=== PATIENT | female | born 1940 | race Caucasian/White ===

== ENCOUNTER → 2017-09-13 10:09 | Outpatient (CLI) | payer MEDICARE, SELFPAY ==
[2017-09-13 12:51] LABS: Erythrocyte Sedimentation Rate 12 mm/hr (0-30)
== END ==
PROVIDERS: Family Provider Internal Medicine; PCP Internal Medicine
DX: M05.79 Rheumatoid arthritis with rheumatoid factor of multiple sites without organ or systems involvement (principal); M19.071 Primary osteoarthritis, right ankle and foot; M19.072 Primary osteoarthritis, left ankle and foot; M47.9 Spondylosis, unspecified; M19.011 Primary osteoarthritis, right shoulder; M19.012 Primary osteoarthritis, left shoulder; M19.041 Primary osteoarthritis, right hand; M19.042 Primary osteoarthritis, left hand; M50.30 Other cervical disc degeneration, unspecified cervical region; Z78.0 Asymptomatic menopausal state; Z79.01 Long term (current) use of anticoagulants; Z79.52 Long term (current) use of systemic steroids; Z79.899 Other long term (current) drug therapy; R76.9 Abnormal immunological finding in serum, unspecified
CPT/HCPCS: 36415; 85652

== ENCOUNTER 2017-10-23 13:46 | Outpatient (RCR) | payer MEDICARE, SELFPAY ==
[2017-10-23 15:54] LABS: Absolute Lymphocyte Count 1.64 X10^3/ul (0.83-4.51); Absolute Neutrophil Count 7.9 X10^3/uL (2.0-7.7); Basophil# 0.03 X10^3/uL; Basophil% 0.3 % (0-1); Eosinophil# 0.11 X10^3/uL; Eosinophils% 1.1 % (0-5); Hematocrit 42.5 % (37-47); Hemoglobin 13.8 g/dl (12.0-15.0); Lymphocyte # 1.64 X10^3/ul (4.0); Lymphocyte % 15.8 % (19-41); Mean Corp Hgb Conc 32.5 g/gl (32-36); Mean Corpuscular Hgb 31.9 pg (27.0-32.0); Mean Corpuscular Volume 98.2 fL (81-99); Mean Platelet Vol. 9.5 fl (6.2-12.0); Monocyte% 6.7 % (0-10); Neutrophil # 7.89 X10^3/uL (2.7-7.7); Neutrophil % 75.8 % (47-70); Platelet Count 263 K/mm3 (150-450); RBC Distribution Width CV 14.2 % (11.6-14.6); RBC Distribution Width SD 50.7 fl (35.1-43.9); Red Blood Count 4.33 M/mm3 (4.2-5.4); White Blood Count 10.4 K/mm3 (4.4-11.0)
[2017-10-23 15:55] LABS: POSITIVE COUNT NO; POSITIVE MORPHOLOGY NO
[2017-10-23 16:28] LABS: AST(SGOT) 20 U/L (15-37); Alanine Aminotransfer ALT/SGPT 34 U/L (12-78); CRP < 2.90 mg/L (0.0-3.0); Creatinine, Serum 0.77 mg/dL (0.55-1.02); EST Glomerular Filtration Rate 78 mL/min (>60); Est Glom Filt Rate - Afr Amer 94 mL/min (>60)
[2017-10-23 16:33] LABS: Erythrocyte Sedimentation Rate 16 mm/hr (0-30)
== END 2017-10-23 13:47 | disposition home or self-care (01) ==
LOC: MTLAB 13:46
PROVIDERS: Family Provider Internal Medicine; PCP Internal Medicine
DX: M05.79 Rheumatoid arthritis with rheumatoid factor of multiple sites without organ or systems involvement (principal); M19.071 Primary osteoarthritis, right ankle and foot; M19.072 Primary osteoarthritis, left ankle and foot; M47.9 Spondylosis, unspecified; M19.011 Primary osteoarthritis, right shoulder; M19.012 Primary osteoarthritis, left shoulder; M19.041 Primary osteoarthritis, right hand; M19.042 Primary osteoarthritis, left hand; M50.30 Other cervical disc degeneration, unspecified cervical region; R76.9 Abnormal immunological finding in serum, unspecified; Z78.0 Asymptomatic menopausal state; Z79.01 Long term (current) use of anticoagulants; Z79.52 Long term (current) use of systemic steroids; Z79.899 Other long term (current) drug therapy
CPT/HCPCS: 36415; 82565; 84450; 84460; 85025; 85652; 86140

== ENCOUNTER 2017-12-15 10:15 | Outpatient (RCR) | payer MEDICARE, SELFPAY ==
[2017-12-15 12:22] LABS: Absolute Lymphocyte Count 2.33 X10^3/ul (0.83-4.51); Absolute Neutrophil Count 4.3 X10^3/uL (2.0-7.7); Basophil# 0.05 X10^3/uL; Basophil% 0.7 % (0-1); Eosinophil# 0.26 X10^3/uL; Eosinophils% 3.5 % (0-5); Hematocrit 40.6 % (37-47); Hemoglobin 13.3 g/dl (12.0-15.0); Lymphocyte # 2.33 X10^3/ul (4.0); Lymphocyte % 31.2 % (19-41); Mean Corp Hgb Conc 32.8 g/gl (32-36); Mean Corpuscular Hgb 31.6 pg (27.0-32.0); Mean Corpuscular Volume 96.4 fL (81-99); Mean Platelet Vol. 9.4 fl (6.2-12.0); Monocyte# 0.55 X10^3/uL; Monocyte% 7.4 % (0-10); Neutrophil # 4.26 X10^3/uL (2.7-7.7); Neutrophil % 56.9 % (47-70); Platelet Count 261 K/mm3 (150-450); RBC Distribution Width CV 13.5 % (11.6-14.6); RBC Distribution Width SD 46.4 fl (35.1-43.9); Red Blood Count 4.21 M/mm3 (4.2-5.4); White Blood Count 7.5 K/mm3 (4.4-11.0)
[2017-12-15 12:25] LABS: ALB/GLOB Ratio 1.3 RATIO (0.9-2.4); AST(SGOT) 26 U/L (15-37); Alanine Aminotransfer ALT/SGPT 39 U/L (13-56); Albumin, Serum 3.6 g/dL (3.2-5.0); Alkaline Phosphatase 144 U/L (45-117); Anion Gap 9 (5-15); BUN 19 mg/dL (7-18); BUN/Creat Ratio 26.1 RATIO (10-20); Calcium,Total 9.3 mg/dL (8.5-10.1); Chloride 104 mmol/L (98-107); Creatinine, Serum 0.73 mg/dL (0.55-1.02); EST Glomerular Filtration Rate 83 mL/min (>60); Est Glom Filt Rate - Afr Amer 100 mL/min (>60); Globulin 2.8 g/dL (2.2-4.2); Glucose 95 mg/dL (74-106); Potassium 4.1 mmol/L (3.5-5.1); Protein, Total 6.4 g/dL (6.4-8.2); Sodium Level 141 mmol/L (136-145)
[2017-12-15 12:54] LABS: POSITIVE COUNT NO; POSITIVE DIFFERENTIAL NO; POSITIVE MORPHOLOGY NO
[2017-12-21 03:07] LABS: QNTFERON TB Ag Minus Nil Value 0.02 IU/mL (.); QNTFERON TB Ag Value 0.04 IU/mL (.); QNTFERON TB Mitogen Value > 10.00 IU/mL (.); QNTFERON TB Nil Value 0.02 IU/mL (.)
[2017-12-21 09:22] LABS: Hepatitis Be Ab Negative (Negative); QNTIFERON TB Gold Negative (Negative)
== END 2017-12-15 11:00 | disposition home or self-care (01) ==
LOC: MTLAB 10:15
PROVIDERS: Family Provider Internal Medicine; PCP Internal Medicine
DX: G35 Multiple sclerosis (principal)
CPT/HCPCS: 36415; 80053; 85025; 86480; 86707

== ENCOUNTER → 2017-12-22 11:45 | Outpatient (CLI) | payer MEDICARE, SELFPAY ==
[2017-12-23 11:25] LABS: Hep C Antibodies <0.1 s/co ratio (0.0-0.9)
== END ==
PROVIDERS: Family Provider Internal Medicine; PCP Internal Medicine; Visit Provider Psychiatry & Neurology Neurology
DX: G35 Multiple sclerosis (principal); K75.9 Inflammatory liver disease, unspecified
CPT/HCPCS: 36415; 86803

== ENCOUNTER 2018-01-05 10:00 | Outpatient (RCR) | payer MEDICARE, SELFPAY ==
--- NOTE | 2017-11-07 14:18 | HP.PTEVAL_ITS ---
Patient's Visit Information OSBALDO VILLAVICENCIO is a 77 year old F referred to Physical Therapy by JOSIE Cano NP.LACEY with a diagnosis of falls and weakness, unsteady gait.. Date of Evaluation: 11/07/17 Physical Therapist: Bob Hardin DPT, OC - Visit Plan Frequency: 2x /Week Duration: 4-6 Weeks Plan: 2x/week for 4-6 weeks ... Please focus on LE strength and postural strength that patient can do at home, also on ec and weight shifting balance progressing to home as safety allows. Please include functional strength balance ex including steps, transfer up off floor and gait in clinic without AD for distance as well as scooting when sitting. Please include UE strength also. - Subjective Subjective: Pt says she has fallen 9 times in last two weeks, dtr says two times. dtr says she has cognitive deficits from MS and dementia. Sleeps on edge of bed so she does not have to scoot. Has bedrail now. Fell one time without walker and one time with the walker. Has rollator now which is new to her. She says she loses her strength and goes down quickly. Last fall was in [facility]room [place] [employer]. Fell the week before at home. Had UTI when they took her in. Overall strength and balance is down. Months ago had cement procedure in LB. Getting back up off the floor is a goal. Scooting is goal as she tendes to sit where she lands.. Getting up off floor. No dizzyness regularly. Hs MS and numbnes intermittently. Lives with hubby and daughter. and granddaughter. is home most of time. No steps. Does not use basement. Uses rollator and has 9 signs on the wall. Furniture walks at home. Dresses self, cooks meals, and cleans house due to safely level. Not in a while. - Pain LBP Pain Intensity (Out of 10): 0 Pain Intensity Range: 0, 7 Comment: getting up and scooting in bed - Objective Walks with rolaltor walker into PT trailing it by 2 feet. Mod I with gait and transfers.. Balance is poor without AD. Steps are slow and step to with obvious functional weakness in LE. LE strength 3 in hips, 3+ in knees adn 4- in ankles, AROM WFLS but tightness apparent in gastroc and HS and quads. Appears to be sedentarism related. reflexes 3/3 in patella and achilles. Sensation inconsistent in LE to light otuch. UE AROM wFL slightly deficits limited in elevation adn 3+ strength, not enough to protect self with fall. Pt scoots independent when requested but lazy to do it on her own. Coordination: moderate slowness to reciprocal toe tapping and L LB hurts attempting heel to green on right. VOR walking is not possible safely. - Balance Scores Functional Gait Assessment Score: 13 % Disability: 56.6700 CATSIB Score (Max score 120 seconds): 61 - Goals Goal 1:: I approp HEP at home of LE strength and balance ex to minimize future problems. Goal Time Frame: 4-6 Weeks Goal 2:: Get up off the floor the Min A of 1 Goal Time Frame: 4-6 Weeks Goal 3:: Steps reciprocally without feelign warn out. Goal Time Frame: 4-6 Weeks Goal 4:: FGA 20/30 to minimize fall risk. Goal Time Frame: 4-6 Weeks - Rehabilitation Potential Physical Therapy Diagnosis: Unsteadiness from weakness and balance deficits exacerbated by her sedentary lifestyle. Rehabilitation Potential: Fair - Anticipated Interventions Patient/Client Instruction: Educate patient on: Condition, Plan of Care For the Purpose of:: To improve muscle performance and motor function, To improve ability to perform ADL's, To improve ability of physical actions for home/community/work/leisure, To improve gait and locomotor functions Therapeutic Exercise to Include: Strength training, Postural training, Gait and locomotor training, Active ROM, Scapular Strength/Stabilization For the Purpose of:: To increase oxygenation perfusion, To improve muscle performance and motor function, To improve ability to perform ADL's, To improve ability of physical actions for home/community/work/leisure, To improve gait and locomotor functions Thank you for the opportunity to evaluate your patient. For Medicare and Medicare HMO plans, please review the plan of care and approve it. It will need to be FAXED BACK to us at [phone] for Medicare purposes. Please let me know if there are questions or concerns regarding this plan of care. Physician Signature: Date:
--- NOTE | 2017-12-07 14:14 | HP.PTREVAL_ITS ---
Cuca Wadsworth, JOSIE, LENI It has been my pleasure to treat OSBALDO VILLAVICENCIO over the last 8 visits for falls and weakness, unsteady gait.. Please see the progress note below for an update on the physical therapy plan of care! Subjective: feel much better. Back does not hurt as much. Fallen last time a couple weeks ago. Dtr says not using wh walker all the time. Getting around better overall. Not falling as much. Doing some exercises at home on non therapy days. Dtr says gait is better and not as unsteady. Progress is up and down. Dtr thinks cognitive issues keep her from moving at home, sits at dining room table all day. Objective/Function: +4 on FGA. Dtr amazed at how patient ambulates in PT. Steps reciprocal up with one rail, two rails to descend step -to. No complaints of pain through time in here. OVERALL MUCH IMPROVEMENT. APPROPRIATE TO CONTINUE. Plan Plan: 2X/WEEK X 4 FOR... PT TO DO COUNTER EXERCISES AT HOME WITH FAMILYS ENCOURAGEMENT. PLEASE FOCUS IN PT ON GAIT WITH CHALLENGES(TURNS, BENDS, STEPS) AND TRANSFER ONTO AND OFF FLOOR. Goals Goal 1:: I approp HEP at home of LE strength and balance ex to minimize future problems. Goal Time Frame: 4-6 Weeks Goal Progress: cognitive. Goal 2:: Get up off the floor the Min A of 1 Goal Time Frame: 4-6 Weeks Goal Progress: Goal Met Goal 3:: Steps reciprocally without feelign warn out. Goal Time Frame: 4-6 Weeks Goal Progress: Goal Met Goal 4:: FGA 20/30 to minimize fall risk. Goal Time Frame: 4-6 Weeks Goal Progress: Progressing Anticipated Interventions Patient/Client Instruction: Educate patient on: Condition, Plan of Care For the Purpose of:: To improve muscle performance and motor function, To improve ability to perform ADL's, To improve ability of physical actions for home/community/work/leisure, To improve gait and locomotor functions Therapeutic Exercise to Include: Strength training, Postural training, Gait and locomotor training, Active ROM, Scapular Strength/Stabilization For the Purpose of:: To increase oxygenation perfusion, To improve muscle performance and motor function, To improve ability to perform ADL's, To improve ability of physical actions for home/community/work/leisure, To improve gait and locomotor functions Please do not hesitate to contact me at [phone] by phone or Fax: if you have questions or concerns regarding this new plan of care! Sincerely, Bob Hardin, DPT, OC
--- NOTE | 2018-01-05 11:59 | HP.PTREVAL_ITS ---
Cuca Wadsworth, JOSIE, LENI It has been my pleasure to treat OSBALDO VILLAVICENCIO over the last 16 visits for falls and weakness, unsteady gait.. Please see the progress note below for an update on the physical therapy plan of care! Subjective: Got up off floor today without help. Back still hurts with walking. 04/24. gone with sitting down. HEP a little bit at home. Getting more active lately according to . Legs haven't felt wobbly lately. Objective/Function: Transfer sit to stand I with UE. Steps reciprocal with rail. Needed cues today for step length during FGA but otherwise did well. Dragged feet at times without cues. Plan Plan: f/u three weeks to check FGA, pain with gait and ensure consistently meeting goals. Pt to contact doctor prior regarding back pain with walking. Goals Goal 1:: I approp HEP at home of LE strength and balance ex to minimize future problems. Goal Time Frame: 4-6 Weeks Goal Progress: Goal Met Goal 2:: Get up off the floor the Min A of 1 Goal Time Frame: 4-6 Weeks Goal Progress: Goal Met Goal 3:: Steps reciprocally without feelign warn out. Goal Time Frame: 4-6 Weeks Goal Progress: Goal Met Goal 4:: FGA 20/30 to minimize fall risk. Goal Time Frame: 4-6 Weeks Goal Progress: with VC Goal 5:: Pt able to continue improvement and maintain gait and balance with ehr MS over the next 3 weeks Goal Time Frame: 3 weeks Goal Progress: NEW GOAL Anticipated Interventions Patient/Client Instruction: Educate patient on: Condition, Plan of Care For the Purpose of:: To improve muscle performance and motor function, To improve ability to perform ADL's, To improve ability of physical actions for home/community/work/leisure, To improve gait and locomotor functions Therapeutic Exercise to Include: Strength training, Postural training, Gait and locomotor training, Active ROM, Scapular Strength/Stabilization For the Purpose of:: To increase oxygenation perfusion, To improve muscle performance and motor function, To improve ability to perform ADL's, To improve ability of physical actions for home/community/work/leisure, To improve gait and locomotor functions Please do not hesitate to contact me at [phone] by phone or Fax: if you have questions or concerns regarding this new plan of care! Sincerely, Bob Hardin, DPT, OC
--- NOTE | 2018-04-09 15:21 | HP.PT.NRP ---
HP - Discharge Summary (1) - Patient Information OSBALDO VILLAVICENCIO was seen in my office for initial evaluation on 11/07/17. The following Plan of Care was established for this patient: Initial Frequency: 2x /Week Initial Duration: 4-6 Weeks - Anticipated Interventions Patient/Client Instruction: Educate patient on: Condition, Plan of Care For the Purpose of:: To improve muscle performance and motor function, To improve ability to perform ADL's, To improve ability of physical actions for home/community/work/leisure, To improve gait and locomotor functions Therapeutic Exercise to Include: Strength training, Postural training, Gait and locomotor training, Active ROM, Scapular Strength/Stabilization For the Purpose of:: To increase oxygenation perfusion, To improve muscle performance and motor function, To improve ability to perform ADL's, To improve ability of physical actions for home/community/work/leisure, To improve gait and locomotor functions This patient was last seen in our office 01/05/18. Pertinent comments regarding their Physical therapy will appear below: Pt seen 16 visits. she was doing well and was to f/u three weeks after her last visit to ensure continued progression via HEP. She was to f/u with her doctor regarding her back pain. She did not schedule or attend her PT f/u. At this point, it has been over 3 months and I will disocontinue due to nonattendance. At this point I will be discontinuing this patient from physical therapy. I would be happy to see this patient again in the future if found appropriate by the physician. Thank you! Bob Hardin, DPT, OC
== END 2018-01-05 19:00 | disposition home or self-care (01) ==
LOC: PT 10:00
PROVIDERS: Family Provider Internal Medicine; PCP Internal Medicine; Visit Provider Nurse Practitioner Gerontology
DX: R53.1 Weakness (principal); R26.81 Unsteadiness on feet; W19.XXXD Unspecified fall, subsequent encounter; G35 Multiple sclerosis; K75.9 Inflammatory liver disease, unspecified
CPT/HCPCS: 36415; 86803; 97110; 97116; 97163; 97530

== ENCOUNTER → 2018-02-19 11:56 | Outpatient (CLI) | payer MEDICARE, SELFPAY ==
[2018-02-19 14:06] LABS: Erythrocyte Sedimentation Rate 18 mm/hr (0-30)
[2018-02-19 14:08] LABS: Absolute Lymphocyte Count 2.07 X10^3/ul (0.83-4.51); Absolute Neutrophil Count 5.3 X10^3/uL (2.0-7.7); Basophil# 0.04 X10^3/uL; Basophil% 0.5 % (0-1); Eosinophil# 0.19 X10^3/uL; Eosinophils% 2.3 % (0-5); Hematocrit 43.5 % (37-47); Hemoglobin 14.2 g/dl (12.0-15.0); Lymphocyte # 2.07 X10^3/ul (4.0); Lymphocyte % 24.7 % (19-41); Mean Corp Hgb Conc 32.6 g/gl (32-36); Mean Corpuscular Hgb 31.1 pg (27.0-32.0); Mean Corpuscular Volume 95.2 fL (81-99); Mean Platelet Vol. 9.3 fl (6.2-12.0); Monocyte# 0.74 X10^3/uL; Monocyte% 8.8 % (0-10); Neutrophil # 5.33 X10^3/uL (2.7-7.7); Neutrophil % 63.6 % (47-70); POSITIVE COUNT NO; POSITIVE DIFFERENTIAL NO; POSITIVE MORPHOLOGY NO; Platelet Count 244 K/mm3 (150-450); RBC Distribution Width CV 13.8 % (11.6-14.6); RBC Distribution Width SD 47.2 fl (35.1-43.9); Red Blood Count 4.57 M/mm3 (4.2-5.4); White Blood Count 8.4 K/mm3 (4.4-11.0)
[2018-02-19 14:36] LABS: AST(SGOT) 23 U/L (15-37); Alanine Aminotransfer ALT/SGPT 36 U/L (13-56); CRP < 2.90 mg/L (0.0-3.0); Creatinine, Serum 0.86 mg/dL (0.55-1.02); EST Glomerular Filtration Rate 68 mL/min (>60); Est Glom Filt Rate - Afr Amer 83 mL/min (>60)
== END ==
PROVIDERS: Family Provider Internal Medicine; PCP Internal Medicine
DX: M05.79 Rheumatoid arthritis with rheumatoid factor of multiple sites without organ or systems involvement (principal); M19.071 Primary osteoarthritis, right ankle and foot; M19.072 Primary osteoarthritis, left ankle and foot; M47.9 Spondylosis, unspecified; M19.011 Primary osteoarthritis, right shoulder; M19.012 Primary osteoarthritis, left shoulder; M19.041 Primary osteoarthritis, right hand; M19.042 Primary osteoarthritis, left hand; M50.30 Other cervical disc degeneration, unspecified cervical region; Z78.0 Asymptomatic menopausal state; Z79.01 Long term (current) use of anticoagulants; Z79.52 Long term (current) use of systemic steroids; Z79.899 Other long term (current) drug therapy; R76.9 Abnormal immunological finding in serum, unspecified
CPT/HCPCS: 36415; 82565; 84450; 84460; 85025; 85652; 86140

== ENCOUNTER → 2018-02-22 10:11 | Outpatient (CLI) | payer MEDICARE, SELFPAY ==
--- NOTE | 2018-02-22 10:14 | BI_ITS ---
MAMMOGRAPHY - BILATERAL SCREENING REASON FOR EXAM: Female, 78 years old. Routine annual screening examination. PERTINENT HISTORY: Non-contributory. TECHNIQUE: Digital bilateral breast elfego (3D mammographic acquisition) in the CC and MLO projections. 2-D mediolateral oblique (MLO) and craniocaudad (CC) views of both breasts were obtained. CAD: Full Field Digital Mammography with Computer Added Detection was performed. COMPARISON: Comparison is made with prior study dated February 16, 2017 and February 16, 2016. FINDINGS: Breast Composition: There are scattered areas of fibroglandular density. There are no dominant masses or suspicious calcifications. No other significant abnormalities are identified. There has been no significant change since the prior study. BI/SCREENING MAMM (CAD), BILAT IMPRESSION: Stable bilateral screening mammogram. Yearly follow-up mammogram recommended. (A) ASSESSMENT CATEGORY: BIRADS Category 1: Negative. A letter regarding these results will be sent to the patient by the facility within 30 days. Approximately 10% of breast cancers are not detected by mammography. A normal mammogram should not delay biopsy of a clinically suspicious abnormality. [id number] Electronically Signed: Abelardo Eduardo MD at 15:47 EDT Tel [phone], Service support ,
== END ==
PROVIDERS: Family Provider Internal Medicine; PCP Internal Medicine; Visit Provider Internal Medicine
DX: Z12.31 Encounter for screening mammogram for malignant neoplasm of breast (principal)
CPT/HCPCS: 77063; 77067

== ENCOUNTER → 2018-03-01 08:44 | Outpatient (CLI) | payer MEDICARE, SELFPAY ==
[2018-03-01 08:52] VITALS: BP 134/83; PULSE 66; RESP 18; TEMP 35.8; O2SAT 93; BMI 33.3
[2018-03-01] MEDS: MethylPREDNISolone 125 MG/2 ML Vial 100 MG IV (09:11)
[2018-03-01] MEDS: DiphenhydrAMINE 50 MG/ML Syringe 25 MG IV (09:11)
[2018-03-01 10:25] VITALS: BP 126/61; PULSE 60; RESP 18; TEMP 36.4; O2SAT 96
[2018-03-01 10:55] VITALS: BP 139/75; PULSE 62; RESP 16; TEMP 36.1
[2018-03-01 11:30] VITALS: BP 144/93; PULSE 68; RESP 18; TEMP 35.9; O2SAT 97
[2018-03-01 12:00] VITALS: BP 148/86; PULSE 69; RESP 18; TEMP 35.8; O2SAT 96
[2018-03-01 13:45] VITALS: BP 133/62; PULSE 79; RESP 18; TEMP 36.6; O2SAT 93
== END ==
PROVIDERS: Family Provider Internal Medicine; PCP Internal Medicine; Visit Provider Psychiatry & Neurology Neurology
DX: G35 Multiple sclerosis (principal)
CPT/HCPCS: 96365; 96366 ×2; 96374; 96375; J7040; J7050; A4216; J2350

== ENCOUNTER → 2018-03-15 09:11 | Outpatient (CLI) | payer MEDICARE, SELFPAY ==
[2018-03-15] VITALS (7 sets, daily range): BP systolic 133–149; BP diastolic 72–80; PULSE 57–75; RESP 16–18; TEMP 35.7–36.1; O2SAT 94–96; BMI 33.4
[2018-03-15] MEDS: DiphenhydrAMINE 50 MG/ML Syringe 25 MG IV (09:19)
[2018-03-15] MEDS: MethylPREDNISolone 125 MG/2 ML Vial 100 MG IV (09:24)
== END ==
PROVIDERS: Family Provider Internal Medicine; PCP Internal Medicine; Visit Provider Psychiatry & Neurology Neurology
DX: G35 Multiple sclerosis (principal)
CPT/HCPCS: 96365; 96366 ×2; 96374; 96375; J7050; J2350

== ENCOUNTER → 2018-04-23 11:28 | Outpatient (CLI) | payer MEDICARE, SELFPAY ==
[2018-04-23 14:04] LABS: Hematocrit 41.9 % (37-47); Mean Corp Hgb Conc 33.4 g/gl (32-36); Mean Corpuscular Hgb 32.4 pg (27.0-32.0); Mean Platelet Vol. 9.9 fl (6.2-12.0); Platelet Count 282 K/mm3 (150-450); RBC Distribution Width CV 15.2 % (11.6-14.6); RBC Distribution Width SD 51.4 fl (35.1-43.9); Red Blood Count 4.32 M/mm3 (4.2-5.4); White Blood Count 7.7 K/mm3 (4.4-11.0)
[2018-04-23 14:06] LABS: Erythrocyte Sedimentation Rate 10 mm/hr (0-30)
[2018-04-23 14:07] LABS: Scan Indicated on CBC? Y/N NO
[2018-04-23 14:12] LABS: AST(SGOT) 21 U/L (15-37); Alanine Aminotransfer ALT/SGPT 28 U/L (13-56); CRP < 2.90 mg/L (0.0-3.0); Creatinine, Serum 0.86 mg/dL (0.55-1.02); EST Glomerular Filtration Rate 68 mL/min (>60); Est Glom Filt Rate - Afr Amer 83 mL/min (>60)
== END ==
PROVIDERS: Family Provider Internal Medicine; PCP Internal Medicine; Visit Provider Internal Medicine Rheumatology
DX: M05.79 Rheumatoid arthritis with rheumatoid factor of multiple sites without organ or systems involvement (principal); M19.071 Primary osteoarthritis, right ankle and foot; M19.072 Primary osteoarthritis, left ankle and foot; M47.9 Spondylosis, unspecified; M19.011 Primary osteoarthritis, right shoulder; M19.012 Primary osteoarthritis, left shoulder; M19.041 Primary osteoarthritis, right hand; M19.042 Primary osteoarthritis, left hand; M50.30 Other cervical disc degeneration, unspecified cervical region; Z78.0 Asymptomatic menopausal state; Z79.01 Long term (current) use of anticoagulants; Z79.52 Long term (current) use of systemic steroids; Z79.899 Other long term (current) drug therapy; R76.9 Abnormal immunological finding in serum, unspecified
CPT/HCPCS: 36415; 82565; 84450; 84460; 85027; 85652; 86140

== ENCOUNTER → 2018-06-21 15:12 | Outpatient (CLI) | payer MEDICARE, SELFPAY ==
[2018-06-21 17:44] LABS: Hematocrit 40.8 % (37-47); Hemoglobin 13.6 g/dl (12.0-15.0); Mean Corp Hgb Conc 33.3 g/gl (32-36); Mean Corpuscular Hgb 32.5 pg (27.0-32.0); Mean Corpuscular Volume 97.4 fL (81-99); Mean Platelet Vol. 10.1 fl (6.2-12.0); Platelet Count 283 K/mm3 (150-450); RBC Distribution Width CV 13.9 % (11.6-14.6); RBC Distribution Width SD 48.1 fl (35.1-43.9); Red Blood Count 4.19 M/mm3 (4.2-5.4); White Blood Count 9.9 K/mm3 (4.4-11.0)
[2018-06-21 17:52] LABS: AST(SGOT) 20 U/L (15-37); Alanine Aminotransfer ALT/SGPT 28 U/L (13-56); CRP 2.98 mg/L (0.0-3.0); Creatinine, Serum 0.88 mg/dL (0.55-1.02); EST Glomerular Filtration Rate 66 mL/min (>60); Est Glom Filt Rate - Afr Amer 80 mL/min (>60)
[2018-06-21 18:04] LABS: Scan Indicated on CBC? Y/N NO
[2018-06-21 19:40] LABS: Erythrocyte Sedimentation Rate 3 mm/hr (0-30)
== END ==
PROVIDERS: Family Provider Internal Medicine; PCP Internal Medicine; Visit Provider Internal Medicine Rheumatology
DX: M05.79 Rheumatoid arthritis with rheumatoid factor of multiple sites without organ or systems involvement (principal); Z79.899 Other long term (current) drug therapy
CPT/HCPCS: 36415; 82565; 84450; 84460; 85027; 85652; 86140

== ENCOUNTER 2018-08-15 10:43 | Emergency (ER) | payer MEDICARE, SELFPAY ==
[2018-08-15] VITALS (8 sets, daily range): BP systolic 119–156; BP diastolic 63–100; PULSE 59–72; RESP 14–18; TEMP 36.6; O2SAT 95–98; BMI 34.3
--- NOTE | 2018-08-15 10:55 | ED.RN ---
FAMILY STATES PT ADMITTED THIS AM TO BE VERY VERY DEPRESSED.PT FATHER COMMITTED SUICIDE
--- NOTE | 2018-08-15 11:23 | CT_ITS ---
STUDY: CT BRAIN WITHOUT CONTRAST REASON FOR EXAM: Female, 78 years old. Dementia. Mental status changes. RADIATION DOSAGE (If Supplied By Facility): CTDIvol = ( 44.99 ) mGy, DLP = ( 762.36 ) mGycm TECHNIQUE: Transaxial CT imaging of the brain was performed without administration of intravenous contrast material. Individualized dose optimization techniques were used for this CT. COMPARISON: None. FINDINGS: Normal soft tissue structures. Normal calvarium. There is moderate cerebral atrophy with widening of the extra-axial spaces and ventricular dilatation. There are areas of decreased attenuation within the white matter tracts of the supratentorial brain, consistent with microvascular disease changes. Normal basal ganglia and thalami. Normal brainstem. There is mild cerebellar atrophy. There is no intracranial hemorrhage. There are no findings of an acute ischemic infarction. Atherosclerotic calcification of the vertebral arteries and cavernous portions of the internal carotid arteries bilaterally. Normal visualized paranasal sinuses. CT/Brain/Head without Contrast IMPRESSION: Chronic involutional changes of the brain. Electronically Signed: Abelardo Eduardo MD at 12:52 EDT Tel [phone], Service support ,
--- NOTE | 2018-08-15 11:27 | ED.VISSUMM ---
- ER Visit Summary Date of Service: 08/15/18 Chief Complaint: Depression History of Present Illness: The patient is a 78 F history of dementia, CAD, long-standing history of MS and on blood thinners for PEs. Patient's recently been depressed. She left a note for family last night that she denies being suicidal or good by no acute family is concerned. The patient's father did commit suicide many years ago. She is never been under psychiatric care. She is on an antidepressant. She is never needed to be hospitalized for depression or prior suicide attempt. She herself denies being suicidal. Physical Examination: Older female no acute distress. Vital signs are stable. She is afebrile. She does not look septic or toxic she is in no distress. Her and both daughters are at bedside. HEENT exam unremarkable. Neck nontender. No JVD. Lungs clear to auscultation bilaterally. Heart regular rhythm no murmur. Abdomen is soft and nontender. Normal bowel sounds no peritoneal signs. She is moving all 4 extremities. They are neurovascularly intact. She has 5 out of 5 loss prevention auditor strength. Dorsi plantar flexion intact. Neurologically she is awake and alert. She has normal speech. She is able to answering questions. She has no facial droop. No motor loss. No focal motor deficits. Test Results: I me. CBC unremarkable with a white count of 5 and a normal hemoglobin. Chemistries normal. With a normal creatinine and gap. UA negative. Tox screen and alcohol level negative. CT of the brain shows no acute abnormality. Chronic changes. Reviewed by me read by the radiologist. Emergency Department Course and Treatment: Older female with depression. Will undergo screening labs and a crisis evaluation. I have already discussed with the family at length in the hallway that most likely she will need follow-up and will not require admission. Treatment Plan: Belinda from crisis evaluate the patient and is going to try to get her admitted to a geriatric psychiatric facility. Disposition: Transfer Impression: Acute depression History of dementia and MS This note was generated with [employer] dictation software. It may contain incorrect words, spelling, and punctuation that were not noted in review of the chart prior to signing ED Disposition - Plan for ED Patient: Chief Complaint: Mental Health Referrals: Zofia Horton DO [Primary Care Provider] -
--- NOTE | 2018-08-15 11:30 | ED.DCSUM_ITS ---
- ER Visit Summary Date of Service: 08/15/18 Chief Complaint: Depression History of Present Illness: The patient is a 78 F history of dementia, CAD, long-standing history of MS and on blood thinners for PEs. Patient's recently been depressed. She left a note for family last night that she denies being balta cidal or good by no acute family is concerned. The patient's father did commit suicide many years ago. She is never been under psychiatric care. She is on an antidepressant. She is never needed to be hospitalized for depression or prior suicide attempt. She herself denies being suicidal. Physical Examination: Older female no acute distress. Vital signs are stable. She is afebrile. She does not look septic or toxic she is in no distress. Her and both daughters are at bedside. HEENT exam unremarkable. Neck nontender. No JVD. Lungs clear to auscultation bilaterally. Heart regular rhythm no murmur. Abdomen is soft and nontender. Normal bowel sounds no peritoneal signs. She is moving all 4 extremities. They are neurovascularly intact. She has 5 out of 5 marketing outreach coordinator strength. Dorsi plantar flexion intact. Neurologically she is awake and alert. She has normal speech. She is able to answering questions. She has no facial droop. No motor loss. No focal motor deficits. Test Results: I me. CBC unremarkable with a white count of 5 and a normal hemoglobin. Chemistries normal. With a normal creatinine and gap. UA negative . Tox screen and alcohol level negative. CT of the brain shows no acute abnormality. Chronic changes. Reviewed by me read by the radiologist. Emergency Department Course and Treatment: Older female with depression. Will undergo screening labs and a crisis evaluation. I have already discussed with the family at length in the hallway that most likely she will need follow-up and will not require admission. Treatment Plan: Belinda from crisis evaluate the patient and is going to try to get her admitted to a geriatric psychiatric facility. Disposition: Transfer Impression: Acute depression History of dementia and MS This note was generated with [employer] dictation software. It may contain incorrect words, spelling, and punctuation that were not noted in review of the chart prior to signing ED Disposition - Plan for ED Patient: Chief Complaint: Mental Health Referrals: Zofia Horton DO [Primary Care Provider] -
[2018-08-15 12:02] LABS: Absolute Lymphocyte Count 1.26 X10^3/ul (0.83-4.51); Absolute Neutrophil Count 3.9 X10^3/uL (2.0-7.7); Basophil# 0.06 X10^3/uL; Eosinophil# 0.18 X10^3/uL; Eosinophils% 3.1 % (0-5); Hematocrit 42.1 % (37-47); Lymphocyte # 1.26 X10^3/ul (4.0); Lymphocyte % 21.4 % (19-41); Mean Corp Hgb Conc 33.3 g/gl (32-36); Mean Corpuscular Hgb 32.3 pg (27.0-32.0); Mean Platelet Vol. 9.7 fl (6.2-12.0); Monocyte# 0.51 X10^3/uL; Monocyte% 8.6 % (0-10); Neutrophil # 3.87 X10^3/uL (2.7-7.7); Neutrophil % 65.6 % (47-70); POSITIVE DIFFERENTIAL NO; Platelet Count 256 K/mm3 (150-450); RBC Distribution Width CV 14.2 % (11.6-14.6); RBC Distribution Width SD 48.6 fl (35.1-43.9); Red Blood Count 4.34 M/mm3 (4.2-5.4); White Blood Count 5.9 K/mm3 (4.4-11.0)
[2018-08-15 12:03] LABS: POSITIVE COUNT NO; POSITIVE MORPHOLOGY NO
[2018-08-15 12:13] LABS: Anion Gap 8 (5-15); BUN 24 mg/dL (7-18); BUN/Creat Ratio 26.7 RATIO (10-20); Calcium,Total 9.7 mg/dL (8.5-10.1); Chloride 103 mmol/L (98-107); EST Glomerular Filtration Rate 65 mL/min (>60); Est Glom Filt Rate - Afr Amer 78 mL/min (>60); Estimated Creatinine Clearance 45.92 ml/min; Glucose 100 mg/dL (74-106); Potassium 4.1 mmol/L (3.5-5.1); Sodium Level 141 mmol/L (136-145)
[2018-08-15 12:22] LABS: Bacteria 0 SEEN /hpf (None Seen); Mucous, Urine 0 SEEN /hpf (<or=2+); Red Blood Cells-Urine 0 SEEN /hpf (0-5); Squamous Epithelial Cells - UA 0 SEEN /hpf (5-10); White Blood Cells 0 SEEN /hpf (0-5)
[2018-08-15 12:23] LABS: Color, Urine Yellow (Yellow); Glucose, Dipstick Normal (Normal); Ketone-Dipstick Negative (Negative); Leukocyte Esterase-Dipstick 100 /ul (Negative); Nitrite-Dipstick Positive (Negative); Occult Blood-Urine Negative /ul (Negative); Protein-Dipstick Negative (Negative); Urine Bilirubin Dipstick Negative (Negative); Urine Clarity Clear (Clear); Urine Urobilinogen Normal (Normal)
--- NOTE | 2018-08-15 12:47 | ED.RN ---
TANISHA WITH CRISIS I HAVE A FEW THINGS TO DO, THEN I WILL BE BACK TO SEE THE PATIENT
[2018-08-15 13:28] LABS: Amphetamine Urine VISTA NEGATIVE (<1000 ng/mL); Barbiturate Urine VISTA NEGATIVE (< 200 ng/mL); Benzodiazepine Urine VISTA NEGATIVE (< 200 ng/mL); Cocaine Urine VISTA NEGATIVE (< 300 ng/mL); Ecstacy Urine VISTA NEGATIVE (< 500 ng/mL); Methadone Urine VISTA NEGATIVE (< 300 ng/mL); PCP Urine VISTA NEGATIVE (< 25 ng/mL); THC Urine VISTA NEGATIVE (< 50 ng/mL); Vista UDS pH Range 7
--- NOTE | 2018-08-15 13:30 | NURSING ---
TANISHA, CRISIS, HERE
--- NOTE | 2018-08-15 16:44 | NURSING ---
DIEGO GUSTAFSON, CALLED. PATIENT'S INSURANCE IS OUT OF NETWORK. LETTING CRISIS KNOW
--- NOTE | 2018-08-15 19:39 | EKG12_ITS ---
[place] Reason : [facility] [place] : / mmHG Vent. Rate : 059 BPM Atrial Rate : 059 BPM P-R Int : 180 ms QRS Dur : 082 ms QT Int : 424 ms P-R-T Axes : 047 016 046 degrees QTc Int : 419 ms Sinus bradycardia Low voltage QRS Cannot rule out Inferior infarct , age undetermined Abnormal ECG Confirmed by JUAN LUIS SEWELL, BRAYAN ([id number]), online editor NURYS NICOLE ([id number]) on 08/22/2018 2:20:15 PM Referred By: DR ARAUJO Confirmed By:BRAYAN MCKNIGHT MD
--- NOTE | 2018-08-15 20:06 | NURSING ---
[facility] CALLED @1999
== END 2018-08-15 20:27 ==
LOC: ED 11:45
PROVIDERS: Emergency Provider Emergency Medicine; Family Provider Internal Medicine; PCP Internal Medicine
DX: F32.9 Major depressive disorder, single episode, unspecified (principal); F03.90 Unspecified dementia, unspecified severity, without behavioral disturbance, psychotic disturbance, mood disturbance, and anxiety; G35 Multiple sclerosis; I25.10 Atherosclerotic heart disease of native coronary artery without angina pectoris; E78.00 Pure hypercholesterolemia, unspecified; I10 Essential (primary) hypertension; Z86.711 Personal history of pulmonary embolism; Z79.01 Long term (current) use of anticoagulants; Z79.899 Other long term (current) drug therapy
CPT/HCPCS: 36415; 70450; 80048; 80307; 80320; 81001; 85025; 93005; 99284; G0480

== ENCOUNTER → 2018-08-20 10:32 | Outpatient (CLI) | payer MEDICARE, SELFPAY ==
[2018-08-20 12:44] LABS: Absolute Lymphocyte Count 1.49 X10^3/ul (0.83-4.51); Absolute Neutrophil Count 3.1 X10^3/uL (2.0-7.7); Basophil# 0.03 X10^3/uL; Basophil% 0.5 % (0-1); Eosinophil# 0.22 X10^3/uL; Hematocrit 40.9 % (37-47); Hemoglobin 13.5 g/dl (12.0-15.0); Lymphocyte # 1.49 X10^3/ul (4.0); Lymphocyte % 27.1 % (19-41); Mean Corpuscular Hgb 32.1 pg (27.0-32.0); Mean Corpuscular Volume 97.1 fL (81-99); Mean Platelet Vol. 10.1 fl (6.2-12.0); Monocyte# 0.65 X10^3/uL; Monocyte% 11.8 % (0-10); Neutrophil # 3.09 X10^3/uL (2.7-7.7); Neutrophil % 56.4 % (47-70); Platelet Count 249 K/mm3 (150-450); RBC Distribution Width CV 14.3 % (11.6-14.6); RBC Distribution Width SD 48.8 fl (35.1-43.9); Red Blood Count 4.21 M/mm3 (4.2-5.4); White Blood Count 5.5 K/mm3 (4.4-11.0)
[2018-08-20 12:48] LABS: POSITIVE COUNT NO; POSITIVE DIFFERENTIAL NO; POSITIVE MORPHOLOGY NO
[2018-08-20 13:07] LABS: Erythrocyte Sedimentation Rate 11 mm/hr (0-30)
[2018-08-20 13:11] LABS: Vitamin B12 764 pg/mL (211-911); Vitamin D,25 Hydroxy 31.5 ng/mL (29.95-100.01)
[2018-08-20 13:17] LABS: ALB/GLOB Ratio 1.2 RATIO (0.9-2.4); AST(SGOT) 16 U/L (15-37); Alanine Aminotransfer ALT/SGPT 25 U/L (13-56); Albumin, Serum 3.6 g/dL (3.2-5.0); Alkaline Phosphatase 95 U/L (45-117); Anion Gap 11 (5-15); BUN 23 mg/dL (7-18); BUN/Creat Ratio 29.5 RATIO (10-20); CRP < 2.90 mg/L (0.0-3.0); Chloride 105 mmol/L (98-107); Creatinine, Serum 0.78 mg/dL (0.55-1.02); EST Glomerular Filtration Rate 76 mL/min (>60); Est Glom Filt Rate - Afr Amer 92 mL/min (>60); Glucose 90 mg/dL (74-106); Potassium 4.1 mmol/L (3.5-5.1); Protein, Total 6.6 g/dL (6.4-8.2); Sodium Level 143 mmol/L (136-145); Thyroid Stim Hormone (TSH) 1.48 uIU/mL (0.358-3.74)
== END ==
PROVIDERS: Family Provider Internal Medicine; PCP Internal Medicine; Referring Provider Internal Medicine Rheumatology; Visit Provider Internal Medicine Rheumatology
DX: E55.9 Vitamin D deficiency, unspecified (principal); E53.8 Deficiency of other specified B group vitamins; R73.02 Impaired glucose tolerance (oral); M05.79 Rheumatoid arthritis with rheumatoid factor of multiple sites without organ or systems involvement; Z79.899 Other long term (current) drug therapy
CPT/HCPCS: 36415; 80053; 81001; 82043; 82306; 82570; 82607; 84443; 85025; 85652; 86140

== ENCOUNTER → 2018-09-03 08:29 | Outpatient (CLI) | payer MEDICARE, SELFPAY ==
[2018-08-15 10:46] VITALS: BMI 34.3
[2018-09-03] VITALS (8 sets, daily range): BP systolic 113–139; BP diastolic 52–76; PULSE 58–69; RESP 16–18; TEMP 36.2–37.1; O2SAT 94–98; BMI 34.1
[2018-09-03] MEDS: MethylPREDNISolone 125 MG/2 ML Vial 100 MG IV (08:59)
[2018-09-03] MEDS: DiphenhydrAMINE 50 MG/ML Syringe 25 MG IV (09:00)
[2018-09-03] MEDS: Ocrelizumab 600mg Infusion 40 MG IV (10:02)
== END ==
PROVIDERS: Family Provider Internal Medicine; PCP Internal Medicine; Visit Provider Psychiatry & Neurology Neurology
DX: G35 Multiple sclerosis (principal)
CPT/HCPCS: 96365; 96366 ×3; 96374; 96375; J7040; J7050; A4216; J2350

== ENCOUNTER → 2018-09-07 10:45 | Outpatient (CLI) | payer MEDICARE, SELFPAY ==
[2018-09-03 09:03] VITALS: BMI 34.1
--- NOTE | 2018-09-07 11:30 | MRI_ITS ---
STUDY: MRI BRAIN WITH AND WITHOUT CONTRAST REASON FOR EXAM: Female, 78 years old. Multiple sclerosis follow-up TECHNIQUE: Standardized multiplanar fat and water weighted pulse sequences were obtained. 10 ml of Gadavist contrast material was administered intravenously for the contrast portion of the examination. COMPARISON: February 15, 2017 FINDINGS: Moderate atrophy and advanced periventricular white matter disease with involvement of the corpus callosum and may be consistent with clinical history of multiple sclerosis. Cannot definitively exclude coexisting deep white matter ischemic changes. There is no evidence for acute infarct.. Normal bilateral basal ganglia. Normal thalami. There is no extra-axial fluid accumulation. Normal flow voids within the major intracranial circulation suggesting patency by spin echo criteria. Normal venous enhancement. There is a small dural based enhancing nodule in the left frontal lobe in the parasagittal region consistent with small meningioma. There are no enhancing plaques to suggest acute demyelination Normal sella turcica, pituitary gland, infundibular stalk, optic chiasm and hypothalamus. Normal tectal plate and pineal gland. Normal midbrain, ale and medulla. Normal cerebellum. Normal basal cisterns. Normal bilateral temporal bones. Normal bilateral internal auditory canals. Postsurgical changes of the orbits.. There is minor mucosal thickening of the ethmoid air cells. Normal calvarium and skull base. Normal visualized soft tissue structures. Normal visualized upper cervical spine. No significant change since prior study MRI/Brain W/WO Contrast IMPRESSION: Findings consistent with advanced white matter disease consistent with clinical history of multiple sclerosis stable since prior exam without evidence for demyelinating plaque.. Cannot definitively exclude coexisting periventricular white matter ischemic changes in patient of this age. There is however no evidence for acute infarct. 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
== END ==
PROVIDERS: Family Provider Internal Medicine; PCP Internal Medicine; Referring Provider Psychiatry & Neurology Neurology; Visit Provider Psychiatry & Neurology Neurology
DX: G35 Multiple sclerosis (principal)
CPT/HCPCS: 70553; A9585

== ENCOUNTER 2018-10-19 11:58 | Outpatient (RCR) | payer MEDICARE, SELFPAY ==
[2018-09-03 09:03] VITALS: BMI 34.1
[2018-10-19 14:25] LABS: AST(SGOT) 24 U/L (15-37); Alanine Aminotransfer ALT/SGPT 42 U/L (13-56); CRP < 2.90 mg/L (0.0-3.0); Creatinine, Serum 0.74 mg/dL (0.55-1.02); EST Glomerular Filtration Rate 81 mL/min (>60); Est Glom Filt Rate - Afr Amer 98 mL/min (>60)
[2018-10-19 14:34] LABS: Absolute Lymphocyte Count 1.72 X10^3/ul (0.83-4.51); Absolute Neutrophil Count 4.9 X10^3/uL (2.0-7.7); Basophil# 0.04 X10^3/uL; Basophil% 0.5 % (0-1); Eosinophil# 0.32 X10^3/uL; Eosinophils% 4.2 % (0-5); Hematocrit 41.1 % (37-47); Hemoglobin 13.5 g/dl (12.0-15.0); Lymphocyte # 1.72 X10^3/ul (4.0); Lymphocyte % 22.6 % (19-41); Mean Corp Hgb Conc 32.8 g/gl (32-36); Mean Corpuscular Hgb 31.7 pg (27.0-32.0); Mean Corpuscular Volume 96.5 fL (81-99); Mean Platelet Vol. 9.7 fl (6.2-12.0); Monocyte# 0.64 X10^3/uL; Monocyte% 8.4 % (0-10); Neutrophil # 4.87 X10^3/uL (2.7-7.7); Neutrophil % 64.2 % (47-70); Platelet Count 251 K/mm3 (150-450); RBC Distribution Width CV 14.4 % (11.6-14.6); RBC Distribution Width SD 50.3 fl (35.1-43.9); Red Blood Count 4.26 M/mm3 (4.2-5.4); White Blood Count 7.6 K/mm3 (4.4-11.0)
[2018-10-19 14:35] LABS: Erythrocyte Sedimentation Rate 7 mm/hr (0-30); POSITIVE COUNT NO; POSITIVE DIFFERENTIAL NO; POSITIVE MORPHOLOGY NO
== END 2018-10-19 13:00 | disposition home or self-care (01) ==
LOC: MTLAB 11:58
PROVIDERS: Family Provider Internal Medicine; PCP Internal Medicine; Referring Provider Internal Medicine Rheumatology; Visit Provider Internal Medicine Rheumatology
DX: M05.79 Rheumatoid arthritis with rheumatoid factor of multiple sites without organ or systems involvement (principal); Z79.899 Other long term (current) drug therapy
CPT/HCPCS: 36415; 82565; 84450; 84460; 85025; 85652; 86140

== ENCOUNTER → 2018-11-22 12:54 | Outpatient (CLI) | payer MEDICARE, SELFPAY ==
[2018-09-03 09:03] VITALS: BMI 34.1
--- NOTE | 2018-11-22 13:08 | BD_ITS ---
STUDY: DUAL ENERGY X-RAY ABSORPTIOMETRY / DXA REASON FOR EXAM: Female, 78 years old. The patient is postmenopausal. Loss of height. TECHNIQUE: Bone Mineral Density (BMD) measurements of lumbar spine and bilateral hips were obtained. COMPARISON: Comparison is made with prior study dated October 05, 2016. FINDINGS: Lumbar Spine (L1-L4): g/cm2 (1.496) / T-score (2.5) / Z-score (4.2) Findings are suggestive of normal bone density with a low fracture risk. Left Femur Total: g/cm2 (0.868) / T-score (-1.1) / Z-score (0.7) Left Femoral Neck: g/cm2 (0.791) / T-score (-1.8) / Z-score (0.2) Right Femur Total: g/cm2 (0.926) / T-score (-0.6) / Z-score (1.2) Right Femoral Neck: g/cm2 (0.813) / T-score (-1.6) / Z-score (0.4) The T-Scores on the most recent prior examination were: Lumbar Spine (L1-L4): There has been worsening of bone density since the previous examination. Left Femur Total: which represents a worsening of 4%. Right Femur Total: which represents a worsening of 1.1%. BD/Dexa Bone Density Study IMPRESSION: The patient is considered osteopenic as outlined below according to World Humberto Organization (WHO) criteria with a moderate fracture risk. There has been worsening of bone density since the previous examination. Reference Information: The T-score is the number of standard deviations above or below the standard which is normal for young adults at their peak bone mineral density. The World Health Organization (WHO) interprets the T-scores as follows: Above -1 Normal bone density Between -1 and -2.5 Osteopenia Equal to / or below -2.5 Osteoporosis As a practical clinical guideline, osteopenia may be graded as follows: Mild -1 through -1.5 Moderate -1.6 through -2.0 Severe -2.1 through -2.4 The Z-score is the number of standard deviations above or below age-matched controls. A Z-score of less than -1.5 would be considered abnormal. References: 1. NIH Osteoporosis and Related Bone Diseases http://www.osteo.org 2. International Society for Clinical Densitometry http://www.iscd.org 3. National Osteoporosis Foundation http://www.nof.org Electronically Signed: Abelardo Eduardo MD at 14:04 EST , Service support ,
== END ==
PROVIDERS: Family Provider Internal Medicine; PCP Internal Medicine; Referring Provider Internal Medicine Rheumatology
DX: Z78.0 Asymptomatic menopausal state (principal)
CPT/HCPCS: 77080

== ENCOUNTER → 2018-12-20 13:17 | Outpatient (CLI) | payer MEDICARE, SELFPAY ==
[2018-09-03 09:03] VITALS: BMI 34.1
[2018-12-20 14:32] LABS: Erythrocyte Sedimentation Rate 8 mm/hr (0-30)
[2018-12-20 14:34] LABS: Hematocrit 42.1 % (37-47); Hemoglobin 13.6 g/dl (12.0-15.0); Mean Corp Hgb Conc 32.3 g/gl (32-36); Mean Corpuscular Hgb 31.3 pg (27.0-32.0); Mean Platelet Vol. 10.2 fl (6.2-12.0); Platelet Count 258 K/mm3 (150-450); RBC Distribution Width CV 14.5 % (11.6-14.6); RBC Distribution Width SD 51.1 fl (35.1-43.9); Red Blood Count 4.34 M/mm3 (4.2-5.4); Scan Indicated on CBC? Y/N NO; White Blood Count 6.1 K/mm3 (4.4-11.0)
[2018-12-20 14:47] LABS: AST(SGOT) 20 U/L (15-37); Alanine Aminotransfer ALT/SGPT 27 U/L (13-56); CRP < 2.90 mg/L (0.0-3.0); Creatinine, Serum 0.84 mg/dL (0.55-1.02); EST Glomerular Filtration Rate 70 mL/min (>60); Est Glom Filt Rate - Afr Amer 85 mL/min (>60)
== END ==
PROVIDERS: Family Provider Internal Medicine; PCP Internal Medicine; Referring Provider Internal Medicine Rheumatology; Visit Provider Internal Medicine Rheumatology
DX: M05.79 Rheumatoid arthritis with rheumatoid factor of multiple sites without organ or systems involvement (principal)
CPT/HCPCS: 36415; 82565; 84450; 84460; 85027; 85652; 86140

== ENCOUNTER → 2019-02-13 | Outpatient (CLI) | payer MEDICARE, SELFPAY ==
[2018-09-03 09:03] VITALS: BMI 34.1
[2019-02-13 17:29] LABS: Absolute Neutrophil Count 4.3 X10^3/uL (2.0-7.7); Basophil# 0.03 X10^3/uL; Basophil% 0.4 % (0-1); Eosinophil# 0.18 X10^3/uL; Eosinophils% 2.5 % (0-5); Hematocrit 42.9 % (37-47); Hemoglobin 14.3 g/dl (12.0-15.0); Lymphocyte % 27.2 % (19-41); Mean Corp Hgb Conc 33.3 g/gl (32-36); Mean Corpuscular Hgb 31.8 pg (27.0-32.0); Mean Corpuscular Volume 95.5 fL (81-99); Mean Platelet Vol. 10.1 fl (6.2-12.0); Monocyte% 10.9 % (0-10); Neutrophil # 4.32 X10^3/uL (2.7-7.7); Neutrophil % 58.9 % (47-70); Platelet Count 266 K/mm3 (150-450); RBC Distribution Width CV 14.4 % (11.6-14.6); RBC Distribution Width SD 48.5 fl (35.1-43.9); Red Blood Count 4.49 M/mm3 (4.2-5.4); White Blood Count 7.3 K/mm3 (4.4-11.0)
[2019-02-13 17:41] LABS: POSITIVE COUNT NO; POSITIVE DIFFERENTIAL NO; POSITIVE MORPHOLOGY NO
[2019-02-13 17:54] LABS: Erythrocyte Sedimentation Rate 6 mm/hr (0-30)
[2019-02-13 18:04] LABS: ALB/GLOB Ratio 1.2 RATIO (0.9-2.4); AST(SGOT) 22 U/L (15-37); Alanine Aminotransfer ALT/SGPT 32 U/L (13-56); Albumin, Serum 3.9 g/dL (3.2-5.0); Alkaline Phosphatase 124 U/L (45-117); Anion Gap 8 (5-15); BUN 19 mg/dL (7-18); BUN/Creat Ratio 22.3 RATIO (10-20); CRP < 2.90 mg/L (0.0-3.0); Calcium,Total 9.3 mg/dL (8.5-10.1); Chloride 104 mmol/L (98-107); Creatinine, Serum 0.85 mg/dL (0.55-1.02); EST Glomerular Filtration Rate 69 mL/min (>60); Est Glom Filt Rate - Afr Amer 83 mL/min (>60); Globulin 3.3 g/dL (2.2-4.2); Glucose 98 mg/dL (74-106); Potassium 3.9 mmol/L (3.5-5.1); Protein, Total 7.2 g/dL (6.4-8.2); Sodium Level 142 mmol/L (136-145)
== END | disposition home or self-care (01) ==
PROVIDERS: Family Provider Internal Medicine; PCP Internal Medicine; Referring Provider Psychiatry & Neurology Neurology; Visit Provider Psychiatry & Neurology Neurology
DX: M05.79 Rheumatoid arthritis with rheumatoid factor of multiple sites without organ or systems involvement (principal); M19.071 Primary osteoarthritis, right ankle and foot; M19.072 Primary osteoarthritis, left ankle and foot; M47.818 Spondylosis without myelopathy or radiculopathy, sacral and sacrococcygeal region; M19.011 Primary osteoarthritis, right shoulder; M19.012 Primary osteoarthritis, left shoulder; M19.041 Primary osteoarthritis, right hand; M19.042 Primary osteoarthritis, left hand; M50.30 Other cervical disc degeneration, unspecified cervical region; M47.9 Spondylosis, unspecified; M51.36 Other intervertebral disc degeneration, lumbar region; Z78.0 Asymptomatic menopausal state; L40.50 Arthropathic psoriasis, unspecified; D68.9 Coagulation defect, unspecified; Z79.01 Long term (current) use of anticoagulants; Z79.52 Long term (current) use of systemic steroids; Z79.899 Other long term (current) drug therapy; Z15.89 Genetic susceptibility to other disease; R76.9 Abnormal immunological finding in serum, unspecified; Z86.711 Personal history of pulmonary embolism; Z82.61 Family history of arthritis; Z98.890 Other specified postprocedural states; E55.9 Vitamin D deficiency, unspecified; G35 Multiple sclerosis
CPT/HCPCS: 36415; 80053; 85025; 85652; 86140

== ENCOUNTER → 2019-02-25 | Outpatient (CLI) | payer MEDICARE, SELFPAY ==
[2018-09-03 09:03] VITALS: BMI 34.1
--- NOTE | 2019-02-25 12:14 | BI_ITS ---
MAMMOGRAPHY - BILATERAL SCREENING REASON FOR EXAM: Female, 79 years old. Routine annual screening examination. PERTINENT HISTORY: Non-contributory. TECHNIQUE: Digital bilateral breast elfego (3D mammographic acquisition) in the CC and MLO projections. 2-D mediolateral oblique (MLO) and craniocaudad (CC) views of both breasts were obtained. CAD: Full Field Digital Mammography with Computer Added Detection was performed. COMPARISON: Comparison is made with prior study dated February 22, 2018 and February 16, 2017. FINDINGS: Breast Composition: The breasts are almost entirely fatty. There are no dominant masses or suspicious calcifications. No other significant abnormalities are identified. There has been no significant change since the prior study. BI/SCREENING MAMM (CAD), BILAT IMPRESSION: Stable bilateral screening mammogram. Yearly follow-up mammogram recommended. (A) ASSESSMENT CATEGORY: BIRADS Category 1: Negative. A letter regarding these results will be sent to the patient by the facility within 30 days. Approximately 10% of breast cancers are not detected by mammography. A normal mammogram should not delay biopsy of a clinically suspicious abnormality. [id number] Electronically Signed: Abelardo Eduardo, at 14:19 EDT , Service support ,
== END | disposition home or self-care (01) ==
PROVIDERS: Family Provider Internal Medicine; PCP Internal Medicine; Referring Provider Internal Medicine; Visit Provider Internal Medicine
DX: Z12.31 Encounter for screening mammogram for malignant neoplasm of breast (principal)
CPT/HCPCS: 77063; 77067

== ENCOUNTER → 2019-02-26 | Outpatient (CLI) | payer MEDICARE, SELFPAY ==
[2018-09-03 09:03] VITALS: BMI 34.1
[2019-02-26 12:40] LABS: Alkaline Phosphatase 96 U/L (45-117)
== END | disposition home or self-care (01) ==
LOC: MTLAB 10:37
PROVIDERS: Family Provider Internal Medicine; PCP Internal Medicine; Referring Provider Internal Medicine Rheumatology; Visit Provider Internal Medicine Rheumatology
DX: R74.8 Abnormal levels of other serum enzymes (principal)
CPT/HCPCS: 36415; 84075

== ENCOUNTER → 2019-03-05 | Outpatient (CLI) | payer MEDICARE, SELFPAY ==
[2018-09-03 09:03] VITALS: BMI 34.1
[2019-03-05] VITALS (7 sets, daily range): BP systolic 124–140; BP diastolic 57–96; PULSE 62–88; RESP 16–18; TEMP 36–36.6; O2SAT 94–96; BMI 34.1
[2019-03-05] MEDS: Acetaminophen 500 MG Tablet 1000 MG PO (09:35)
[2019-03-05] MEDS: MethylPREDNISolone 125 MG/2 ML Vial 100 MG IV (09:37)
[2019-03-05] MEDS: DiphenhydrAMINE 50 MG/ML Syringe 25 MG IV (09:38)
[2019-03-05] MEDS: Ocrelizumab 600mg Infusion 40 MG IV (10:16)
== END | disposition home or self-care (01) ==
PROVIDERS: Family Provider Internal Medicine; PCP Internal Medicine; Referring Provider Psychiatry & Neurology Neurology; Visit Provider Psychiatry & Neurology Neurology
DX: G35 Multiple sclerosis (principal)
CPT/HCPCS: 96365; 96366 ×2; 96374; 96375; J7040; J7050; A4216; J2350

== ENCOUNTER 2019-03-15 12:00 | Outpatient (RCR) | payer MEDICARE, SELFPAY ==
[2018-09-03 09:03] VITALS: BMI 34.1
--- NOTE | 2019-02-19 14:33 | HP.OTEVAL ---
Patient's Visit Information HALIE VILLAVICENCIO is a 78 year old F, referred to Occupational Therapy by Steven English MD, with a diagnosis of Memory Loss and MS. Date of Evaluation: 02/13/19 Occupational Therapist: Gilda Mukherjee - Subjective Subjective: Arrived with , Eric, and daughter, Lizy. Halie was referred from Dr. English at the [facility]. Her family noted that Halie has been experiencing increased memory related cognitive deficits. She recently went through further cognitive testing at [facility] to determine if it was dementia- related cognitive impairment or MS related. Results indicated it was MS related. Halie was first diagnoses with MS at 20 y/o and remains functional physically but has been suffering from increased executive functioning cognitive deficits from the disease. Pain and fatigue are increased and differ daily but she regularly complete pool-based tasks 3x days a week at [facility]. Lizy noted that Halie has been experiencing increased cognitive deficits for ADL/IADls for executive function tasks of processing, attention, problem solving, sequencing, and memory recall to complete tasks. Safety is also concern of family as she often needs assistance with cooking tasks or is refusing to complete at all. She remains able to complete self-care tasks but often gets distracted and daughter noted ?she will be getting ready to go shower. Start walking to the shower but then get distracted and wind up at the kitchen table.? - ADLs Dressing: Bra, Earrings Fasteners: [place] Eating: Use silverware, Cut food Comments: walk-in shower with a/e. Kitchen: Open jars Miscellaneous: Write, Do crafts, Fer/knit/needlework Comments: corss stitch, sindhu painting, crocheting, sews Comments: She is not completing simple to more complex IADLs of cooking, cleaning, and general home care tasks. and second daughter live there and complete these tasks. She was previously completing simple meals and enjoys baking. She will often try to bake but is unable to follow a recipe without assistance. She worked as bakery and catering industry for years and also enjoys crafts. She would benefit from making daily routine consistent to help manage cognitive related deficits at this time. - Objective Objective/Observation: Easily distracted, perseverates on topics and needs redirections to tasks; impaired short- term memory and recall. Completed MoCA cognitive screena nd scored a 21/30 indicating cognitive impairment. Further testing to occur. Concerns: Would also recommend the involvement of services for additional memory and cognitive aides and training to promote age in place services and QOL. - ROM Shoulder: WFL Elbow: WFL Forearm: WFL Wrist: WFL MP: WFL PIP: WFL DIP: WFL - Strength Shoulder: WFL Elbow: WFL Forearm: WFL Wrist: WFL Debubblizer: R 44, L 46 Lateral Pinch: R 12, L 12 Tripod Pinch: R 10, L 10 Tip-to-Tip Pinch: R 8, L 11 - Cognitive Skills Follows Directions: Yes - Yes but need verbal and visual cues for carry through Short Term Memory Impaired: Yes Cognitive Comments: She is oriented to person, place, and date. She is unable to recall OT name after 10 minutes and saying name 2x. - Attention Attention: Poor - Quick DASH-Disab of Arm,Shoulder& Hand Quick DASH Score: 25.0000 - Goals Goal:: Halie to be mod I to complete formation and completion of daily self-care schedule with use of cognitive and memory aides to promote increased attention and completion of self-care routine 4/ 5trials 80% of the time to maintain (i) , QOL, and decrease caregiver burden by d/c. Goal:: Halie to be able to follow 4-5 step ADL/IADLs tasks with use of memory or cognitive aides and good safety awareness 4/5 trials 80% of the time to promote maintaining (I), QOL, and decreasing caregiver burden by d/c. Goal:: Halie to complete 1x leisure interest of her choice 1x daily for at least 5-15 minutes with use of extrinsic and intrinsic memory cues and aides to promote increased attention to task and promote increased QOL for increased participation around home 4/5 trials 80% of the time by d/c. Goal:: Family/caregiver to be (I) to complete home adaptation and compensations of set up of home and decreased clutter to promote increased ability of Halie to adhere to ADL/IADLS, maintain schedule, decrease safety concerns, and promote QOL 4/5 trials 80% of the time by d/c. - Rehabilitation General Assessment: Halie is 78 y/o female with significant past medical history of MS. Over the last few months she has been exhibiting increased memory related deficits and is not participating in ADL/IADls without cuing from family. She has had cognitive testing at [facility] completed which indicated MS related cognitive decline rather than dementia related. Due to increased memory and executive functioning deficits she needs OT to help restructure and promote increased participation with ADL/IADls to promote QOL, ADL/IADLS (I), and adapting to new cognitive level to promote aging in place with family. Skilled OT warranted for 2x weekly appointments for 4 weeks. Rehabilitation Potential: Good - Anticipated Interventions Anticipated Interventions: Dynamic Sitting Balance, Neuro Reeducation, Sensory Stimulation, Cognitive Skills, ADL Training, Education re assistive Equipment, Caregiver Training, Home Program - Visit Plan Frequency: 2x /Week Duration: 4 Weeks General Plan: Halie to complete OT to address cognitive related deficits to promote increased ability to complete self-care tasks with cognitive and memory aide, intrinsic and extrinsic factors, as well as home set up and modifications to promote increased ability to participate in self care tasks and IADLs as well as promote QOL. TEXT: Thank you for the opportunity to evaluate your patient. For Medicare and Medicare HMO plans, please review the plan of care and approve it. It will need to be FAXED BACK to us at [phone] for Medicare purposes. Please let me know if there are questions or concerns regarding this plan of care. Physician Signature: Date:
--- NOTE | 2019-02-28 10:30 | HP.OTCOM ---
OT Communication Note 02/28/[address] Steven English MD Further cognitive testing completed with use of Jeremy Cognitive Level Scales (ACLS) to promote more accurate depiction for activities of daily living (ADL) and compensations that can be made for Halie when at home or in the community. This assessment is typically used with individuals with cognitive impairment including but not limited to dementia, CVA, mental illness, and general cognitive decline. The Jeremy Cognitive Level assessment was used to promote determining problem solving skills, attention, sequencing, and general ability to complete new or unfamiliar tasks. Halie scored a 4.2 level based on her inability to complete the third task of the assessment after two demonstrations provided. She was unaware of her errors and consistently made the same mistakes after multiple cues and two demonstrations. She did not ask for help but was receptive when cues or directions were provided. She needed consistent cues for correct completion but was able to concentrate and attend to task for 30 minutes without distractions. OT has been working with family to adapt cooking and ADLS to promote increased completion and decrease distractibility. Additionally, a schedule has been set up to promote decreasing poor sleep patterns and promote sleep hygiene. OT has addressed with family the need to decrease clutter, and promote organization to promote attention while at home. The OT has educated and discussed with , Eric, and Halie the need to complete chunking techniques to break tasks in to first, middle, end to promote carry through for completion. She has been working on sequencing 4-5 step cooking directions with chucking methods as well as extrinsic and intrinsic memory factors. With further support from the ACLS also recommends memory prompts which will be added for Halie to continue to complete ADls and IADls over the course of therapy. Halie would likely benefit from the involvement of ST services but is concerned at this time of high copay and fixed income with adding in additional services. Please just keep this in mind for further reference. Sincerely, Gilda Mukherjee, OTR/L Contact Information
--- NOTE | 2019-02-28 15:50 | HP.OTCOM ---
OT Communication Note 02/28/[address] Steven English MD Error made in typing. Please disregard the 4.2 as score is 4.6. The previous report is otherwise correct and plan of care remains unchanged. Sincerely, Gilda Mukherjee, OTR/L Contact Information
--- NOTE | 2019-02-28 15:56 | HP.OTCOM_ITS ---
OT Communication Note 02/28/[address] Steven English MD Error made in typing. Please disregard the 4.2 as score is 4.6. The previous report is otherwise correct and plan of care remains unchanged. Sincerely, Gilda Mukherjee, OTR/L Contact Information
--- NOTE | 2019-03-15 14:00 | HP.OTDCSUM ---
HP - OT D/C Summary It has been my pleasure to treat HALIE VILLAVICENCIO under orders from Steven English MD, for the diagnosis of Memory Loss and MS for a total of 8 visit(s). Please see the following information for a summary of their discharge status. - Overall Improvement % Improvement: 80 - Objective Objective/Function: Completed reassessment on this date of 03/15/19. Halie was able to complete baking chocolate chip cookies mod I this past week. , Eric, noted that the schedule is working out well and she is doing well post- infusion. She is to continue using chucking, chaining, and intrinsic and extrinsic memory techniques and ideas to promote completion of ADL/IADLS. MoCA reassessment: MoCa completed 03/08/19 with basic version: . today 03/15/19 with 7.2 version: . Did better with MoCA from last week and first administration. She is unable to recall 5 words after 5 minutes for STM assessment. When cues are provided she is able to recall word after context or multiple cues. When asked to transition back to recalling 5 words she often perseverates on category of word , for explain: she is able to recall ?green? after cues, but then when asked to recall other words from list of Truck, Banana, violin, desk, and green she will continue to provided color related words like ?red, blue, etc.? She exhibits decreased fluidity. Strength: clinical laboratory manager R 45, L 43. lateral R 12, L 14. tripod R 10, L 10. Generally, Halie's cognitive abilities have seemed to improved status post infusion and therapy adaption and compensations techniques for ADL/IADls. Halie?s general attention to tasks with use of memory techniques has improved and family reports that she is able to start and complete tasks without getting distracted. Divided attention continues to be deficit as Halie often stops tasks and needs redirection to return to task at hand during divided attention times. She is to limit herself to completing one task at a time to limited need for divided attention and decreased confusion. With use of cognitive adaption and memory techniques of chucking as well as intrinsic and extrinsic techniques she is able to sequence 4-5 step tasks and has made no bake power balls with OT and cookies unsupervised at home. She does continue to exhibit memory related deficits, especially with STM. Family has been educated and Halie is implementing techniques to promote (I) and safety with memory deficits. - Goals Patient Goals: Be More Independent in ADLS, Resume Former Household Responsibilities (Cooking,Cleaning,Yard, etc.), Resume Hobbies Other: Sequencing ADL/IALDs, maintaining attention to ADL/IADLs presented, and short term memory compensations and adaptations to promote processing and completion of tasks. Goal:: Halie to be mod I to complete formation and completion of daily self-care schedule with use of cognitive and memory aides to promote increased attention and completion of self-care routine 4/ 5trials 80% of the time to maintain (i) , QOL, and decrease caregiver burden by d/c. Goal:: Halie to be able to follow 4-5 step ADL/IADLs tasks with use of memory or cognitive aides and good safety awareness 4/5 trials 80% of the time to promote maintaining (I), QOL, and decreasing caregiver burden by d/c. Goal:: Halie to complete 1x leisure interest of her choice 1x daily for at least 5-15 minutes with use of extrinsic and intrinsic memory cues and aides to promote increased attention to task and promote increased QOL for increased participation around home 4/5 trials 80% of the time by d/c. Goal:: Family/caregiver to be (I) to complete home adaptation and compensations of set up of home and decreased clutter to promote increased ability of Halie to adhere to ADL/IADLS, maintain schedule, decrease safety concerns, and promote QOL 4/5 trials 80% of the time by d/c. - Plan Plan: Halie will be d/c'd on this date as she has increased (i) and has returned to completed adapted ADL/IADls with use of memory techniques, aide, and methods educated on in OT. , Eric and Halie were educated on National MS Society as they do have scholarship programs for those with MS to cover some medical costs. They are to look into when they have time to see if they can benefit. Additionally, ST evaluation is recommended to help manage additional memory techniques in next 3 or so months when able to afford. In general, Halie has completed adjusting scheduled to promote energy conservation techniques, has started sleep hygiene to promote restful sleep, is using adaptions and compensations of memory aides and general techniques cognitive techniques to promote completion of tasks, and has returned to be more participative in ADL/IADLS. She will be d/c?d at this time and is to call with questions or concerns. - D/C Information If there are questions or concerns regarding this patient's occupational therapy, please fell free to call me at [phone]. Thank you for the referral of this patient. Sincerely, Gilda Mukherjee, OTR/L
== END 2019-03-15 19:00 | disposition home or self-care (01) ==
LOC: OT 12:00
PROVIDERS: Family Provider Internal Medicine; PCP Internal Medicine; Referring Provider Psychiatry & Neurology Neurology; Visit Provider Psychiatry & Neurology Neurology
DX: R41.3 Other amnesia (principal)
CPT/HCPCS: 97166; 97168; 97530

== ENCOUNTER 2019-04-15 11:29 | Outpatient (RCR) | payer MEDICARE, SELFPAY ==
[2018-09-03 09:03] VITALS: BMI 34.1
[2019-03-05 08:55] VITALS: BMI 34.1
[2019-04-15 14:23] LABS: Erythrocyte Sedimentation Rate 7 mm/hr (0-30)
[2019-04-15 14:26] LABS: Hematocrit 39.9 % (37-47); Hemoglobin 13.1 g/dl (12.0-15.0); Mean Corp Hgb Conc 32.8 g/gl (32-36); Mean Corpuscular Hgb 31.9 pg (27.0-32.0); Mean Corpuscular Volume 97.1 fL (81-99); Mean Platelet Vol. 9.9 fl (6.2-12.0); Platelet Count 227 K/mm3 (150-450); RBC Distribution Width CV 15.1 % (11.6-14.6); Red Blood Count 4.11 M/mm3 (4.2-5.4); White Blood Count 5.9 K/mm3 (4.4-11.0)
[2019-04-15 14:27] LABS: Scan Indicated on CBC? Y/N NO
[2019-04-15 14:30] LABS: AST(SGOT) 18 U/L (15-37); Alanine Aminotransfer ALT/SGPT 25 U/L (13-56); CRP < 2.90 mg/L (0.0-3.0); Creatinine, Serum 0.88 mg/dL (0.55-1.02); EST Glomerular Filtration Rate 66 mL/min (>60); Est Glom Filt Rate - Afr Amer 80 mL/min (>60)
== END 2019-04-15 12:00 | disposition home or self-care (01) ==
LOC: MTLAB 11:29
PROVIDERS: Family Provider Internal Medicine; PCP Internal Medicine; Referring Provider Internal Medicine Rheumatology; Visit Provider Internal Medicine Rheumatology
DX: M05.79 Rheumatoid arthritis with rheumatoid factor of multiple sites without organ or systems involvement (principal); M19.071 Primary osteoarthritis, right ankle and foot; M19.072 Primary osteoarthritis, left ankle and foot; M47.818 Spondylosis without myelopathy or radiculopathy, sacral and sacrococcygeal region; M19.011 Primary osteoarthritis, right shoulder; M19.012 Primary osteoarthritis, left shoulder; M19.041 Primary osteoarthritis, right hand; M19.042 Primary osteoarthritis, left hand; M50.30 Other cervical disc degeneration, unspecified cervical region; M51.36 Other intervertebral disc degeneration, lumbar region; Z78.0 Asymptomatic menopausal state; L40.50 Arthropathic psoriasis, unspecified; D68.9 Coagulation defect, unspecified; Z79.01 Long term (current) use of anticoagulants; Z79.52 Long term (current) use of systemic steroids; Z79.899 Other long term (current) drug therapy; R76.9 Abnormal immunological finding in serum, unspecified; R76.8 Other specified abnormal immunological findings in serum; Z15.89 Genetic susceptibility to other disease; Z86.711 Personal history of pulmonary embolism; Z82.61 Family history of arthritis; Z98.890 Other specified postprocedural states; E55.9 Vitamin D deficiency, unspecified; G35 Multiple sclerosis; H40.9 Unspecified glaucoma
CPT/HCPCS: 36415; 82565; 84450; 84460; 85027; 85652; 86140

== ENCOUNTER 2019-05-28 09:56 | Outpatient (RCR) | payer MEDICARE, SELFPAY ==
[2019-03-05 08:55] VITALS: BMI 34.1
[2019-05-28 12:27] LABS: Erythrocyte Sedimentation Rate 10 mm/hr (0-30)
[2019-05-28 12:29] LABS: Absolute Lymphocyte Count 1.34 X10^3/uL (0.83-4.51); Absolute Neutrophil Count 4.3 X10^3/uL (2.0-7.7); Basophil# 0.06 X10^3/uL; Basophil% 0.9 % (0-1); Eosinophil# 0.22 X10^3/uL; Eosinophils% 3.3 % (0-5); Hematocrit 41.7 % (37-47); Hemoglobin 14.1 g/dL (12.0-15.0); Lymphocyte # 1.34 X10^3/ul (4.0); Lymphocyte % 20.2 % (19-41); Mean Corp Hgb Conc 33.8 g/dL (32-36); Mean Corpuscular Hgb 32.5 pg (27.0-32.0); Mean Corpuscular Volume 96.1 fL (81-99); Mean Platelet Vol. 9.9 fl (6.2-12.0); Monocyte# 0.67 X10^3/uL; Monocyte% 10.1 % (0-10); NRBC Flagged by Analyzer 0 % (0-5); Neutrophil # 4.31 X10^3/uL (2.7-7.7); Neutrophil % 65.2 % (47-70); Platelet Count 239 K/mm3 (150-450); RBC Distribution Width CV 14.2 % (11.6-14.6); RBC Distribution Width SD 49.1 fl (35.1-43.9); Red Blood Count 4.34 M/mm3 (4.2-5.4); White Blood Count 6.6 K/mm3 (4.4-11.0)
[2019-05-28 12:47] LABS: AST(SGOT) 19 U/L (15-37); Alanine Aminotransfer ALT/SGPT 23 U/L (13-56); CRP < 2.90 mg/L (0.0-3.0); Creatinine, Serum 0.81 mg/dL (0.55-1.02); EST Glomerular Filtration Rate 73 mL/min (>60); Est Glom Filt Rate - Afr Amer 88 mL/min (>60)
[2019-05-30 20:07] LABS: HEPATITIS B SURFACE AG Negative (Negative); Hepatitis A AB, Total Negative (Negative); Hepatitis A IgM Antibody Negative (Negative); Hepatitis B Core AB IgM Negative (Negative); Hepatitis B Core Ab Total Negative (Negative); Hepatitis C Ab <0.1 s/co ratio (0.0-0.9); QNTFERON TB Mitogen Value > 10.00 IU/mL (.); QNTFERON TB Nil Value 0.02 IU/mL (.); QNTFERON TB1+ Ag Value 0.03 IU/mL (.); QNTFERON TB2+ Ag Value 0.03 IU/mL (.)
[2019-05-31 12:27] LABS: Hep B Surface Antibodies Non Reactive (.); QNTIFERON TB Positive Criteria Negative (Negative)
== END 2019-05-28 10:56 | disposition home or self-care (01) ==
LOC: MTLAB 09:56
PROVIDERS: Family Provider Internal Medicine; PCP Internal Medicine; Referring Provider Internal Medicine Rheumatology; Visit Provider Internal Medicine Rheumatology
DX: M05.79 Rheumatoid arthritis with rheumatoid factor of multiple sites without organ or systems involvement (principal); M19.071 Primary osteoarthritis, right ankle and foot; M19.072 Primary osteoarthritis, left ankle and foot; M47.818 Spondylosis without myelopathy or radiculopathy, sacral and sacrococcygeal region; M19.011 Primary osteoarthritis, right shoulder; M19.012 Primary osteoarthritis, left shoulder; M19.041 Primary osteoarthritis, right hand; M19.042 Primary osteoarthritis, left hand; M50.30 Other cervical disc degeneration, unspecified cervical region; M51.36 Other intervertebral disc degeneration, lumbar region; Z78.0 Asymptomatic menopausal state; L40.50 Arthropathic psoriasis, unspecified; D68.9 Coagulation defect, unspecified; Z79.01 Long term (current) use of anticoagulants; Z79.52 Long term (current) use of systemic steroids; Z79.899 Other long term (current) drug therapy; R76.9 Abnormal immunological finding in serum, unspecified; R76.8 Other specified abnormal immunological findings in serum; Z15.89 Genetic susceptibility to other disease; Z86.711 Personal history of pulmonary embolism; Z82.61 Family history of arthritis; Z98.890 Other specified postprocedural states; E55.9 Vitamin D deficiency, unspecified; G35 Multiple sclerosis; H40.9 Unspecified glaucoma
CPT/HCPCS: 36415; 82565; 84450; 84460; 85025; 85652; 86140; 86480; 86704; 86705; 86706; 86708; 86709; 86803; 87340

== ENCOUNTER 2019-07-30 10:38 | Outpatient (RCR) | payer MEDICARE, SELFPAY ==
[2019-03-05 08:55] VITALS: BMI 34.1
[2019-07-30 12:26] LABS: Erythrocyte Sedimentation Rate 10 mm/hr (0-30)
[2019-07-30 12:28] LABS: Hematocrit 40.8 % (37-47); Hemoglobin 13.5 g/dL (12.0-15.0); Mean Corp Hgb Conc 33.1 g/dL (32-36); Mean Corpuscular Hgb 31.7 pg (27.0-32.0); Mean Corpuscular Volume 95.8 fL (81-99); Mean Platelet Vol. 9.6 fl (6.2-12.0); Platelet Count 230 K/mm3 (150-450); RBC Distribution Width SD 48.4 fl (35.1-43.9); Red Blood Count 4.26 M/mm3 (4.2-5.4); White Blood Count 6.6 K/mm3 (4.4-11.0)
[2019-07-30 12:38] LABS: AST(SGOT) 17 U/L (15-37); Alanine Aminotransfer ALT/SGPT 23 U/L (13-56); CRP < 2.90 mg/L (0.0-3.0); Creatinine, Serum 0.85 mg/dL (0.55-1.02); EST Glomerular Filtration Rate 69 mL/min (>60); Est Glom Filt Rate - Afr Amer 84 mL/min (>60)
== END 2019-07-30 18:00 | disposition home or self-care (01) ==
LOC: MTLAB 10:38
PROVIDERS: Family Provider Internal Medicine; PCP Internal Medicine; Referring Provider Internal Medicine Rheumatology; Visit Provider Internal Medicine Rheumatology
DX: E55.9 Vitamin D deficiency, unspecified (principal); G35 Multiple sclerosis; H40.9 Unspecified glaucoma; M05.79 Rheumatoid arthritis with rheumatoid factor of multiple sites without organ or systems involvement; M19.071 Primary osteoarthritis, right ankle and foot; M19.072 Primary osteoarthritis, left ankle and foot; M47.818 Spondylosis without myelopathy or radiculopathy, sacral and sacrococcygeal region; M19.011 Primary osteoarthritis, right shoulder; M19.012 Primary osteoarthritis, left shoulder; M19.041 Primary osteoarthritis, right hand; M19.042 Primary osteoarthritis, left hand; M50.30 Other cervical disc degeneration, unspecified cervical region; M51.36 Other intervertebral disc degeneration, lumbar region; Z78.0 Asymptomatic menopausal state; L40.50 Arthropathic psoriasis, unspecified; D68.9 Coagulation defect, unspecified; Z79.01 Long term (current) use of anticoagulants; Z79.52 Long term (current) use of systemic steroids; Z79.899 Other long term (current) drug therapy; R76.9 Abnormal immunological finding in serum, unspecified; R76.8 Other specified abnormal immunological findings in serum; Z15.89 Genetic susceptibility to other disease; Z86.711 Personal history of pulmonary embolism; Z82.61 Family history of arthritis; Z98.890 Other specified postprocedural states
CPT/HCPCS: 36415; 82565; 84450; 84460; 85027; 85652; 86140

== ENCOUNTER 2019-09-23 11:43 | Outpatient (RCR) | payer MEDICARE, SELFPAY ==
[2019-03-05 08:55] VITALS: BMI 34.1
[2019-09-23 13:52] LABS: Absolute Lymphocyte Count 1.88 X10^3/uL (0.83-4.51); Absolute Neutrophil Count 4.3 X10^3/uL (2.0-7.7); Basophil# 0.05 X10^3/uL; Basophil% 0.7 % (0-1); Eosinophil# 0.21 X10^3/uL; Hematocrit 41.6 % (37-47); Hemoglobin 13.8 g/dL (12.0-15.0); Lymphocyte # 1.88 X10^3/ul (4.0); Lymphocyte % 26.5 % (19-41); Mean Corp Hgb Conc 33.2 g/dL (32-36); Mean Corpuscular Hgb 32.1 pg (27.0-32.0); Mean Corpuscular Volume 96.7 fL (81-99); Mean Platelet Vol. 10.2 fl (6.2-12.0); Monocyte# 0.64 X10^3/uL; NRBC Flagged by Analyzer 0 % (0-5); Neutrophil # 4.29 X10^3/uL (2.7-7.7); Neutrophil % 60.5 % (47-70); Platelet Count 262 K/mm3 (150-450); RBC Distribution Width SD 49.1 fl (35.1-43.9); White Blood Count 7.1 K/mm3 (4.4-11.0)
[2019-09-23 13:58] LABS: Erythrocyte Sedimentation Rate 5 mm/hr (0-30)
[2019-09-23 14:19] LABS: AST(SGOT) 19 U/L (15-37); Alanine Aminotransfer ALT/SGPT 22 U/L (13-56); CRP < 2.90 mg/L (0.0-3.0); Creatinine, Serum 0.88 mg/dL (0.55-1.02); EST Glomerular Filtration Rate 66 mL/min (>60); Est Glom Filt Rate - Afr Amer 80 mL/min (>60)
== END 2019-09-23 18:00 | disposition home or self-care (01) ==
LOC: MTLAB 11:43
PROVIDERS: Family Provider Internal Medicine; PCP Internal Medicine; Referring Provider Internal Medicine Rheumatology; Visit Provider Internal Medicine Rheumatology
DX: M05.79 Rheumatoid arthritis with rheumatoid factor of multiple sites without organ or systems involvement (principal); L40.50 Arthropathic psoriasis, unspecified; Z78.0 Asymptomatic menopausal state; Z79.01 Long term (current) use of anticoagulants; R76.8 Other specified abnormal immunological findings in serum; Z15.89 Genetic susceptibility to other disease; Z79.899 Other long term (current) drug therapy; Z86.711 Personal history of pulmonary embolism; Z82.61 Family history of arthritis; M19.071 Primary osteoarthritis, right ankle and foot; M19.072 Primary osteoarthritis, left ankle and foot; M47.818 Spondylosis without myelopathy or radiculopathy, sacral and sacrococcygeal region; M50.30 Other cervical disc degeneration, unspecified cervical region; M19.042 Primary osteoarthritis, left hand; M47.9 Spondylosis, unspecified; M19.011 Primary osteoarthritis, right shoulder; M51.36 Other intervertebral disc degeneration, lumbar region; M85.851 Other specified disorders of bone density and structure, right thigh; M85.852 Other specified disorders of bone density and structure, left thigh
CPT/HCPCS: 36415; 82565; 84450; 84460; 85025; 85652; 86140

== ENCOUNTER 2019-11-20 10:52 | Outpatient (RCR) | payer MEDICARE, SELFPAY ==
[2019-03-05 08:55] VITALS: BMI 34.1
[2019-11-20 12:33] LABS: Erythrocyte Sedimentation Rate 9 mm/hr (0-30)
[2019-11-20 12:36] LABS: Absolute Lymphocyte Count 1.35 X10^3/uL (0.83-4.51); Basophil# 0.04 X10^3/uL; Basophil% 0.7 % (0-1); Eosinophils% 3.3 % (0-5); Hematocrit 40.3 % (37-47); Hemoglobin 13.4 g/dL (12.0-15.0); Lymphocyte # 1.35 X10^3/ul (4.0); Lymphocyte % 22.2 % (19-41); Mean Corp Hgb Conc 33.3 g/dL (32-36); Mean Corpuscular Volume 96.2 fL (81-99); Monocyte# 0.44 X10^3/uL; Monocyte% 7.2 % (0-10); NRBC Flagged by Analyzer 0 % (0-5); Neutrophil # 4.03 X10^3/uL (2.7-7.7); Neutrophil % 66.4 % (47-70); Platelet Count 267 K/mm3 (150-450); RBC Distribution Width CV 13.2 % (11.6-14.6); Red Blood Count 4.19 M/mm3 (4.2-5.4); White Blood Count 6.1 K/mm3 (4.4-11.0)
[2019-11-20 12:56] LABS: AST(SGOT) 22 U/L (15-37); Alanine Aminotransfer ALT/SGPT 32 U/L (12-78); CRP < 2.90 mg/L (0.0-3.0); Creatinine, Serum 1.01 mg/dL (0.55-1.20); EST Glomerular Filtration Rate 56 mL/min (>60); Est Glom Filt Rate - Afr Amer 68 mL/min (>60)
== END 2019-11-20 18:00 | disposition home or self-care (01) ==
LOC: MTLAB 10:52
PROVIDERS: Family Provider Internal Medicine; PCP Internal Medicine; Referring Provider Internal Medicine Rheumatology; Visit Provider Internal Medicine Rheumatology
DX: M05.79 Rheumatoid arthritis with rheumatoid factor of multiple sites without organ or systems involvement (principal); L40.50 Arthropathic psoriasis, unspecified; Z78.0 Asymptomatic menopausal state; Z79.01 Long term (current) use of anticoagulants; R76.8 Other specified abnormal immunological findings in serum; Z15.89 Genetic susceptibility to other disease; Z79.899 Other long term (current) drug therapy; Z86.711 Personal history of pulmonary embolism; Z82.61 Family history of arthritis; M19.071 Primary osteoarthritis, right ankle and foot; M19.072 Primary osteoarthritis, left ankle and foot; M47.818 Spondylosis without myelopathy or radiculopathy, sacral and sacrococcygeal region; M50.30 Other cervical disc degeneration, unspecified cervical region; M19.042 Primary osteoarthritis, left hand; M47.9 Spondylosis, unspecified; M19.011 Primary osteoarthritis, right shoulder; M51.36 Other intervertebral disc degeneration, lumbar region; M85.851 Other specified disorders of bone density and structure, right thigh; M85.852 Other specified disorders of bone density and structure, left thigh
CPT/HCPCS: 36415; 82565; 84450; 84460; 85025; 85652; 86140

== ENCOUNTER 2020-03-25 13:35 | Outpatient (RCR) | payer MEDICARE, SELFPAY ==
[2019-03-05 08:55] VITALS: BMI 34.1
[2020-03-25 15:48] LABS: Absolute Lymphocyte Count 1.68 X10^3/uL (0.83-4.51); Absolute Neutrophil Count 3.5 X10^3/uL (2.0-7.7); Basophil# 0.06 X10^3/uL; Eosinophil# 0.19 X10^3/uL; Eosinophils% 3.2 % (0-5); Hemoglobin 14.2 g/dL (12.0-15.0); Lymphocyte # 1.68 X10^3/ul (4.0); Lymphocyte % 28.1 % (19-41); Mean Corpuscular Hgb 31.9 pg (27.0-32.0); Mean Corpuscular Volume 96.6 fL (81-99); Mean Platelet Vol. 9.9 fl (6.2-12.0); Monocyte# 0.55 X10^3/uL; Monocyte% 9.2 % (0-10); NRBC Flagged by Analyzer 0 % (0-5); Neutrophil # 3.48 X10^3/uL (2.7-7.7); Neutrophil % 58.3 % (47-70); Platelet Count 240 K/mm3 (150-450); RBC Distribution Width CV 13.9 % (11.6-14.6); RBC Distribution Width SD 48.9 fl (35.1-43.9); Red Blood Count 4.45 M/mm3 (4.2-5.4)
[2020-03-25 15:49] LABS: Erythrocyte Sedimentation Rate 9 mm/hr (0-30)
[2020-03-25 16:13] LABS: AST(SGOT) 19 U/L (15-37); Alanine Aminotransfer ALT/SGPT 29 U/L (13-56); CRP < 2.90 mg/L (0.0-3.0); Creatinine, Serum 0.87 mg/dL (0.55-1.02); EST Glomerular Filtration Rate 67 mL/min (>60); Est Glom Filt Rate - Afr Amer 81 mL/min (>60)
== END 2020-03-25 18:00 | disposition home or self-care (01) ==
LOC: MTLAB 13:35
PROVIDERS: Family Provider Internal Medicine; PCP Internal Medicine; Referring Provider Internal Medicine Rheumatology; Visit Provider Internal Medicine Rheumatology
DX: M05.79 Rheumatoid arthritis with rheumatoid factor of multiple sites without organ or systems involvement (principal); L40.50 Arthropathic psoriasis, unspecified; Z78.0 Asymptomatic menopausal state; Z79.01 Long term (current) use of anticoagulants; Z79.899 Other long term (current) drug therapy; R76.8 Other specified abnormal immunological findings in serum; Z15.89 Genetic susceptibility to other disease; Z86.711 Personal history of pulmonary embolism; Z82.61 Family history of arthritis; M19.071 Primary osteoarthritis, right ankle and foot; M19.072 Primary osteoarthritis, left ankle and foot; M47.818 Spondylosis without myelopathy or radiculopathy, sacral and sacrococcygeal region; M50.30 Other cervical disc degeneration, unspecified cervical region; M19.042 Primary osteoarthritis, left hand; M47.9 Spondylosis, unspecified; M19.011 Primary osteoarthritis, right shoulder; M51.36 Other intervertebral disc degeneration, lumbar region; M85.851 Other specified disorders of bone density and structure, right thigh; M85.852 Other specified disorders of bone density and structure, left thigh; M19.041 Primary osteoarthritis, right hand
CPT/HCPCS: 36415; 82565; 84450; 84460; 85025; 85652; 86140

== ENCOUNTER → 2020-04-02 14:34 | Outpatient (CLI) | payer MEDICARE, SELFPAY ==
[2019-03-05 08:55] VITALS: BMI 34.1
--- NOTE | 2020-04-02 14:50 | CT_ITS ---
STUDY: CT BRAIN WITHOUT CONTRAST REASON FOR EXAM: Female, 80 years old. ALTERED MENTAL STATUS, LONG STANDING HX OF MS, DEMENTIA, HTN, CAD RADIATION DOSAGE (If Supplied By Facility): CTDIvol = ( 44.99 ) mGy, DLP = ( 796.11 ) mGycm TECHNIQUE: Transaxial CT imaging of the brain was performed without administration of intravenous contrast material. Individualized dose optimization techniques were used for this CT. COMPARISON: August 15, 2018 FINDINGS: Normal soft tissue structures. Normal calvarium. There is mild cerebral atrophy with widening of the extra-axial spaces and ventricular dilatation. There are areas of decreased attenuation within the white matter tracts of the supratentorial brain, consistent with microvascular disease changes. Normal basal ganglia and thalami. Normal brainstem. Normal cerebellum. There is no intracranial hemorrhage. There are no findings of an acute ischemic infarction. Normal visualized paranasal sinuses. CT/Brain/Head without Contrast IMPRESSION: Chronic involutional changes of the brain. Electronically Signed: Cory Sullivan MD at 16:03 EDT , Service support ,
[2020-04-02 14:54] LABS: Absolute Lymphocyte Count 2.08 X10^3/uL (0.83-4.51); Absolute Neutrophil Count 4.4 X10^3/uL (2.0-7.7); Basophil# 0.05 X10^3/uL; Basophil% 0.7 % (0-1); Eosinophil# 0.25 X10^3/uL; Eosinophils% 3.4 % (0-5); Hematocrit 41.8 % (37-47); Hemoglobin 13.9 g/dL (12.0-15.0); Lymphocyte # 2.08 X10^3/ul (4.0); Lymphocyte % 28.2 % (19-41); Mean Corp Hgb Conc 33.3 g/dL (32-36); Mean Corpuscular Volume 96.1 fL (81-99); Mean Platelet Vol. 9.6 fl (6.2-12.0); Monocyte# 0.55 X10^3/uL; Monocyte% 7.5 % (0-10); NRBC Flagged by Analyzer 0 % (0-5); Neutrophil # 4.44 X10^3/uL (2.7-7.7); Neutrophil % 60.1 % (47-70); Platelet Count 245 K/mm3 (150-450); RBC Distribution Width CV 13.5 % (11.6-14.6); RBC Distribution Width SD 47.9 fl (35.1-43.9); Red Blood Count 4.35 M/mm3 (4.2-5.4); White Blood Count 7.4 K/mm3 (4.4-11.0)
[2020-04-02 15:34] LABS: ALB/GLOB Ratio 1.2 RATIO (0.9-2.4); AST(SGOT) 24 U/L (15-37); Alanine Aminotransfer ALT/SGPT 28 U/L (13-56); Albumin, Serum 3.7 g/dL (3.2-5.0); Alkaline Phosphatase 110 U/L (45-117); Anion Gap 5 (5-15); BUN 21 mg/dL (7-18); BUN/Creat Ratio 26.2 RATIO (10-20); Calcium,Total 9.5 mg/dL (8.5-10.1); Chloride 108 mmol/L (98-107); Cholesterol 166 mg/dL (200); EST Glomerular Filtration Rate 74 mL/min (>60); Est Glom Filt Rate - Afr Amer 89 mL/min (>60); Globulin 3.1 g/dL (2.2-4.2); Glucose 108 mg/dL (74-106); High Density Lipoprotein 58 mg/dL; Potassium 4.2 mmol/L (3.5-5.1); Protein, Total 6.8 g/dL (6.4-8.2); Sodium Level 141 mmol/L (136-145); Thyroid Stim Hormone (TSH) 1.35 uIU/mL (0.358-3.74); Triglycerides 141 mg/dL; Very Low Density Lipoprotein 28 mg/dL (5-40)
[2020-04-02 16:04] LABS: Vitamin B12 489 pg/mL (211-911); Vitamin D,25 Hydroxy 59.5 ng/mL
== END ==
PROVIDERS: PCP Internal Medicine; Referring Provider Internal Medicine; Visit Provider Internal Medicine
DX: R41.82 Altered mental status, unspecified (principal); I10 Essential (primary) hypertension; E55.9 Vitamin D deficiency, unspecified; E53.8 Deficiency of other specified B group vitamins; E78.2 Mixed hyperlipidemia
CPT/HCPCS: 36415; 70450; 80053; 80061; 82306; 82607; 84443; 85025

== ENCOUNTER → 2020-05-25 13:03 | Outpatient (CLI) | payer MEDICARE, SELFPAY ==
[2019-03-05 08:55] VITALS: BMI 34.1
--- NOTE | 2020-05-25 13:06 | VDLE_ITS ---
Reason For Study: Pain RIGHT LEFT CFV is compressible, spontaneous, phasic, GSV is normal. competent and demonstrates normal CFV is compressible, spontaneous, phasic, augmentation. competent, and demonstrates normal Procedure augmentation. Exam performed in department. FV is compressible, spontaneous, phasic, A preliminary report was called and/or faxed competent and demonstrates normal to Dr. Horton. augmentation. POP V is compressible, spontaneous, phasic, competent and demonstrates normal augmentation. T/P Trunk is compressible. PTV is compressible. LT PerV is compressible. Hypoechoic, non vascular structure noted Lt Pop Fossa measuring 1.18cm x 2.20cm. Interpretation Summary Deep veins of the left lower extremity are patent and compressible segmentally. There is no evidence of left lower extremity deep vein thrombosis. Valvular competence appears intact within the proximal deep venous system on the left . The left great saphenous vein appears patent and compressible segmentally. A non-vascular, hypoechoic structure is noted in the left popliteal space, measuring 1.18 cm x 2.20 cm. This may represent a popliteal cyst. Clinical correlation is advised. Ordering Physician: Zofia Horton Referring Physician: Zofia Horton Performed By: Sonia Verma, MARTIN, RVT
== END ==
PROVIDERS: PCP Internal Medicine; Referring Provider Internal Medicine; Visit Provider Internal Medicine
DX: M79.605 Pain in left leg (principal)
CPT/HCPCS: 93971

== ENCOUNTER → 2020-07-03 10:09 | Outpatient (CLI) | payer MEDICARE, SELFPAY ==
[2019-03-05 08:55] VITALS: BMI 34.1
--- NOTE | 2020-07-03 10:25 | BI_ITS ---
MAMMOGRAPHY - BILATERAL SCREENING REASON FOR EXAM: Female, 80 years old. Routine annual screening examination. PERTINENT HISTORY: Non-contributory. TECHNIQUE: Digital bilateral breast brooks (3D mammographic acquisition) in the CC and MLO projections. 2-D mediolateral oblique (MLO) and craniocaudad (CC) views of both breasts were obtained. CAD: Full Field Digital Mammography with Computer Added Detection was performed. COMPARISON: Comparison is made with prior examination dated 02/25/2019 and 02/22/2018. FINDINGS: Breast Composition: The breasts are almost entirely fatty. There are no dominant masses or suspicious calcifications. Stable small benign appearing bilateral axillary lymph nodes. No other significant abnormalities are identified. There has been no significant change since the prior study. BI/SCREEN MAMM (CAD) W/BROOKS BILAT IMPRESSION: Stable bilateral screening mammogram. Yearly follow-up mammogram recommended. (A) ASSESSMENT CATEGORY: BIRADS Category 2: Benign. A letter regarding these results will be sent to the patient by the facility within 30 days. Approximately 10% of breast cancers are not detected by mammography. A normal mammogram should not delay biopsy of a clinically suspicious abnormality. [id number] Electronically Signed: Abelardo Eduardo, at 11:20 EDT , Service support ,
== END ==
PROVIDERS: PCP Internal Medicine; Referring Provider Internal Medicine; Visit Provider Internal Medicine
DX: Z12.31 Encounter for screening mammogram for malignant neoplasm of breast (principal); Z78.0 Asymptomatic menopausal state
CPT/HCPCS: 77063; 77067

== ENCOUNTER 2020-09-28 09:40 | Outpatient (RCR) | payer MEDICARE, SELFPAY ==
[2019-03-05 08:55] VITALS: BMI 34.1
[2020-09-28 12:31] LABS: Erythrocyte Sedimentation Rate 7 mm/hr (0-30)
[2020-09-28 12:33] LABS: Absolute Lymphocyte Count 1.48 X10^3/uL (0.83-4.51); Basophil# 0.05 X10^3/uL; Basophil% 0.6 % (0-1); Eosinophil# 0.27 X10^3/uL; Eosinophils% 3.2 % (0-5); Hematocrit 41.2 % (37-47); Lymphocyte # 1.48 X10^3/ul (4.0); Lymphocyte % 17.6 % (19-41); Mean Corpuscular Hgb 31.8 pg (27.0-32.0); Mean Corpuscular Volume 93.6 fL (81-99); Monocyte# 0.58 X10^3/uL; Monocyte% 6.9 % (0-10); NRBC Flagged by Analyzer 0 % (0-5); Neutrophil # 6.03 X10^3/uL (2.7-7.7); Neutrophil % 71.5 % (47-70); Platelet Count 240 K/mm3 (150-450); RBC Distribution Width CV 13.4 % (11.6-14.6); RBC Distribution Width SD 45.6 fl (35.1-43.9); White Blood Count 8.4 K/mm3 (4.4-11.0)
[2020-09-28 12:47] LABS: AST(SGOT) 20 U/L (15-37); Alanine Aminotransfer ALT/SGPT 30 U/L (13-56); CRP < 2.90 mg/L (0.0-3.0); Creatinine, Serum 0.76 mg/dL (0.55-1.02); EST Glomerular Filtration Rate 78 mL/min (>60); Est Glom Filt Rate - Afr Amer 94 mL/min (>60)
== END 2020-09-28 18:00 | disposition home or self-care (01) ==
LOC: MTLAB 09:40
PROVIDERS: Family Provider Internal Medicine; PCP Internal Medicine; Referring Provider Internal Medicine Rheumatology; Visit Provider Internal Medicine Rheumatology
DX: M05.79 Rheumatoid arthritis with rheumatoid factor of multiple sites without organ or systems involvement (principal); L40.50 Arthropathic psoriasis, unspecified; R76.8 Other specified abnormal immunological findings in serum; M19.071 Primary osteoarthritis, right ankle and foot; M19.072 Primary osteoarthritis, left ankle and foot; M47.818 Spondylosis without myelopathy or radiculopathy, sacral and sacrococcygeal region; M50.30 Other cervical disc degeneration, unspecified cervical region; M19.042 Primary osteoarthritis, left hand; M47.9 Spondylosis, unspecified; M19.011 Primary osteoarthritis, right shoulder; M19.012 Primary osteoarthritis, left shoulder; M51.36 Other intervertebral disc degeneration, lumbar region; M85.851 Other specified disorders of bone density and structure, right thigh; M85.852 Other specified disorders of bone density and structure, left thigh; Z78.0 Asymptomatic menopausal state; Z86.711 Personal history of pulmonary embolism; Z15.89 Genetic susceptibility to other disease; Z79.01 Long term (current) use of anticoagulants; Z79.899 Other long term (current) drug therapy; Z82.61 Family history of arthritis
CPT/HCPCS: 36415; 82565; 84450; 84460; 85025; 85652; 86140

== ENCOUNTER 2020-12-08 12:50 | Outpatient (RCR) | payer MEDICARE, SELFPAY ==
[2019-03-05 08:55] VITALS: BMI 34.1
[2020-12-08 15:26] LABS: Absolute Lymphocyte Count 1.36 X10^3/uL (0.83-4.51); Absolute Neutrophil Count 5.3 X10^3/uL (2.0-7.7); Basophil# 0.06 X10^3/uL; Basophil% 0.8 % (0-1); Eosinophil# 0.23 X10^3/uL; Eosinophils% 3.1 % (0-5); Erythrocyte Sedimentation Rate 5 mm/hr (0-30); Hemoglobin 14.9 g/dL (12.0-15.0); Lymphocyte # 1.36 X10^3/ul (4.0); Lymphocyte % 18.1 % (19-41); Mean Corp Hgb Conc 33.1 g/dL (32-36); Mean Corpuscular Hgb 31.9 pg (27.0-32.0); Mean Corpuscular Volume 96.4 fL (81-99); Mean Platelet Vol. 9.8 fl (6.2-12.0); Monocyte# 0.56 X10^3/uL; Monocyte% 7.5 % (0-10); NRBC Flagged by Analyzer 0 % (0-5); Neutrophil # 5.29 X10^3/uL (2.7-7.7); Neutrophil % 70.4 % (47-70); Platelet Count 256 K/mm3 (150-450); RBC Distribution Width CV 13.7 % (11.6-14.6); RBC Distribution Width SD 48.1 fl (35.1-43.9); Red Blood Count 4.67 M/mm3 (4.2-5.4); White Blood Count 7.5 K/mm3 (4.4-11.0)
[2020-12-08 16:32] LABS: AST(SGOT) 18 U/L (15-37); Alanine Aminotransfer ALT/SGPT 27 U/L (13-56); CRP < 2.90 mg/L (0.0-3.0); Creatinine, Serum 0.95 mg/dL (0.55-1.02); EST Glomerular Filtration Rate 60 mL/min (>60); Est Glom Filt Rate - Afr Amer 73 mL/min (>60)
== END 2020-12-08 18:00 | disposition home or self-care (01) ==
LOC: MTLAB 12:50
PROVIDERS: Family Provider Internal Medicine; PCP Internal Medicine; Referring Provider Internal Medicine Rheumatology; Visit Provider Internal Medicine Rheumatology
DX: M05.79 Rheumatoid arthritis with rheumatoid factor of multiple sites without organ or systems involvement (principal); L40.50 Arthropathic psoriasis, unspecified; R76.8 Other specified abnormal immunological findings in serum; M19.071 Primary osteoarthritis, right ankle and foot; M19.072 Primary osteoarthritis, left ankle and foot; M47.818 Spondylosis without myelopathy or radiculopathy, sacral and sacrococcygeal region; M50.30 Other cervical disc degeneration, unspecified cervical region; M19.042 Primary osteoarthritis, left hand; M47.9 Spondylosis, unspecified; M19.011 Primary osteoarthritis, right shoulder; M19.012 Primary osteoarthritis, left shoulder; M51.36 Other intervertebral disc degeneration, lumbar region; M85.851 Other specified disorders of bone density and structure, right thigh; M85.852 Other specified disorders of bone density and structure, left thigh; Z78.0 Asymptomatic menopausal state; Z86.711 Personal history of pulmonary embolism; Z15.89 Genetic susceptibility to other disease; Z79.01 Long term (current) use of anticoagulants; Z79.899 Other long term (current) drug therapy; Z82.61 Family history of arthritis
CPT/HCPCS: 36415; 82565; 84450; 84460; 85025; 85652; 86140

== ENCOUNTER 2021-01-19 11:18 | Outpatient (RCR) | payer MEDICARE, SELFPAY ==
[2019-03-05 08:55] VITALS: BMI 34.1
[2021-01-19 15:24] LABS: Erythrocyte Sedimentation Rate 7 mm/hr (0-30)
[2021-01-19 15:26] LABS: Absolute Lymphocyte Count 1.15 X10^3/uL (0.83-4.51); Absolute Neutrophil Count 4.2 X10^3/uL (2.0-7.7); Basophil# 0.05 X10^3/uL; Basophil% 0.8 % (0-1); Eosinophil# 0.25 X10^3/uL; Hematocrit 44.7 % (37-47); Hemoglobin 14.7 g/dL (12.0-15.0); Lymphocyte # 1.15 X10^3/ul (4.0); Lymphocyte % 18.5 % (19-41); Mean Corp Hgb Conc 32.9 g/dL (32-36); Mean Corpuscular Hgb 32.2 pg (27.0-32.0); Mean Corpuscular Volume 97.8 fL (81-99); Mean Platelet Vol. 9.6 fl (6.2-12.0); Monocyte# 0.52 X10^3/uL; Monocyte% 8.4 % (0-10); NRBC Flagged by Analyzer 0 % (0-5); Neutrophil # 4.21 X10^3/uL (2.7-7.7); Platelet Count 214 K/mm3 (150-450); RBC Distribution Width CV 14.1 % (11.6-14.6); RBC Distribution Width SD 49.7 fl (35.1-43.9); Red Blood Count 4.57 M/mm3 (4.2-5.4); White Blood Count 6.2 K/mm3 (4.4-11.0)
[2021-01-19 15:42] LABS: AST(SGOT) 34 U/L (15-37); Alanine Aminotransfer ALT/SGPT 36 U/L (13-56); CRP < 2.90 mg/L (0.0-3.0); Creatinine, Serum 0.91 mg/dL (0.55-1.02); EST Glomerular Filtration Rate 63 mL/min (>60); Est Glom Filt Rate - Afr Amer 77 mL/min (>60)
== END 2021-01-19 18:00 | disposition home or self-care (01) ==
LOC: MTLAB 11:18
PROVIDERS: Family Provider Internal Medicine; PCP Internal Medicine; Referring Provider Internal Medicine Rheumatology; Visit Provider Internal Medicine Rheumatology
DX: M05.79 Rheumatoid arthritis with rheumatoid factor of multiple sites without organ or systems involvement (principal); L40.50 Arthropathic psoriasis, unspecified; R76.8 Other specified abnormal immunological findings in serum; M19.071 Primary osteoarthritis, right ankle and foot; M19.072 Primary osteoarthritis, left ankle and foot; M47.818 Spondylosis without myelopathy or radiculopathy, sacral and sacrococcygeal region; M50.30 Other cervical disc degeneration, unspecified cervical region; M19.042 Primary osteoarthritis, left hand; M47.9 Spondylosis, unspecified; M19.011 Primary osteoarthritis, right shoulder; M19.012 Primary osteoarthritis, left shoulder; M51.36 Other intervertebral disc degeneration, lumbar region; M85.851 Other specified disorders of bone density and structure, right thigh; M85.852 Other specified disorders of bone density and structure, left thigh; Z78.0 Asymptomatic menopausal state; Z15.89 Genetic susceptibility to other disease; Z79.01 Long term (current) use of anticoagulants; Z79.52 Long term (current) use of systemic steroids; Z79.899 Other long term (current) drug therapy; Z86.711 Personal history of pulmonary embolism; Z82.61 Family history of arthritis
CPT/HCPCS: 36415; 82565; 84450; 84460; 85025; 85652; 86140

== ENCOUNTER 2021-03-22 13:06 | Outpatient (RCR) | payer MEDICARE, SELFPAY ==
[2019-03-05 08:55] VITALS: BMI 34.1
[2021-03-22 15:44] LABS: Absolute Lymphocyte Count 1.84 X10^3/uL (0.83-4.51); Absolute Neutrophil Count 4.3 X10^3/uL (2.0-7.7); Basophil# 0.06 X10^3/uL; Basophil% 0.8 % (0-1); Eosinophil# 0.36 X10^3/uL; Hematocrit 43.2 % (37-47); Hemoglobin 13.9 g/dL (12.0-15.0); Lymphocyte # 1.84 X10^3/ul (0.83-4.51); Lymphocyte % 25.8 % (19-41); Mean Corp Hgb Conc 32.2 g/dL (32-36); Mean Corpuscular Hgb 31.8 pg (27.0-32.0); Mean Corpuscular Volume 98.9 fL (81-99); Mean Platelet Vol. 9.8 fl (6.2-12.0); Monocyte% 8.4 % (0-10); NRBC Flagged by Analyzer 0 % (0-5); Neutrophil # 4.25 X10^3/uL (2.7-7.7); Neutrophil % 59.7 % (47-70); Platelet Count 249 K/mm3 (150-450); RBC Distribution Width SD 50.1 fl (35.1-43.9); Red Blood Count 4.37 M/mm3 (4.2-5.4); White Blood Count 7.1 K/mm3 (4.4-11.0)
[2021-03-22 16:05] LABS: AST(SGOT) 18 U/L (15-37); Alanine Aminotransfer ALT/SGPT 24 U/L (13-56); CRP < 2.90 mg/L (0.0-3.0); Creatinine, Serum 0.88 mg/dL (0.55-1.02); EST Glomerular Filtration Rate 66 mL/min (>60); Est Glom Filt Rate - Afr Amer 80 mL/min (>60)
[2021-03-22 16:08] LABS: Erythrocyte Sedimentation Rate 4 mm/hr (0-30)
== END 2021-03-22 18:00 | disposition home or self-care (01) ==
LOC: MTLAB 13:06
PROVIDERS: Family Provider Internal Medicine; PCP Internal Medicine; Referring Provider Internal Medicine Rheumatology; Visit Provider Internal Medicine Rheumatology
DX: M05.79 Rheumatoid arthritis with rheumatoid factor of multiple sites without organ or systems involvement (principal); L40.50 Arthropathic psoriasis, unspecified; R76.8 Other specified abnormal immunological findings in serum; M19.071 Primary osteoarthritis, right ankle and foot; M19.072 Primary osteoarthritis, left ankle and foot; M47.818 Spondylosis without myelopathy or radiculopathy, sacral and sacrococcygeal region; M50.30 Other cervical disc degeneration, unspecified cervical region; M19.042 Primary osteoarthritis, left hand; M47.9 Spondylosis, unspecified; M19.011 Primary osteoarthritis, right shoulder; M19.012 Primary osteoarthritis, left shoulder; M51.36 Other intervertebral disc degeneration, lumbar region; M85.851 Other specified disorders of bone density and structure, right thigh; M85.852 Other specified disorders of bone density and structure, left thigh; Z78.0 Asymptomatic menopausal state; Z15.89 Genetic susceptibility to other disease; Z79.01 Long term (current) use of anticoagulants; Z79.52 Long term (current) use of systemic steroids; Z79.899 Other long term (current) drug therapy; Z86.711 Personal history of pulmonary embolism; Z82.61 Family history of arthritis
CPT/HCPCS: 36415; 82565; 84450; 84460; 85025; 85652; 86140

== ENCOUNTER 2021-05-14 08:54 | Outpatient (RCR) | payer MEDICARE, SELFPAY ==
[2019-03-05 08:55] VITALS: BMI 34.1
[2021-05-14 10:25] LABS: Erythrocyte Sedimentation Rate 8 mm/hr (0-30)
[2021-05-14 10:27] LABS: Absolute Neutrophil Count 7.5 X10^3/uL (2.0-7.7); Basophil# 0.04 X10^3/uL; Basophil% 0.4 % (0-1); Eosinophil# 0.26 X10^3/uL; Eosinophils% 2.6 % (0-5); Hemoglobin 13.7 g/dL (12.0-15.0); Lymphocyte % 16.3 % (19-41); Mean Corp Hgb Conc 32.6 g/dL (32-36); Mean Corpuscular Volume 98.1 fL (81-99); Mean Platelet Vol. 9.7 fl (6.2-12.0); Monocyte# 0.41 X10^3/uL; Monocyte% 4.2 % (0-10); NRBC Flagged by Analyzer 0 % (0-5); Neutrophil # 7.47 X10^3/uL (2.7-7.7); Neutrophil % 76.1 % (47-70); Platelet Count 231 K/mm3 (150-450); RBC Distribution Width CV 13.6 % (11.6-14.6); RBC Distribution Width SD 49.1 fl (35.1-43.9); Red Blood Count 4.28 M/mm3 (4.2-5.4); White Blood Count 9.8 K/mm3 (4.4-11.0)
[2021-05-14 11:04] LABS: AST(SGOT) 19 U/L (15-37); Alanine Aminotransfer ALT/SGPT 24 U/L (13-56); CRP < 2.90 mg/L (0.0-3.0); EST Glomerular Filtration Rate 74 mL/min (>60); Est Glom Filt Rate - Afr Amer 89 mL/min (>60)
== END 2021-05-14 18:00 | disposition home or self-care (01) ==
LOC: MTLAB 08:54
PROVIDERS: Family Provider Internal Medicine; PCP Internal Medicine; Referring Provider Internal Medicine Rheumatology; Visit Provider Internal Medicine Rheumatology
DX: M05.79 Rheumatoid arthritis with rheumatoid factor of multiple sites without organ or systems involvement (principal); L40.50 Arthropathic psoriasis, unspecified; M19.071 Primary osteoarthritis, right ankle and foot; M19.072 Primary osteoarthritis, left ankle and foot; M47.818 Spondylosis without myelopathy or radiculopathy, sacral and sacrococcygeal region; M50.30 Other cervical disc degeneration, unspecified cervical region; M19.042 Primary osteoarthritis, left hand; M47.9 Spondylosis, unspecified; M19.011 Primary osteoarthritis, right shoulder; M19.012 Primary osteoarthritis, left shoulder; M51.36 Other intervertebral disc degeneration, lumbar region; M85.851 Other specified disorders of bone density and structure, right thigh; M85.852 Other specified disorders of bone density and structure, left thigh; R76.8 Other specified abnormal immunological findings in serum; Z78.0 Asymptomatic menopausal state; Z15.89 Genetic susceptibility to other disease; Z79.01 Long term (current) use of anticoagulants; Z79.52 Long term (current) use of systemic steroids; Z79.899 Other long term (current) drug therapy; Z86.711 Personal history of pulmonary embolism; Z82.61 Family history of arthritis
CPT/HCPCS: 36415; 82565; 84450; 84460; 85025; 85652; 86140

== ENCOUNTER 2021-06-23 13:09 | Outpatient (RCR) | payer MEDICARE, SELFPAY ==
[2019-03-05 08:55] VITALS: BMI 34.1
[2021-06-23 15:23] LABS: Absolute Lymphocyte Count 1.71 X10^3/uL (0.83-4.51); Basophil# 0.05 X10^3/uL; Basophil% 0.8 % (0-1); Eosinophil# 0.25 X10^3/uL; Eosinophils% 3.9 % (0-5); Hematocrit 42.2 % (37-47); Hemoglobin 13.9 g/dL (12.0-15.0); Lymphocyte # 1.71 X10^3/ul (0.83-4.51); Lymphocyte % 26.4 % (19-41); Mean Corp Hgb Conc 32.9 g/dL (32-36); Mean Corpuscular Hgb 32.1 pg (27.0-32.0); Mean Corpuscular Volume 97.5 fL (81-99); Mean Platelet Vol. 9.6 fl (6.2-12.0); Monocyte% 7.7 % (0-10); NRBC Flagged by Analyzer 0 % (0-5); Neutrophil # 3.95 X10^3/uL (2.7-7.7); Neutrophil % 60.9 % (47-70); Platelet Count 255 K/mm3 (150-450); RBC Distribution Width CV 13.6 % (11.6-14.6); RBC Distribution Width SD 49.1 fl (35.1-43.9); Red Blood Count 4.33 M/mm3 (4.2-5.4); White Blood Count 6.5 K/mm3 (4.4-11.0)
[2021-06-23 15:40] LABS: Erythrocyte Sedimentation Rate 16 mm/hr (0-30)
[2021-06-23 15:48] LABS: AST(SGOT) 20 U/L (15-37); Alanine Aminotransfer ALT/SGPT 25 U/L (13-56); CRP < 2.90 mg/L (0.0-3.0); Creatinine, Serum 0.84 mg/dL (0.55-1.02); EST Glomerular Filtration Rate 70 mL/min (>60); Est Glom Filt Rate - Afr Amer 85 mL/min (>60)
== END 2021-06-23 18:00 | disposition home or self-care (01) ==
LOC: MTLAB 13:09
PROVIDERS: Family Provider Internal Medicine; PCP Internal Medicine; Referring Provider Internal Medicine Rheumatology; Visit Provider Internal Medicine Rheumatology
DX: M05.79 Rheumatoid arthritis with rheumatoid factor of multiple sites without organ or systems involvement (principal); L40.50 Arthropathic psoriasis, unspecified; M19.071 Primary osteoarthritis, right ankle and foot; M19.072 Primary osteoarthritis, left ankle and foot; M47.818 Spondylosis without myelopathy or radiculopathy, sacral and sacrococcygeal region; M50.30 Other cervical disc degeneration, unspecified cervical region; M19.042 Primary osteoarthritis, left hand; M47.9 Spondylosis, unspecified; M19.011 Primary osteoarthritis, right shoulder; M19.012 Primary osteoarthritis, left shoulder; M51.36 Other intervertebral disc degeneration, lumbar region; M85.851 Other specified disorders of bone density and structure, right thigh; M85.852 Other specified disorders of bone density and structure, left thigh; R76.8 Other specified abnormal immunological findings in serum; Z78.0 Asymptomatic menopausal state; Z15.89 Genetic susceptibility to other disease; Z79.01 Long term (current) use of anticoagulants; Z79.52 Long term (current) use of systemic steroids; Z79.899 Other long term (current) drug therapy; Z86.711 Personal history of pulmonary embolism; Z82.61 Family history of arthritis
CPT/HCPCS: 36415; 82565; 84450; 84460; 85025; 85652; 86140

== ENCOUNTER → 2021-07-08 12:09 | Outpatient (CLI) | payer MEDICARE, SELFPAY ==
--- NOTE | 2021-07-08 12:14 | BI_ITS ---
MAMMOGRAPHY - BILATERAL SCREENING REASON FOR EXAM: Female, 81 years old. Routine annual screening examination. PERTINENT HISTORY: Non-contributory. TECHNIQUE: Digital bilateral breast brooks (3D mammographic acquisition) in the CC and MLO projections. 2-D mediolateral oblique (MLO) and craniocaudad (CC) views of both breasts were obtained. CAD: Full Field Digital Mammography with Computer Added Detection was performed. COMPARISON: Comparison is made with prior study dated 07/03/2020 and 02/25/2019. FINDINGS: Breast Composition: The breasts are almost entirely fatty. There are no dominant masses or suspicious calcifications. Stable small benign-appearing bilateral axillary lymph nodes. No other significant abnormalities are identified. There has been no significant change since the prior study. BI/SCRN MAMM (CAD)W/BROOKS BILAT IMPRESSION: Stable bilateral screening mammogram. Yearly follow-up mammogram recommended. (A) ASSESSMENT CATEGORY: BIRADS Category 2: Benign. A letter regarding these results will be sent to the patient by the facility within 30 days. Approximately 10% of breast cancers are not detected by mammography. A normal mammogram should not delay biopsy of a clinically suspicious abnormality. [id number] Electronically Signed: Abelardo Eduardo MD at 13:45 EDT , Service support ,
== END ==
PROVIDERS: PCP Internal Medicine; Referring Provider Internal Medicine; Visit Provider Internal Medicine
DX: Z12.31 Encounter for screening mammogram for malignant neoplasm of breast (principal)
CPT/HCPCS: 77063; 77067

== ENCOUNTER 2021-08-18 10:40 | Outpatient (RCR) | payer MEDICARE, SELFPAY ==
[2021-07-16 02:17] VITALS: BMI 34.1
[2021-08-18 12:20] LABS: Erythrocyte Sedimentation Rate 6 mm/hr (0-30)
[2021-08-18 12:27] LABS: Absolute Neutrophil Count 4.1 X10^3/uL (2.0-7.7); Basophil# 0.05 X10^3/uL; Basophil% 0.8 % (0-1); Eosinophil# 0.22 X10^3/uL; Eosinophils% 3.4 % (0-5); Hematocrit 42.3 % (37-47); Hemoglobin 13.7 g/dL (12.0-15.0); Lymphocyte % 23.1 % (19-41); Mean Corp Hgb Conc 32.4 g/dL (32-36); Mean Corpuscular Hgb 31.6 pg (27.0-32.0); Mean Corpuscular Volume 97.7 fL (81-99); Mean Platelet Vol. 9.9 fl (6.2-12.0); Monocyte# 0.51 X10^3/uL; Monocyte% 7.9 % (0-10); NRBC Flagged by Analyzer 0 % (0-5); Neutrophil # 4.09 X10^3/uL (2.7-7.7); Platelet Count 244 K/mm3 (150-450); RBC Distribution Width CV 13.8 % (11.6-14.6); RBC Distribution Width SD 49.7 fl (35.1-43.9); Red Blood Count 4.33 M/mm3 (4.2-5.4); White Blood Count 6.5 K/mm3 (4.4-11.0)
[2021-08-18 12:47] LABS: AST(SGOT) 23 U/L (15-37); Alanine Aminotransfer ALT/SGPT 29 U/L (13-56); CRP < 2.90 mg/L (0.0-3.0); EST Glomerular Filtration Rate 64 mL/min (>60); Est Glom Filt Rate - Afr Amer 78 mL/min (>60)
== END 2021-09-14 18:00 | disposition home or self-care (01) ==
LOC: MTLAB 10:40
PROVIDERS: Family Provider Internal Medicine; PCP Internal Medicine; Referring Provider Internal Medicine Rheumatology; Visit Provider Internal Medicine Rheumatology
DX: M05.79 Rheumatoid arthritis with rheumatoid factor of multiple sites without organ or systems involvement (principal); L40.50 Arthropathic psoriasis, unspecified; M19.071 Primary osteoarthritis, right ankle and foot; M19.072 Primary osteoarthritis, left ankle and foot; M47.818 Spondylosis without myelopathy or radiculopathy, sacral and sacrococcygeal region; M50.30 Other cervical disc degeneration, unspecified cervical region; M19.042 Primary osteoarthritis, left hand; M47.9 Spondylosis, unspecified; M19.011 Primary osteoarthritis, right shoulder; M19.012 Primary osteoarthritis, left shoulder; M51.36 Other intervertebral disc degeneration, lumbar region; M85.851 Other specified disorders of bone density and structure, right thigh; M85.852 Other specified disorders of bone density and structure, left thigh; R76.8 Other specified abnormal immunological findings in serum; Z78.0 Asymptomatic menopausal state; Z15.89 Genetic susceptibility to other disease; Z79.01 Long term (current) use of anticoagulants; Z79.52 Long term (current) use of systemic steroids; Z79.899 Other long term (current) drug therapy; Z86.711 Personal history of pulmonary embolism; Z82.61 Family history of arthritis
CPT/HCPCS: 36415; 82565; 84450; 84460; 85025; 85652; 86140

== ENCOUNTER 2021-08-29 20:56 | Inpatient (IN) | payer MEDICARE, SELFPAY ==
[2021-08-29 20:58] VITALS: BP 123/65; PULSE 78; RESP 19; TEMP 36.6; O2SAT 97; BMI 36.3
--- NOTE | 2021-08-29 21:21 | EKG12_ITS ---
Test Reason : WEAKNESS Blood Pressure : / mmHG Vent. Rate : 077 BPM Atrial Rate : 077 BPM P-R Int : 182 ms QRS Dur : 080 ms QT Int : 392 ms P-R-T Axes : 026 017 050 degrees QTc Int : 443 ms Normal sinus rhythm Normal ECG Confirmed by JEFFERSON ROSADO ([id number]), features editor LOUIS MISHRA ([id number]) on 08/30/2021 11:09:22 AM Referred By: MICHELLE Confirmed By:JEFFERSON ROSADO
--- NOTE | 2021-08-29 21:25 | EX.ED.DYSGE1 ---
HPI History of Present Illness Chief Complaint: Confusion Narrative Narrative: 81-year-old female presenting with her family out of concern for generalized weakness. Apparently the patient usually uses a Rollator or walks or furniture but today she is unable to get up due to weakness. She did have a slight fall but this was witnessed and she did not hit her head. She is on Eliquis. Patient had a booster shot yesterday and her family speculates is that this is the cause. She does have a history of MS as well. Patient has vascular dementia and is not a good informant however family member who is with her states that she has been otherwise healthy. She is not had fever, chills, cough, chest pain. She has not complained of any pain. She is just unable to ambulate. Today she tried to get up prior to coming to the ER and vomited 1 time. Currently she states she is not nauseous. [facility] Medical History AMD (age related macular degeneration) Asthma Atherosclerotic heart disease of [place] coronary artery without angina pectoris Essential hypertension Mixed hyperlipidemia Multiple sclerosis Home Medications Therems-M 1 tab PO DAILY 07/14/17 [History Last Taken Unknown] Timolol Maleate [Timoptic-Xe 0.25%] 1 drp EACH EYE DAILY 07/14/17 [History Last Taken Unknown] acetaminophen [Tylenol Arthritis] 650 mg PO DAILY 07/14/17 [History Last Taken Unknown] apixaban [Eliquis] 5 mg PO BID 07/14/17 [History Last Taken Unknown] atenolol 25 mg PO BID 07/14/17 [History Last Taken Unknown] bimatoprost [Lumigan] 1 drp EACH EYE BID 07/14/17 [History Last Taken Unknown] cholecalciferol (vitamin D3) [Vitamin D3] 4,000 unit PO DAILY 07/14/17 [History Last Taken Unknown] coenzyme Q10 [Co Q-10] 200 mg PO DAILY 07/14/17 [History Last Taken Unknown] duloxetine 60 mg PO DAILY 07/14/17 [History Last Taken Unknown] folic acid 1 mg PO DAILY@0800 07/14/17 [History Last Taken Unknown] magnesium oxide 400 mg PO BID 07/14/17 [History Last Taken Unknown] methotrexate sodium 7 tab PO Q7D 07/14/17 [History Last Taken Unknown] potassium chloride [Klor-Con M20] 20 meq PO DAILY 07/14/17 [History Last Taken Unknown] furosemide 20 mg PO DAILY 03/01/18 [History Last Taken Unknown] polyethylene glycol 3350 17 g PO DAILY PRN 03/01/18 [History Last Taken Unknown] vitamins A,C,J-rmjy-bthzua [Preservision Areds Softgel] 1 ea PO BID 03/01/18 [History Last Taken Unknown] omega-3 fatty acids-fish oil 1 ea PO DAILY 08/15/18 [History Last Taken Unknown] rizatriptan 10 mg PO .X1 PRN 08/15/18 [History Last Taken Unknown] atorvastatin 10 mg PO DAILY 03/05/19 [History Last Taken Unknown] diphenhydramine-acetaminophen [Tylenol PM Extra Strength] 1 tab PO QHS PRN 08/29/21 [History Last Taken Unknown] Allergy/AdvReac Type Severity Reaction Status Date / Time baclofen Allergy Unknown Verified 09/03/18 09:08 donepezil [From Aricept] Allergy Other Verified 08/29/21 21:05 hydroxychloroquine Allergy Unknown Verified 09/03/18 09:08 [From Plaquenil] Iodinated Contrast Media Allergy Hives Verified 09/03/18 09:08 [Iodinated Contrast- Oral and IV Dye] pravastatin Allergy Unknown Verified 09/03/18 09:08 shellfish derived Allergy Hives Verified 09/03/18 09:08 spironolactone Allergy Rash Verified 09/03/18 09:08 Sulfa (Sulfonamide Allergy Unknown Verified 09/03/18 09:08 Antibiotics) Surgical History History of appendectomy History of hemorrhoidectomy History of kyphoplasty History of tonsillectomy and adenoidectomy History of vitrectomy S/P YAG capsulotomy, left Social History Smoking Status: Never smoker alcohol intake: never substance use type: does not use ROS ROS ED Constitutional Constitutional ED: Denies chills or fever(s) Eyes Eyes: Denies blurry vision or change in vision ENT ENT ED: Denies rhinorrhea or sore throat Cardiovascular Cardiovascular: Denies chest pain or palpitations Respiratory/Chest Respiratory/Chest: Denies cough, dyspnea or sputum Gastrointestinal Gastrointestinal: Reports nausea and vomiting; Denies abdominal pain or diarrhea Genitourinary Genitourinary ED: Denies dysuria or hematuria Musculoskeletal Musculoskeletal: Denies arthralgias, back pain, myalgias or neck pain Integumentary Denies abscess or rash Neurologic Neurologic: Denies headache(s) or paresthesias EXAM Physical Exam Const Vital Signs: 08/29/21 20:58 08/29/21 22:37 Temperature 97.8 F 99.5 F H Temperature Source Temporal Oral Pulse Rate 78 77 Respiratory Rate 19 H 16 Blood Pressure 123/65 H 148/106 H Blood Pressure Mean 84 120 Pulse Ox 97 95 Oxygen Delivery Method Room Air Room Air Positive well nourished General Appearance ED: NAD; Negative for pallor HEENT Reports moist mucous membranes Negative for trauma Eyes PERRL and EOMs intact bilaterally Resp normal respiratory effort and clear to auscultation bilaterally Cardio regular rate and regular rhythm GI normal to inspection, nondistended, normoactive bowel sounds Extremity normal to inspection General Extremety ED: Negative for tenderness Neuro CN's II-XII intact bilaterally Neuro Narrative: Patient unable to lift her legs off of the bed. Her weakness is worse on the left. Sensorium / Orientation: alert Skin General Skin Exam: Negative for jaundice or pallor MDM MDM MDM Narrative Medical decision making narrative: Patient typically has leg weakness worse on the left. Today it is so bad that she cannot get up and ambulate. She did fall but denies any injury. There is no outward signs of injury. Patient had one episode of nausea and vomiting before coming to the ER. Family speculates this is where she might have a urinary tract infection. They do not feel she can come home because she is too weak to get up and he cannot care for. Given her nausea and her inability to give an accurate history I did check an EKG which is a sinus rhythm with a ventricular rate of 77 bpm without sign of ischemic change. Chest x-ray on my interpretation shows no acute cardiopulmonary process and radiologist does agree. CBC shows no leukocytosis. Hemoglobin and hematocrit are stable. Renal function electrolytes are normal. LFTs are normal with exception of an AST of 47. Urinalysis does show 500 leukocyte esterase as well as 10-25 white blood cells and 3+ bacteria. Urine was sent for culture and 1 dose of Rocephin was given to the patient. I discussed with the patient's family who felt that she was not able to care for self and they are currently not able to care for her given her inability to ambulate. Will discuss with the hospitalist for admission. Impression: 1. Generalized weakness 2. UTI Lab Data Labs: Laboratory Results - last 24 hr 08/29/21 08/29/21 08/29/21 21:05 21:05 21:40 WBC 7.4 RBC 4.24 Hgb 13.8 Hct 41.5 MCV 97.9 MCH 32.5 H MCHC 33.3 RDW Std Deviation 50.2 H RDW Coeff of Jameel 14.1 Plt Count 157 MPV 9.1 Immature Gran % (Auto) 0.300 Neut % (Auto) 82.3 H Lymph % (Auto) 7.7 L [place] % (Auto) 8.9 Eos % (Auto) 0.1 Baso % (Auto) 0.7 Absolute Neuts (auto) 6.1 Absolute Lymphs (auto) 0.57 L Nucleated RBC % 0 Differential Comment SCANNED Sodium 135 L Potassium 4.5 Chloride 105 Carbon Dioxide 22.0 Anion Gap 8 BUN 17 Creatinine 0.90 Estim Creat Clear Calc 45.61 Est GFR (MDRD) Af Amer 78 Est GFR (MDRD) Non-Af 65 BUN/Creatinine Ratio 19.0 Glucose 119 H Calcium 8.8 Total Bilirubin 0.60 AST 47 H ALT 43 Alkaline Phosphatase 97 Troponin I High Sens 6 Total Protein 6.8 Albumin 2.9 L Globulin 3.9 Albumin/Globulin Ratio 0.7 L Urine Color Yellow Urine Clarity Cloudy Urine pH 6.0 Ur Specific [place] 1.015 Urine Protein 30 H Urine Glucose (UA) Normal Urine Ketones 5 H Urine Occult Blood 10 H Urine Nitrite Negative Urine Bilirubin Negative Urine Urobilinogen Normal Ur Leukocyte Esterase 500 H Urine RBC 0-5 SEEN Urine WBC 10-25 SEEN Ur Squamous Epith Cells 0-5 SEEN Urine Bacteria 3+ Urine Mucus 1+ Radiography Diagnostic Testing: Clinical Impression(s) from Imaging Studies Chest X-Ray 08/29/21 21:50 IMPRESSION: Normal x-ray examination of the chest. Electronically Signed: Jose Siegel DO at 22:03 EST Tel [phone], Service support , Discharge Plan Triage Chief Complaint: Confusion ED Provider: Dixon Padgett Dx/Rx/DC Orders Prescriptions: No Action atenolol 25 MG tablet 25 mg PO BID RF: 0 folic acid 1 MG tablet 1 mg PO DAILY@0800 RF: 0 coenzyme Q10 [Co Q-10] 100 MG capsule 200 mg PO DAILY RF: 0 duloxetine 60 MG capsule,delayed release(DR/EC) 60 mg PO DAILY RF: 0 Lumigan 1 DROP drops 1 drp Each Eye BID RF: 0 Eliquis 5 MG tablet 5 mg PO BID RF: 0 acetaminophen [Tylenol Arthritis Pain] 650 MG tablet extended release 650 mg PO DAILY RF: 0 potassium chloride [Klor-Con M20] 20 MEQ tablet,ER particles/crystals 20 meq PO DAILY RF: 0 magnesium oxide 400 MG tablet 400 mg PO BID RF: 0 methotrexate sodium 2.5 MG tablet 7 tab PO Q7D RF: 0 cholecalciferol (vitamin D3) [Vitamin D3] 1,000 UNIT capsule 4,000 unit PO DAILY RF: 0 Therems-M 1 TABLET tablet 1 tab PO DAILY RF: 0 Timolol Maleate [Timoptic-Xe 0.25%] 1 DROP Arlyn.Gel 1 drp Each Eye DAILY RF: 0 polyethylene glycol 3350 17 GM powder in packet 17 g PO DAILY PRN (Reason: Constipation) RF: 0 furosemide 20 MG tablet 20 mg PO DAILY RF: 0 PreserVision AREDS 1 EACH capsule 1 ea PO BID RF: 0 rizatriptan 10 MG tablet 10 mg PO .X1 PRN RF: 0 omega-3 fatty acids-fish oil 1 EACH capsule 1 ea PO DAILY RF: 0 atorvastatin 10 MG tablet 10 mg PO DAILY RF: 0 diphenhydramine-acetaminophen [Tylenol PM Extra Strength] 25-500 mg Tablet 1 tab PO QHS PRN (Reason: Pain) RF: 0 Primary Care Provider: Zofia Horton
[2021-08-29 21:45] LABS: ALB/GLOB Ratio 0.7 RATIO (0.9-2.4); AST(SGOT) 47 U/L (15-37); Alanine Aminotransfer ALT/SGPT 43 U/L (13-56); Albumin, Serum 2.9 g/dL (3.2-5.0); Alkaline Phosphatase 97 U/L (45-117); Anion Gap 8 (5-15); BUN 17 mg/dL (7-18); Calcium,Total 8.8 mg/dL (8.5-10.1); Chloride 105 mmol/L (98-107); EST Glomerular Filtration Rate 65 mL/min (>60); Est Glom Filt Rate - Afr Amer 78 mL/min (>60); Estimated Creatinine Clearance 45.61 ml/min; Globulin 3.9 g/dL (2.2-4.2); Glucose 119 mg/dL (74-106); Potassium 4.5 mmol/L (3.5-5.1); Protein, Total 6.8 g/dL (6.4-8.2); Sodium Level 135 mmol/L (136-145); Troponin-I HS 6 pg/mL (3.0-54.0)
[2021-08-29 21:48] LABS: Color, Urine Yellow (Yellow); Glucose, Dipstick Normal (Normal); Ketone-Dipstick 5 mg/dl (Negative); Leukocyte Esterase-Dipstick 500 /ul (Negative); Nitrite-Dipstick Negative (Negative); Occult Blood-Urine 10 /ul (Negative); Protein-Dipstick 30 mg/dl (Negative); Specific Gravity, Urine 1.015 (1.002-1.030); Urine Bilirubin Dipstick Negative (Negative); Urine Clarity Cloudy (Clear); Urine Urobilinogen Normal (Normal)
--- NOTE | 2021-08-29 21:50 | RAD_ITS ---
STUDY: X-RAY CHEST REASON FOR EXAM: Female, 81 years old. Weakness TECHNIQUE: Frontal view COMPARISON: 11/02/2017 FINDINGS: The lungs are clear and expanded. There is no demonstrated pleural abnormality. Normal size heart. Normal mediastinum and ofelia. Normal visualized pulmonary arteries. Normal visualized aortic arch and descending thoracic aorta. Degenerative changes of the visualized thoracic spine. Old compression of a midthoracic segment with vertebroplasty. Normal visualized ribs, clavicles, and shoulders. There is no demonstrated abnormality of the visualized soft tissue structures of the upper abdomen. RAD/Chest 1 View (Portable) IMPRESSION: Normal x-ray examination of the chest. Electronically Signed: Jose Siegel DO at 22:03 EST Tel [phone], Service support ,
[2021-08-29 22:03] LABS: Bacteria 3+ /hpf (None Seen); Mucous, Urine 1+ /hpf (<or=2+); Red Blood Cells-Urine 0-5 SEEN /hpf (0-5); Squamous Epithelial Cells - UA 0-5 SEEN /hpf (5-10); White Blood Cells 10-25 SEEN /hpf (0-5)
[2021-08-29 22:24] LABS: Absolute Lymphocyte Count 0.57 X10^3/uL (0.83-4.51); Absolute Neutrophil Count 6.1 X10^3/uL (2.0-7.7); Basophil# 0.05 X10^3/uL; Basophil% 0.7 % (0-1); Eosinophil# 0.01 X10^3/uL; Eosinophils% 0.1 % (0-5); Hematocrit 41.5 % (37-47); Hemoglobin 13.8 g/dL (12.0-15.0); Lymphocyte # 0.57 X10^3/ul (0.83-4.51); Lymphocyte % 7.7 % (19-41); Mean Corp Hgb Conc 33.3 g/dL (32-36); Mean Corpuscular Hgb 32.5 pg (27.0-32.0); Mean Corpuscular Volume 97.9 fL (81-99); Mean Platelet Vol. 9.1 fl (6.2-12.0); Monocyte# 0.66 X10^3/uL; Monocyte% 8.9 % (0-10); NRBC Flagged by Analyzer 0 % (0-5); Neutrophil # 6.07 X10^3/uL (2.7-7.7); Neutrophil % 82.3 % (47-70); POSITIVE DIFFERENTIAL YES; Platelet Count 157 K/mm3 (150-450); RBC Distribution Width CV 14.1 % (11.6-14.6); RBC Distribution Width SD 50.2 fl (35.1-43.9); Red Blood Count 4.24 M/mm3 (4.2-5.4); White Blood Count 7.4 K/mm3 (4.4-11.0)
[2021-08-29 22:28] LABS: Differential Indicated SCAN CRITERIA MET
[2021-08-29 22:29] LABS: Differential Comment SCANNED
[2021-08-29] MEDS: Ceftriaxone 1 GM/50 ML BAG IV (22:29)
[2021-08-29 22:37] VITALS: BP 148/106; PULSE 77; RESP 16; TEMP 37.5; O2SAT 95
--- NOTE | 2021-08-29 23:36 | PCM.HP.STD ---
[facility] - General General Date of Admission: 08/29/21 Date of Service: 08/29/21 Chief Complaint: Weakness. HPI Narrative OSBALDO VILLAVICENCIO, is a 81 F with a significant history of multiple sclerosis and rheumatoid arthritis who presents to the emergency department with weakness. Patient lives with her daughter. Patient typically walks holding onto furniture. She has rollator that she hardly uses. She fell one time but she was caught by her daughter. Also she had another episode of near fall. At baseline patient is confused but on the other day of presentation her confusion worsened. Patient had a one-time episode of nausea and vomiting after she eats. The nausea and vomiting occurred on the same day of presentation. Patient had had a booster shot of Moderna vaccination a day before presentation and family is wondering whether the booster vaccination caused her symptoms. Of note although patient has multiple sclerosis, her daughter who is a nurse and was at bedside stated that patient current symptoms does not look like her previous episodes of multiple sclerosis. Of note it is a long time since she had multiple sclerosis exacerbation. [facility] Medical History AMD (age related macular degeneration) Asthma Atherosclerotic heart disease of [place] coronary artery without angina pectoris Essential hypertension Mixed hyperlipidemia Multiple sclerosis Vascular dementia Home Medications Timolol Maleate [Timoptic-Xe 0.25%] 1 drp EACH EYE DAILY 07/14/17 [History Last Taken 08/29/21] acetaminophen [Tylenol Arthritis] 650 mg PO DAILY 07/14/17 [History Last Taken 08/29/21] apixaban [Eliquis] 5 mg PO BID 07/14/17 [History Last Taken 08/29/21] atenolol 25 mg PO BID 07/14/17 [History Last Taken 08/29/21] bimatoprost [Lumigan] 1 drp EACH EYE BID 07/14/17 [History Last Taken 08/29/21] cholecalciferol (vitamin D3) [Vitamin D3] 4,000 unit PO DAILY 07/14/17 [History Last Taken 08/29/21] coenzyme Q10 [Co Q-10] 200 mg PO DAILY 07/14/17 [History Last Taken 08/29/21] duloxetine 60 mg PO DAILY 07/14/17 [History Last Taken 08/29/21] folic acid 1 mg PO DAILY@0800 07/14/17 [History Last Taken 08/29/21] magnesium oxide 400 mg PO BID 07/14/17 [History Last Taken 08/29/21] methotrexate sodium 17.5 mg PO MO 07/14/17 [History Last Taken 08/23/21] potassium chloride [Klor-Con M20] 20 meq PO DAILY 07/14/17 [History Last Taken 08/28/21] furosemide 20 mg PO DAILY 03/01/18 [History Last Taken 08/29/21] vitamins A,C,Q-brga-zhpjfz [Preservision Areds Softgel] 1 ea PO BID 03/01/18 [History Last Taken 08/29/21] omega-3 fatty acids-fish oil 1 ea PO DAILY 08/15/18 [History Last Taken 08/29/21] atorvastatin 20 mg PO QHS 03/05/19 [History Last Taken 08/28/21] diphenhydramine-acetaminophen [Tylenol PM Extra Strength] 1 tab PO QHS PRN 08/29/21 [History Last Taken 08/28/21] memantine 21 mg PO QHS 08/30/21 [History Last Taken 08/28/21] Allergy/AdvReac Type Severity Reaction Status Date / Time baclofen Allergy Unknown Verified 09/03/18 09:08 donepezil [From Aricept] Allergy Other Verified 08/29/21 21:05 hydroxychloroquine Allergy Unknown Verified 09/03/18 09:08 [From Plaquenil] Iodinated Contrast Media Allergy Hives Verified 09/03/18 09:08 [Iodinated Contrast- Oral and IV Dye] pravastatin Allergy Unknown Verified 09/03/18 09:08 shellfish derived Allergy Hives Verified 09/03/18 09:08 spironolactone Allergy Rash Verified 09/03/18 09:08 Sulfa (Sulfonamide Allergy Unknown Verified 09/03/18 09:08 Antibiotics) Family History Other Diabetes MTHFR gene mutation Surgical History History of appendectomy History of hemorrhoidectomy History of kyphoplasty History of tonsillectomy and adenoidectomy History of vitrectomy S/P YAG capsulotomy, left Social History Smoking Status: Never smoker alcohol intake: never substance use type: does not use ROS ROS Narrative Constitutional: Denies fever, chills, anorexia and change in weight Eyes: Denies blurry vision, change in eye color, change in vision, discharge from eye(s), double vision, erythema, eye pain, loss of vision or other HEENT: Denies abnormal hearing, dysphagia, ear pain, epistaxis, headache(s), hearing loss, nasal congestion, nasal discharge, post nasal drip, sinus pressure, sore throat or other Cardiovascular: Denies chest pain or palpitations. Denies dyspnea on exertion, orthopnea and paroxysmal nocturnal dyspnea Respiratory/Chest: Denies cough, excessive phlegm production, shortness of breath with exertion and wheezing Gastrointestinal: Reports nausea and vomiting. Denies abdominal pain, coffee ground emesis, constipation, diarrhea, dyspepsia, hematemesis, hematochezia, loose stools, melena, or other Genitourinary: Denies burning urination, difficulty urinating, dysuria, hematuria, nocturia, urinary frequency, urinary hesitancy, urinary incontinence, urinary urgency or other Musculoskeletal: Denies arthralgias, back pain, joint pain, joint stiffness, joint swelling, myalgias, neck pain or other Neurologic: With increased confusion. Denies abnormal speech, dizziness, headache(s), numbness, paresthesias, seizure-like activity, seizures, syncope, tingling, tremor(s) or other Psychiatric: Denies anxiety, depression, homicidal ideation, suicidal ideation or other Endocrinology: Denies change in body appearance, cold intolerance, excessive sweating, heat intolerance, polydipsia, polyuria or other Hematologic/Lymphatic: Denies anemia, easy bleeding, easy bruising, lymphadenopathy or other Integumentary: Denies rashes Allergic/Immunologic: Denies rhinitis, hives, eczema, asthma or other Vital Signs Vital Signs Vital Signs: 08/29/21 20:58 08/29/21 22:37 Temperature 97.8 F 99.5 F H Temperature Source Temporal Oral Pulse Rate 78 77 Respiratory Rate 19 H 16 Blood Pressure 123/65 H 148/106 H Blood Pressure Mean 84 120 Pulse Ox 97 95 Oxygen Delivery Method Room Air Room Air Weight Weight: 98.9 kg Body Mass Index (BMI) 36.3 Physical Exam Narrative Physical exam: General: Well-nourished, well-developed. 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 Left pupil react to light. EOMI ENT, no trauma, moist mucous membranes, no rhinorrhea Neck: Nontender, full range of motion, no spinal tenderness, deformities, step-off CVS: Regular rate and rhythm. S1-S2 present. No murmur, gallop or rub. Respiratory: clear to auscultation bilaterally, chest wall nontender, no wheezing Abdomen: Soft, nontender, nondistended, normal bowel sounds, no masses : Deferred Back: Nontender, no CVA tenderness, no midline spinal tenderness, deformities, step-offs Extremities: Nontender full range of motion, no trauma Skin: Normal color, no trauma, abrasions Neuro: Alert, oriented, cranial nerves II through XII grossly intact. Psychiatry: Normal mood. Normal affect. Not depressed. Not anxious. Results Lab / Micro Data Result Diagrams: 08/29/21 21:05 08/29/21 21:05 Labs: Laboratory Results - last 24 hr 08/29/21 21:05: WBC 7.4, RBC 4.24, Hgb 13.8, Hct 41.5, MCV 97.9, MCH 32.5 H, MCHC 33.3, RDW Std Deviation 50.2 H, RDW Coeff of Jameel 14.1, Plt Count 157, MPV 9.1, Immature Gran % (Auto) 0.300, Neut % (Auto) 82.3 H, Lymph % (Auto) 7.7 L, [place] % (Auto) 8.9, Eos % (Auto) 0.1, Baso % (Auto) 0.7, Absolute Neuts (auto) 6.1, Absolute Lymphs (auto) 0.57 L, Nucleated RBC % 0, Differential Comment SCANNED 08/29/21 21:05: Sodium 135 L, Potassium 4.5, Chloride 105, Carbon Dioxide 22.0, Anion Gap 8, BUN 17, Creatinine 0.90, Estim Creat Clear Calc 45.61, Est GFR (MDRD) Af Amer 78, Est GFR (MDRD) Non-Af 65, BUN/Creatinine Ratio 19.0, Glucose 119 H, Calcium 8.8, Total Bilirubin 0.60, AST 47 H, ALT 43, Alkaline Phosphatase 97, Troponin I High Sens 6, Total Protein 6.8, Albumin 2.9 L, Globulin 3.9, Albumin/Globulin Ratio 0.7 L 08/29/21 21:40: Urine Color Yellow, Urine Clarity Cloudy, Urine pH 6.0, Ur Specific [place] 1.015, Urine Protein 30 H, Urine Glucose (UA) Normal, Urine Ketones 5 H, Urine Occult Blood 10 H, Urine Nitrite Negative, Urine Bilirubin Negative, Urine Urobilinogen Normal, Ur Leukocyte Esterase 500 H, Urine RBC 0-5 SEEN, Urine WBC 10-25 SEEN, Ur Squamous Epith Cells 0-5 SEEN, Urine Bacteria 3+, Urine Mucus 1+ Radiology Impression Chest X-Ray 08/29/21 21:50 IMPRESSION: Normal x-ray examination of the chest. Electronically Signed: Jose Siegel, DO at 22:03 EST Tel [phone], Service support , Assessment & Plan Assessment/Plan (1) Cystitis: PLAN: Acute cystitis Review of urinalysis showed leukocyte Esterase of 500; urine WBC of 10-25. Urine protein was positive. Urine bacteria was 3+. Squamous cell was 0 to 5. Given ceftriaxone at the emergency department and continued. qSOFA is 1. There is no SIRS criteria. CBC showed normal white count. Chest x-ray did not show any acute cardiopulmonary process and I agree with radiologist interpretation Follow urine culture ordered emergency department History of VTE and MTHFR mutation Eliquis continued Debility PT and OT to work with patient. Hypertension Blood pressure is not within goal Home blood pressure medication continued. Trend blood pressure and adjust blood pressure medications. Rheumatoid arthritis Methotrexate every 7 days continued DVT prophylaxis: Not indicated since patient is on Eliquis. [place] continued Charges/Coding Visit Charges Inpatient E&M: 08961 Init Hosp L2
[2021-08-29 23:48] VITALS: BP 133/70; PULSE 64; RESP 16; TEMP 37.2; O2SAT 98
--- NOTE | 2021-08-30 00:18 | PCS.PANDOC ---
PANDEMIC DOCUMENTATION INITIATED: Date: 05/31/2021 Time: 190
[2021-08-30 01:20] VITALS: BMI 35.4
[2021-08-30 01:22] VITALS: BP 131/91; PULSE 73; RESP 18; TEMP 36.8; O2SAT 98
[2021-08-30 06:01] VITALS: BP 131/75; PULSE 72; RESP 18; TEMP 36.9; O2SAT 96
[2021-08-30 06:05] LABS: Absolute Lymphocyte Count 0.86 X10^3/uL (0.83-4.51); Absolute Neutrophil Count 5.2 X10^3/uL (2.0-7.7); Basophil# 0.03 X10^3/uL; Basophil% 0.5 % (0-1); Eosinophil# 0.02 X10^3/uL; Eosinophils% 0.3 % (0-5); Hematocrit 37.9 % (37-47); Hemoglobin 14.1 g/dL (12.0-15.0); Lymphocyte # 0.86 X10^3/ul (0.83-4.51); Mean Corp Hgb Conc 37.2 g/dL (32-36); Mean Corpuscular Hgb 36.2 pg (27.0-32.0); Mean Corpuscular Volume 97.2 fL (81-99); Mean Platelet Vol. 10.8 fl (6.2-12.0); Monocyte# 0.51 X10^3/uL; Monocyte% 7.7 % (0-10); NRBC Flagged by Analyzer 0 % (0-5); Neutrophil # 5.15 X10^3/uL (2.7-7.7); Platelet Count 143 K/mm3 (150-450); RBC Distribution Width CV 14.3 % (11.6-14.6); RBC Distribution Width SD 49.1 fl (35.1-43.9); White Blood Count 6.6 K/mm3 (4.4-11.0)
[2021-08-30 06:49] LABS: Anion Gap 7 (5-15); BUN 17 mg/dL (7-18); BUN/Creat Ratio 20.8 RATIO (10-20); Calcium,Total 8.9 mg/dL (8.5-10.1); Chloride 105 mmol/L (98-107); Creatinine, Serum 0.82 mg/dL (0.55-1.02); EST Glomerular Filtration Rate 72 mL/min (>60); Est Glom Filt Rate - Afr Amer 87 mL/min (>60); Estimated Creatinine Clearance 50.06 ml/min; Glucose 90 mg/dL (74-106); Potassium 4.5 mmol/L (3.5-5.1); Sodium Level 132 mmol/L (136-145)
[2021-08-30] MEDS: Multivitamins,Ther W-Minerals Tablet 1 TABLET PO (08:02)
[2021-08-30] MEDS: Multivitamin (Healthy Eyes) Capsule 1 CAP PO ×2 (08:02→22:36)
[2021-08-30] MEDS: Potassium Chloride Oral Tablet 20 MEQ PO (08:02)
[2021-08-30] MEDS: Folic Acid 1 MG Tablet PO (08:02)
[2021-08-30] MEDS: Cholecalciferol (VIT D3) 25 MCG TABLET (1,000 UNITS) 100 MCG PO (08:02)
[2021-08-30] MEDS: Menthol/Lanolin/Calamine/Znox 113 GM Tube 1 APPLIC TOPICAL ×2 (08:03→22:40)
[2021-08-30] MEDS: Magnesium Chloride 64 MG Delay Rel.Tablet 128 MG PO ×2 (08:03→22:36)
[2021-08-30] MEDS: DULoxetine Hcl 60 MG Capsule PO (08:03)
[2021-08-30] MEDS: Atenolol 25 MG Tablet PO ×2 (08:05→22:39)
[2021-08-30] MEDS: Timolol 0.25% 5ML OPTH.BTL 1 DRP OPHTHALMIC (08:05)
[2021-08-30] MEDS: Furosemide 20 MG Tablet PO (08:05)
[2021-08-30] MEDS: APIXABAN 5 MG TABLET PO ×2 (08:07→22:35)
[2021-08-30] MEDS: Memantine Hydrochloride 10 MG Tablet PO ×2 (08:07→22:39)
[2021-08-30] MEDS: Methotrexate 2.5 MG Tablet 17.5 MG PO (08:07)
[2021-08-30 08:25] VITALS: O2SAT 95
[2021-08-30] MEDS: Ceftriaxone 1 GM/50 ML BAG IV (11:08)
--- NOTE | 2021-08-30 11:10 | PN.HOSP_ITS ---
Documented by User: Nael ARGUELLES 08/30/21 11:25 Subjective Subjective Patient is a 81-year-old female resting in a chair, alert and oriented to self. Patient cannot provide much insight into current condition as she is still acutely confused, although patient does suffer from chronic confusion. Patient does not appear to be in acute distress and has no complaints at this time. Objective Data Objective Data Vital Signs: Vital Signs Temp Pulse Resp BP Pulse Ox 98.5 F 72 18 131/75 H 95 08/30/21 06:01 08/30/21 06:01 08/30/21 06:01 08/30/21 06:01 08/30/21 08:25 Oxygen Delivery Method Room Air Weight: 212 lb 15.465 oz Body Mass Index (BMI) 35.4 Intake & Output: Intake and Output for Last 24 Hours 08/28/21 08/29/21 08/30/21 23:59 23:59 23:59 Intake Total 290 / 290 Output Total 0 / 0 Balance 290 / 290 Lab / Micro Data Result Diagrams: 08/30/21 05:10 08/30/21 05:10 Labs: Laboratory Results - last 24 hr 08/29/21 21:05: WBC 7.4, RBC 4.24, Hgb 13.8, Hct 41.5, MCV 97.9, MCH 32.5 H, MCHC 33.3, RDW Std Deviation 50.2 H, RDW Coeff of Jameel 14.1, Plt Count 157, MPV 9.1, Immature Gran % (Auto) 0.300, Neut % (Auto) 82.3 H, Lymph % (Auto) 7.7 L, [place] % (Auto) 8.9, Eos % (Auto) 0.1, Baso % (Auto) 0.7, Absolute Neuts (auto) 6.1, Absolute Lymphs (auto) 0.57 L, Nucleated RBC % 0, Differential Comment SCANNED 08/29/21 21:05: Sodium 135 L, Potassium 4.5, Chloride 105, Carbon Dioxide 22.0, Anion Gap 8, BUN 17, Creatinine 0.90, Estim Creat Clear Calc 45.61, Est GFR (MDRD) Af Amer 78, Est GFR (MDRD) Non-Af 65, BUN/Creatinine Ratio 19.0, Glucose 119 H, Calcium 8.8, Total Bilirubin 0.60, AST 47 H, ALT 43, Alkaline Phosphatase 97, Troponin I High Sens 6, Total Protein 6.8, Albumin 2.9 L, Globulin 3.9, Albumin/Globulin Ratio 0.7 L 08/29/21 21:40: Urine Color Yellow, Urine Clarity Cloudy, Urine pH 6.0, Ur Specific Walton 1.015, Urine Protein 30 H, Urine Glucose (UA) Normal, Urine Ketones 5 H, Urine Occult Blood 10 H, Urine Nitrite Negative, Urine Bilirubin Negative, Urine Urobilinogen Normal, Ur Leukocyte Esterase 500 H, Urine RBC 0-5 SEEN, Urine WBC 10-25 SEEN, Ur Squamous Epith Cells 0-5 SEEN, Urine Bacteria 3+, Urine Mucus 1+ 08/30/21 05:10: WBC 6.6, RBC 3.90 L, Hgb 14.1, Hct 37.9, MCV 97.2, MCH 36.2 H, MCHC 37.2 H D, RDW Std Deviation 49.1 H, RDW Coeff of Jameel 14.3, Plt Count 143 L, MPV 10.8, Immature Gran % (Auto) 0.500, Neut % (Auto) 78.0 H, Lymph % (Auto) 13.0 L, [place] % (Auto) 7.7, Eos % (Auto) 0.3, Baso % (Auto) 0.5, Absolute Neuts (auto) 5.2, Absolute Lymphs (auto) 0.86, Nucleated RBC % 0 08/30/21 05:10: Sodium 132 L, Potassium 4.5, Chloride 105, Carbon Dioxide 20.0 L , Anion Gap 7, BUN 17, Creatinine 0.82, Estim Creat Clear Calc 50.06, Est GFR (MDRD) Af Amer 87, Est GFR (MDRD) Non-Af 72, BUN/Creatinine Ratio 20.8 H, Glucose 90, Calcium 8.9 Radiography Diagnostic Testing: Radiology Impression Chest X-Ray 08/29/21 21:50 IMPRESSION: Normal x-ray examination of the chest. Electronically Signed: Jose Siegel DO at 22:03 EST Tel [phone], Service support , Physical Exam Const alert and no apparent distress Orientation / Consciousness: confused and disoriented Exam Limitations: altered mental status HEENT head/scalp atraumatic, moist oral mucous membranes and oropharynx normal Head and Scalp: normocephalic Eyes PERRL, EOMs intact bilaterally and conjunctivae normal Neck no lymphadenopathy, supple and no JVD Resp normal respiratory effort, no retractions, no use of accessory muscles and clear to auscultation bilaterally Cardio regular rate, regular rhythm, no murmurs and no JVD GI normal to inspection, nondistended, normoactive bowel sounds, soft to palpation and non-tender Extremity normal to inspection, full ROM and no clubbing, cyanosis or edema Peripheral Pulses: Yes pulses 2+ throughout Skin no rashes or lesions noted, no wounds, skin turgor normal and no jaundice Neuro CN's II-XII intact bilaterally Psych affect normal Assessment & Plan Assessment/Plan (1) Cystitis: PLAN: Day 1 Discharge planning: To be determined, PT/OT recommending skilled therapy at d ischarge. Case management consult ordered. 1) acute on chronic encephalopathy secondary to acute cystitis Patient is only alert and oriented to self, on my evaluation patient was displaying tangential speech and seemed disoriented. On admission, it was noted that patient does suffer from chronic confusion although she is she was not at baseline on admission. Patient does not complain of, nor does she display, any focal neurological deficits. Vital signs stable, patient is afebrile and curr ently satting 96% on room air. CBC does not demonstrate a leukocytosis. Admission UA demonstrated yellow cloudy urine with negative nitrites, 500 leukocyte esterase and 3+ bacteria. Urine culture pending. Chest x-ray on admission did not demonstrate any acute cardiopulmonary process. Plan; remain admitted on MedSurg 3, continue Rocephin, await speciation. 2) vascular dementia Complicates #1, although patient's family admitted that patient is far from baseline level of confusion. Continue Namenda. 3) history of VTE Hemoglobin is stable. Continue Eliquis 4) debility PT/OT ofeliaal recommended skilled therapy at discharge, case management consult ordered. 5) HTN Stable, continue home BP meds. 6) Rheumatoid arthritis Continue MTX. DVT prophylaxis - [facility] Patient seen by Nael Vargas PA-C, under the supervision of Dr. Clancy. Documented by User: Dr. Bello Clancy MD 08/30/21 13:02 Objective Data Lab / Micro Data Result Diagrams: 08/30/21 05:10 08/30/21 05:10 Charges/Coding Addendum Addendum: Dr. Clancy: I personally reviewed the chart and examined the patient, and agree with the above findings. 81-year-old female with a history of MS and rheumatoid arthritis presented to the emergency department with weakness and acute confusion. According to the family at the time of admission, she does have some baseline confusion but got acutely worse. There were some concern secondary to the fact that she had perceive the Materna vaccine the day prior to presentation however in the ER she was found to have a UTI. She started on IV antibiotics. She is still acutely confused and she did have an episode of emesis this morning however hopefully with the resolution of her UTI and mild side effect resolution from the Materna vaccine booster, she should return to baseline the next 24 to 48 hours. Visit Charges Inpatient E&M: 47904 Subs Hosp L2
[2021-08-30 12:00] VITALS: BP 151/86; PULSE 74; RESP 16; TEMP 37.2; O2SAT 98
--- NOTE | 2021-08-30 13:58 | CASEMGMT ---
QUINTON ALBERT Assessment: Face to Face with pt for initial transition planning/care coordination assessment. RN BETY introduced self and role at [facility], pt voices understanding and consents to assessment. Pt is A/O x2 and answers all questions appropriately at this time. Pt sitting up in chair with dtr Mary at bedside. Care providers, pharmacy, and demographics verified/updated. Admitting Dx: UTI PCP:Sol Specialists:rodriguez Bailey; dale Jarquin Preferred Pharmacy: [facility] Insurance: [facility] Prescription Benefit: yes LW/HPOA: Pt dtr states she just gave the nurse a copy of pt LW/ DPOA and DPOA is pt , Eric Stallworth. LNOK: Eric Stallworth, ; Mary Jordan, dtr Living Arrangements: Pt lives with and dtr. Dtr is living there short term. Pt lives in a single story house with 2 steps to enter. Pt needs assistance with laying out clothes for appropriateness to weather and assistance with bathing. Currently, pt dtr helps her. Transportation: Pt dtr or transports pt to medical appts. DME/HHC/SNF: Pt has a shower chair, bed rail, rollator, w/c and grab bars in the shower. Pt has no hx of HHC. Dtr states she was looking into HHC prior to hospitalization but she needs more than HHC could provide. Pt has no hx of SNF stays. Pt dtr states she cannot take care of her mother as she is. She states it took two therapists with a gait belt today and pt could not walk. Patient and dtr were provided a list of SNF providers including quality and resource use data and consistent with the patient?s preferred geographic region, medical needs, and insurance network. Pt dtr questioned if [facility] was in network. Notified Bobbi ALEJANDRA for follow up. Pt/dtr states no further concerns/needs. CM to follow. Advised pt to ask CM if any further question/concerns/needs arise, voices understanding. Pt Goal: SNF Plan: SNF
--- NOTE | 2021-08-30 14:20 | CASEMGMT ---
Addendum entered by Chastity Duran 08/30/21 16:02: Sonia also confirms that their unit is the intense 3 hour of therapy a day. Addendum entered by Chastity Duran 08/30/21 15:59: JUSTYN received call from Sonia at [facility] stating to fax referral to [phone]. Sonia states she is not sure with pt's confusion if they can accept pt as they have no CAMERA PROTOTYPING ENGINEER's at night but is willing to review referral and let this worker know tomorrow. JUSTYN faxed referral to Sonia at [facility]. JUSTYN placed a call to [facility] with TCU and put pt on TCU list. Original Note: Social Work Note SW received referral for RU/SNF placement. Pt's daughter Mary present at [facility] and requests [facility]. JUSTYN placed a call to [facility] and left message for inpatient rehab. Mary requesting to speak to this worker. SW in to speak with pt and Mary. Pt presently confused. JUSTYN spoke with Mary about RU/SNF. JUSTYN informed Mary that this worker has a call out to [facility] to inquire about their availability and if pt would qualify. JUSTYN informed Mary that for [facility], pt would need a new diagnosis of MS to qualify but will check with [facility]. Mary states that if [facility] is not able to accept pt then next preference would be [facility] TCU. JUSTYN informed Mary that at this time, there are no beds on TCU but can put pt on TCU list. Mary agreeable. Mary states she is not sure what her next choice would be, states that her sister wants her to take pt home but at this time, she is not able to take pt home. JUSTYN informed Mary that this worker will wait to hear from [facility] and will also put pt on TCU list and encouraged Mary to speak with her additional family members for other options. Mary states understanding. Plan: [facility] vs SNF Chastity Duran SLURRY PLANT OPERATOR, AMBULATORY SERVICE REPRESENTATIVE
[2021-08-30 16:10] VITALS: BP 143/83; PULSE 80; RESP 16; TEMP 37.1; O2SAT 100
[2021-08-30 22:18] VITALS: BP 130/66; PULSE 82; RESP 18; TEMP 37.1; O2SAT 95
[2021-08-30] MEDS: Atorvastatin Calcium 10 MG Tablet PO (22:36)
[2021-08-30] MEDS: Latanoprost 0.005% 1 Bottle 1 DRP EACH EYE (22:39)
[2021-08-31 04:22] VITALS: BP 143/78; PULSE 80; RESP 18; TEMP 36.9; O2SAT 93
[2021-08-31 07:07] LABS: Basophil# 0.06 X10^3/uL; Basophil% 0.7 % (0-1); Eosinophil# 0.32 X10^3/uL; Eosinophils% 3.7 % (0-5); Hematocrit 38.5 % (37-47); Hemoglobin 12.7 g/dL (12.0-15.0); Lymphocyte % 15.2 % (19-41); Mean Corpuscular Hgb 31.4 pg (27.0-32.0); Mean Corpuscular Volume 95.1 fL (81-99); Mean Platelet Vol. 9.8 fl (6.2-12.0); Monocyte% 9.4 % (0-10); NRBC Flagged by Analyzer 0 % (0-5); Neutrophil # 6.04 X10^3/uL (2.7-7.7); Neutrophil % 70.6 % (47-70); Platelet Count 154 K/mm3 (150-450); RBC Distribution Width CV 13.7 % (11.6-14.6); RBC Distribution Width SD 48.1 fl (35.1-43.9); Red Blood Count 4.05 M/mm3 (4.2-5.4); White Blood Count 8.6 K/mm3 (4.4-11.0)
[2021-08-31 07:34] LABS: Anion Gap 5 (5-15); BUN 14 mg/dL (7-18); BUN/Creat Ratio 20.7 RATIO (10-20); Calcium,Total 9.1 mg/dL (8.5-10.1); Chloride 105 mmol/L (98-107); Creatinine, Serum 0.68 mg/dL (0.55-1.02); EST Glomerular Filtration Rate 89 mL/min (>60); Est Glom Filt Rate - Afr Amer 108 mL/min (>60); Estimated Creatinine Clearance 41.05 ml/min; Glucose 119 mg/dL (74-106); Potassium 3.7 mmol/L (3.5-5.1); Sodium Level 135 mmol/L (136-145)
[2021-08-31 08:41] VITALS: O2SAT 93
[2021-08-31 09:10] VITALS: BP 113/62; PULSE 81; RESP 16; TEMP 36.4; O2SAT 93
[2021-08-31] MEDS: Folic Acid 1 MG Tablet PO (09:19)
[2021-08-31] MEDS: Potassium Chloride Oral Tablet 20 MEQ PO (09:19)
[2021-08-31] MEDS: Multivitamins,Ther W-Minerals Tablet 1 TABLET PO (09:19)
[2021-08-31] MEDS: DULoxetine Hcl 60 MG Capsule PO (09:20)
[2021-08-31] MEDS: Multivitamin (Healthy Eyes) Capsule 1 CAP PO ×2 (09:21→21:57)
[2021-08-31] MEDS: Furosemide 20 MG Tablet PO (09:21)
[2021-08-31] MEDS: Magnesium Chloride 64 MG Delay Rel.Tablet 128 MG PO ×2 (09:21→21:57)
[2021-08-31] MEDS: Memantine Hydrochloride 10 MG Tablet PO ×2 (09:21→21:58)
[2021-08-31] MEDS: APIXABAN 5 MG TABLET PO ×2 (09:21→21:57)
[2021-08-31] MEDS: Atenolol 25 MG Tablet PO ×2 (09:22→21:58)
[2021-08-31] MEDS: Cholecalciferol (VIT D3) 25 MCG TABLET (1,000 UNITS) 100 MCG PO (09:22)
[2021-08-31] MEDS: Timolol 0.25% 5ML OPTH.BTL 1 DRP OPHTHALMIC (09:22)
[2021-08-31] MEDS: Menthol/Lanolin/Calamine/Znox 113 GM Tube 1 APPLIC TOPICAL ×2 (09:23→22:04)
[2021-08-31] MEDS: Ceftriaxone 1 GM/50 ML BAG IV (09:25)
[2021-08-31] MEDS: 0.9% Saline Lock 10 ML Syringe IV (09:26)
--- NOTE | 2021-08-31 11:25 | PN.HOSP_ITS ---
Documented by User: Nael ARGUELLES 08/31/21 11:32 Subjective Subjective Patient is a 81-year-old female comfortably resting in bed, alert and oriented x3. Patient's mentation has greatly improved from yesterday and seems closer to her baseline level of confusion. Patient was appropriately alert and oriented however was a little hesitant on responding to place and time. Does not appear in acute distress. Objective Data Objective Data Vital Signs: Vital Signs Temp Pulse Resp BP Pulse Ox 97.5 F L 81 16 113/62 93 08/31/21 09:10 08/31/21 09:10 08/31/21 09:10 08/31/21 09:10 08/31/21 09:10 Oxygen Delivery Method Room Air Weight: 212 lb 15.465 oz Body Mass Index (BMI) 35.4 Intake & Output: Intake and Output for Last 24 Hours 08/29/21 08/30/21 08/31/21 23:59 23:59 23:59 Intake Total 1340 / 1340 Output Total 0 / 0 Balance 1340 / 1340 Lab / Micro Data Result Diagrams: 08/31/21 06:10 08/31/21 06:10 Labs: Laboratory Results - last 24 hr 08/31/21 06:10: WBC 8.6, RBC 4.05 L, Hgb 12.7, Hct 38.5, MCV 95.1, MCH 31.4, MCHC 33.0 D, RDW Std Deviation 48.1 H, RDW Coeff of Jameel 13.7, Plt Count 154, MPV 9.8, Immature Gran % (Auto) 0.400, Neut % (Auto) 70.6 H, Lymph % (Auto) 15.2 L, [place] % (Auto) 9.4, Eos % (Auto) 3.7, Baso % (Auto) 0.7, Absolute Neuts (auto) 6.0, Absolute Lymphs (auto) 1.30, Nucleated RBC % 0 08/31/21 06:10: Sodium 135 L, Potassium 3.7, Chloride 105, Carbon Dioxide 25.0, Anion Gap 5, BUN 14, Creatinine 0.68, Estim Creat Clear Calc 41.05, Est GFR (MDRD) Af Amer 108, Est GFR (MDRD) Non-Af 89, BUN/Creatinine Ratio 20.7 H, Glucose 119 H, Calcium 9.1 Physical Exam Const alert, oriented x3 and no apparent distress HEENT head/scalp atraumatic and moist oral mucous membranes Head and Scalp: normocephalic Eyes PERRL, EOMs intact bilaterally and conjunctivae normal Neck no lymphadenopathy, supple and no JVD Resp normal respiratory effort, no retractions, no use of accessory muscles and clear to auscultation bilaterally Cardio regular rate, regular rhythm, no murmurs and no JVD GI normal to inspection, nondistended, normoactive bowel sounds, soft to palpation and non-tender Extremity normal to inspection, full ROM and no clubbing, cyanosis or edema Skin no rashes or lesions noted, no wounds, skin turgor normal and no jaundice Neuro CN's II-XII intact bilaterally Psych affect normal Assessment & Plan Assessment/Plan (1) Cystitis: PLAN: Day 2 Discharge planning: Discharge to SNF pending accepatance and PRE-CERT. 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 Patient denies any ongoing urinary symptoms and does not complain of any suprapubic pain on palpation. Vital signs stable and patient is afebrile. CBC does not demonstrate a leukocytosis. Urine culture pending. Plan; remain admitted overnight, continue Rocephin, discharge to SNF pending acceptance and pre-CERT. 2) vascular dementia Confusion has improved from yesterday and patient seems closer to baseline level of confusion. Continue Namenda. 3) history of VTE Hemoglobin is stable. Continue Eliquis 4) debility PT/OT eval recommended skilled therapy at discharge, case management consult ordered. 5) HTN Stable, continue home BP meds. 6) Rheumatoid arthritis [facility]TX. [facility] by Nael Vargas PA-C, under the supervision of Dr. Clancy. Documented by User: Dr. Bello Clancy MD 08/31/21 14:36 Objective Data Lab / Micro Data Result Diagrams: 08/31/21 06:10 08/31/21 06:10 Charges/Coding Addendum Addendum: Dr. Clancy: I personally reviewed the chart and examined the patient, and agree with the above findings. 81-year-old female with a history of MS and rheumatoid a rthritis presented to the emergency department with weakness and acute confusion. According to the family at the time of admission, she does have some baseline confusion but got acutely worse. There were some concern secondary to the fact that she had perceive the Materna vaccine the day prior to presentation however in the ER she was found to have a UTI. She started on IV antibiotics. She is still acutely confused and she did have an episode of emesis this morning however hopefully with the resolution of her UTI and mild side effect resolution from the Materna vaccine booster, she should return to baseline the next 24 to 48 hours. 08/31/2021: Doing much better today, more alert and knows where she is at. She still does have a baseline confusion but I do believe that her acute metabolic encephalopathy is resolving. This is likely secondary to treatment for her UTI. Culture still pending but preliminary data shows 25,000-50,000 CFU's of gram variable rods. We will continue to treat pending finalization of the culture. In the meantime we will evaluate with PT/OT for possible placement to the senior living. Visit Charges Inpatient E&M: 67856 Subs Hosp L2
--- NOTE | 2021-08-31 12:18 | CASEMGMT ---
Addendum entered by Chastity Duran 08/31/21 12:57: SW received message from RN at [facility] stating they are not able to accept pt. SW placed a call to [facility] with TCU and left message inquiring about bed availability. SW waiting for call back from TCU. Original Note: Social Work Note SW placed a call to [facility] and left message requesting call back regarding referral. SW waiting for call back. Chastity Duran WOOD CLUB NECK WHIPPER, SWIMMING POOL ATTENDANT
[2021-08-31 13:49] VITALS: BP 115/69; PULSE 79; RESP 16; TEMP 37.2; O2SAT 95
--- NOTE | 2021-08-31 15:47 | CASEMGMT ---
Social Work Note JUSTYN received message from Tessa with TCU stating TCU has a bed available . JUSTYN spoke with physician, pt to be at [facility]. SW in to speak with pt and pt's daughter Mary. JUSTYN updated pt and Mary that [facility] is not able to accept pt. JUSTYN updated pt and Mary that [facility] TCU is able to accept pt pending pre-cert on . Mary agreeable to [facility] TCU. Mary then put on phone her sister Gregory and pt's Eric. JUSTYN updated Gregory and Eric on discharge plan. SW answered all questions. JUSTYN faxed referral to [facility]. JUSTYN placed a call to [facility] and left message regarding referral. Plan: TCU pending pre-cert Chastity Duran UTILITY PERSON, SPRINKLING TRUCK DRIVER
--- NOTE | 2021-08-31 17:30 | CASEMGMT ---
Social Work Note Per software development project manager questions, pt has completed HCPOA and LW, hasn't provided copy to [facility] and pt is able to bring in copy. Chastity Duran MEDICATION AID, FLUE DUST LABORER
[2021-08-31 20:02] VITALS: BP 145/88; PULSE 91; RESP 18; TEMP 36.7; O2SAT 97
[2021-08-31 20:03] VITALS: O2SAT 97
[2021-08-31] MEDS: Atorvastatin Calcium 10 MG Tablet PO (21:58)
[2021-08-31] MEDS: Latanoprost 0.005% 1 Bottle 1 DRP EACH EYE (21:58)
[2021-09-01 03:00] VITALS: BP 131/65; PULSE 72; RESP 18; TEMP 36.7; O2SAT 97
[2021-09-01 08:02] VITALS: O2SAT 94
--- NOTE | 2021-09-01 08:25 | CASEMGMT ---
Addendum entered by Mariangel Zurita 09/01/21 09:13: SW let pt know that she will be able to go to TCU tomorrow. Pt states understanding. Pt was trying to call her but was having a difficult time, SW assisted pt to call her . She spoke w/ and let him know she will go to TCU tomorrow. SW also called daughter Mary and let her know pt can go to TCU tomorrow, let her know the precert is waived with insurance. Daughter states understanding. SUGEY Beck Addendum entered by Mariangel Zurita 09/01/21 09:07: SW spoke w/Magda at [employer], she states precerts are still waived until the end of August. Since TCU is in network pt can go when medically ready and TCU just needs to submit clinical information within 24 hours of admission. JUSTYN called TCU and left a message letting Tessa know the above information. SW will let pt and family know as well. SUGEY Beck Original Note: Clinical information refaxed to [facility] this morning for precert as it did not go through yesterday evening. SUGEY Beck
[2021-09-01 08:36] VITALS: BP 146/81; PULSE 75; RESP 18; TEMP 36.6; O2SAT 95
[2021-09-01] MEDS: Folic Acid 1 MG Tablet PO (08:49)
[2021-09-01] MEDS: Potassium Chloride Oral Tablet 20 MEQ PO (08:49)
[2021-09-01] MEDS: Multivitamins,Ther W-Minerals Tablet 1 TABLET PO (08:49)
[2021-09-01] MEDS: APIXABAN 5 MG TABLET PO ×2 (10:22→21:09)
[2021-09-01] MEDS: Multivitamin (Healthy Eyes) Capsule 1 CAP PO ×2 (10:22→21:09)
[2021-09-01] MEDS: DULoxetine Hcl 60 MG Capsule PO (10:22)
[2021-09-01] MEDS: Timolol 0.25% 5ML OPTH.BTL 1 DRP OPHTHALMIC (10:23)
[2021-09-01] MEDS: Furosemide 20 MG Tablet PO (10:23)
[2021-09-01] MEDS: Memantine Hydrochloride 10 MG Tablet PO ×2 (10:23→21:09)
[2021-09-01] MEDS: Atenolol 25 MG Tablet PO ×2 (10:23→21:09)
[2021-09-01] MEDS: Magnesium Chloride 64 MG Delay Rel.Tablet 128 MG PO ×2 (10:23→21:09)
[2021-09-01] MEDS: Cholecalciferol (VIT D3) 25 MCG TABLET (1,000 UNITS) 100 MCG PO (10:24)
[2021-09-01] MEDS: Ceftriaxone 1 GM/50 ML BAG IV (10:25)
--- NOTE | 2021-09-01 10:41 | PN.HOSP_ITS ---
Documented by User: Nael ARGUELLES 09/01/21 10:45 Subjective Subjective Patient is a 81-year-old female comfortably resting in a chair, alert and orient x3. Patient mentation has greatly improved from admission as she is able to understand her condition and interact with provider. Patient seems to have r eturned to her baseline level of confusion. Does not appear in acute distress. Objective Data Objective Data Vital Signs: Vital Signs Temp Pulse Resp BP Pulse Ox 97.9 F 75 18 146/81 H 95 09/01/21 08:36 09/01/21 08:36 09/01/21 08:36 09/01/21 08:36 09/01/21 08:36 Oxygen Delivery Method Room Air Weight: 212 lb 15.465 oz Body Mass Index (BMI) 35.4 Intake & Output: Intake and Output for Last 24 Hours 08/30/21 08/31/21 09/01/21 23:59 23:59 23:59 Intake Total 1340 / 1340 50 / 50 Output Total 0 / 0 Balance 1340 / 1340 50 / 50 Lab / Micro Data Result Diagrams: 08/31/21 06:10 08/31/21 06:10 Micro: Microbiology 08/29/21 21:40 Urine Catheter - Catheter Urine Culture - Final Actinotignum schaalii Physical Exam Const alert, oriented x3 and no apparent distress HEENT head/scalp atraumatic and moist oral mucous membranes Head and Scalp: normocephalic Eyes PERRL, EOMs intact bilaterally and conjunctivae normal Neck no lymphadenopathy, supple and no JVD Resp normal respiratory effort, no retractions, no use of accessory muscles and clear to auscultation bilaterally Cardio regular rate, no murmurs and no JVD GI normal to inspection, nondistended, normoactive bowel sounds, soft to palpation and non-tender Extremity normal to inspection, full ROM and no clubbing, cyanosis or edema Skin no rashes or lesions noted, no wounds, skin turgor normal and no jaundice Neuro CN's II-XII intact bilaterally Psych affect normal Assessment & Plan Assessment/Plan (1) Cystitis: PLAN: Day 3 Discharge planning: Discharge to TCU pending PRECERT. 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 Patient denies any ongoing urinary symptoms and does not complain of any suprapubic pain on palpation. Vital signs stable and patient is afebrile. CBC does not demonstrate a leukocytosis. Urine culture has a colony count of actinotignum schalii. Plan; remain admitted overnight, continue Rocephin, discharge to SNF pending acceptance and pre-CERT. 2) vascular dementia Confusion has improved from yesterday and patient seems at her baseline level of confusion. Continue Namenda. 3) history of VTE Hemoglobin is stable. Continue Eliquis 4) debility PT/OT eval recommended skilled therapy at discharge, case management consult ordered. 5) HTN Stable, continue home BP meds. 6) Rheumatoid arthritis Continue MTX. DVT prophylaxis - [facility] Patient seen by Nael Vagras PA-C, under the supervision of Dr. Clancy. Documented by User: Dr. Bello Clancy MD 09/01/21 11:07 Objective Data Lab / Micro Data Result Diagrams: 08/31/21 06:10 08/31/21 06:10 Charges/Coding Addendum Addendum: Dr. Clancy: I personally reviewed the chart and examined the patient, and agree with the above findings. 81-year-old female with a history of MS and rheumatoid arthritis presented to the emergency department with weakness and acute confusion. According to the family at the time of admission, she does have some baseline confusion but got acutely worse. There were some concern secondary to the fact that she had perceive the Materna vaccine the day prior to presentation however in the ER she was found to have a UTI. She started on IV antibiotics. She is still acutely confused and she did have an episode of emesis this morning however hopefully with the resolution of her UTI and mild side effect resolution from the Moderna vaccine booster, she should return to baseline the next 24 to 48 hours. 08/31/2021: Doing much better today, more alert and knows where she is at. She still does have a baseline confusion but I do believe that her acute metabolic encephalopathy is resolving. This is likely secondary to treatment for her UTI. Culture still pending but preliminary data shows 25,000-50,000 CFU's of gram variable rods. We will continue to treat pending finalization of the culture. In the meantime we will evaluate with PT/OT for possible placement to the custodial. 09/01/2021: Confusion is much improved today. Continue to treat her UTI however she has still fairly weak and require significant cues for safety therefore we will continue to plan for discharge to SNF for strengthening. Plan will be to go to TCU when able. Visit Charges Inpatient E&M: 17267 Subs Hosp L2
[2021-09-01 14:51] VITALS: BP 137/68; PULSE 70; RESP 16; TEMP 36.6; O2SAT 96
[2021-09-01] MEDS: Menthol/Lanolin/Calamine/Znox 113 GM Tube 1 APPLIC TOPICAL ×2 (15:01→21:11)
[2021-09-01 20:12] VITALS: BP 156/77; PULSE 71; RESP 16; TEMP 36.6; O2SAT 95
[2021-09-01] MEDS: Atorvastatin Calcium 10 MG Tablet PO (21:09)
[2021-09-01] MEDS: Latanoprost 0.005% 1 Bottle 1 DRP EACH EYE (21:10)
[2021-09-01] MEDS: 0.9% Saline Lock 10 ML Syringe IV (21:11)
[2021-09-02 02:20] VITALS: BP 157/68; PULSE 68; RESP 16; TEMP 36.4; O2SAT 94
[2021-09-02 07:53] VITALS: O2SAT 94
[2021-09-02 08:20] VITALS: BP 148/83; PULSE 64; RESP 16; TEMP 36.5; O2SAT 96
[2021-09-02] MEDS: Potassium Chloride Oral Tablet 20 MEQ PO (08:29)
[2021-09-02] MEDS: Folic Acid 1 MG Tablet PO (08:29)
[2021-09-02] MEDS: Menthol/Lanolin/Calamine/Znox 113 GM Tube 1 APPLIC TOPICAL (08:30)
[2021-09-02] MEDS: Multivitamins,Ther W-Minerals Tablet 1 TABLET PO (08:30)
[2021-09-02] MEDS: Timolol 0.25% 5ML OPTH.BTL 1 DRP OPHTHALMIC (08:35)
[2021-09-02] MEDS: 0.9% Saline Lock 10 ML Syringe IV (08:48)
[2021-09-02] MEDS: Ceftriaxone 1 GM/50 ML BAG IV (08:48)
[2021-09-02] MEDS: DULoxetine Hcl 60 MG Capsule PO (08:49)
[2021-09-02] MEDS: Multivitamin (Healthy Eyes) Capsule 1 CAP PO (08:49)
[2021-09-02] MEDS: Furosemide 20 MG Tablet PO (08:49)
[2021-09-02] MEDS: Cholecalciferol (VIT D3) 25 MCG TABLET (1,000 UNITS) 100 MCG PO (08:49)
[2021-09-02] MEDS: Atenolol 25 MG Tablet PO (08:49)
[2021-09-02] MEDS: Magnesium Chloride 64 MG Delay Rel.Tablet 128 MG PO (08:50)
[2021-09-02] MEDS: APIXABAN 5 MG TABLET PO (08:50)
[2021-09-02] MEDS: Memantine Hydrochloride 10 MG Tablet PO (08:51)
[2021-09-02 08:59] VITALS: O2SAT 94
--- NOTE | 2021-09-02 09:57 | CASEMGMT ---
Social Work Note Pt to discharge to TCU today. SW placed a call to Tessa with TCU and updated her that pt is to discharge to TCU today. Plan: TCU today Chastity Duran SALES AND SERVICE TECHNICIAN, CORRESPONDENCE RENEW CLERK
--- NOTE | 2021-09-02 10:31 | PCM.TXEXTCAR ---
Diet 08/30/21 00:29 Diet: Regular - General Food consistency:: Regular Liquid Consistency:: Regular/Thin Routine Orders/Code Status Code Status: DNRCC-A (no intubation) Therapies Weight Bearing: Full weight bearing Physical Therapy: Eval and Treat Occupational Therapy: Eval and Treat Problem/Diagnosis (1) Cystitis: Status: Acute (2) Multiple sclerosis: Status: Chronic (3) Atherosclerotic heart disease of [place] coronary artery without angina pectoris: Status: Chronic Comment: Mild per cath 07/20/04 (4) Mixed hyperlipidemia: Status: Chronic (5) Essential hypertension: Status: Chronic (6) Vascular dementia: Status: Chronic Allergies/Procedures Done in Hospital Allergies baclofen Allergy (Verified 09/03/18 09:08) Unknown donepezil [From Aricept] Allergy (Verified 08/29/21 21:05) Other hydroxychloroquine [From Plaquenil] Allergy (Verified 09/03/18 09:08) Unknown Iodinated Contrast Media [Iodinated Contrast- Oral and IV Dye] Allergy (Verified 09/03/18 09:08) Hives pravastatin Allergy (Verified 09/03/18 09:08) Unknown shellfish derived Allergy (Verified 09/03/18 09:08) Hives spironolactone Allergy (Verified 09/03/18 09:08) Rash Sulfa (Sulfonamide Antibiotics) Allergy (Verified 09/03/18 09:08) Unknown Type of Care/Length of Stay Estimated LOS: Convalescent Care Less Than 30 days Type of Care Needed: Skilled Rehab Potential: Good Prognosis: Good Additional Orders/Day of Discharge Day of Discharge: 09/02/21 Discharge Plan Admission Admit Date/Time: 08/29/21 23:18 Primary Reason for Your Visit: UTI Attending Provider: Sukhwinder Cruz Primary Care Provider: Zofia Horton Discharge Orders/Prescriptions Prescriptions: New polyethylene glycol 3350 17 gram Powder In Packet 17 g PO DAILY PRN (Reason: Constipation) Qty: 0 RF: 0 memantine 10 mg Tablet 10 mg PO BID Qty: 0 RF: 0 Healthy Eyes 1,000 unit-200 mg-60 unit-2 mg Tablet 1 cap PO BID Qty: 0 RF: 0 cephalexin 500 mg capsule 500 mg PO BID Qty: 1 RF: 0 Continued atenolol 25 MG tablet 25 mg PO BID RF: 0 folic acid 1 MG tablet 1 mg PO DAILY@0800 RF: 0 duloxetine 60 MG capsule,delayed release(DR/EC) 60 mg PO DAILY RF: 0 Lumigan 1 DROP drops 1 drp Each Eye BID RF: 0 Eliquis 5 MG tablet 5 mg PO BID RF: 0 acetaminophen [Tylenol Arthritis Pain] 650 MG tablet extended release 650 mg PO DAILY RF: 0 potassium chloride [Klor-Con M20] 20 MEQ tablet,ER particles/crystals 20 meq PO DAILY RF: 0 magnesium oxide 400 MG tablet 400 mg PO BID RF: 0 cholecalciferol (vitamin D3) [Vitamin D3] 1,000 UNIT capsule 4,000 unit PO DAILY RF: 0 Timolol Maleate [Timoptic-Xe 0.25%] 1 DROP Arlyn.Gel 1 drp Each Eye BID RF: 0 furosemide 20 MG tablet 20 mg PO DAILY RF: 0 atorvastatin 10 MG tablet 20 mg PO QHS RF: 0 Discontinued coenzyme Q10 [Co Q-10] 100 MG capsule 200 mg PO DAILY RF: 0 methotrexate sodium 2.5 MG tablet 17.5 mg PO MO RF: 0 PreserVision AREDS 1 EACH capsule 1 ea PO BID RF: 0 omega-3 fatty acids-fish oil 1 EACH capsule 1 ea PO DAILY RF: 0 diphenhydramine-acetaminophen [Tylenol PM Extra Strength] 25-500 mg Tablet 1 tab PO QHS PRN (Reason: Pain) RF: 0 memantine 21 mg capsule,sprinkle,ER 24hr 21 mg PO QHS RF: 0 Referrals / Follow Up: Zofia Horton DO [Primary Care Provider] - Disposition Disposition (needs filled in before D/C Order can be placed): [facility]
--- NOTE | 2021-09-02 11:54 | DS.PCM_ITS ---
Providers Date of Admission: 08/29/21 Date of Discharge: 09/02/21 Primary Care Physician: Dr. Zofia Horton DO Reason For Visit: UTI Diagnosis Discharge Diagnosis (1) Cystitis: Status: Acute Code(s): N30.90 - Cystitis, unspecified without hematuria (2) Multiple sclerosis: Status: Chronic Code(s): G35 - Multiple sclerosis (3) Atherosclerotic heart disease of [place] coronary artery without angina pectoris: Status: Chronic Code(s): I25.10 - Atherosclerotic heart disease of [place] coronary artery without angina pectoris (4) Mixed hyperlipidemia: Status: Chronic Code(s): E78.2 - Mixed hyperlipidemia (5) Essential hypertension: Status: Chronic Code(s): I10 - Essential (primary) hypertension (6) Vascular dementia: Status: Chronic Code(s): F01.50 - Vascular dementia without behavioral disturbance Plan: 1. Metabolic encephalopathy on a backdrop of vascular dementia #2 acute cystitis with Actinotignum #3 vascular dementia #4 generalized debility #5 essential hypertension #6 rheumatoid arthritis Medications at Discharge Home Medications Eliquis 5 mg PO BID 07/14/17 Lumigan 1 drp EACH EYE BID 07/14/17 Timolol Maleate [Timoptic-Xe 0.25%] 1 drp EACH EYE BID 07/14/17 acetaminophen [Tylenol Arthritis Pain] 650 mg PO DAILY 07/14/17 atenolol 25 mg PO BID 07/14/17 cholecalciferol (vitamin D3) [Vitamin D3] 4,000 unit PO DAILY 07/14/17 duloxetine 60 mg PO DAILY 07/14/17 folic acid 1 mg PO DAILY@0800 07/14/17 magnesium oxide 400 mg PO BID 07/14/17 potassium chloride [Klor-Con M20] 20 meq PO DAILY 07/14/17 furosemide 20 mg PO DAILY 03/01/18 atorvastatin 20 mg PO QHS 03/05/19 cephalexin 500 mg PO BID 09/02/21 memantine 10 mg PO BID 09/02/21 polyethylene glycol 3350 17 g PO DAILY PRN #0 ea 09/02/21 vit A,C and N-[id number] [Healthy Eyes] 1 cap PO BID 09/02/21 Hospital Course Operations None Procedures None Summary of Care Provided Minutes Spent on Discharge: 32 Hospital Course: This 81-year-old white female was seen in the emergency room at [facility] with complaints of generalized weakness after being brought in by her family. Patient was unable to ambulate and do her ADLs due to weakness. Patient does have a history of vascular dementia. Work-up in the ER included a CBC which showed a normal white blood cell count, chest x-ray showed no acute cardiopulmonary process, urinalysis showed 500 leukocyte esterase as well as 10-25 white cells and +3 bacteria. Patient was given a dose of IV Rocephin, she was admitted to [place] [address], IV antibiotics were continued, she was seen by PT and OT. It was felt that she would need to go to a custodial facility for short-term rehab services and this was arranged. On 09/02/2021, patient was seen and examined: On examination she appeared older than her stated age, she does not appear to be in any distress. Vital signs as d ocumented. Skin warm and dry and without overt rashes. Neck without JVD, thyroid appears normal, trachea is midline, neck is supple. Lungs clear, normal air movement was noted. Heart exam notable for regular rhythm, normal sounds and absence of murmurs, rubs or gallops. Abdomen unremarkable and without evidence of organomegaly, masses, or abdominal aortic enlargement, bowel sounds are present in all 4 quadrants, no abdominal tenderness was noted. Extremities nonedematous, no cyanosis was noted, no clubbing was noted. Neuro: Cranial nerves II through XII are grossly intact, no focal motor deficits were noted, sensation to light touch and pinprick is intact, motor exam 5/5 throughout. Psych: Patient is alert, she exhibited confusion On 09/02/2021, patient was discharged to a local extended care facility in stable condition for inpatient rehab services. Weight / BMI Weight Weight: 96.6 kg Body Mass Index (BMI) 35.4 ABG / Lab / Microbiology Data Result Diagrams: 08/31/21 06:10 08/31/21 06:10 Microbiology: Microbiology 08/29/21 21:40 Urine Catheter - Catheter Urine Culture - Final Actinotignum schaalii Meaningful Use Info Meaningful Use Diagnoses (Choose all that apply): None applicable Discharge Plan Admission Admit Date/Time: 08/29/21 23:18 Primary Reason for Your Visit: UTI Attending Provider: Sukhwinder Cruz Primary Care Provider: Zofia Hroton Discharge Orders/Prescriptions Prescriptions: New polyethylene glycol 3350 17 gram Powder In Packet 17 g PO DAILY PRN (Reason: Constipation) Qty: 0 RF: 0 Continued atenolol 25 MG tablet 25 mg PO BID RF: 0 folic acid 1 MG tablet 1 mg PO DAILY@0800 RF: 0 duloxetine 60 MG capsule,delayed release(DR/EC) 60 mg PO DAILY RF: 0 Lumigan 1 DROP drops 1 drp Each Eye BID RF: 0 Eliquis 5 MG tablet 5 mg PO BID RF: 0 acetaminophen [Tylenol Arthritis Pain] 650 MG tablet extended release 650 mg PO DAILY RF: 0 potassium chloride [Klor-Con M20] 20 MEQ tablet,ER particles/crystals 20 meq PO DAILY RF: 0 magnesium oxide 400 MG tablet 400 mg PO BID RF: 0 cholecalciferol (vitamin D3) [Vitamin D3] 1,000 UNIT capsule 4,000 unit PO DAILY RF: 0 Timolol Maleate [Timoptic-Xe 0.25%] 1 DROP Arlyn.Gel 1 drp Each Eye BID RF: 0 furosemide 20 MG tablet 20 mg PO DAILY RF: 0 atorvastatin 10 MG tablet 20 mg PO QHS RF: 0 Discontinued coenzyme Q10 [Co Q-10] 100 MG capsule 200 mg PO DAILY RF: 0 methotrexate sodium 2.5 MG tablet 17.5 mg PO MO RF: 0 PreserVision AREDS 1 EACH capsule 1 ea PO BID RF: 0 omega-3 fatty acids-fish oil 1 EACH capsule 1 ea PO DAILY RF: 0 diphenhydramine-acetaminophen [Tylenol PM Extra Strength] 25-500 mg Tablet 1 tab PO QHS PRN (Reason: Pain) RF: 0 memantine 21 mg capsule,sprinkle,ER 24hr 21 mg PO QHS RF: 0 No Action cephalexin 500 mg capsule 500 mg PO BID RF: 0 memantine 10 mg tablet 10 mg PO BID RF: 0 Healthy Eyes 1,000 unit-200 mg-60 unit-2 mg tablet 1 cap PO BID RF: 0 Referrals / Follow Up: Zofia Horton DO [Primary Care Provider] - Disposition Disposition (needs filled in before D/C Order can be placed): Shelter Facility Charges/Coding Visit Charges Inpatient E&M: 64735 Disch Hosp
[2021-09-02 12:02] VITALS: O2SAT 94
--- NOTE | 2021-09-02 12:10 | CASEMGMT ---
Social Work Per physician, pt is ready for discharge today. Phone call to [facility] in TCU and they are able to accept pt today. SW spoke with pt and dgt and updated that pt is ready for discharge and TCU can accept. Orders faxed to TCU and nursing notified that pt will need Covid test prior to discharge. Plan: TCU, skilled level of care. CAROLYNN Crooks
[2021-09-02 14:30] VITALS: BP 138/80; PULSE 66; RESP 16; TEMP 36.6; O2SAT 96
== END 2021-09-02 18:00 | DRG 689 ==
LOC: ED 22:32 → MS3 08-30 00:01
PROVIDERS: Physician Assistant; Admitting Provider Hospitalist; Emergency Provider Student in an Organized Health Care Education/Training Program; PCP Internal Medicine; Visit Provider Internal Medicine
DX: N30.00 Acute cystitis without hematuria (principal); G93.41 Metabolic encephalopathy; B96.89 Other specified bacterial agents as the cause of diseases classified elsewhere; G35 Multiple sclerosis; R53.81 Other malaise; I10 Essential (primary) hypertension; F01.50 Vascular dementia, unspecified severity, without behavioral disturbance, psychotic disturbance, mood disturbance, and anxiety; E78.2 Mixed hyperlipidemia; H35.30 Unspecified macular degeneration; I25.10 Atherosclerotic heart disease of native coronary artery without angina pectoris; J45.909 Unspecified asthma, uncomplicated; M06.9 Rheumatoid arthritis, unspecified; Z86.718 Personal history of other venous thrombosis and embolism; Z79.01 Long term (current) use of anticoagulants; Z79.899 Other long term (current) drug therapy
CPT/HCPCS: 36415; 71045; 80048; 80053; 81001; 84484; 85025; 87077; 87086; 87088; 87426; 93005; 97162; 97166; 97530; 97535; 99285; J7050; A4216; J8610

== ENCOUNTER 2021-09-02 18:00 | Inpatient (IN) | payer MEDICARE, SELFPAY ==
[2021-09-02 18:25] VITALS: BP 136/88; PULSE 76; RESP 18; TEMP 36.2; O2SAT 95; BMI 36.3
[2021-09-02 19:15] VITALS: PULSE 74; RESP 16; O2SAT 95
--- NOTE | 2021-09-02 19:24 | HP.PCM_ITS ---
HPI - General General Date of Admission: 09/02/21 HPI Narrative 08/29/2021 OSBALDO VILLAVICENCIO, is a 81 Female who presents to [facility] Emergency Department with confusion. 08/29/2021 EKG normal sinus rhythm, normal EKG. Generalized weakness, unable to get up due to weakness. Usually walks with rollator, slight fall, no head injury. covid19 booster 1 day prior, vomiting x 1 episode. Chest X-ray negative. UA consistent with urinary tract infection, urine culture sent, Ceftriaxone given. 08/29/2021 Admit to Hospital. Ceftriaxone IV for urinary tract infection. 08/30/2021 Confused, but patient chronically confused. Confusion worse than baseline. Ceftriaxone IV for urinary tract infection. PT/OT for [facility]. 08/31/2021 Confusion resolved. Urine culture growing gram negative rods, continue Ceftriaxone IV. 09/01/2021 Mentation baseline. PT/OT recommends [facility]. 09/02/2021 Urine culture growing Actinotignum schaalii. Ceftriaxone deescalated to Keflex po. 09/02/2021 Admit to TCU with debility, here for rehabilitation, strengthening, prior to discharge home with . [facility] Medical History AMD (age related macular degeneration) Asthma Atherosclerotic heart disease of [place] coronary artery without angina pectoris Essential hypertension Mixed hyperlipidemia Multiple sclerosis Vascular dementia Home Medications Eliquis 5 mg PO BID 07/14/17 [History Last Taken 09/02/21 08:50] Lumigan 1 drp EACH EYE BID 07/14/17 [History Last Taken 09/01/21 21:10] Timolol Maleate [Timoptic-Xe 0.25%] 1 drp EACH EYE BID 07/14/17 [History Last Taken 09/02/21 08:35] acetaminophen [Tylenol Arthritis Pain] 650 mg PO DAILY 07/14/17 [History Last Taken 08/29/21] atenolol 25 mg PO BID 07/14/17 [History Last Taken 09/02/21 08:49] cholecalciferol (vitamin D3) [Vitamin D3] 4,000 unit PO DAILY 07/14/17 [History Last Taken 09/02/21 08:49] duloxetine 60 mg PO DAILY 09/29/17 [History Last Taken 09/02/21 08:49] folic acid 1 mg PO DAILY@0800 07/14/17 [History Last Taken 09/02/21 08:29] magnesium oxide 400 mg PO BID 07/14/17 [History Last Taken 09/02/21 08:50] potassium chloride [Klor-Con M20] 20 meq PO DAILY 07/14/17 [History Last Taken 09/02/21 08:29] furosemide 20 mg PO DAILY 03/01/18 [History Last Taken 09/02/21 08:49] atorvastatin 20 mg PO QHS 03/05/19 [History Last Taken 09/01/21 21:09] cephalexin 500 mg PO BID 09/02/21 [History Last Taken Unknown] memantine 10 mg PO BID 09/02/21 [History Last Taken 09/02/21 08:51] polyethylene glycol 3350 17 g PO DAILY PRN #0 ea 09/02/21 [Rx Last Taken Unknown] vit A,C and [id number] [Healthy Eyes] 1 cap PO BID 09/02/21 [History Last Taken 09/02/21 08:49] Allergy/AdvReac Type Severity Reaction Status Date / Time baclofen Allergy Unknown Verified 09/03/18 09:08 donepezil [From Aricept] Allergy Other Verified 08/29/21 21:05 hydroxychloroquine Allergy Unknown Verified 09/03/18 09:08 [From Plaquenil] Iodinated Contrast Media Allergy Hives Verified 09/03/18 09:08 [Iodinated Contrast- Oral and IV Dye] pravastatin Allergy Unknown Verified 09/03/18 09:08 shellfish derived Allergy Hives Verified 09/03/18 09:08 spironolactone Allergy Rash Verified 09/03/18 09:08 Sulfa (Sulfonamide Allergy Unknown Verified 09/03/18 09:08 Antibiotics) Family History Other Diabetes MTHFR gene mutation Surgical History History of appendectomy History of hemorrhoidectomy History of kyphoplasty History of tonsillectomy and adenoidectomy History of vitrectomy S/P YAG capsulotomy, left Social History (Updated 09/02/21 @ 19:[address] Gaurav Delcid MD) household members: spouse Smoking Status: Never smoker alcohol intake: never substance use type: does not use ROS Constitutional Constitutional: Denies chills, fever(s) or weight gain ENT HEENT: Denies headache(s), nasal congestion or nasal discharge Cardiovascular Cardiovascular: Denies chest pain or palpitations Respiratory/Chest Respiratory/Chest: Denies cough, excessive phlegm production or shortness of breath with exertion Gastrointestinal Gastrointestinal: Denies abdominal pain, nausea or vomiting Genitourinary Genitourinary: Denies dysuria Musculoskeletal Musculoskeletal: Denies joint pain or joint swelling Integumentary Integumentary: Denies rash or wounds Neurologic Neurologic: Denies focal weakness, numbness or tingling Psychiatric Psychiatric: Denies anxiety, depression, homicidal ideation or suicidal ideation Vital Signs Vital Signs Vital Signs: 09/02/21 18:25 Temperature 97.1 F L Temperature Source Temporal Pulse Rate 76 Respiratory Rate 18 Blood Pressure 136/88 H Blood Pressure Mean 104 Blood Pressure Source Monitor Blood Pressure Position Semi-Fowlers Blood Pressure Location Right Arm Pulse Ox 95 Oxygen Delivery Method Room Air Weight Weight: 96.162 kg Body Mass Index (BMI) 36.3 Physical Exam Const alert and oriented x3 General Appearance: cooperative HEENT normocephalic Eyes PERRL and EOMs intact bilaterally Neck supple, no JVD and no carotid bruits Resp normal respiratory effort, normal air movement and clear to auscultation bilaterally Cardio regular rate and regular rhythm GI normal to inspection, nondistended, normoactive bowel sounds, non-tender and non-distended Extremity normal capillary refill General Extremity: Negative for edema Skin no rashes or lesions noted General Skin Exam: no breakdown Psych affect normal Appearance: appropriate Assessment & Plan Assessment/Plan (1) Debility: (2) Encephalopathy: (3) Urinary tract infection: (4) Multiple sclerosis: (5) Vascular dementia: (6) Glaucoma: (7) Depression: (8) Hypomagnesemia: (9) Edema: (10) Hyperlipidemia: (11) Migraine: (12) MTHFR mutation: (13) Rheumatoid arthritis: PLAN: 81 year old female with below past medical history hospitalized for encephalopathy secondary to urinary tract infection, complicated by vascular d ementia, admitted to TCU with debility, here for rehabilitation, strengthening, prior to discharge home with . * Debility - PT/OT. * Pain - Tylenol 1000mg q6h prn pain (1-10). * Bowel - Miralax 17gm daily, Senna/colace 1 tablet twice daily, Dulcolax 10mg daily prn. * Adult immunization - Administer prevnar 13, pneumovax 23, fluzone, covid19 vaccine as appropriate. * DVT prophylaxis - Not necessary, already on Eliquis. * MTHFR mutation - Eliquis 5mg twice daily. * Hypertension - Atenolol 25mg bid. * Hyperlipidemia - Lipitor 20mg qhs. * Urinary tract infection - Keflex 500mg bid thru 09/06/2021. * Vitamin d deficiency - D3 100mcg daily. * Folate deficiency - Folic acid 1mg daily. * Depression - Duloxetine 60mg daily, stable chronic senior care use, GDR not recommended. * Edema - Furosemide 20mg daily. * Glaucoma - Latanoprost 1gtt ou qhs, Timolol 1gtt ou bid. * Hypomagnesemia - Magnesium chloride 128mg bid. * Vascular dementia - Memantine 10mg bid. * Macular degeneration - Healthy Eyes 1 capsule bid. * Hypokalemia - KCL 20meq daily.
[2021-09-02] MEDS: APIXABAN 5 MG TABLET PO (20:37)
[2021-09-02] MEDS: Senna/Docusate Sodium 1 Tablet PO (20:37)
[2021-09-02] MEDS: Multivitamin (Healthy Eyes) Capsule 1 CAP PO (20:38)
[2021-09-02] MEDS: Magnesium Chloride 64 MG Delay Rel.Tablet 128 MG PO (20:39)
[2021-09-02] MEDS: Memantine Hydrochloride 10 MG Tablet PO (20:39)
[2021-09-02] MEDS: Atorvastatin Calcium 20 MG Tablet PO (20:39)
[2021-09-02] MEDS: Latanoprost 0.005% 1 Bottle 1 DRP EACH EYE (20:41)
[2021-09-02] MEDS: Atenolol 25 MG Tablet PO (20:44)
[2021-09-02] MEDS: Timolol 0.25% 5ML OPTH.BTL 1 DRP EACH EYE (20:50)
[2021-09-03] MEDS: Magnesium Chloride 64 MG Delay Rel.Tablet 128 MG PO ×2 (06:17→17:12)
[2021-09-03] MEDS: Multivitamin (Healthy Eyes) Capsule 1 CAP PO ×2 (06:17→17:11)
[2021-09-03] MEDS: Polyethylene Glycol 3350 17 GM PACKET PO (06:17)
[2021-09-03] MEDS: DULoxetine Hcl 60 MG Capsule PO (06:17)
[2021-09-03] MEDS: Cholecalciferol (VIT D3) 25 MCG TABLET (1,000 UNITS) 100 MCG PO (06:18)
[2021-09-03] MEDS: Cephalexin 500 MG Capsule PO ×2 (06:18→17:50)
[2021-09-03] MEDS: Senna/Docusate Sodium 1 Tablet PO ×2 (06:18→17:12)
[2021-09-03] MEDS: Furosemide 20 MG Tablet PO (06:18)
[2021-09-03] MEDS: APIXABAN 5 MG TABLET PO ×2 (06:18→17:12)
[2021-09-03] MEDS: Memantine Hydrochloride 10 MG Tablet PO ×2 (06:18→17:12)
[2021-09-03] MEDS: Timolol 0.25% 5ML OPTH.BTL 1 DRP EACH EYE ×2 (06:19→17:12)
[2021-09-03] MEDS: Atenolol 25 MG Tablet PO ×2 (06:19→17:12)
[2021-09-03] MEDS: Potassium Chloride Oral Tablet 20 MEQ PO (07:51)
[2021-09-03] MEDS: Folic Acid 1 MG Tablet PO (07:51)
--- NOTE | 2021-09-03 10:20 | NURSING ---
dropped off covid vaccine care, copied and placed in chart.
[2021-09-03] MEDS: Tuberculin,Purif.prot.deriv. 50 TU/ML Vial 0.1 ML ID (10:59)
--- NOTE | 2021-09-03 11:57 | PHA.CONS_ITS ---
Progress Note - Pharmacy Subjective: TCU Admission Objective: Allergies baclofen Allergy (Verified 09/03/18 09:08) Unknown donepezil [From Aricept] Allergy (Verified 08/29/21 21:05) Other hydroxychloroquine [From Plaquenil] Allergy (Verified 09/03/18 09:08) Unknown Iodinated Contrast Media [Iodinated Contrast- Oral and IV Dye] Allergy (Verified 09/03/18 09:08) Hives pravastatin Allergy (Verified 09/03/18 09:08) Unknown shellfish derived Allergy (Verified 09/03/18 09:08) Hives spironolactone Allergy (Verified 09/03/18 09:08) Rash Sulfa (Sulfonamide Antibiotics) Allergy (Verified 09/03/18 09:08) Unknown Current Medications Generic Name Dose Route Start Last Admin Trade Name Freq PRN Reason Stop Dose Admin Acetaminophen 1,000 mg 09/02/21 19:41 Acetaminophen 500 Mg Tablet PO Q6H PRN PRN Pain Score 1-10 Apixaban 5 mg 09/02/21 22:00 09/03/21 06:18 Apixaban 5 Mg Tablet PO 5 mg BID ABBIE Administration Atenolol 25 mg 09/02/21 22:00 09/03/21 06:19 Atenolol 25 Mg Tablet PO 25 mg BID ABBIE Administration Atorvastatin Calcium 20 mg 09/02/21 22:00 09/02/21 20:39 Atorvastatin Calcium 20 Mg Tablet PO 20 mg QHS ABBIE Administration Bisacodyl 10 mg 09/02/21 19:42 Bisacodyl 5 Mg Tablet PO DAILY PRN Constipation Cephalexin 500 mg 09/03/21 06:00 09/03/21 06:18 Cephalexin 500 Mg Capsule PO 09/06/21 06:01 500 mg BID ABBIE Administration Cholecalciferol 100 mcg 09/03/21 06:00 09/03/21 06:18 Cholecalciferol (Vit D3) 25 Mcg Tablet (1,000 Units) PO 100 mcg DAILY ABBIE Administration Duloxetine HCl 60 mg 09/03/21 06:00 09/03/21 06:17 Duloxetine Hcl 60 Mg Capsule PO 60 mg DAILY ABBIE Administration Folic Acid 1 mg 09/03/21 08:00 09/03/21 07:51 Folic Acid 1 Mg Tablet PO 1 mg DAILY@0800 ABBIE Administration Furosemide 20 mg 09/03/21 06:00 09/03/21 06:18 Furosemide 20 Mg Tablet PO 20 mg DAILY ABBIE Administration Latanoprost 1 drp 09/02/21 22:00 09/02/21 20:41 Latanoprost 0.005% 1 Bottle EACH EYE 1 drp QHS ABBIE Administration Magnesium Chloride 128 mg 09/02/21 22:00 09/03/21 06:17 Magnesium Chloride 64 Mg Delay Rel.Tablet PO 128 mg BID ABBIE Administration Memantine 10 mg 09/02/21 22:00 09/03/21 06:18 Memantine Hydrochloride 10 Mg Tablet PO 10 mg BID ABBIE Administration Multivitamins/Minerals 1 capsule 09/02/21 22:00 09/03/21 06:17 Multivitamin (Healthy Eyes) Capsule PO 1 capsule BID ABBIE Administration Polyethylene Glycol 17 gm 09/03/21 06:00 09/03/21 06:17 Polyethylene Glycol 3350 17 Gm Packet PO 17 gm DAILY ABBIE Administration Potassium Chloride 20 meq 09/03/21 08:00 09/03/21 07:51 Potassium Chloride Oral Tablet 20 Meq PO 20 meq DAILY@0800 ABBIE Administration Senna/Docusate Sodium 1 tablet 09/02/21 19:45 09/03/21 06:18 Senna/Docusate Sodium 1 Tablet PO 1 tablet BID ABBIE Administration Timolol Maleate 1 drp 09/02/21 22:00 09/03/21 06:19 Timolol 0.25% 5ml Opth.Btl EACH EYE 1 drp BID ABBIE Administration Tuberculin PPD 0.1 ml 09/10/21 10:00 Tuberculin,Purif.Prot.Deriv. 50 Tu/Ml Vial ID 09/10/21 10:01 X1 ONE Problem List (Last Reviewed 09/02/21 @ 19:[address] Gaurav Delcid MD) Rheumatoid arthritis (Acute) MTHFR mutation (Acute) Migraine (Acute) Hyperlipidemia (Acute) Edema (Acute) Hypomagnesemia (Acute) Depression (Acute) Glaucoma (Acute) Vascular dementia (Acute) Multiple sclerosis (Acute) Urinary tract infection (Acute) Encephalopathy (Acute) Debility (Acute) Vital Signs Temp Pulse Resp BP Pulse Ox 97.1 F L 74 16 136/88 H 95 09/02/21 18:25 09/02/21 19:15 09/02/21 19:15 09/02/21 18:25 09/02/21 19:15 Oxygen Delivery Method Room Air Weight: 96.162 kg Body Mass Index (BMI) 36.3 Assessment/Plan: 1. Pain: acetaminophen 1000mg PO Q6H PRN pain -07/25. Please continue to mon itor for increased pain and PRN usage. 2. UTI: cephalexin 500mg PO BID thru 09/06/21. Please continue to monitor for S/S of infection, diarrhea and renal function. 3. MTHFR mutation: apixaban 5mg PO BID. Please continue to monitor for S/S of bleeding/VTE and hemoglobin (last 12.7g/dL). 4. Hypertension: atenolol 25mg PO BID. Please continue to monitor BP (last 136/88) and HR (last 74). *5. Hyperlipidemia: atorvastatin 20mg PO QHS. Please consider ordering a lipid panel (last 03/2020) if clinically appropriate. Thanks. Please continue to monitor for muscle pain. 6. Edema: furosemide 20mg PO daily. Please continue to monitor potassium (last 3.7mmol/L), sodium (last 135mmol/L), renal function and edema. 7. Glaucoma/macular degeneration: latanoprost 0.005% 1gtt OU QHS, timolol 0.25% 1gtt OU BID and healthy eyes 1C PO BID. Please continue to monitor for S/S of glaucoma. 8. Vascular dementia: memantine 10mg PO BID. Please continue to monitor for dementia and GI side effects. 9. Hypokalemia/hypomagnesemia: potassium chloride 20mEq PO DAILYCM and magnesium chloride 128mg PO BID. Please continue to monitor potassium and magnesium levels (1.8mg/dL). *10. Vitamin D deficiency/folate deficiency: cholecalciferol 100mcg PO daily and folic acid 1mg PO DAILYCM. Please consider ordering a vitamin D level (last from 03/2020) if clinically appropriate. Psychotropic Medications: 1. Depression: duloxetine 60mg PO daily. Please see physician note regarding GDR. Unnecessary Medications: None Bowel Regimen: Miralax 17gm PO daily, senna/docusate 1T PO BID and bisacodyl 10mg PO daily PRN constipation. Please continue to monitor for constipation and PRN usage. Date of Note:: 09/03/21
[2021-09-03 13:50] VITALS: PULSE 71; RESP 18; O2SAT 96
[2021-09-03 13:56] VITALS: BP 167/110; PULSE 72; RESP 16; TEMP 36.3; O2SAT 94
--- NOTE | 2021-09-03 15:00 | CASEMGMT ---
Social Work Met with pt and for initial assessment. assisted in answering assessment questions. Pt has dx of Dementia. Discussed code status. Confirmed DNR-CC. D/t cognition, MOLST was not completed. Explained MMO insurance with NRD 09/08 and continued stay is not guaranteed. The goal is for pt to return home with and dtr support. Dtr does work. SW to continue to follow. Britt Bridges, DRILL PRESS OPERATOR LUMBER STICKER
[2021-09-03 17:14] VITALS: BP 165/85
[2021-09-03] MEDS: Latanoprost 0.005% 1 Bottle 1 DRP EACH EYE (21:57)
[2021-09-03] MEDS: Atorvastatin Calcium 20 MG Tablet PO (21:57)
[2021-09-04] MEDS: Polyethylene Glycol 3350 17 GM PACKET PO (06:34)
[2021-09-04] MEDS: Magnesium Chloride 64 MG Delay Rel.Tablet 128 MG PO ×2 (06:35→17:17)
[2021-09-04] MEDS: Timolol 0.25% 5ML OPTH.BTL 1 DRP EACH EYE ×2 (06:35→17:22)
[2021-09-04] MEDS: Multivitamin (Healthy Eyes) Capsule 1 CAP PO ×2 (06:35→17:17)
[2021-09-04] MEDS: Cephalexin 500 MG Capsule PO ×2 (06:35→17:17)
[2021-09-04] MEDS: Furosemide 20 MG Tablet PO (06:35)
[2021-09-04] MEDS: Senna/Docusate Sodium 1 Tablet PO ×2 (06:36→17:19)
[2021-09-04] MEDS: DULoxetine Hcl 60 MG Capsule PO (06:36)
[2021-09-04] MEDS: Cholecalciferol (VIT D3) 25 MCG TABLET (1,000 UNITS) 100 MCG PO (06:36)
[2021-09-04] MEDS: Memantine Hydrochloride 10 MG Tablet PO ×2 (06:36→17:19)
[2021-09-04] MEDS: Atenolol 25 MG Tablet PO ×2 (06:37→17:19)
[2021-09-04] MEDS: APIXABAN 5 MG TABLET PO ×2 (06:38→17:17)
[2021-09-04] MEDS: Potassium Chloride Oral Tablet 20 MEQ PO (08:28)
[2021-09-04] MEDS: Folic Acid 1 MG Tablet PO (08:28)
[2021-09-04 09:20] LABS: Absolute Lymphocyte Count 2.55 X10^3/uL (0.83-4.51); Absolute Neutrophil Count 6.6 X10^3/uL (2.0-7.7); Eosinophil# 0.49 X10^3/uL; Eosinophils% 4.7 % (0-5); Hematocrit 44.4 % (37-47); Lymphocyte # 2.55 X10^3/ul (0.83-4.51); Lymphocyte % 24.6 % (19-41); Mean Corp Hgb Conc 33.8 g/dL (32-36); Mean Corpuscular Hgb 32.1 pg (27.0-32.0); Mean Corpuscular Volume 95.1 fL (81-99); Mean Platelet Vol. 9.7 fl (6.2-12.0); Monocyte# 0.57 X10^3/uL; Monocyte% 5.5 % (0-10); NRBC Flagged by Analyzer 0 % (0-5); Neutrophil # 6.61 X10^3/uL (2.7-7.7); Neutrophil % 63.7 % (47-70); Platelet Count 269 K/mm3 (150-450); RBC Distribution Width CV 14.1 % (11.6-14.6); RBC Distribution Width SD 48.7 fl (35.1-43.9); Red Blood Count 4.67 M/mm3 (4.2-5.4); White Blood Count 10.4 K/mm3 (4.4-11.0)
[2021-09-04 09:46] LABS: Anion Gap 6 (5-15); BUN 23 mg/dL (7-18); BUN/Creat Ratio 23.5 RATIO (10-20); Calcium,Total 9.7 mg/dL (8.5-10.1); Chloride 105 mmol/L (98-107); Creatinine, Serum 0.98 mg/dL (0.55-1.02); EST Glomerular Filtration Rate 58 mL/min (>60); Est Glom Filt Rate - Afr Amer 71 mL/min (>60); Glucose 183 mg/dL (74-106); Potassium 4.1 mmol/L (3.5-5.1); Sodium Level 137 mmol/L (136-145)
[2021-09-04 13:51] VITALS: BP 156/84; PULSE 77; RESP 16; TEMP 35.8; O2SAT 94
[2021-09-04] MEDS: Losartan Potassium 100 MG Tablet PO (14:13)
[2021-09-04 17:29] VITALS: BP 139/76; PULSE 89
[2021-09-04] MEDS: Latanoprost 0.005% 1 Bottle 1 DRP EACH EYE (20:37)
[2021-09-04] MEDS: Atorvastatin Calcium 20 MG Tablet PO (20:38)
[2021-09-04 23:33] VITALS: PULSE 70; O2SAT 92
[2021-09-05] MEDS: Polyethylene Glycol 3350 17 GM PACKET PO (05:33)
[2021-09-05] MEDS: DULoxetine Hcl 60 MG Capsule PO (05:34)
[2021-09-05] MEDS: Cholecalciferol (VIT D3) 25 MCG TABLET (1,000 UNITS) 100 MCG PO (05:34)
[2021-09-05] MEDS: APIXABAN 5 MG TABLET PO ×2 (05:34→17:11)
[2021-09-05] MEDS: Losartan Potassium 100 MG Tablet PO (05:34)
[2021-09-05] MEDS: Atenolol 25 MG Tablet PO ×2 (05:37→17:12)
[2021-09-05] MEDS: Magnesium Chloride 64 MG Delay Rel.Tablet 128 MG PO ×2 (05:38→17:11)
[2021-09-05] MEDS: Memantine Hydrochloride 10 MG Tablet PO ×2 (05:38→17:11)
[2021-09-05] MEDS: Senna/Docusate Sodium 1 Tablet PO ×2 (05:38→17:12)
[2021-09-05] MEDS: Timolol 0.25% 5ML OPTH.BTL 1 DRP EACH EYE ×2 (05:38→17:11)
[2021-09-05] MEDS: Cephalexin 500 MG Capsule PO ×2 (05:38→17:11)
[2021-09-05] MEDS: Furosemide 20 MG Tablet PO (05:39)
[2021-09-05] MEDS: Multivitamin (Healthy Eyes) Capsule 1 CAP PO ×2 (05:39→17:11)
[2021-09-05] MEDS: Potassium Chloride Oral Tablet 20 MEQ PO (07:59)
[2021-09-05] MEDS: Folic Acid 1 MG Tablet PO (07:59)
[2021-09-05 15:45] VITALS: BP 126/69; PULSE 88; RESP 18; TEMP 36.6; O2SAT 93
[2021-09-05] MEDS: Latanoprost 0.005% 1 Bottle 1 DRP EACH EYE (20:50)
[2021-09-05] MEDS: Atorvastatin Calcium 20 MG Tablet PO (20:51)
--- NOTE | 2021-09-05 20:58 | NURSING ---
Patient requested medication early due to wanting to go to bed.
[2021-09-06] MEDS: Senna/Docusate Sodium 1 Tablet PO ×2 (05:40→17:18)
[2021-09-06] MEDS: Polyethylene Glycol 3350 17 GM PACKET PO (05:40)
[2021-09-06] MEDS: Memantine Hydrochloride 10 MG Tablet PO ×2 (05:40→17:18)
[2021-09-06] MEDS: Cephalexin 500 MG Capsule PO (05:40)
[2021-09-06] MEDS: Atenolol 25 MG Tablet PO ×2 (05:40→17:18)
[2021-09-06] MEDS: Multivitamin (Healthy Eyes) Capsule 1 CAP PO ×2 (05:40→17:18)
[2021-09-06] MEDS: Furosemide 20 MG Tablet PO (05:40)
[2021-09-06] MEDS: Losartan Potassium 100 MG Tablet PO (05:40)
[2021-09-06] MEDS: DULoxetine Hcl 60 MG Capsule PO (05:40)
[2021-09-06] MEDS: Magnesium Chloride 64 MG Delay Rel.Tablet 128 MG PO ×2 (05:40→17:18)
[2021-09-06] MEDS: APIXABAN 5 MG TABLET PO ×2 (05:41→17:18)
[2021-09-06] MEDS: Timolol 0.25% 5ML OPTH.BTL 1 DRP EACH EYE ×2 (05:44→17:19)
[2021-09-06] MEDS: Cholecalciferol (VIT D3) 25 MCG TABLET (1,000 UNITS) 100 MCG PO (05:45)
[2021-09-06 06:06] VITALS: BP 114/54; PULSE 73; RESP 18; TEMP 36.6; O2SAT 97
[2021-09-06] MEDS: Folic Acid 1 MG Tablet PO (07:35)
[2021-09-06] MEDS: Potassium Chloride Oral Tablet 20 MEQ PO (07:35)
[2021-09-06 10:00] VITALS: PULSE 72; RESP 16; O2SAT 93
--- NOTE | 2021-09-06 12:23 | NURSING ---
pt daughter assisting pt with shower and noted areas of redness to neck/chin/chest. feels it is from cozaar medication, dr nica south, new order to DC.
[2021-09-06 16:00] VITALS: BP 156/81; PULSE 87; RESP 17; TEMP 37.1; O2SAT 94
[2021-09-06] MEDS: Atorvastatin Calcium 20 MG Tablet PO (22:06)
[2021-09-06] MEDS: Latanoprost 0.005% 1 Bottle 1 DRP EACH EYE (22:06)
[2021-09-07] MEDS: Timolol 0.25% 5ML OPTH.BTL 1 DRP EACH EYE ×2 (05:33→17:37)
[2021-09-07] MEDS: Polyethylene Glycol 3350 17 GM PACKET PO (05:39)
[2021-09-07] MEDS: Magnesium Chloride 64 MG Delay Rel.Tablet 128 MG PO ×2 (05:40→17:35)
[2021-09-07] MEDS: Furosemide 20 MG Tablet PO (05:41)
[2021-09-07] MEDS: Multivitamin (Healthy Eyes) Capsule 1 CAP PO ×2 (05:41→17:37)
[2021-09-07] MEDS: Senna/Docusate Sodium 1 Tablet PO ×2 (05:41→17:35)
[2021-09-07] MEDS: Atenolol 25 MG Tablet PO ×2 (05:41→17:35)
[2021-09-07] MEDS: Cholecalciferol (VIT D3) 25 MCG TABLET (1,000 UNITS) 100 MCG PO (05:41)
[2021-09-07] MEDS: Memantine Hydrochloride 10 MG Tablet PO ×2 (05:42→17:35)
[2021-09-07] MEDS: DULoxetine Hcl 60 MG Capsule PO (05:42)
[2021-09-07] MEDS: APIXABAN 5 MG TABLET PO ×2 (05:42→17:36)
[2021-09-07 05:49] VITALS: BP 138/98; PULSE 73
[2021-09-07 06:21] LABS: Bedside Glucose 109 mg/dL (70-110)
[2021-09-07] MEDS: Folic Acid 1 MG Tablet PO (07:32)
[2021-09-07] MEDS: Potassium Chloride Oral Tablet 20 MEQ PO (07:33)
[2021-09-07 10:00] VITALS: PULSE 86; RESP 16; O2SAT 93
[2021-09-07 12:44] VITALS: BP 138/78; PULSE 77; RESP 17; TEMP 35.9; O2SAT 96
--- NOTE | 2021-09-07 15:59 | CHAPLAIN ---
Type of Pastoral Visit _x__ Initial Visit ___ Follow-up Visit ___ On-call Visit ___ General Patient Visit ___ Spiritual Assessment ___ Family Conference ___ Bereavement ___ Rapid Response ___ Code Blue ___ Other (describe below) Pastoral Care Referral From ___ Patient _x__ Family ___ Nurse ___ Physician ___ Clerical Secretary ___ Mold Engraver ___ Other (describe below) Sacrament/Intervention _x__ Active listening ___ Anointing ___ Pentecostal ___ Bereavement ___ Communion ___ Mala exploration ___ _x__ Life review _x__ Prayer ___ Reconciliation ___ Sacrament of Sick _x__ Supportive presence ___ Wedding ___ Other (describe below) Pastoral Comments spouse is about to leave the hospital but had opportunity for a few minutes of introduction; spouse states that pt has dementia; patient is very talkative and carries the conversation without pause; however pt has some difficulty in recalling places and details as she talks; pt open to prayer and future visits per her request
[2021-09-07 17:46] VITALS: BP 165/72; PULSE 75
[2021-09-07] MEDS: Atorvastatin Calcium 20 MG Tablet PO (22:06)
[2021-09-07] MEDS: Latanoprost 0.005% 1 Bottle 1 DRP EACH EYE (22:07)
[2021-09-08 06:32] VITALS: BP 127/74; PULSE 74
[2021-09-08] MEDS: Cholecalciferol (VIT D3) 25 MCG TABLET (1,000 UNITS) 100 MCG PO (06:33)
[2021-09-08] MEDS: Magnesium Chloride 64 MG Delay Rel.Tablet 128 MG PO ×2 (06:33→17:29)
[2021-09-08] MEDS: APIXABAN 5 MG TABLET PO ×2 (06:33→17:29)
[2021-09-08] MEDS: Atenolol 25 MG Tablet PO ×2 (06:33→17:29)
[2021-09-08] MEDS: Multivitamin (Healthy Eyes) Capsule 1 CAP PO ×2 (06:34→17:30)
[2021-09-08] MEDS: Furosemide 20 MG Tablet PO (06:34)
[2021-09-08] MEDS: Senna/Docusate Sodium 1 Tablet PO ×2 (06:34→17:29)
[2021-09-08] MEDS: DULoxetine Hcl 60 MG Capsule PO (06:34)
[2021-09-08] MEDS: Memantine Hydrochloride 10 MG Tablet PO ×2 (06:34→17:29)
[2021-09-08] MEDS: Timolol 0.25% 5ML OPTH.BTL 1 DRP EACH EYE ×2 (06:35→17:29)
[2021-09-08] MEDS: Polyethylene Glycol 3350 17 GM PACKET PO (06:35)
[2021-09-08] MEDS: Folic Acid 1 MG Tablet PO (07:25)
[2021-09-08] MEDS: Potassium Chloride Oral Tablet 20 MEQ PO (07:25)
--- NOTE | 2021-09-08 09:11 | CASEMGMT ---
Social Work IDT met with patient, and dtr for care plan meeting. Discussed patient's progress in therapy and nursing. ST is following pt for cognition and safety. Explained [facility] insurance with [employer]D 09/08 and continued stay is not guaranteed. Pt lives at home with . is petite and elderly, and SW inquired about caring for pt at home. agrees he can care for her, but dtr concerned about wants help. Provided resources for skilled HHC list with quality and resource data and nonskilled HHC list to hire. Encouraged to call CHILD CUSTODY EVALUATOR to begin securing staff. Suggested [facility] - dtr agrees - provided resources. Dtr has bought all needed DME. SW to order skilled HHC at DC. IDT recommending continued stay for pt to progress further to ensure successful DC at home. SW to continue to follow. Britt Bridges, BANKER MASON MANAGER ZONE
--- NOTE | 2021-09-08 11:11 | MDS.RN ---
Pain interview for DESHAUN 09/09/21 completed.
--- NOTE | 2021-09-08 13:48 | CASEMGMT ---
Social Work BIMS and PHQ-9 completed for MDS assessment. Britt Bridges, TYPESETTING MACHINE OPERATOR/TENDER MACHINE STEMMER
[2021-09-08 15:21] VITALS: BP 145/77; PULSE 83; RESP 18; TEMP 36; O2SAT 94
[2021-09-08] MEDS: Atorvastatin Calcium 20 MG Tablet PO (20:14)
[2021-09-08] MEDS: Latanoprost 0.005% 1 Bottle 1 DRP EACH EYE (20:14)
[2021-09-08 20:17] VITALS: PULSE 73; O2SAT 93
[2021-09-09] MEDS: Timolol 0.25% 5ML OPTH.BTL 1 DRP EACH EYE ×2 (05:22→17:18)
[2021-09-09] MEDS: Polyethylene Glycol 3350 17 GM PACKET PO (05:22)
[2021-09-09] MEDS: Memantine Hydrochloride 10 MG Tablet PO ×2 (05:23→17:18)
[2021-09-09] MEDS: Cholecalciferol (VIT D3) 25 MCG TABLET (1,000 UNITS) 100 MCG PO (05:23)
[2021-09-09] MEDS: DULoxetine Hcl 60 MG Capsule PO (05:24)
[2021-09-09] MEDS: Magnesium Chloride 64 MG Delay Rel.Tablet 128 MG PO ×2 (05:24→17:18)
[2021-09-09] MEDS: Furosemide 20 MG Tablet PO (05:24)
[2021-09-09] MEDS: Senna/Docusate Sodium 1 Tablet PO ×2 (05:24→17:18)
[2021-09-09] MEDS: Atenolol 25 MG Tablet PO ×2 (05:24→17:18)
[2021-09-09] MEDS: Multivitamin (Healthy Eyes) Capsule 1 CAP PO ×2 (05:24→17:18)
[2021-09-09] MEDS: APIXABAN 5 MG TABLET PO ×2 (05:24→17:18)
[2021-09-09] MEDS: Potassium Chloride Oral Tablet 20 MEQ PO (07:56)
[2021-09-09] MEDS: Folic Acid 1 MG Tablet PO (07:56)
[2021-09-09 07:58] VITALS: PULSE 69; RESP 18; O2SAT 94
[2021-09-09 13:02] VITALS: BP 128/62; PULSE 75; RESP 18; TEMP 36.6; O2SAT 93
[2021-09-09] MEDS: Latanoprost 0.005% 1 Bottle 1 DRP EACH EYE (20:59)
[2021-09-09] MEDS: Atorvastatin Calcium 20 MG Tablet PO (20:59)
[2021-09-10] MEDS: Timolol 0.25% 5ML OPTH.BTL 1 DRP EACH EYE ×2 (05:36→17:31)
[2021-09-10] MEDS: Memantine Hydrochloride 10 MG Tablet PO ×2 (05:37→17:31)
[2021-09-10] MEDS: Senna/Docusate Sodium 1 Tablet PO ×2 (05:37→17:31)
[2021-09-10] MEDS: Magnesium Chloride 64 MG Delay Rel.Tablet 128 MG PO ×2 (05:37→17:31)
[2021-09-10] MEDS: Multivitamin (Healthy Eyes) Capsule 1 CAP PO ×2 (05:37→17:31)
[2021-09-10] MEDS: Polyethylene Glycol 3350 17 GM PACKET PO (05:37)
[2021-09-10] MEDS: Furosemide 20 MG Tablet PO (05:37)
[2021-09-10] MEDS: Atenolol 25 MG Tablet PO ×2 (05:37→17:31)
[2021-09-10] MEDS: DULoxetine Hcl 60 MG Capsule PO (05:37)
[2021-09-10] MEDS: APIXABAN 5 MG TABLET PO ×2 (05:37→17:31)
[2021-09-10 05:53] VITALS: BP 154/67; PULSE 74
[2021-09-10] MEDS: Cholecalciferol (VIT D3) 25 MCG TABLET (1,000 UNITS) 100 MCG PO (06:31)
[2021-09-10] MEDS: Potassium Chloride Oral Tablet 20 MEQ PO (08:16)
[2021-09-10] MEDS: Folic Acid 1 MG Tablet PO (08:16)
[2021-09-10] MEDS: Tuberculin,Purif.prot.deriv. 50 TU/ML Vial 0.1 ML ID (10:47)
[2021-09-10 15:48] VITALS: BP 139/66; PULSE 75; RESP 17; TEMP 36.3; O2SAT 94
[2021-09-10] MEDS: Atorvastatin Calcium 20 MG Tablet PO (20:14)
[2021-09-10] MEDS: Latanoprost 0.005% 1 Bottle 1 DRP EACH EYE (20:15)
[2021-09-10 21:00] VITALS: PULSE 73; RESP 18; O2SAT 97
[2021-09-11] MEDS: Polyethylene Glycol 3350 17 GM PACKET PO (05:42)
[2021-09-11] MEDS: Cholecalciferol (VIT D3) 25 MCG TABLET (1,000 UNITS) 100 MCG PO (05:42)
[2021-09-11] MEDS: Timolol 0.25% 5ML OPTH.BTL 1 DRP EACH EYE ×2 (05:42→17:32)
[2021-09-11] MEDS: Memantine Hydrochloride 10 MG Tablet PO ×2 (05:42→17:31)
[2021-09-11] MEDS: APIXABAN 5 MG TABLET PO ×2 (05:42→17:32)
[2021-09-11] MEDS: Senna/Docusate Sodium 1 Tablet PO ×2 (05:43→17:31)
[2021-09-11] MEDS: Atenolol 25 MG Tablet PO ×2 (05:43→17:31)
[2021-09-11] MEDS: Magnesium Chloride 64 MG Delay Rel.Tablet 128 MG PO ×2 (05:43→17:31)
[2021-09-11] MEDS: Multivitamin (Healthy Eyes) Capsule 1 CAP PO ×2 (05:43→17:31)
[2021-09-11] MEDS: Furosemide 20 MG Tablet PO (05:44)
[2021-09-11] MEDS: DULoxetine Hcl 60 MG Capsule PO (05:44)
[2021-09-11 06:00] VITALS: BP 133/77; PULSE 73
[2021-09-11 07:17] LABS: Absolute Lymphocyte Count 2.41 X10^3/uL (0.83-4.51); Absolute Neutrophil Count 5.1 X10^3/uL (2.0-7.7); Basophil# 0.08 X10^3/uL; Basophil% 0.9 % (0-1); Eosinophil# 0.46 X10^3/uL; Hematocrit 39.7 % (37-47); Hemoglobin 13.2 g/dL (12.0-15.0); Lymphocyte # 2.41 X10^3/ul (0.83-4.51); Lymphocyte % 26.4 % (19-41); Mean Corp Hgb Conc 33.2 g/dL (32-36); Mean Corpuscular Hgb 31.9 pg (27.0-32.0); Mean Corpuscular Volume 95.9 fL (81-99); Mean Platelet Vol. 9.3 fl (6.2-12.0); Monocyte# 1.06 X10^3/uL; Monocyte% 11.6 % (0-10); NRBC Flagged by Analyzer 0 % (0-5); Neutrophil # 5.09 X10^3/uL (2.7-7.7); Neutrophil % 55.8 % (47-70); Platelet Count 238 K/mm3 (150-450); RBC Distribution Width CV 13.6 % (11.6-14.6); RBC Distribution Width SD 48.7 fl (35.1-43.9); Red Blood Count 4.14 M/mm3 (4.2-5.4); White Blood Count 9.1 K/mm3 (4.4-11.0)
[2021-09-11 07:42] LABS: Anion Gap 6 (5-15); BUN 22 mg/dL (7-18); BUN/Creat Ratio 26.9 RATIO (10-20); Calcium,Total 9.1 mg/dL (8.5-10.1); Chloride 107 mmol/L (98-107); Creatinine, Serum 0.82 mg/dL (0.55-1.02); EST Glomerular Filtration Rate 72 mL/min (>60); Est Glom Filt Rate - Afr Amer 87 mL/min (>60); Estimated Creatinine Clearance 48.04 ml/min; Glucose 96 mg/dL (74-106); Potassium 4.1 mmol/L (3.5-5.1); Sodium Level 140 mmol/L (136-145)
[2021-09-11] MEDS: Potassium Chloride Oral Tablet 20 MEQ PO (08:39)
[2021-09-11] MEDS: Folic Acid 1 MG Tablet PO (08:39)
[2021-09-11 14:31] VITALS: BP 135/64; PULSE 74; RESP 16; TEMP 36.3; O2SAT 95
[2021-09-11] MEDS: Acetaminophen 500 MG Tablet 1000 MG PO (22:43)
[2021-09-11] MEDS: Atorvastatin Calcium 20 MG Tablet PO (22:45)
[2021-09-11] MEDS: Latanoprost 0.005% 1 Bottle 1 DRP EACH EYE (22:46)
[2021-09-12] MEDS: DULoxetine Hcl 60 MG Capsule PO (06:33)
[2021-09-12] MEDS: Furosemide 20 MG Tablet PO (06:33)
[2021-09-12] MEDS: Polyethylene Glycol 3350 17 GM PACKET PO (06:33)
[2021-09-12] MEDS: Multivitamin (Healthy Eyes) Capsule 1 CAP PO ×2 (06:34→16:46)
[2021-09-12] MEDS: Magnesium Chloride 64 MG Delay Rel.Tablet 128 MG PO ×2 (06:34→16:46)
[2021-09-12] MEDS: Senna/Docusate Sodium 1 Tablet PO ×2 (06:34→16:49)
[2021-09-12] MEDS: APIXABAN 5 MG TABLET PO ×2 (06:34→16:46)
[2021-09-12] MEDS: Atenolol 25 MG Tablet PO ×2 (06:34→16:47)
[2021-09-12] MEDS: Memantine Hydrochloride 10 MG Tablet PO ×2 (06:34→16:46)
[2021-09-12] MEDS: Cholecalciferol (VIT D3) 25 MCG TABLET (1,000 UNITS) 100 MCG PO (06:35)
[2021-09-12] MEDS: Timolol 0.25% 5ML OPTH.BTL 1 DRP EACH EYE ×2 (06:38→16:47)
[2021-09-12] MEDS: Folic Acid 1 MG Tablet PO (10:26)
[2021-09-12] MEDS: Potassium Chloride Oral Tablet 20 MEQ PO (10:26)
[2021-09-12 15:27] VITALS: BP 143/89; PULSE 76; RESP 14; TEMP 36.8; O2SAT 95
[2021-09-12] MEDS: Atorvastatin Calcium 20 MG Tablet PO (22:36)
[2021-09-12] MEDS: Latanoprost 0.005% 1 Bottle 1 DRP EACH EYE (22:36)
[2021-09-12] MEDS: Acetaminophen 500 MG Tablet 1000 MG PO (22:37)
[2021-09-13] MEDS: Furosemide 20 MG Tablet PO (06:25)
[2021-09-13] MEDS: Polyethylene Glycol 3350 17 GM PACKET PO (06:25)
[2021-09-13] MEDS: DULoxetine Hcl 60 MG Capsule PO (06:25)
[2021-09-13] MEDS: APIXABAN 5 MG TABLET PO ×2 (06:25→17:07)
[2021-09-13] MEDS: Magnesium Chloride 64 MG Delay Rel.Tablet 128 MG PO ×2 (06:25→17:07)
[2021-09-13] MEDS: Senna/Docusate Sodium 1 Tablet PO ×2 (06:26→17:07)
[2021-09-13] MEDS: Cholecalciferol (VIT D3) 25 MCG TABLET (1,000 UNITS) 100 MCG PO (06:26)
[2021-09-13] MEDS: Atenolol 25 MG Tablet PO ×2 (06:27→17:07)
[2021-09-13] MEDS: Multivitamin (Healthy Eyes) Capsule 1 CAP PO ×2 (06:27→17:07)
[2021-09-13] MEDS: Timolol 0.25% 5ML OPTH.BTL 1 DRP EACH EYE ×2 (06:28→17:06)
[2021-09-13] MEDS: Memantine Hydrochloride 10 MG Tablet PO ×2 (06:28→17:07)
[2021-09-13 07:03] VITALS: BP 149/73; PULSE 78; RESP 16; TEMP 36.1; O2SAT 97
[2021-09-13] MEDS: Folic Acid 1 MG Tablet PO (07:40)
[2021-09-13] MEDS: Potassium Chloride Oral Tablet 20 MEQ PO (07:41)
[2021-09-13 07:44] VITALS: PULSE 80; RESP 16; O2SAT 93
[2021-09-13 13:33] VITALS: BP 112/60; PULSE 80; RESP 16; TEMP 36.3; O2SAT 96
--- NOTE | 2021-09-13 15:26 | CASEMGMT ---
Social Work Family therapy training scheduled with to ensure safe DC at home for 09/15. Provided resources for [facility] and nonskilled C, but dtr skeptical will hire anyone. Will continue to follow. Britt Bridges MSW MAINTENANCE COORDINATOR
[2021-09-13] MEDS: Latanoprost 0.005% 1 Bottle 1 DRP EACH EYE (23:02)
[2021-09-13] MEDS: Atorvastatin Calcium 20 MG Tablet PO (23:06)
[2021-09-14] MEDS: Magnesium Chloride 64 MG Delay Rel.Tablet 128 MG PO ×2 (05:31→18:06)
[2021-09-14] MEDS: Polyethylene Glycol 3350 17 GM PACKET PO (05:31)
[2021-09-14] MEDS: Senna/Docusate Sodium 1 Tablet PO ×2 (05:31→18:06)
[2021-09-14] MEDS: Memantine Hydrochloride 10 MG Tablet PO ×2 (05:31→18:06)
[2021-09-14] MEDS: Atenolol 25 MG Tablet PO ×2 (05:31→18:10)
[2021-09-14] MEDS: Timolol 0.25% 5ML OPTH.BTL 1 DRP EACH EYE ×2 (05:32→18:10)
[2021-09-14] MEDS: Furosemide 20 MG Tablet PO (05:32)
[2021-09-14] MEDS: Cholecalciferol (VIT D3) 25 MCG TABLET (1,000 UNITS) 100 MCG PO (05:32)
[2021-09-14] MEDS: Multivitamin (Healthy Eyes) Capsule 1 CAP PO ×2 (05:32→18:06)
[2021-09-14] MEDS: APIXABAN 5 MG TABLET PO ×2 (05:32→18:06)
[2021-09-14] MEDS: DULoxetine Hcl 60 MG Capsule PO (05:32)
[2021-09-14] MEDS: Folic Acid 1 MG Tablet PO (08:10)
[2021-09-14] MEDS: Potassium Chloride Oral Tablet 20 MEQ PO (08:10)
--- NOTE | 2021-09-14 08:10 | PCM.DC.SUM ---
Providers Date of Admission: 09/02/21 Primary Care Physician: Dr. Zofia Horton DO Reason For Visit: CYSTITIS Diagnosis Discharge Diagnosis (1) Debility: Status: Acute Code(s): R53.81 - Other malaise (2) Encephalopathy: Status: Acute Code(s): G93.40 - Encephalopathy, unspecified (3) Urinary tract infection: Status: Acute Code(s): N39.0 - Urinary tract infection, site not specified (4) Multiple sclerosis: Status: Acute Code(s): G35 - Multiple sclerosis (5) Vascular dementia: Status: Acute Code(s): F01.50 - Vascular dementia without behavioral disturbance (6) Glaucoma: Status: Acute Code(s): H40.9 - Unspecified glaucoma (7) Depression: Status: Acute Code(s): F32.A - Depression, unspecified (8) Hypomagnesemia: Status: Acute Code(s): E83.42 - Hypomagnesemia (9) Edema: Status: Acute Code(s): R60.9 - Edema, unspecified (10) Hyperlipidemia: Status: Acute Code(s): E78.5 - Hyperlipidemia, unspecified (11) Migraine: Status: Acute Code(s): G43.909 - Migraine, unspecified, not intractable, without status migrainosus (12) MTHFR mutation: Status: Acute Code(s): Z15.89 - Genetic susceptibility to other disease (13) Rheumatoid arthritis: Status: Acute Code(s): M06.9 - Rheumatoid arthritis, unspecified Medications at Discharge Home Medications Eliquis 5 mg PO BID 07/14/17 Lumigan 1 drp EACH EYE BID 07/14/17 Timolol Maleate [Timoptic-Xe 0.25%] 1 drp EACH EYE BID 07/14/17 acetaminophen [Tylenol Arthritis Pain] 650 mg PO DAILY 07/14/17 atenolol 25 mg PO BID 07/14/17 cholecalciferol (vitamin D3) [Vitamin D3] 4,000 unit PO DAILY 07/14/17 duloxetine 60 mg PO DAILY 07/14/17 folic acid 1 mg PO DAILY@0800 07/14/17 magnesium oxide 400 mg PO BID 07/14/17 potassium chloride [Klor-Con M20] 20 meq PO DAILY 09/29/17 furosemide 20 mg PO DAILY 03/01/18 atorvastatin 20 mg PO QHS 03/05/19 Healthy Eyes 1 cap PO BID 09/02/21 memantine 10 mg PO BID 09/02/21 polyethylene glycol 3350 17 g PO DAILY PRN #0 ea 09/02/21 Hospital Course Operations None Procedures None Summary of Care Provided Minutes Spent on Discharge: 35 Hospital Course: 81 year old female with below past medical history hospitalized for encephalopathy secondary to urinary tract infection, complicated by vascular dementia, admitted to TCU with debility, here for rehabilitation, strengthening, prior to discharge home with . Discharge home with 09/15/2021. Physical Exam Const alert and oriented x3 General Appearance: cooperative HEENT normocephalic Eyes PERRL and EOMs intact bilaterally Neck supple, no JVD and no carotid bruits Resp normal respiratory effort, normal air movement and clear to auscultation bilaterally Cardio regular rate and regular rhythm GI normal to inspection, nondistended, normoactive bowel sounds, non-tender and non-distended Extremity normal capillary refill General Extremity: Negative for edema Skin no rashes or lesions noted General Skin Exam: no breakdown Psych affect normal Appearance: appropriate Weight / BMI Weight Weight: 96.672 kg Body Mass Index (BMI) 36.3 ABG / Lab / Microbiology Data Result Diagrams: 09/11/21 06:28 09/11/21 06:28 D/C Instructions Discharge Diet: No restrictions Discharge Activity: Return to Normal Activity, May Shower and Use Walker Weight Bearing Status: Weight bearing as tolerated Call your doctor if you observe: Fever of 101 or Higher, Inability to urinate, Inability to have a bowel movement, Shortness of breath, Dizziness, Fainting spells, Swelling in the ankles, Chest pain and Uncontrolled pain Additional Instructions: Discharge home with 09/15/2021. Please Follow Up With: Zofia Horton DO When: 1 week. Meaningful Use Info Meaningful Use Diagnoses (Choose all that apply): None applicable Discharge Plan Admission Admit Date/Time: 09/02/21 18:00 Primary Reason for Your Visit: Debility. Attending Provider: Gaurav Delcid Chi Primary Care Provider: Zofia Horton Instructions Additional Instructions / Restrictions: Discharge home with 09/15/2021. Discharge Orders/Prescriptions Prescriptions: Continued atenolol 25 MG tablet 25 mg PO BID RF: 0 folic acid 1 MG tablet 1 mg PO DAILY@0800 RF: 0 duloxetine 60 MG capsule,delayed release(DR/EC) 60 mg PO DAILY RF: 0 Lumigan 1 DROP drops 1 drp Each Eye BID RF: 0 Eliquis 5 MG tablet 5 mg PO BID RF: 0 acetaminophen [Tylenol Arthritis Pain] 650 MG tablet extended release 650 mg PO DAILY RF: 0 potassium chloride [Klor-Con M20] 20 MEQ tablet,ER particles/crystals 20 meq PO DAILY RF: 0 magnesium oxide 400 MG tablet 400 mg PO BID RF: 0 cholecalciferol (vitamin D3) [Vitamin D3] 1,000 UNIT capsule 4,000 unit PO DAILY RF: 0 Timolol Maleate [Timoptic-Xe 0.25%] 1 DROP Arlyn.Gel 1 drp Each Eye BID RF: 0 furosemide 20 MG tablet 20 mg PO DAILY RF: 0 atorvastatin 10 MG tablet 20 mg PO QHS RF: 0 polyethylene glycol 3350 17 gram Powder In Packet 17 g PO DAILY PRN (Reason: Constipation) Qty: 0 RF: 0 memantine 10 mg tablet 10 mg PO BID RF: 0 Healthy Eyes 1,000 unit-200 mg-60 unit-2 mg tablet 1 cap PO BID RF: 0 Discontinued cephalexin 500 mg capsule 500 mg PO BID RF: 0 Referrals / Follow Up: Zofia Horton DO [Primary Care Provider] - Disposition Disposition (needs filled in before D/C Order can be placed): Home, Self Care
[2021-09-14 11:40] LABS: Bedside Glucose 119 mg/dL (70-110)
--- NOTE | 2021-09-14 14:46 | MDS.RN ---
Information for the mds was obtained from review of the clinical record, interview of resident, staff, and direct observation of resident's care.
[2021-09-14 15:24] VITALS: BP 134/64; PULSE 74; RESP 14; TEMP 36.6; O2SAT 93
[2021-09-14] MEDS: Latanoprost 0.005% 1 Bottle 1 DRP EACH EYE (20:57)
[2021-09-14] MEDS: Atorvastatin Calcium 20 MG Tablet PO (20:57)
[2021-09-14 21:00] VITALS: PULSE 74; RESP 14; O2SAT 96
[2021-09-15] MEDS: Timolol 0.25% 5ML OPTH.BTL 1 DRP EACH EYE ×2 (04:42→18:20)
[2021-09-15] MEDS: Polyethylene Glycol 3350 17 GM PACKET PO (04:42)
[2021-09-15] MEDS: Cholecalciferol (VIT D3) 25 MCG TABLET (1,000 UNITS) 100 MCG PO (04:43)
[2021-09-15] MEDS: APIXABAN 5 MG TABLET PO ×2 (04:43→18:20)
[2021-09-15] MEDS: Memantine Hydrochloride 10 MG Tablet PO ×2 (04:43→18:20)
[2021-09-15] MEDS: Furosemide 20 MG Tablet PO (04:43)
[2021-09-15] MEDS: Senna/Docusate Sodium 1 Tablet PO ×2 (04:43→18:20)
[2021-09-15] MEDS: Atenolol 25 MG Tablet PO ×2 (04:43→18:20)
[2021-09-15] MEDS: Magnesium Chloride 64 MG Delay Rel.Tablet 128 MG PO ×2 (04:43→18:20)
[2021-09-15] MEDS: DULoxetine Hcl 60 MG Capsule PO (04:43)
[2021-09-15] MEDS: Multivitamin (Healthy Eyes) Capsule 1 CAP PO ×2 (04:44→18:20)
[2021-09-15 04:45] VITALS: BP 164/72; PULSE 73
[2021-09-15] MEDS: Potassium Chloride Oral Tablet 20 MEQ PO (08:04)
[2021-09-15] MEDS: Folic Acid 1 MG Tablet PO (08:04)
[2021-09-15 13:26] VITALS: BP 150/89; PULSE 80; RESP 18; TEMP 36.1; O2SAT 95
[2021-09-15 16:10] VITALS: PULSE 88; O2SAT 95
[2021-09-15 18:29] VITALS: BP 162/88; PULSE 84
[2021-09-15] MEDS: Atorvastatin Calcium 20 MG Tablet PO (20:13)
[2021-09-15] MEDS: Acetaminophen 500 MG Tablet 1000 MG PO (20:13)
[2021-09-15] MEDS: Latanoprost 0.005% 1 Bottle 1 DRP EACH EYE (20:14)
[2021-09-16 04:45] VITALS: BP 127/74; PULSE 71
[2021-09-16] MEDS: Polyethylene Glycol 3350 17 GM PACKET PO (05:09)
[2021-09-16] MEDS: Cholecalciferol (VIT D3) 25 MCG TABLET (1,000 UNITS) 100 MCG PO (05:09)
[2021-09-16] MEDS: Timolol 0.25% 5ML OPTH.BTL 1 DRP EACH EYE ×2 (05:09→18:21)
[2021-09-16] MEDS: Senna/Docusate Sodium 1 Tablet PO ×2 (05:09→18:21)
[2021-09-16] MEDS: Multivitamin (Healthy Eyes) Capsule 1 CAP PO ×2 (05:09→18:21)
[2021-09-16] MEDS: Magnesium Chloride 64 MG Delay Rel.Tablet 128 MG PO ×2 (05:09→18:21)
[2021-09-16] MEDS: APIXABAN 5 MG TABLET PO ×2 (05:10→18:21)
[2021-09-16] MEDS: Furosemide 20 MG Tablet PO (05:10)
[2021-09-16] MEDS: DULoxetine Hcl 60 MG Capsule PO (05:10)
[2021-09-16] MEDS: Atenolol 25 MG Tablet PO ×2 (05:10→18:21)
[2021-09-16] MEDS: Memantine Hydrochloride 10 MG Tablet PO ×2 (05:10→18:21)
[2021-09-16] MEDS: Folic Acid 1 MG Tablet PO (08:33)
[2021-09-16] MEDS: Potassium Chloride Oral Tablet 20 MEQ PO (08:33)
[2021-09-16 14:19] VITALS: BP 151/85; PULSE 90; RESP 17; TEMP 36; O2SAT 95
[2021-09-16] MEDS: Atorvastatin Calcium 20 MG Tablet PO (20:20)
[2021-09-16] MEDS: Latanoprost 0.005% 1 Bottle 1 DRP EACH EYE (20:21)
[2021-09-16 22:24] VITALS: PULSE 93; RESP 14; O2SAT 93
[2021-09-17] MEDS: APIXABAN 5 MG TABLET PO ×2 (05:47→18:12)
[2021-09-17] MEDS: Cholecalciferol (VIT D3) 25 MCG TABLET (1,000 UNITS) 100 MCG PO (05:47)
[2021-09-17] MEDS: Atenolol 25 MG Tablet PO ×2 (05:48→18:16)
[2021-09-17] MEDS: Polyethylene Glycol 3350 17 GM PACKET PO (05:48)
[2021-09-17] MEDS: Senna/Docusate Sodium 1 Tablet PO ×2 (05:48→18:12)
[2021-09-17] MEDS: Furosemide 20 MG Tablet PO (05:48)
[2021-09-17] MEDS: Magnesium Chloride 64 MG Delay Rel.Tablet 128 MG PO ×2 (05:48→18:13)
[2021-09-17] MEDS: Memantine Hydrochloride 10 MG Tablet PO ×2 (05:48→18:13)
[2021-09-17] MEDS: Multivitamin (Healthy Eyes) Capsule 1 CAP PO ×2 (05:48→18:17)
[2021-09-17] MEDS: DULoxetine Hcl 60 MG Capsule PO (05:48)
[2021-09-17] MEDS: Timolol 0.25% 5ML OPTH.BTL 1 DRP EACH EYE ×2 (05:49→18:15)
[2021-09-17] MEDS: Folic Acid 1 MG Tablet PO (09:34)
[2021-09-17] MEDS: Potassium Chloride Oral Tablet 20 MEQ PO (09:34)
--- NOTE | 2021-09-17 11:55 | CASEMGMT ---
Social Work Updated pt and that insurance approved with [employer]D 09/20 and continued stay is not guaranteed. Inquired about DC plans. stated between him and his dtr's they will assist pt at home. SW to order skilled HHC and any DME needs. SW to continue to follow. Britt Bridges, ADMINISTRATIVE SERVICES ASSISTANT SHOESHINER
[2021-09-17 14:44] VITALS: BP 146/80; PULSE 77; RESP 16; TEMP 35.9; O2SAT 93
[2021-09-17] MEDS: Latanoprost 0.005% 1 Bottle 1 DRP EACH EYE (20:00)
[2021-09-17] MEDS: Atorvastatin Calcium 20 MG Tablet PO (20:05)
[2021-09-18] MEDS: Cholecalciferol (VIT D3) 25 MCG TABLET (1,000 UNITS) 100 MCG PO (06:40)
[2021-09-18] MEDS: Memantine Hydrochloride 10 MG Tablet PO ×2 (06:47→16:26)
[2021-09-18] MEDS: Polyethylene Glycol 3350 17 GM PACKET PO (06:47)
[2021-09-18] MEDS: DULoxetine Hcl 60 MG Capsule PO (06:48)
[2021-09-18] MEDS: Magnesium Chloride 64 MG Delay Rel.Tablet 128 MG PO ×2 (06:48→16:26)
[2021-09-18] MEDS: APIXABAN 5 MG TABLET PO ×2 (06:48→16:27)
[2021-09-18] MEDS: Multivitamin (Healthy Eyes) Capsule 1 CAP PO ×2 (06:48→16:26)
[2021-09-18] MEDS: Senna/Docusate Sodium 1 Tablet PO ×2 (06:48→16:26)
[2021-09-18] MEDS: Atenolol 25 MG Tablet PO ×2 (06:48→16:26)
[2021-09-18] MEDS: Timolol 0.25% 5ML OPTH.BTL 1 DRP EACH EYE ×2 (07:39→16:25)
[2021-09-18] MEDS: Furosemide 20 MG Tablet PO (07:39)
[2021-09-18] MEDS: Folic Acid 1 MG Tablet PO (08:08)
[2021-09-18] MEDS: Potassium Chloride Oral Tablet 20 MEQ PO (08:08)
[2021-09-18 08:19] LABS: Absolute Lymphocyte Count 2.45 X10^3/uL (0.83-4.51); Absolute Neutrophil Count 4.9 X10^3/uL (2.0-7.7); Basophil# 0.08 X10^3/uL; Basophil% 0.9 % (0-1); Eosinophil# 0.54 X10^3/uL; Eosinophils% 6.2 % (0-5); Hematocrit 42.6 % (37-47); Hemoglobin 14.2 g/dL (12.0-15.0); Lymphocyte # 2.45 X10^3/ul (0.83-4.51); Lymphocyte % 28.2 % (19-41); Mean Corp Hgb Conc 33.3 g/dL (32-36); Mean Corpuscular Hgb 31.7 pg (27.0-32.0); Mean Corpuscular Volume 95.1 fL (81-99); Mean Platelet Vol. 9.9 fl (6.2-12.0); Monocyte# 0.68 X10^3/uL; Monocyte% 7.8 % (0-10); NRBC Flagged by Analyzer 0 % (0-5); Neutrophil # 4.91 X10^3/uL (2.7-7.7); Neutrophil % 56.7 % (47-70); Platelet Count 246 K/mm3 (150-450); RBC Distribution Width CV 13.7 % (11.6-14.6); RBC Distribution Width SD 48.2 fl (35.1-43.9); Red Blood Count 4.48 M/mm3 (4.2-5.4); White Blood Count 8.7 K/mm3 (4.4-11.0)
[2021-09-18 08:46] LABS: Anion Gap 6 (5-15); BUN 21 mg/dL (7-18); BUN/Creat Ratio 24.4 RATIO (10-20); Calcium,Total 9.7 mg/dL (8.5-10.1); Chloride 108 mmol/L (98-107); Creatinine, Serum 0.86 mg/dL (0.55-1.02); EST Glomerular Filtration Rate 67 mL/min (>60); Est Glom Filt Rate - Afr Amer 82 mL/min (>60); Glucose 112 mg/dL (74-106); Potassium 4.3 mmol/L (3.5-5.1); Sodium Level 140 mmol/L (136-145)
[2021-09-18 15:29] VITALS: BP 147/75; PULSE 86; RESP 17; TEMP 36.5; O2SAT 91
[2021-09-18] MEDS: Latanoprost 0.005% 1 Bottle 1 DRP EACH EYE (21:40)
[2021-09-18] MEDS: Atorvastatin Calcium 20 MG Tablet PO (21:42)
[2021-09-18 22:00] VITALS: PULSE 75; RESP 16; O2SAT 96
[2021-09-19] MEDS: Cholecalciferol (VIT D3) 25 MCG TABLET (1,000 UNITS) 100 MCG PO (06:48)
[2021-09-19] MEDS: Polyethylene Glycol 3350 17 GM PACKET PO (06:48)
[2021-09-19] MEDS: Senna/Docusate Sodium 1 Tablet PO ×2 (06:48→16:45)
[2021-09-19] MEDS: Atenolol 25 MG Tablet PO ×2 (06:48→16:45)
[2021-09-19] MEDS: Furosemide 20 MG Tablet PO (06:48)
[2021-09-19] MEDS: Magnesium Chloride 64 MG Delay Rel.Tablet 128 MG PO ×2 (06:48→16:45)
[2021-09-19] MEDS: APIXABAN 5 MG TABLET PO ×2 (06:48→16:45)
[2021-09-19] MEDS: Multivitamin (Healthy Eyes) Capsule 1 CAP PO ×2 (06:48→16:45)
[2021-09-19] MEDS: Timolol 0.25% 5ML OPTH.BTL 1 DRP EACH EYE ×2 (06:48→16:45)
[2021-09-19] MEDS: Memantine Hydrochloride 10 MG Tablet PO ×2 (06:48→16:45)
[2021-09-19] MEDS: DULoxetine Hcl 60 MG Capsule PO (06:49)
[2021-09-19] MEDS: Folic Acid 1 MG Tablet PO (07:55)
[2021-09-19] MEDS: Potassium Chloride Oral Tablet 20 MEQ PO (07:55)
[2021-09-19 16:00] VITALS: BP 138/74; PULSE 80; RESP 18; TEMP 36.3; O2SAT 91
[2021-09-19 16:51] VITALS: PULSE 83; RESP 16; O2SAT 94
[2021-09-19] MEDS: Latanoprost 0.005% 1 Bottle 1 DRP EACH EYE (22:05)
[2021-09-19] MEDS: Atorvastatin Calcium 20 MG Tablet PO (22:05)
[2021-09-20] MEDS: Timolol 0.25% 5ML OPTH.BTL 1 DRP EACH EYE ×2 (06:42→18:05)
[2021-09-20] MEDS: Polyethylene Glycol 3350 17 GM PACKET PO (06:42)
[2021-09-20] MEDS: Furosemide 20 MG Tablet PO (06:43)
[2021-09-20] MEDS: Multivitamin (Healthy Eyes) Capsule 1 CAP PO ×2 (06:43→18:04)
[2021-09-20] MEDS: Senna/Docusate Sodium 1 Tablet PO ×2 (06:43→18:03)
[2021-09-20] MEDS: Atenolol 25 MG Tablet PO ×2 (06:43→18:05)
[2021-09-20] MEDS: DULoxetine Hcl 60 MG Capsule PO (06:43)
[2021-09-20] MEDS: Magnesium Chloride 64 MG Delay Rel.Tablet 128 MG PO ×2 (06:43→18:03)
[2021-09-20] MEDS: APIXABAN 5 MG TABLET PO ×2 (06:43→18:17)
[2021-09-20] MEDS: Cholecalciferol (VIT D3) 25 MCG TABLET (1,000 UNITS) 100 MCG PO (06:43)
[2021-09-20] MEDS: Memantine Hydrochloride 10 MG Tablet PO ×2 (06:49→18:04)
[2021-09-20] MEDS: Potassium Chloride Oral Tablet 20 MEQ PO (09:38)
[2021-09-20] MEDS: Folic Acid 1 MG Tablet PO (09:38)
--- NOTE | 2021-09-20 15:37 | NURSING ---
Resident and daughter, Mary, notified of staff member testing positive for COVID.
[2021-09-20 15:40] VITALS: BP 144/85; PULSE 81; RESP 18; TEMP 36.6; O2SAT 96
[2021-09-20 22:10] VITALS: PULSE 74; RESP 16; O2SAT 94
[2021-09-20] MEDS: Atorvastatin Calcium 20 MG Tablet PO (22:10)
[2021-09-20] MEDS: Latanoprost 0.005% 1 Bottle 1 DRP EACH EYE (22:11)
[2021-09-21 06:43] VITALS: BP 136/72; PULSE 70
[2021-09-21] MEDS: Polyethylene Glycol 3350 17 GM PACKET PO (06:44)
[2021-09-21] MEDS: Timolol 0.25% 5ML OPTH.BTL 1 DRP EACH EYE ×2 (06:44→17:15)
[2021-09-21] MEDS: Multivitamin (Healthy Eyes) Capsule 1 CAP PO ×2 (06:46→17:14)
[2021-09-21] MEDS: Atenolol 25 MG Tablet PO ×2 (06:46→17:14)
[2021-09-21] MEDS: Furosemide 20 MG Tablet PO (06:46)
[2021-09-21] MEDS: Memantine Hydrochloride 10 MG Tablet PO ×2 (06:46→17:14)
[2021-09-21] MEDS: Cholecalciferol (VIT D3) 25 MCG TABLET (1,000 UNITS) 100 MCG PO (06:46)
[2021-09-21] MEDS: DULoxetine Hcl 60 MG Capsule PO (06:46)
[2021-09-21] MEDS: Senna/Docusate Sodium 1 Tablet PO ×2 (06:46→17:14)
[2021-09-21] MEDS: Magnesium Chloride 64 MG Delay Rel.Tablet 128 MG PO ×2 (06:47→17:14)
[2021-09-21] MEDS: APIXABAN 5 MG TABLET PO ×2 (10:40→17:14)
[2021-09-21] MEDS: Acetaminophen 500 MG Tablet 1000 MG PO (10:41)
[2021-09-21] MEDS: Potassium Chloride Oral Tablet 20 MEQ PO (10:41)
[2021-09-21] MEDS: Folic Acid 1 MG Tablet PO (10:41)
--- NOTE | 2021-09-21 13:23 | CASEMGMT ---
Social Work Insurance issued LCD 09/23, DC 09/24. present in room. Spoke with and pt. Both agreeable to DC. requesting HHC PT/OT/SN. IDT agreeable. Provided HHC list with quality and resource data. prefers [facility]. Referral made. to transport. No DME needs. Plan: DC home with PT/OT/SN ELDA PalominoW
[2021-09-21 14:21] VITALS: BP 150/73; PULSE 85; RESP 18; TEMP 36.4; O2SAT 96
[2021-09-21 16:08] VITALS: PULSE 73; RESP 12; O2SAT 97
[2021-09-21] MEDS: Atorvastatin Calcium 20 MG Tablet PO (20:49)
[2021-09-21] MEDS: Latanoprost 0.005% 1 Bottle 1 DRP EACH EYE (20:50)
[2021-09-22] MEDS: DULoxetine Hcl 60 MG Capsule PO (04:57)
[2021-09-22] MEDS: Magnesium Chloride 64 MG Delay Rel.Tablet 128 MG PO ×2 (04:57→17:28)
[2021-09-22] MEDS: Multivitamin (Healthy Eyes) Capsule 1 CAP PO ×2 (04:57→17:28)
[2021-09-22] MEDS: Furosemide 20 MG Tablet PO (04:57)
[2021-09-22] MEDS: Senna/Docusate Sodium 1 Tablet PO ×2 (04:58→17:28)
[2021-09-22] MEDS: Cholecalciferol (VIT D3) 25 MCG TABLET (1,000 UNITS) 100 MCG PO (04:58)
[2021-09-22] MEDS: Memantine Hydrochloride 10 MG Tablet PO ×2 (04:58→17:28)
[2021-09-22] MEDS: Polyethylene Glycol 3350 17 GM PACKET PO (04:58)
[2021-09-22] MEDS: Atenolol 25 MG Tablet PO ×2 (04:58→17:28)
[2021-09-22] MEDS: Timolol 0.25% 5ML OPTH.BTL 1 DRP EACH EYE ×2 (04:59→17:29)
[2021-09-22 05:07] VITALS: BP 140/74; PULSE 76
[2021-09-22] MEDS: APIXABAN 5 MG TABLET PO ×2 (06:52→17:28)
[2021-09-22] MEDS: Folic Acid 1 MG Tablet PO (08:27)
[2021-09-22] MEDS: Potassium Chloride Oral Tablet 20 MEQ PO (08:27)
--- NOTE | 2021-09-22 12:21 | CASEMGMT ---
Social Work BIMS(14) and PHQ-9(2) completed this date. SUGEY Beck
[2021-09-22 16:00] VITALS: BP 134/70; PULSE 70
--- NOTE | 2021-09-22 20:50 | NURSING ---
Patient found by this nurse wondering in hallway. Approached patient and assisted her back to room. No alarm was sounding, call light was not used. Patient assisted to restroom. While patient was in restroom, checked patient's chair alarm and it was not turned on. Once patient was done in restroom assisted patient into bed. Educated patient on use of call light and asking for assistance. Also explained to patient the risk of falling and injuries. Patient rolled her eyes and stated, I've probably fallen 20 times, who cares?
[2021-09-22] MEDS: Atorvastatin Calcium 20 MG Tablet PO (21:14)
[2021-09-22] MEDS: Latanoprost 0.005% 1 Bottle 1 DRP EACH EYE (21:15)
[2021-09-22 22:04] VITALS: PULSE 79; RESP 14; O2SAT 94
[2021-09-23] MEDS: APIXABAN 5 MG TABLET PO ×2 (05:57→17:04)
[2021-09-23] MEDS: Multivitamin (Healthy Eyes) Capsule 1 CAP PO ×2 (05:58→17:04)
[2021-09-23] MEDS: Senna/Docusate Sodium 1 Tablet PO ×2 (05:58→17:03)
[2021-09-23] MEDS: Cholecalciferol (VIT D3) 25 MCG TABLET (1,000 UNITS) 100 MCG PO (05:58)
[2021-09-23] MEDS: Furosemide 20 MG Tablet PO (05:58)
[2021-09-23] MEDS: Atenolol 25 MG Tablet PO ×2 (05:58→17:05)
[2021-09-23] MEDS: Memantine Hydrochloride 10 MG Tablet PO ×2 (05:58→17:03)
[2021-09-23] MEDS: Magnesium Chloride 64 MG Delay Rel.Tablet 128 MG PO ×2 (05:58→17:05)
[2021-09-23] MEDS: Timolol 0.25% 5ML OPTH.BTL 1 DRP EACH EYE ×2 (05:58→17:05)
[2021-09-23] MEDS: DULoxetine Hcl 60 MG Capsule PO (05:58)
[2021-09-23] MEDS: Polyethylene Glycol 3350 17 GM PACKET PO (05:59)
[2021-09-23] MEDS: Potassium Chloride Oral Tablet 20 MEQ PO (09:19)
[2021-09-23] MEDS: Folic Acid 1 MG Tablet PO (09:19)
[2021-09-23 13:54] VITALS: BP 133/79; PULSE 80; RESP 16; TEMP 35.8; O2SAT 93
--- NOTE | 2021-09-23 15:30 | MDS.RN ---
Pain interview for yakov 09/24/21
[2021-09-23] MEDS: Atorvastatin Calcium 20 MG Tablet PO (21:50)
[2021-09-23] MEDS: Latanoprost 0.005% 1 Bottle 1 DRP EACH EYE (21:51)
[2021-09-24] MEDS: Polyethylene Glycol 3350 17 GM PACKET PO (05:45)
[2021-09-24] MEDS: DULoxetine Hcl 60 MG Capsule PO (05:45)
[2021-09-24] MEDS: Atenolol 25 MG Tablet PO (05:46)
[2021-09-24] MEDS: Timolol 0.25% 5ML OPTH.BTL 1 DRP EACH EYE (05:46)
[2021-09-24] MEDS: Memantine Hydrochloride 10 MG Tablet PO (05:46)
[2021-09-24] MEDS: Furosemide 20 MG Tablet PO (05:46)
[2021-09-24] MEDS: Cholecalciferol (VIT D3) 25 MCG TABLET (1,000 UNITS) 100 MCG PO (05:46)
[2021-09-24] MEDS: Senna/Docusate Sodium 1 Tablet PO (05:46)
[2021-09-24] MEDS: Magnesium Chloride 64 MG Delay Rel.Tablet 128 MG PO (05:46)
[2021-09-24] MEDS: APIXABAN 5 MG TABLET PO (05:46)
[2021-09-24] MEDS: Multivitamin (Healthy Eyes) Capsule 1 CAP PO (05:46)
[2021-09-24] MEDS: Folic Acid 1 MG Tablet PO (07:49)
[2021-09-24] MEDS: Potassium Chloride Oral Tablet 20 MEQ PO (07:49)
[2021-09-24 09:25] VITALS: BP 144/74; PULSE 81; RESP 18; TEMP 35.9; O2SAT 91
[2021-09-24 09:26] VITALS: PULSE 81; RESP 18; O2SAT 91
--- NOTE | 2021-09-24 09:48 | NURSING ---
reviewed DC instructions with pt. vitals stable. here to transport pt home. verbalized understanding of instructions.
== END 2021-09-24 09:56 | disposition home health service (06) | DRG 690 ==
PROVIDERS: Admitting Provider Family Medicine Geriatric Medicine; PCP Internal Medicine; Visit Provider Family Medicine Geriatric Medicine
DX: N39.0 Urinary tract infection, site not specified (principal); E72.12 Methylenetetrahydrofolate reductase deficiency; G35 Multiple sclerosis; F01.50 Vascular dementia, unspecified severity, without behavioral disturbance, psychotic disturbance, mood disturbance, and anxiety; F32.A Depression, unspecified; M06.9 Rheumatoid arthritis, unspecified; E87.6 Hypokalemia; H35.30 Unspecified macular degeneration; H40.9 Unspecified glaucoma; E55.9 Vitamin D deficiency, unspecified; I10 Essential (primary) hypertension; I25.10 Atherosclerotic heart disease of native coronary artery without angina pectoris; E78.2 Mixed hyperlipidemia; J45.909 Unspecified asthma, uncomplicated; Z79.899 Other long term (current) drug therapy; Z79.01 Long term (current) use of anticoagulants
CPT/HCPCS: 36415; 80048; 82962; 85025; 87635; 92507; 92523; 92610; 97110; 97116; 97162; 97166; 97530; 97535; 97802; U0005; U0003

== ENCOUNTER 2022-02-08 19:14 | Emergency (ER) | payer MEDICARE, SELFPAY ==
[2022-02-08 19:16] VITALS: BP 140/81; PULSE 91; RESP 15; TEMP 35.7; O2SAT 95; BMI 34.9
--- NOTE | 2022-02-08 19:41 | CT_ITS ---
EXAM: CT Head Without Intravenous Contrast CLINICAL INDICATION: 81 years old, Female; fall TECHNIQUE: Multiple axial images were obtained of the head without intravenous contrast. This CT exam was performed using one or more of the following dose reduction techniques: automated exposure control, adjustment of the mA and/or kV according to patient size, and/or use of iterative reconstruction technique. This report was created using [employer] report generation technology. RADIATION DOSE: CTDIvol = 44.99 mGy, DLP = 829.85 mGy-cm COMPARISON: None. FINDINGS: Brain and extra-axial spaces: Areas of decreased attenuation in the deep cerebral white matter are consistent with small vessel ischemic/degenerative changes. The cerebral and cerebellar sulci are prominent consistent with brain atrophy. No intra- or extra-axial hemorrhage. No intracranial mass or mass effect. Basal cisterns are patent. Bones/joints: Unremarkable. No discrete lytic or blastic abnormalities. Vasculature: Atherosclerotic disease. Sinuses: Unremarkable as visualized. Clear. Mastoid air cells: Unremarkable. Clear. Orbits: Visualized globes, extraocular muscles, optic nerves and retrobulbar fat appear unremarkable. CT/Brain/Head without Contrast IMPRESSION: 1. Small vessel ischemic/degenerative changes. 2. Cerebral and cerebellar atrophy. Electronically Signed: Nael Stallworth MD at 20:51 EDT ,
--- NOTE | 2022-02-08 19:41 | CT_ITS ---
EXAM: CT Abdomen and Pelvis Without Intravenous Contrast CLINICAL INDICATION: 81 years old, Female; fall, back and abdomen pain TECHNIQUE: Helically acquired images were obtained of the abdomen and pelvis without intravenous contrast. This CT exam was performed using one or more of the following dose reduction techniques: automated exposure control, adjustment of the mA and/or kV according to patient size, and/or use of iterative reconstruction technique. This report was created using [employer] report generation technology. RADIATION DOSE: CTDIvol = 23.60 mGy, DLP = 1202.85 mGy-cm COMPARISON: None. FINDINGS: Lower thorax: Mild bibasilar infiltrates or atelectasis. Small hiatal hernia. No cardiomegaly. No significant pericardial effusion. ABDOMEN: Liver: Calcified granulomata in the liver. Gallbladder and bile ducts: Unremarkable. No calcified gallstones. No gallbladder distention or wall edema. No intra- or extrahepatic biliary ductal dilation. Pancreas: Unremarkable. No focal cystic mass. Spleen: Calcified granulomata in the spleen. Adrenals: Unremarkable. No nodules. Kidneys and ureters: Unremarkable. Normal renal size and position. No hydronephrosis. Stomach and bowel: There is fluid in the colon suggesting diarrhea. No stomach or bowel distention. No focal inflammatory change. PELVIS: Appendix: No evidence of acute appendicitis. Bladder: Unremarkable. Reproductive: Unremarkable as visualized. No mass. ABDOMEN and PELVIS: Intraperitoneal space: Unremarkable. No ascites or other fluid collection. No free air. Bones/joints: Degenerative changes lumbar spine. Degenerative changes and scoliosis lumbar spine. No suspicious lytic or blastic abnormality. Soft tissues: Unremarkable. No discrete abdominal or pelvic wall hernia. Vasculature: Unremarkable. Abdominal aorta is non-dilated. Lymph nodes: Calcified right hilar lymph nodes consistent with old granulomatous disease. CT/Abdomen/Pelvis without Cont IMPRESSION: 1. Mild bibasilar infiltrates or atelectasis. 2. There is fluid in the colon suggesting diarrhea. 3. Degenerative changes lumbar spine. Left L3 transverse process fracture which may be acute or chronic. Electronically Signed: Nael Stallworth MD at 20:56 EDT ,
--- NOTE | 2022-02-08 19:43 | EX.ED.DYSGE1 ---
HPI History of Present Illness Chief Complaint: Fall Detail of Chief Complaint: Fall with injury to back Informant: patient and family Narrative Narrative: Patient presents the emergency department after sustaining a fall. The daughter states that she was told that there was a fall 1 week ago but suspect there may have been another fall. Daughter states that oftentimes she presents with falls when she has a urinary tract infection. Patient denies any dysuria urgency or frequency. She denies any head or neck pain. She denies chest pain. Patient is on Eliquis for history of pulmonary emboli. Prior similar symptoms: Yes PFSH PFSH Medical History AMD (age related macular degeneration) Asthma Atherosclerotic heart disease of [place] coronary artery without angina pectoris Essential hypertension Mixed hyperlipidemia Multiple sclerosis Vascular dementia Home Medications Eliquis 5 mg PO BID 07/14/17 [History Last Taken 09/02/21 08:50] Lumigan 1 drp EACH EYE BID 07/14/17 [History Last Taken 09/01/21 21:10] Timolol Maleate [Timoptic-Xe 0.25%] 1 drp EACH EYE BID 07/14/17 [History Last Taken 09/02/21 08:35] acetaminophen [Tylenol Arthritis Pain] 650 mg PO DAILY 07/14/17 [History Last Taken 08/29/21] atenolol 25 mg PO BID 07/14/17 [History Last Taken 09/02/21 08:49] cholecalciferol (vitamin D3) [Vitamin D3] 4,000 unit PO DAILY 07/14/17 [History Last Taken 09/02/21 08:49] duloxetine 60 mg PO DAILY 07/14/17 [History Last Taken 09/02/21 08:49] folic acid 1 mg PO DAILY@0800 07/14/17 [History Last Taken 09/02/21 08:29] magnesium oxide 400 mg PO BID 07/14/17 [History Last Taken 09/02/21 08:50] potassium chloride [Klor-Con M20] 20 meq PO DAILY 07/14/17 [History Last Taken 09/02/21 08:29] furosemide 20 mg PO DAILY 03/01/18 [History Last Taken 09/02/21 08:49] atorvastatin 20 mg PO QHS 03/05/19 [History Last Taken 09/01/21 21:09] Healthy Eyes 1 cap PO BID 09/02/21 [History Last Taken 09/02/21 08:49] memantine 10 mg PO BID 09/02/21 [History Last Taken 09/02/21 08:51] polyethylene glycol 3350 17 g PO DAILY PRN #0 ea 09/02/21 [Rx Last Taken Unknown] Allergy/AdvReac Type Severity Reaction Status Date / Time baclofen Allergy Unknown Verified 02/08/22 19:21 donepezil [From Aricept] Allergy Other Verified 02/08/22 19:21 hydroxychloroquine Allergy Unknown Verified 02/08/22 19:21 [From Plaquenil] Iodinated Contrast Media Allergy Hives Verified 02/08/22 19:21 [Iodinated Contrast- Oral and IV Dye] pravastatin Allergy Unknown Verified 02/08/22 19:21 shellfish derived Allergy Hives Verified 02/08/22 19:21 spironolactone Allergy Rash Verified 02/08/22 19:21 Sulfa (Sulfonamide Allergy Unknown Verified 02/08/22 19:21 Antibiotics) Family History Other Diabetes MTHFR gene mutation Surgical History History of appendectomy History of hemorrhoidectomy History of kyphoplasty History of tonsillectomy and adenoidectomy History of vitrectomy S/P YAG capsulotomy, left Social History (Updated 09/02/21 @ 19:[address] Gaurav Delcid MD) household members: spouse Smoking Status: Never smoker alcohol intake: never substance use type: does not use ROS ROS ED Constitutional Constitutional ED: Reports systems reviewed and no addt'l complaints, except as documented; Denies body ache(s), change in weight or chills Eyes Eyes: Denies acute decrease in peripheral vision, change in vision, double vision or loss of vision ENT ENT ED: Reports none; Denies ear pain, lip swelling, loss taste/smell, neck pain, otalgia or sore throat Cardiovascular Cardiovascular: Reports none; Denies abdominal pain, chest pain with activity, leg edema, lightheadedness, palpitations, rapid heart rate or syncope Respiratory/Chest Respiratory/Chest: Reports none; Denies change in mental status, dry cough, dyspnea, hemoptysis, shortness of breath at rest or shortness of breath with exertion Gastrointestinal Gastrointestinal: Reports none; Denies abdominal pain, change in stool character, diarrhea, hematemesis, hematochezia, melena, rectal bleeding or vomiting Genitourinary Genitourinary ED: Reports none; Denies abdominal discomfort, anuria, dysuria, genital pain or polyuria Musculoskeletal Musculoskeletal: Reports none, back pain and other Details: Ecchymosis and bruising to lower back ; Denies arthralgias, difficulty walking, extremity pain, muscle weakness or myalgias Integumentary Reports none; Denies abscess or rash Neurologic Neurologic: Reports none; Denies abnormal gait, confusion, focal weakness, frequent falls, headache(s), loss of vision, numbness, paresthesias, radicular pain, vertigo or weakness Psychiatric Psychiatric: Reports systems reviewed and no addt'l complaints, except as documented and none; Denies behavioral changes, confusion, difficulty concentrating, hallucinations, suicidal ideation, tactile hallucinations or visual hallucinations Endocrine Endocrinology: Denies none, cold intolerance, excessive sweating, fatigue or heat intolerance Hematologic/Lymphatic Hematologic/Lymphatic: Reports none; Denies anemia, easy bleeding or easy bruising Allergic/Immunologic Allergic/Immunologic ED: Denies as per HPI, none, lip swelling, mouth swelling, throat swelling, tongue swelling or hives EXAM Physical Exam Const Vital Signs: 02/08/22 19:16 02/08/22 19:41 Temperature 96.3 F L Temperature Source Temporal Pulse Rate 91 Respiratory Rate 15 Respiratory Effort Normal Non-Labored Respiratory Depth Normal Respiratory Pattern Normal Blood Pressure 140/81 H Blood Pressure Mean 100 Pulse Ox 95 Oxygen Delivery Method Room Air Positive well nourished and well developed General Appearance ED: well developed and NAD HEENT Reports TM's clear and moist mucous membranes HEENT Narrative: Patient with some faint ecchymosis and bruising to the right side of the chin. She has no tenderness on palpation over the mandible. There is no malocclusion. normocephalic and atraumatic; Negative for trauma or tenderness Tympanic Membrane ED: Yes TM's clear Eyes PERRL and EOMs intact bilaterally General Eye ED: Negative for pale conjunctiva or scleral icterus Neck no lymphadenopathy, supple and no JVD Neck Narrative: No C-spine tenderness on palpation. General: Negative for tenderness Chest Wall inspection of chest normal and palpation of chest normal Chest: Negative for tenderness Resp normal respiratory effort and clear to auscultation bilaterally Effort and Inspection: Negative for respiratory distress or pain with movement Auscultation: Negative for rhonchi, wheezes or diminished lung sounds Cardio regular rate, regular rhythm, S1 normal heart sound, S2 normal heart sound and no murmurs Peripheral Pulses: pulses 2+ throughout GI normal to inspection, nondistended, normoactive bowel sounds, soft to palpation, non-tender, non-distended and no masses Back/Spine no thoracic nor lumbar tenderness Back/Spine Narrative: Patient has ecchymosis and bruising noted to the lumbar region with some tenderness over lumbar spine and sacrum. Negative straight leg raises. Deep tendon reflexes are plus 2 out of 4 bilaterally at the patella and Achilles. Patient has normal L5 extension. Patient has normal sensation to light touch. Extremity normal to inspection General Extremety ED: Negative for edema General Extremity: Negative for edema Neuro oriented x3, CN's II-XII intact bilaterally, no sensory deficits noted and gait normal Sensorium / Orientation: awake, alert, oriented to person, oriented to place and oriented to time Motor Exam: strength 5/5 throughout and strength abnormal Psych mental status grossly normal Skin no rashes or lesions noted and no wounds MDM MDM MDM Narrative Medical decision making narrative: IV line established on arrival. Patient was given normal saline. Lab work-up was unremarkable. CT scan of the brain without contrast showed chronic age-related changes. CT scan of the abdomen pelvis showed a fracture of the transverse process on the left of L3 age-indeterminate. This point etiology of fall unclear. I did send off a urine culture as she did have +2 bacteria but no other signs of infection. Lab Data Attestation: I reviewed the patient's lab results. Labs: Laboratory Results - last 24 hr 02/08/22 02/08/22 02/08/22 19:54 19:54 20:26 WBC 9.8 RBC 4.66 Hgb 14.1 Hct 42.4 MCV 91.0 MCH 30.3 MCHC 33.3 RDW Std Deviation 45.9 H RDW Coeff of Jameel 13.7 Plt Count 218 MPV 9.4 Immature Gran % (Auto) 0.200 Neut % (Auto) 60.2 Lymph % (Auto) 27.1 [place] % (Auto) 8.0 Eos % (Auto) 4.2 Baso % (Auto) 0.3 Absolute Neuts (auto) 5.9 Absolute Lymphs (auto) 2.66 Nucleated RBC % 0 Sodium 142 Potassium 3.9 Chloride 110 H Carbon Dioxide 28.0 Anion Gap 4 L BUN 22 H Creatinine 0.91 Estim Creat Clear Calc 45.11 Est GFR (MDRD) Af Amer 77 Est GFR (MDRD) Non-Af 64 BUN/Creatinine Ratio 24.3 H Glucose 101 Calcium 9.5 Urine Color Yellow Urine Clarity Clear Urine pH 5.0 Ur Specific [place] 1.020 Urine Protein Negative Urine Glucose (UA) Normal Urine Ketones Negative Urine Occult Blood Negative Urine Nitrite Negative Urine Bilirubin Negative Urine Urobilinogen Normal Ur Leukocyte Esterase Negative Urine RBC 0 SEEN Urine WBC 0 SEEN Ur Squamous Epith Cells 0 SEEN Urine Bacteria 2+ Urine Mucus 0 SEEN Radiography Diagnostic Testing: Clinical Impression(s) from Imaging Studies Abdomen/Pelvis CT 02/08/22 19:41 IMPRESSION: 1. Mild bibasilar infiltrates or atelectasis. 2. There is fluid in the colon suggesting diarrhea. 3. Degenerative changes lumbar spine. Left L3 transverse process fracture which may be acute or chronic. Electronically Signed: Nael Stallworth MD at 20:56 EDT , Brain CT 02/08/22 19:41 IMPRESSION: 1. Small vessel ischemic/degenerative changes. 2. Cerebral and cerebellar atrophy. Electronically Signed: Nael Stallworth MD at 20:51 EDT , EKG Initial EKG: Attestation: I personally reviewed and interpreted this EKG as follows: Comments: Sinus rhythm with a rate of 79 bpm with no acute ST segment changes Discharge Plan Triage Chief Complaint: Fall ED Provider: Marilyn Winn Dx/Rx/DC Orders Clinical Impression: Fall, Contusion of back, Contusion of face Instructions: ED Back Contusion, ED Facial Contusion, ED Fall with Uncertain Cause Prescriptions: No Action atenolol 25 MG tablet 25 mg PO BID RF: 0 folic acid 1 MG tablet 1 mg PO DAILY@0800 RF: 0 duloxetine 60 MG capsule,delayed release(DR/EC) 60 mg PO DAILY RF: 0 Lumigan 1 DROP drops 1 drp Each Eye BID RF: 0 Eliquis 5 MG tablet 5 mg PO BID RF: 0 acetaminophen [Tylenol Arthritis Pain] 650 MG tablet extended release 650 mg PO DAILY RF: 0 potassium chloride [Klor-Con M20] 20 MEQ tablet,ER particles/crystals 20 meq PO DAILY RF: 0 magnesium oxide 400 MG tablet 400 mg PO BID RF: 0 cholecalciferol (vitamin D3) [Vitamin D3] 1,000 UNIT capsule 4,000 unit PO DAILY RF: 0 Timolol Maleate [Timoptic-Xe 0.25%] 1 DROP Arlyn.Gel 1 drp Each Eye BID RF: 0 furosemide 20 MG tablet 20 mg PO DAILY RF: 0 atorvastatin 10 MG tablet 20 mg PO QHS RF: 0 polyethylene glycol 3350 17 gram Powder In Packet 17 g PO DAILY PRN (Reason: Constipation) Qty: 0 RF: 0 memantine 10 mg tablet 10 mg PO BID RF: 0 Healthy Eyes 1,000 unit-200 mg-60 unit-2 mg tablet 1 cap PO BID RF: 0 Primary Care Provider: Zofia Horton Referrals: Zofia Horton DO [Primary Care Provider] - 3-5 Days Disposition Disposition: Home, Self Care
[2022-02-08] MEDS: 0.9% Normal Saline 1,000 ML 150 ML IV (19:58)
[2022-02-08 19:59] LABS: Absolute Lymphocyte Count 2.66 X10^3/uL (0.83-4.51); Absolute Neutrophil Count 5.9 X10^3/uL (2.0-7.7); Basophil# 0.03 X10^3/uL; Basophil% 0.3 % (0-1); Eosinophil# 0.41 X10^3/uL; Eosinophils% 4.2 % (0-5); Hematocrit 42.4 % (37-47); Hemoglobin 14.1 g/dL (12.0-15.0); Lymphocyte # 2.66 X10^3/ul (0.83-4.51); Lymphocyte % 27.1 % (19-41); Mean Corp Hgb Conc 33.3 g/dL (32-36); Mean Corpuscular Hgb 30.3 pg (27.0-32.0); Mean Platelet Vol. 9.4 fl (6.2-12.0); Monocyte# 0.78 X10^3/uL; NRBC Flagged by Analyzer 0 % (0-5); Neutrophil # 5.91 X10^3/uL (2.7-7.7); Neutrophil % 60.2 % (47-70); Platelet Count 218 K/mm3 (150-450); RBC Distribution Width CV 13.7 % (11.6-14.6); RBC Distribution Width SD 45.9 fl (35.1-43.9); Red Blood Count 4.66 M/mm3 (4.2-5.4); White Blood Count 9.8 K/mm3 (4.4-11.0)
[2022-02-08 20:15] LABS: Anion Gap 4 (5-15); BUN 22 mg/dL (7-18); BUN/Creat Ratio 24.3 RATIO (10-20); Calcium,Total 9.5 mg/dL (8.5-10.1); Chloride 110 mmol/L (98-107); Creatinine, Serum 0.91 mg/dL (0.55-1.02); EST Glomerular Filtration Rate 64 mL/min (>60); Est Glom Filt Rate - Afr Amer 77 mL/min (>60); Estimated Creatinine Clearance 45.11 ml/min; Glucose 101 mg/dL (74-106); Potassium 3.9 mmol/L (3.5-5.1); Sodium Level 142 mmol/L (136-145)
[2022-02-08 20:30] LABS: Mucous, Urine 0 SEEN /hpf (<or=2+); Red Blood Cells-Urine 0 SEEN /hpf (0-5); Squamous Epithelial Cells - UA 0 SEEN /hpf (5-10); White Blood Cells 0 SEEN /hpf (0-5)
[2022-02-08 20:39] LABS: Color, Urine Yellow (Yellow); Glucose, Dipstick Normal (Normal); Ketone-Dipstick Negative (Negative); Leukocyte Esterase-Dipstick Negative /ul (Negative); Nitrite-Dipstick Negative (Negative); Occult Blood-Urine Negative /ul (Negative); Protein-Dipstick Negative (Negative); Urine Bilirubin Dipstick Negative (Negative); Urine Clarity Clear (Clear); Urine Urobilinogen Normal (Normal)
[2022-02-08 20:48] LABS: Bacteria 2+ /hpf (None Seen)
[2022-02-08 21:16] VITALS: BP 146/70; PULSE 78; O2SAT 98
--- NOTE | 2022-02-11 15:29 | CASEMGMT ---
[facility] ED Visit f/u call: ED visit: 02/08/22 Complaint: Fall Call to pt's #. No answer. Non-descript VM left for return call for any concerns or needs. Phone number provided. Isabel DUFFY RN CM
== END 2022-02-08 21:27 | disposition home or self-care (01) ==
PROVIDERS: Emergency Provider Emergency Medicine; PCP Internal Medicine; Visit Provider Emergency Medicine
DX: S00.83XA Contusion of other part of head, initial encounter (principal); G35 Multiple sclerosis; F01.50 Vascular dementia, unspecified severity, without behavioral disturbance, psychotic disturbance, mood disturbance, and anxiety; I25.10 Atherosclerotic heart disease of native coronary artery without angina pectoris; I10 Essential (primary) hypertension; S20.229A Contusion of unspecified back wall of thorax, initial encounter; W19.XXXA Unspecified fall, initial encounter; E78.2 Mixed hyperlipidemia; H35.30 Unspecified macular degeneration; J45.909 Unspecified asthma, uncomplicated; Z79.899 Other long term (current) drug therapy; Z87.440 Personal history of urinary (tract) infections; Z86.711 Personal history of pulmonary embolism; Z79.01 Long term (current) use of anticoagulants
CPT/HCPCS: 70450; 74176; 80048; 81001; 85025; 87086; 96360; 99283; J7030; A4216

== ENCOUNTER 2022-02-17 21:41 | Emergency (ER) | payer MEDICARE, SELFPAY ==
[2022-02-17 21:42] VITALS: BP 144/75; PULSE 83; RESP 15; TEMP 36.1; O2SAT 97; BMI 35.9
--- NOTE | 2022-02-17 21:58 | CT_ITS ---
STUDY: CT BRAIN WITHOUT CONTRAST REASON FOR EXAM: Female, 81 years old. injury RADIATION DOSAGE (If Supplied By Facility): CTDIvol = ( 44.99 ) mGy, DLP = ( 815.79 ) mGycm TECHNIQUE: Transaxial CT imaging of the brain was performed without administration of intravenous contrast material. Individualized dose optimization techniques were used for this CT. COMPARISON: 02/07/2022 FINDINGS: Normal soft tissue structures. Normal calvarium. Mild calcific plaquing of cavernous carotids. Moderate atrophy and periventricular white matter ischemic changes.. Old lacunar infarct in the anterior limb of left internal capsule.. Normal brainstem. Normal cerebellum. There is no intracranial hemorrhage. There are no findings of an acute ischemic infarction. Postsurgical changes of the orbits. Normal visualized paranasal sinuses. No significant change since prior exam CT/Brain/Head without Contrast IMPRESSION: Moderate atrophy and periventricular white matter ischemic change with old left lacunar infarct. No evidence for acute intracranial bleed Electronically Signed: Mio Rosenberg MD at 22:40 EDT ,
--- NOTE | 2022-02-17 21:59 | EX.ED.GENINJ ---
HPI History of Present Illness Chief Complaint: Fall Informant: patient and family Narrative Narrative: 81-year-old female presenting to the emergency room following a head injury. Patient is on Eliquis for prior PE. The patient was in the bathroom decided to get up and go to her bedroom on her own. She did not use the walker and her pants were off. She fell. She does not believe she struck her head. Family notes a bruise on her chin from a previous fall. Patient denies any current pain. [facility] Medical History AMD (age related macular degeneration) Asthma Atherosclerotic heart disease of [place] coronary artery without angina pectoris Cystitis Essential hypertension Mixed hyperlipidemia Multiple sclerosis Vascular dementia Home Medications Eliquis 5 mg PO BID 07/14/17 [History Last Taken 09/02/21 08:50] Lumigan 1 drp EACH EYE BID 07/14/17 [History Last Taken 09/01/21 21:10] Timolol Maleate [Timoptic-Xe 0.25%] 1 drp EACH EYE BID 07/14/17 [History Last Taken 09/02/21 08:35] acetaminophen [Tylenol Arthritis Pain] 650 mg PO DAILY 07/14/17 [History Last Taken 08/29/21] atenolol 25 mg PO BID 07/14/17 [History Last Taken 09/02/21 08:49] cholecalciferol (vitamin D3) [Vitamin D3] 4,000 unit PO DAILY 07/14/17 [History Last Taken 09/02/21 08:49] duloxetine 60 mg PO DAILY 07/14/17 [History Last Taken 09/02/21 08:49] folic acid 1 mg PO DAILY@0800 07/14/17 [History Last Taken 09/02/21 08:29] magnesium oxide 400 mg PO BID 07/14/17 [History Last Taken 09/02/21 08:50] potassium chloride [Klor-Con M20] 20 meq PO DAILY 07/14/17 [History Last Taken 09/02/21 08:29] furosemide 20 mg PO DAILY 03/01/18 [History Last Taken 09/02/21 08:49] atorvastatin 20 mg PO QHS 03/05/19 [History Last Taken 09/01/21 21:09] Healthy Eyes 1 cap PO BID 09/02/21 [History Last Taken 09/02/21 08:49] memantine 10 mg PO BID 09/02/21 [History Last Taken 09/02/21 08:51] polyethylene glycol 3350 17 g PO DAILY PRN #0 ea 09/02/21 [Rx Last Taken Unknown] Allergy/AdvReac Type Severity Reaction Status Date / Time baclofen Allergy Unknown Verified 02/17/22 21:44 donepezil [From Aricept] Allergy Other Verified 02/17/22 21:44 hydroxychloroquine Allergy Unknown Verified 02/17/22 21:44 [From Plaquenil] Iodinated Contrast Media Allergy Hives Verified 02/17/22 21:44 [Iodinated Contrast- Oral and IV Dye] pravastatin Allergy Unknown Verified 02/17/22 21:44 shellfish derived Allergy Hives Verified 02/17/22 21:44 spironolactone Allergy Rash Verified 02/17/22 21:44 Sulfa (Sulfonamide Allergy Unknown Verified 02/17/22 21:44 Antibiotics) Family History Other Diabetes MTHFR gene mutation Surgical History History of appendectomy History of hemorrhoidectomy History of kyphoplasty History of tonsillectomy and adenoidectomy History of vitrectomy S/P YAG capsulotomy, left Social History household members: spouse Smoking Status: Never smoker alcohol intake: never substance use type: does not use ROS ROS ED Constitutional Constitutional ED: Denies chills, fever(s) or weight loss Eyes Eyes: Denies change in vision or diplopia ENT ENT ED: Denies ear pain, rhinorrhea or sore throat Cardiovascular Cardiovascular: Denies chest pain, orthopnea, palpitations or racing heartbeat Respiratory/Chest Respiratory/Chest: Denies cough, dyspnea or orthopnea Gastrointestinal Gastrointestinal: Denies abdominal pain, diarrhea, nausea or vomiting Genitourinary Genitourinary ED: Denies dysuria, hematuria or urinary frequency Musculoskeletal Musculoskeletal: Denies arthralgias or myalgias Integumentary Denies abscess or rash Neurologic Neurologic: Denies headache(s) or weakness Psychiatric Psychiatric: Denies anxiety, depression, suicidal ideation or suicidal thoughts Endocrine Endocrinology: Denies polydipsia, polyphagia or polyuria Allergic/Immunologic Allergic/Immunologic ED: Denies mouth swelling, tongue swelling or urticaria EXAM Physical Exam Const Vital Signs: 02/17/22 21:42 02/17/22 22:26 Temperature 96.9 F L Temperature Source Temporal Pulse Rate 83 Respiratory Rate 15 Respiratory Effort Normal Non-Labored Respiratory Depth Normal Respiratory Pattern Normal Blood Pressure 144/75 H Blood Pressure Mean 98 Pulse Ox 97 Oxygen Delivery Method Room Air Room Air Positive well nourished and well developed General Appearance ED: well developed HEENT Reports normocephalic, head/scalp atraumatic, TM's clear and moist mucous membranes HEENT Narrative: Purple ecchymosis on the chin trauma Tympanic Membrane ED: Yes TM's clear Eyes PERRL and EOMs intact bilaterally Neck full ROM, no lymphadenopathy, supple and no JVD General: Negative for tenderness Resp normal respiratory effort and clear to auscultation bilaterally Cardio regular rate, regular rhythm and no murmurs Rate: regular rate GI normal to inspection, nondistended, normoactive bowel sounds and non-tender Palpation: soft Back/Spine no CVA tenderness and normal ROM Extremity normal to inspection General Extremety ED: Negative for edema General Extremity: Negative for edema Neuro oriented x3 and CN's II-XII intact bilaterally Sensorium / Orientation: alert Motor Exam: strength 5/5 throughout Psych mental status grossly normal Mood & Affect: Negative for depressed or tearful Skin no rashes or lesions noted and no wounds MDM MDM MDM Narrative Medical decision making narrative: CT of the brain was obtained. This is negative for hemorrhage. Patient discharged home. Return if worsening or concerns Radiography Diagnostic Testing: Clinical Impression(s) from Imaging Studies Brain CT 02/17/22 21:58 IMPRESSION: Moderate atrophy and periventricular white matter ischemic change with old left lacunar infarct. No evidence for acute intracranial bleed Electronically Signed: Mio Rosenberg MD at 22:40 EDT , Discharge Plan Triage Chief Complaint: Fall ED Provider: Phil Brennan Dx/Rx/DC Orders Clinical Impression: Fall, Anticoagulated Instructions: ED Fall Prevention Prescriptions: No Action atenolol 25 MG tablet 25 mg PO BID RF: 0 folic acid 1 MG tablet 1 mg PO DAILY@0800 RF: 0 duloxetine 60 MG capsule,delayed release(DR/EC) 60 mg PO DAILY RF: 0 Lumigan 1 DROP drops 1 drp Each Eye BID RF: 0 Eliquis 5 MG tablet 5 mg PO BID RF: 0 acetaminophen [Tylenol Arthritis Pain] 650 MG tablet extended release 650 mg PO DAILY RF: 0 potassium chloride [Klor-Con M20] 20 MEQ tablet,ER particles/crystals 20 meq PO DAILY RF: 0 magnesium oxide 400 MG tablet 400 mg PO BID RF: 0 cholecalciferol (vitamin D3) [Vitamin D3] 1,000 UNIT capsule 4,000 unit PO DAILY RF: 0 Timolol Maleate [Timoptic-Xe 0.25%] 1 DROP Arlyn.Gel 1 drp Each Eye BID RF: 0 furosemide 20 MG tablet 20 mg PO DAILY RF: 0 atorvastatin 10 MG tablet 20 mg PO QHS RF: 0 polyethylene glycol 3350 17 gram Powder In Packet 17 g PO DAILY PRN (Reason: Constipation) Qty: 0 RF: 0 memantine 10 mg tablet 10 mg PO BID RF: 0 Healthy Eyes 1,000 unit-200 mg-60 unit-2 mg tablet 1 cap PO BID RF: 0 Primary Care Provider: Zofia Horton Referrals: Zofia Horton DO [Primary Care Provider] - [facility] appointment Disposition Disposition: Home, Self Care
--- NOTE | 2022-02-22 14:33 | CM.ED ---
ER RNCM DC F/u Call: ED Visit 02/17/22 for fall Called patient listed cell phone number-directly to VM. VM did not identify correct patient identity and therefore no VM left at this time. Arsenio Bales RNCM
== END 2022-02-17 22:52 | disposition home or self-care (01) ==
PROVIDERS: Emergency Provider Emergency Medicine; PCP Internal Medicine; Visit Provider Emergency Medicine
DX: S00.83XA Contusion of other part of head, initial encounter (principal); G35 Multiple sclerosis; F01.50 Vascular dementia, unspecified severity, without behavioral disturbance, psychotic disturbance, mood disturbance, and anxiety; I10 Essential (primary) hypertension; E78.2 Mixed hyperlipidemia; I25.10 Atherosclerotic heart disease of native coronary artery without angina pectoris; J45.909 Unspecified asthma, uncomplicated; Z87.440 Personal history of urinary (tract) infections; Z79.01 Long term (current) use of anticoagulants; Z79.899 Other long term (current) drug therapy; Z86.711 Personal history of pulmonary embolism; W19.XXXA Unspecified fall, initial encounter
CPT/HCPCS: 70450; 99282

== ENCOUNTER 2022-03-17 13:00 | Outpatient (RCR) | payer MEDICARE, SELFPAY ==
--- NOTE | 2022-02-21 18:13 | HP.PTEVAL_ITS ---
Patient's Visit Information OSBALDO VILLAVICENCIO is a 81 year old F referred to Physical Therapy by Dr. Zofia Horton DO with a diagnosis of LE WEAKNESS/MS, FALLS, AND L4 TRANSVERSE PROCESS FX. Date of Evaluation: 02/21/22 Physical Therapist: Petra Lopez, PT, Cert MDT - Visit Plan Frequency: 2-3x /Week Duration: 4-6 Weeks Plan: CHECK AND DOCUMENT AUTH. FALL RISK. USE GAIT BELT AND CONSTANT SUPERVISION. FOCUS ON GAIT AND BALANCE SAFETY WORKING TOWARD SET PT GOALS. HEP INSTRUCTION AND CAREGIVER TRAINING. CORE STABILITY EX. - Subjective THIS PATIENT PRESENTS TO PT WITH HER AND HER DAUGHTER ZO. PATIENTS DAUGHTER IS A NURSE AND ANSWERED MOST OF THE SUBJECTIVE QUESTIONS FOR HER MOM TODAY. SHE REPORTS HER MOM HAS WAS DX'D WITH MS AT ABOUT 18 YEARS OLD. SHE REPORTS THEY ARE HERE TODAY BECAUSE SHE HAS FALLEN 2-3 TIMES IN THE LAST 2-3 WEEKS. AFTER ONE FALL SHE THEY FOUND L4 TRANSFERS PROCESS FX - ON CT OF UNKNOW AGE. COMPLAINS OF LOW BACK (CHRONIC) - NO OTHER INJURIES FROM FALLS THAT THEY ARE AWARE OF. FELL IN AUG 2021 AND DX'D WITH UTI. PHYSICAL THERAPY AT HOSPITAL AND AT HOME UNTIL APPROX NOV 2021. FAMILY REPORTS IT IS A STRUGGLE TO GET PATIENT TO FOLLOW THROUGH WITH EX. SITS AT DINING ROOM TABLE ABOUT 10 HOURS A DAY PER DAUGHTER. LIVES IN ONE STORY HOME WITH AND DAUGHTER. 2 STEPS WITH LANDING IN BETWEEN WITH HANDRAIL INTO HOME. DOING STEPS INDEP'LY WITH SUPERVISION INTO HOME CURRENTLY. Present since: IN THE LAST 3 WEEKS STARTED FALLING AGAIN FOR NO APPARENT REASON. HAS BEEN ON A DECLINE FOR MONTHS. Pain Scale: PATIENT UNABLE TO RATE PAIN. Worse: STANDING AND WALKING. Better: SITTING. Previous history/Previous treatment: KYPHOPLASTY 3-4 YEARS AGO. Gait: FWW IN HOME AND ROLLATOR OUTSIDE OF HOME. Accidents: FALLS. LAST FALL WAS MONDAY AT HOME - WALKING WITHOUT WALKER WHEN DAUGHTER STEPPED AWAY - DAUGHTER TOOK HER TO ED AND TESTING WAS NEGATIVE. 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 OTHER: PATIENT REPORTS SHE WANTS TO GET STRONGER. - Objective THIS PATIENT AMBULATES INDEP'LY INTO PT WITH ROLLATOR AND THERAPIST SUPERVISION X APPROX 300 FEET. CUEING TO SLOW DOWN FOR SAFETY AND TO KEEP WALKER WITH HER ALL THE WAY TO THE CHAIR FOR SAFETY. PATIENT FOLLOWS SIMPLE COMMANDS WELL BUT IS UNABLE TO ANSWER SUBJECTIVE QUESTIONS ACCURATELY. SHE IS PLEASANT AND COOPERATIVE TO WORK WITH. SHE IS ABLE TO TRANSFER SIT TO STAND INDEP'LY BUT IS UE DEPENDENT TO DO SO. PATIENT IS UNSAFE WITH GAIT WITHOUT WALKER AND WITHOUT SUPERVISION. SHE STARTED TO WALK WAY TOO FAST TO BE SAFE UNTIL CUED VERBALLY TO SLOW DOWN. RESPONDED TO CUES IMMEDIATELY. PATIENT STARTED TO DRAG HER RIGHT LEG LAST 5 FEET UNTIL GETTING TO CHAIR. SEE TUG TEST RESULT AND 30 SEC STAND TEST RESULTS BELOW. PATIENT ALSO WALKS WITH INCREASED TRUNK FLEXION AND TENDS TO LET THE WALKER GET TOO FAR OUT IN FRONT OF HER. STRENGTH: BRYN LE'S GROSSLY 5/5 WITH MMT'ING EXCEPT R HIP 4/5, R KNEE EXT 4/5 AND LEFT HIP 4-/5 KNEE EXT 4-/5. CORE STRENGTH - POOR. PATIENTS WAS PRETTY QUIT DURING EVAL, DENIED HAVING ANY QUESTIONS OR CONCERNS TO ADD AT END OF SESSION AND AGREEABLE TO POC. PATIENTS DAUGHTER WAS EXPRESSING A GREAT DEAL OF FRUSTRATION DUE TO HER MOTHER NOT BEING SAFE AT HOME WITHOUT SUPERVISION. - Balance/Special Test Scores Lower Extremity Functional Score: 31 TUG Test Time Seconds: 39.57 30 Second Chair Rise Test Seconds: 6 - Goals Goal 1:: PATIENT WILL COMPLETE TUG IN < 20 SECS TO DEMONSTRATE IMPROVED GAIT STABILITY Goal Time Frame: 4-6 Weeks Goal 2:: PATIENT WILL COMPLETE 9 STANDS IN 30 SECS TO DEMONSTRATE IMPROVED FUNCTIONAL STRENGTH Goal Time Frame: 4-6 Weeks Goal 3:: PATIENT WILL AMBULATE 500 FEET WITH WW WITH SUPERVISION X 1 TO IMPROVE ACTIVITY TOLERANCE Goal Time Frame: 4-6 Weeks Goal 4:: PT WILL COMPLETE DAILY THER EX HEP WITH HELP OF CARE-CORPORATE TRAVEL MANAGER TO INCREASE SAFETY W/TRANSFERS AND GAIT. Goal Time Frame: 4-6 Weeks - Anticipated Interventions Patient/Client Instruction: Educate patient on: Condition, Plan of Care, Risk Factors For the Purpose of:: To facilitate caregiver knowledge Therapeutic Exercise to Include: Strength training, Balance training, Postural training, Gait and locomotor training, Neuromotor development, Dynamic Lumbar Stabilization For the Purpose of:: To decrease pain, To improve muscle performance and motor function, To increase tolerance to activity/condition/position, To improve ability of physical actions for home/community/work/leisure, To improve gait and locomotor functions, To improve safety with gait, To facilitate caregiver knowledge Thank you for the opportunity to evaluate your patient. For Medicare and Medicare HMO plans, please review the plan of care and approve it. It will need to be FAXED BACK to us at [phone] for Medicare purposes. For Medicare only, by signing this I certify the plan of care. Please let me know if there are questions or concerns regarding this plan of care. Physician Signature: Date:
--- NOTE | 2022-03-17 14:22 | HP.PTDCSUM_ITS ---
It has been my pleasure to treat OSBALDO VILLAVICENCIO referred by Dr. Zofia Mead DO, with the diagnosis of LE WEAKNESS/MS, FALLS, AND L4 TRANSVERSE PROCESS FX for a total of 10 visit(s). Discharge Date: 03/17/22 Please see the following information for a summary of their discharge status. Subjective: PATIENT REPORTS HIS SEEMS TO BE DOING BETTER AT HOME. TRYING TO GET HER TO USE HER WALKER MORE AT HOME BUT SHE TENDS TO FURNITURE WALK. PATIENT FELL MONDAY TRYING TO GET IN CAR AT [employer]. THINKS SHE LET LOOSE OF THE WALKER AND DIDN'T USE IT ALL THE WAY TO THE SEAT. 3 PEOPLE HELPED GET HER UP AND NO APPARENT INJURIES. LB Pain Intensity (Out of 10): 0 R hand Pain Intensity (Out of 10): 0 % Improvement: 50 Objective/Function: PATIENT WAS SEEN TODAY FOR RE-ASSESSMENT OF PROGRESS TOWARD THE SET PT GOALS AND THE NEED FOR FURTHER PHYSICAL THERAPY VS READINESS FOR DISCHARGE. UPON EXAM TODAY PATIENT DEMO'S IMPROVED GAIT AND LE STRENGTH BUT SHE HAD ANOTHER FALL 2 DAYS AGO. SHE CONTINUES TO NEED CUEING FOR GAIT SAFETY IN TERMS OF KEEPING THE WALKER WITH HER AND PICKING UP HER FEET TO AVOID SHUFFLING AND THIS IS NOT IMPROVING. EDUCATED ON PATIENTS NEED FOR CONSTANT SUPERVISION FOR SAFETY. PATIENTS REPORTS PATIENT IS COMPLIANT WITH HEP NOW AND THEY WOULD LIKE TO TRY TO STOP FORMAL PT AT THIS TIME AND NOT REQUEST MORE VISITS FROM INSURANCE. PATIENTS INQUIRED ABOUT RESUMING INDEP WATER EX ONCE A WEEK (PATIENT AND TOGETHER IN THE PAST) BUT THIS PT NOT AGREEABLE DUE TO PATIENT BEING UNSAFE ALONE IN THE LOCKER ROOM. 30 SEC SIT TO STAND TEST, TUG TIME AND LEFS SCORE HAVE ALL IMPROVED SINCE STARTING THERAPY BUT COGNITIVELY PATIENT CONTINUES TO NEED CUEING FOR SAFETY. Goal 1:: PATIENT WILL COMPLETE TUG IN < 20 SECS TO DEMONSTRATE IMPROVED GAIT STABILITY Goal Progress: Progressing Goal 2:: PATIENT WILL COMPLETE 9 STANDS IN 30 SECS TO DEMONSTRATE IMPROVED FUNCTIONAL STRENGTH Goal Progress: Goal Met Goal 3:: PATIENT WILL AMBULATE 500 FEET WITH WW WITH SUPERVISION X 1 TO IMPROVE ACTIVITY TOLERANCE Goal Progress: Goal Met Goal 4:: PT WILL COMPLETE DAILY THER EX HEP WITH HELP OF CARE-CRM MARKETING EXECUTIVE TO INCREASE SAFETY W/TRANSFERS AND GAIT. Goal Progress: Goal Met Plan: RECOMMENDED FOLLOW UP WITH DR. MEAD SOON POSSIBLE DUE TO ONGOING FALLS DESPITE THERAPY. AGREEABLE. D/C TO INDEP USE OF NUSTEP WITH CONSTANT SUPERVISION OF AND HEP WITH ASSIST FROM AT HUSBANDS REQUEST. PATIENT SEEMED AGREEABLE. If there are questions or concerns regarding this patient's physical therapy, please feel free to call me at [phone]. Thank you for the referral of this patient. Sincerely, Petra Lopez, PT, Cert MDT Balance/Gait/Functional tests - Balance/Special Test Scores Lower Extremity Functional Score: 41 TUG Test Time Seconds: 27.05 Tug Test: 20-30sec.=variable mobility 30 Second Chair Rise Test Seconds: 10
== END 2022-03-17 19:00 | disposition home or self-care (01) ==
LOC: PT 13:00
PROVIDERS: PCP Internal Medicine; Referring Provider Internal Medicine; Visit Provider Internal Medicine
DX: G35 Multiple sclerosis (principal); R29.6 Repeated falls; R29.898 Other symptoms and signs involving the musculoskeletal system
CPT/HCPCS: 97110; 97162; 97164

== ENCOUNTER 2022-07-02 10:58 | Emergency (ER) | payer MEDICARE, SELFPAY ==
[2022-07-02 11:00] VITALS: BP 128/85; PULSE 69; RESP 18; TEMP 36.6; O2SAT 97; BMI 35.2
--- NOTE | 2022-07-02 11:14 | CT_ITS ---
STUDY: CT BRAIN WITHOUT CONTRAST REASON FOR EXAM: Female, 82 years old. FALL X1 DAY AGO NO HEAD INJURY RADIATION DOSAGE (If Supplied By Facility): CTDIvol = ( 44.99 ) mGy, DLP = ( 796.11 ) mGycm TECHNIQUE: Transaxial CT imaging of the brain was performed without administration of intravenous contrast material. Individualized dose optimization techniques were used for this CT. COMPARISON: Head CT dated FEBRUARY 17, 2022 FINDINGS: Normal soft tissue structures. Normal calvarium. No visualized skull fracture or hemorrhagic brain parenchymal contusions or subdural hematomas. There is moderate cerebral atrophy with widening of the extra-axial spaces and ventricular dilatation. There are areas of decreased attenuation within the white matter tracts of the supratentorial brain, consistent with microvascular disease changes. There are small punctate calcifications of the basal ganglia which are seen in the aging brain as a normal variant. Normal brainstem. Normal cerebellum. There is no intracranial hemorrhage. There are no findings of an acute ischemic infarction. Normal visualized paranasal sinuses. CT/Brain/Head without Contrast IMPRESSION: 1. Chronic ischemic and involutional changes of the brain. Electronically Signed: Cory Sullivan MD at 12:17 EDT ,
--- NOTE | 2022-07-02 11:15 | EDS_ITS ---
HPI HPI - Fall History of Present Illness Chief Complaint: Fall Informant: patient and family Occured/Mechanism Occurred: Yesterday Narrative Narrative: Patient presents with daughter for evaluation after a fall. Patient reportedly fell yesterday. Daughter states she was not using her walker and had a ground- level fall. This was not witnessed. Patient states that she felt that she was going to go down and lifted her head. She is not sure if she end of hitting her head. She is on Eliquis. She complains of pain all over. Daughter states the primary concern was pain in her right foot. [facility] Medical History AMD (age related macular degeneration) Asthma Atherosclerotic heart disease of [place] coronary artery without angina pectoris Cystitis Essential hypertension Mixed hyperlipidemia MTHFR mutation Multiple sclerosis Rheumatoid arthritis Vascular dementia Home Medications Timolol Maleate [Timoptic-Xe 0.25%] 1 drp DAILY glaucoma 07/14/17 [History Last Taken 09/02/21 08:35] acetaminophen 650 mg tablet,extended release (Tylenol Arthritis Pain) 650 mg PO DAILY pain 07/14/17 [History Last Taken 08/29/21] apixaban 5 mg tablet (Eliquis) 5 mg PO BID blood thinner 07/14/17 [History Last Taken 09/02/21 08:50] atenolol 25 mg tablet 25 mg PO BID HTN 07/14/17 [History Last Taken 09/02/21 08:49] cholecalciferol (vitamin D3) 25 mcg (1,000 unit) capsule (Vitamin D3) 2,000 unit PO DAILY supplement 07/14/17 [History Last Taken 09/02/21 08:49] duloxetine 60 mg capsule,delayed release 60 mg PO DAILY depression 07/14/17 [History Last Taken 09/02/21 08:49] folic acid 1 mg tablet 1 mg PO DAILY@0800 supplement 07/14/17 [History Last Taken 09/02/21 08:29] magnesium oxide 400 mg (241.3 mg magnesium) tablet 400 mg PO BID supplement 07/14/17 [History Last Taken 09/02/21 08:50] potassium chloride 20 mEq tablet,extended release(part/cryst) (Klor-Con M) 20 meq PO DAILY supplement 07/14/17 [History Last Taken 09/02/21 08:29] furosemide 20 mg tablet 20 mg PO DAILY diuretic 03/01/18 [History Last Taken 09/02/21 08:49] atorvastatin 10 mg tablet 20 mg PO QHS cholesterol 03/05/19 [History Last Taken 09/01/21 21:09] memantine 10 mg tablet 10 mg PO BID Check with primary doctor 09/02/21 [History Last Taken 09/02/21 08:51] vit A 300 mcg-C 200 mg-E 27 mg-lutein 2 mg and minerals tablet (Healthy Eyes) 1 cap PO BID Supplement 09/02/21 [History Last Taken 09/02/21 08:49] Allergy/AdvReac Type Severity Reaction Status Date / Time baclofen Allergy Unknown Verified 07/02/22 11:00 donepezil [From Aricept] Allergy Other Verified 07/02/22 11:00 hydroxychloroquine Allergy Unknown Verified 07/02/22 11:00 [From Plaquenil] Iodinated Contrast Media Allergy Hives Verified 07/02/22 11:00 [Iodinated Contrast- Oral and IV Dye] pravastatin Allergy Unknown Verified 07/02/22 11:00 shellfish derived Allergy Hives Verified 07/02/22 11:00 spironolactone Allergy Rash Verified 07/02/22 11:00 Sulfa (Sulfonamide Allergy Unknown Verified 07/02/22 11:00 Antibiotics) Family History Other Diabetes MTHFR gene mutation Surgical History History of appendectomy History of hemorrhoidectomy History of kyphoplasty History of tonsillectomy and adenoidectomy History of vitrectomy S/P YAG capsulotomy, left Social History household members: spouse Smoking Status: Never smoker alcohol intake: never substance use type: does not use ROS ROS ED Constitutional Constitutional ED: Denies chills or fever(s) Eyes Eyes: Denies change in vision or discharge from eye(s) ENT ENT ED: Denies discharge from eye(s), rhinorrhea or sore throat Cardiovascular Cardiovascular: Denies chest pain or palpitations Respiratory/Chest Respiratory/Chest: Denies cough or dyspnea Gastrointestinal Gastrointestinal: Denies abdominal pain, nausea or vomiting Genitourinary Genitourinary ED: Denies dysuria Musculoskeletal Musculoskeletal: Reports extremity pain; Denies back pain Integumentary Denies Abrasions or rash Neurologic Neurologic: Reports weakness Psychiatric Psychiatric: Denies anxiety or depression Allergic/Immunologic Allergic/Immunologic ED: Denies lip swelling or urticaria EXAM Physical Exam Const Vital Signs: 07/02/22 11:00 Temperature 97.9 F Temperature Source Temporal Pulse Rate 69 Respiratory Rate 18 Blood Pressure 128/85 H Blood Pressure Mean 99 Pulse Ox 97 Oxygen Delivery Method Room Air Positive well nourished and well developed General Appearance ED: well developed HEENT Reports normocephalic and head/scalp atraumatic Eyes PERRL and EOMs intact bilaterally Neck supple Chest Wall inspection of chest normal and palpation of chest normal Resp normal respiratory effort and clear to auscultation bilaterally Cardio regular rate and regular rhythm GI normal to inspection, nondistended, normoactive bowel sounds Palpation: soft Extremity Extremity Narrative: Tenderness palpation of the right midfoot with mild erythema. No reproducible tenderness with palpation over the upper extremities or lower extremities other than the right foot as previously mentioned. Neuro moves all extremities and no sensory deficits noted Sensorium / Orientation: alert Motor Exam: strength 5/5 throughout Psych mental status grossly normal Skin Skin Narrative: Mild erythema to right foot is noted. MDM MDM MDM Narrative Medical decision making narrative: Due to fall and being on Eliquis patient is sent for head CT. X-rays of the right tib-fib as well as right foot are obtained. Patient did take Tylenol prior to arrival. Radiography Diagnostic Testing: Clinical Impression(s) from Imaging Studies Brain CT 07/02/22 11:14 IMPRESSION: 1. Chronic ischemic and involutional changes of the brain. Electronically Signed: Cory Sullivan MD at 12:17 EDT , Foot X-Ray 07/02/22 11:30 IMPRESSION: 1. Acute mildly displaced fracture at the base of the fourth proximal phalanx Electronically Signed: Cory Sullivan MD at 12:23 EDT , Tibia/Fibula X-Ray 07/02/22 11:30 IMPRESSION: Normal x-ray examination of the tibia and fibula. Electronically Signed: Cory Sullivan MD at 12:21 EDT Reading Location ID and State: [address] [place] [address] , Service support , Treatment and Re-Evaluation Narrative: CT scan of the head reveals chronic changes only. X-ray of the right tib-fib and right foot per my interpretation reveal questionable fracture in the foot. No acute findings visualized in the tib-fib. Radiology interpretation is reviewed. They do believe there is a mildly displaced fracture at the base of the fourth proximal phalanx. Patient was placed in a postop shoe. She can follow-up with podiatry. Daughter is requesting that patient be taken off her Eliquis since she has had increased falls recently. I will speak with Dr. Haji, her PCP who is on-call today. Discharge Plan Triage Chief Complaint: Fall ED Provider: Yoselyn Mai Dx/Rx/DC Orders Clinical Impression: Closed fracture of fourth toe of right foot, Fall Instructions: ED Mechanical Fall, ED Fracture, Foot Prescriptions: No Action atenolol 25 MG tablet 25 mg PO BID Label Comments: folic acid 1 MG tablet 1 mg PO DAILY@0800 duloxetine 60 MG capsule,delayed release(DR/EC) 60 mg PO DAILY Eliquis 5 MG tablet 5 mg PO BID acetaminophen [Tylenol Arthritis Pain] 650 MG tablet extended release 650 mg PO DAILY potassium chloride [Klor-Con M20] 20 MEQ tablet,ER particles/crystals 20 meq PO DAILY magnesium oxide 400 MG tablet 400 mg PO BID cholecalciferol (vitamin D3) [Vitamin D3] 1,000 UNIT capsule 2,000 unit PO DAILY Timolol Maleate [Timoptic-Xe 0.25%] 1 DROP Arlyn.Gel 1 drp Each Eye DAILY furosemide 20 MG tablet 20 mg PO DAILY atorvastatin 10 MG tablet 20 mg PO QHS memantine 10 mg tablet 10 mg PO BID Healthy Eyes 1,000 unit-200 mg-60 unit-2 mg tablet 1 cap PO BID Primary Care Provider: Zofia Horton Referrals: Zofia Horton DO [Primary Care Provider] - 5-7 Days Mika Black DPM [Med Staff - Active Staff] - 1-2 Weeks Disposition Disposition: Home, Self Care
--- NOTE | 2022-07-02 11:30 | RAD_ITS ---
STUDY: X-RAY - RIGHT TIBIA AND FIBULA REASON FOR EXAM: Female, 82 years old. fall TECHNIQUE: 2 view(s) of the tibia and fibula were obtained. COMPARISON: None. FINDINGS: Normal visualized tibia. Normal visualized fibula. There is no demonstrated acute fracture. The soft tissue structures are unremarkable. RAD/Tibia & Fibula 2 Views IMPRESSION: Normal x-ray examination of the tibia and fibula. Electronically Signed: Cory Sullivan MD at 12:21 EDT ,
--- NOTE | 2022-07-02 11:30 | RAD_ITS ---
STUDY: X-RAY - RIGHT FOOT CLINICAL: Female, 82 years old. fall TECHNIQUE: 3 view(s) of the foot. COMPARISON: None. FINDINGS: An acute transverse fracture is present at the base of the fourth proximal phalanx with mild displacement. Diffuse demineralization of the osseous structures. Mild to moderate soft tissue swelling is present. Mild narrowing of the first MTP noted. Normal talus, calcaneus, and tarsal bones. Normal visualized subtalar, talonavicular, calcaneocuboid, tarsal and tarsometatarsal articulations. Normal metatarsi. Normal tibial and fibular sesamoid bones. Normal interphalangeal joint of the great toe. Normal phalanges of the great toe. Normal second through fifth metatarsophalangeal joints. Normal remaining interphalangeal joints and phalanges of the lesser toes. RAD/Foot min 3 Views IMPRESSION: 1. Acute mildly displaced fracture at the base of the fourth proximal phalanx Electronically Signed: Cory Sullivan MD at 12:23 EDT ,
[2022-07-02 13:48] VITALS: BP 170/74; PULSE 58; RESP 16; O2SAT 96
== END 2022-07-02 14:10 | disposition home or self-care (01) ==
PROVIDERS: Emergency Provider Emergency Medicine; PCP Internal Medicine; Visit Provider Emergency Medicine
DX: S92.511A Displaced fracture of proximal phalanx of right lesser toe(s), initial encounter for closed fracture (principal); G35 Multiple sclerosis; M06.9 Rheumatoid arthritis, unspecified; F01.50 Vascular dementia, unspecified severity, without behavioral disturbance, psychotic disturbance, mood disturbance, and anxiety; E72.12 Methylenetetrahydrofolate reductase deficiency; W19.XXXA Unspecified fall, initial encounter; J45.909 Unspecified asthma, uncomplicated; I25.10 Atherosclerotic heart disease of native coronary artery without angina pectoris; Z87.440 Personal history of urinary (tract) infections; I10 Essential (primary) hypertension; E78.2 Mixed hyperlipidemia; H35.30 Unspecified macular degeneration; Z79.899 Other long term (current) drug therapy; Z79.01 Long term (current) use of anticoagulants
CPT/HCPCS: 70450; 73590; 73630; 99283

== ENCOUNTER → 2022-08-18 | Outpatient (CLI) | payer MEDICARE, SELFPAY ==
--- NOTE | 2022-08-18 13:37 | CDU_ITS ---
Reason For Study: BIlateral carotid artery stenosis Rt. Velocities/BP Lt. Velocities/BP Prox CCA 56/9.7 cm/sec. Prox CCA 80.5/14.2 cm/sec. Mid CCA 51.3/8.8 cm/sec. Mid CCA 64.8/10.7 cm/sec. Dist CCA 46.6/8.8 cm/sec. Dist CCA 54.3/9 cm/sec. Prox ICA 27.3/6.6 cm/sec. Prox ICA 33.4/6.4 cm/sec. Mid ICA 60.7/15.9 cm/sec. Mid ICA 36.9/9.9 cm/sec. Dist ICA 49.6/12.7 cm/sec. Dist ICA 38.6/9.9 cm/sec. Rt. ICA/CCA = 1.18. Lt. ICA/CCA = 0.60. Prox ECA 56/7.8 cm/sec. Prox ECA 57/7.2 cm/sec. Rt. Vert. 29.9/5.5 cm/sec. Lt. Vert. 28.2/9 cm/sec. Right Extracranial There is homogeneous, smooth atherosclerotic plaque noted in the right common carotid artery. There is homogeneous, smooth atherosclerotic plaque noted in the right internal carotid artery. There is intimal thickening but no significant atherosclerotic plaque noted in the right external carotid artery. Antegrade flow is noted in the right vertebral artery. Left Extracranial There is homogeneous, smooth atherosclerotic plaque noted in the left common carotid artery. There is intimal thickening but no significant atherosclerotic plaque noted in the left internal carotid artery. There is intimal thickening but no significant atherosclerotic plaque noted in the left external carotid artery. Antegrade flow is noted in the left vertebral artery. Procedure Carotid Duplex [id number]. This is a Carotid Duplex examination using B-mode, color flow and specral Doppler. Exam performed in department. VL/Carotid Duplex Ultrasound Interpretation Summary Smooth plaque with slight calcific component of the proximal right internal car otid artery with less than 50% stenosis. Less than 50% stenosis right external carotid artery Intimal thickening at the proximal left internal carotid artery with less than 50% stenosis Less than 50% stenosis left external carotid artery Patent and antegrade vertebral arteries bilaterally No change from the previous examination of May 11, 2016 Ordering Physician: Zofia Horton Referring Physician: Zofia Horton M.D. Performed By: Chastity Soni RVT
== END | disposition home or self-care (01) ==
LOC: CVS 13:32
PROVIDERS: PCP Internal Medicine; Visit Provider Internal Medicine
DX: I65.23 Occlusion and stenosis of bilateral carotid arteries (principal)
CPT/HCPCS: 93880

== ENCOUNTER → 2022-08-25 | Outpatient (CLI) | payer MEDICARE, SELFPAY ==
--- NOTE | 2022-08-25 13:39 | BI_ITS ---
MAMMOGRAPHY - BILATERAL SCREENING REASON FOR EXAM: Female, 82 years old. Routine annual screening examination. PERTINENT HISTORY: Non-contributory. TECHNIQUE: Digital bilateral breast brooks (3D mammographic acquisition) in the CC and MLO projections. 2-D mediolateral oblique (MLO) and craniocaudad (CC) views of both breasts were obtained. CAD: Full Field Digital Mammography with Computer Added Detection was performed. COMPARISON: Comparison is made with prior study dated 07/08/2021 and 07/03/2020. FINDINGS: Breast Composition: The breasts are almost entirely fatty. There are no dominant masses or suspicious calcifications. Stable small benign appearing bilateral axillary lymph nodes. No other significant abnormalities are identified. There has been no significant change since the prior study. BI/SCRN MAMM (CAD)W/BROOKS BILAT IMPRESSION: Stable bilateral screening mammogram. Yearly follow-up mammogram recommended. (A) ASSESSMENT CATEGORY: BIRADS Category 2: Benign. A letter regarding these results will be sent to the patient by the facility within 30 days. Approximately 10% of breast cancers are not detected by mammography. A normal mammogram should not delay biopsy of a clinically suspicious abnormality. [id number] Electronically Signed: Abelardo Eduardo MD at 15:48 EST ,
--- NOTE | 2022-08-25 13:45 | BD_ITS ---
STUDY: DUAL ENERGY X-RAY ABSORPTIOMETRY / DXA REASON FOR EXAM: Female, 82 years old. [id number] TECHNIQUE: Bone Mineral Density (BMD) measurements of lumbar spine and bilateral hips were obtained. COMPARISON: Comparison is made with prior study dated 11/22/2018. FINDINGS: Lumbar Spine (L1-L4): g/cm2 (0.997) / T-score (0.2) / Z-score (2.7) Findings are suggestive of normal bone density with a low fracture risk. Left Femur Total: g/cm2 (0.8 x 6) / T-score (-0.7) / Z-score (1.4) Left Femoral Neck: g/cm2 (0.658) / T-score (-1.7) / Z-score (0.6) Right Femur Total: g/cm2 (0.867) / T-score (-0.6) / Z-score (1.5) Right Femoral Neck: g/cm2 (0.700) / T-score (-1.3) / Z-score (1.0) The T-Scores on the most recent prior examination were: Lumbar Spine (L1-L4): There has been worsening of bone density since the previous examination. Left Femur Total: which represents an improvement of 6.2%. Right Femur Total: which represents an improvement of 0.5%. BD/Dexa Bone Density Study IMPRESSION: The patient is considered osteopenic as outlined below according to World Humberto Organization (WHO) criteria with a moderate fracture risk. There has been improvement of bone density since the previous examination. Reference Information: The T-score is the number of standard deviations above or below the standard which is normal for young adults at their peak bone mineral density. The World Health Organization (WHO) interprets the T-scores as follows: Above -1 Normal bone density Between -1 and -2.5 Osteopenia Equal to / or below -2.5 Osteoporosis As a practical clinical guideline, osteopenia may be graded as follows: Mild -1 through -1.5 Moderate -1.6 through -2.0 Severe -2.1 through -2.4 The Z-score is the number of standard deviations above or below age-matched controls. A Z-score of less than -1.5 would be considered abnormal. References: 1. NIH Osteoporosis and Related Bone Diseases www osteo.org 2. International Society for Clinical Densitometry www iscd.org 3. National Osteoporosis Foundation www nof.org Electronically Signed: Abelardo Eduardo MD at 13:51 EST ,
== END | disposition home or self-care (01) ==
LOC: OPBD 13:36
PROVIDERS: PCP Internal Medicine; Visit Provider Internal Medicine
DX: Z78.0 Asymptomatic menopausal state (principal); Z12.31 Encounter for screening mammogram for malignant neoplasm of breast
CPT/HCPCS: 77063; 77067; 77080

== ENCOUNTER 2023-03-11 20:10 | Observation (INO) | payer MEDICARE, SELFPAY ==
[2023-03-11 20:10] VITALS: BP 186/86; PULSE 72; RESP 16; TEMP 36.6; O2SAT 99
[2023-03-11 20:23] VITALS: BMI 38.7
--- NOTE | 2023-03-11 20:37 | EDS_ITS ---
HPI History of Present Illness Chief Complaint: Weakness Informant: patient and family (Daughter) Onset/Context/Timing Onset: Today Context: Gradual Onset Timing: Continuous Location: Right foot, right knee, left ring finger Worsened by: Ambulation, movement Relieved by: Nothing Narrative Narrative: Patient presents with falls over the past couple days. Patient states she has fallen because she feels weak. Patient states it is gradually getting worse. Patient complains of pain in her right foot, right knee, and left ring finger. Patient states her pain is worse with ambulation. Patient denies any head injury or loss of consciousness. Patient does have a history of dementia and multiple sclerosis. Patient does not take any blood thinners. Patient only takes baby aspirin. Prior similar symptoms: Yes PFSH [facility] Medical History AMD (age related macular degeneration) Asthma Atherosclerotic heart disease of [place] coronary artery without angina pectoris Cystitis Essential hypertension Mixed hyperlipidemia MTHFR mutation Multiple sclerosis Rheumatoid arthritis Vascular dementia Home Medications Timolol Maleate [Timoptic-Xe 0.25%] 1 drp DAILY glaucoma 07/14/17 [History Last Taken 09/02/21 08:35] acetaminophen 650 mg tablet,extended release (Tylenol Arthritis Pain) 650 mg PO DAILY pain 07/14/17 [History Last Taken 08/29/21] atenolol 25 mg tablet 25 mg PO BID HTN 07/14/17 [History Last Taken 09/02/21 08:49] cholecalciferol (vitamin D3) 25 mcg (1,000 unit) capsule (Vitamin D3) 2,000 unit PO DAILY supplement 07/14/17 [History Last Taken 09/02/21 08:49] duloxetine 60 mg capsule,delayed release 60 mg PO DAILY depression 07/14/17 [History Last Taken 09/02/21 08:49] folic acid 1 mg tablet 1 mg PO DAILY@0800 supplement 07/14/17 [History Last Taken 09/02/21 08:29] magnesium oxide 400 mg (241.3 mg magnesium) tablet 400 mg PO BID supplement 07/14/17 [History Last Taken 09/02/21 08:50] potassium chloride 20 mEq tablet,extended release(part/cryst) (Klor-Con M) 20 meq PO DAILY supplement 07/14/17 [History Last Taken 09/02/21 08:29] furosemide 20 mg tablet 20 mg PO DAILY diuretic 03/01/18 [History Last Taken 09/02/21 08:49] atorvastatin 10 mg tablet 20 mg PO QHS cholesterol 03/05/19 [History Last Taken 09/01/21 21:09] memantine 10 mg tablet 10 mg PO BID Check with primary doctor 09/02/21 [History Last Taken 09/02/21 08:51] vit A 300 mcg-C 200 mg-E 27 mg-lutein 2 mg and minerals tablet (Healthy Eyes) 1 cap PO BID Supplement 09/02/21 [History Last Taken 09/02/21 08:49] aspirin 81 mg chewable tablet 81 mg PO DAILY 03/11/23 [History Last Taken Unknown] Allergy/AdvReac Type Severity Reaction Status Date / Time baclofen Allergy Unknown Verified 03/11/23 20:14 donepezil [From Aricept] Allergy Other Verified 03/11/23 20:14 hydroxychloroquine Allergy Unknown Verified 03/11/23 20:14 [From Plaquenil] Iodinated Contrast Media Allergy Hives Verified 03/11/23 20:14 [Iodinated Contrast- Oral and IV Dye] pravastatin Allergy Unknown Verified 03/11/23 20:14 shellfish derived Allergy Hives Verified 03/11/23 20:14 spironolactone Allergy Rash Verified 03/11/23 20:14 Sulfa (Sulfonamide Allergy Unknown Verified 03/11/23 20:14 Antibiotics) Family History Other Diabetes MTHFR gene mutation Surgical History History of appendectomy History of hemorrhoidectomy History of kyphoplasty History of tonsillectomy and adenoidectomy History of vitrectomy S/P YAG capsulotomy, left Social History household members: spouse Smoking Status: Never smoker alcohol intake: never substance use type: does not use ROS ROS ED Constitutional Constitutional ED: Denies chills or fever(s) Eyes Eyes: Denies blurry vision or change in vision ENT ENT ED: Reports rhinorrhea; Denies sore throat Cardiovascular Cardiovascular: Denies chest pain or palpitations Respiratory/Chest Respiratory/Chest: Denies cough or dyspnea Gastrointestinal Gastrointestinal: Denies nausea or vomiting Genitourinary Genitourinary ED: Denies dysuria or hematuria Musculoskeletal Musculoskeletal: Denies back pain or neck pain Integumentary Denies abscess or rash Neurologic Neurologic: Reports weakness; Denies headache(s) Allergic/Immunologic Allergic/Immunologic ED: Denies mouth swelling or urticaria EXAM Physical Exam Const Vital Signs: 03/11/23 20:10 Temperature 97.9 F Temperature Source Temporal Pulse Rate 72 Respiratory Rate 16 Blood Pressure 186/86 H Blood Pressure Mean 119 Pulse Ox 99 Oxygen Delivery Method Room Air Positive well nourished, well developed and obese General Appearance ED: well developed and NAD Nutritional Appearance: obese HEENT Reports moist mucous membranes Neck supple and no JVD Resp normal respiratory effort and clear to auscultation bilaterally Cardio regular rate, regular rhythm and no murmurs GI normal to inspection, nondistended, normoactive bowel sounds and non-tender Palpation: soft Extremity normal to inspection Extremity Narrative: There is tenderness over the distal and middle phalanges of the left ring finger. There is some edema and ecchymosis noted. Range of motion was slightly limited in all motions of the left ring finger secondary to pain. There is tenderness over the distal metatarsals of the right foot. There is no ecchymosis. There is mild edema. There is also mild tenderness over the medial aspect of the right knee and proximal tibia. There is no ecchymosis. There is no bony crepitance or step-off. Extensor mechanism is intact. Pedal pulses are equal bilaterally. Sensation was intact to light touch bilaterally in the upper and lower extremities. Strength is 5/5 bilaterally in the upper and lower extremities. General Extremety ED: Yes tenderness Neuro oriented x3, CN's II-XII intact bilaterally and no sensory deficits noted Sensorium / Orientation: alert Motor Exam: strength 5/5 throughout Psych mental status grossly normal Skin no rashes or lesions noted MDM MDM MDM Narrative Medical decision making narrative: Differential diagnosis includes infection, right foot fracture, right tibial plateau fracture, internal derangement of the right knee, left ring finger fracture, urinary tract infection, closed head injury, intracranial bleeding, and left hip contusion. X-rays of the right foot will be obtained to assess for fracture. X-rays of the right knee will be obtained to assess for fracture. X- rays of the left ring finger will be obtained to assess for fracture. CT scan of the brain will be obtained to assess for intracranial bleeding. CBC will be obtained to assess for leukocytosis and anemia. Basic metabolic profile will be obtained to assess for electrolyte abnormality and renal function. Urinalysis will be obtained to assess for urinary tract infection. Lab Data Attestation: I reviewed the patient's lab results. Lab results narrative: CBC was reviewed. There is a mild leukocytosis of 12.4. Basic metabolic profile was reviewed and was essentially within normal limits. Urinalysis was reviewed and does not show any evidence of urinary tract infection or hematuria. Labs: Laboratory Results - last 24 hr 03/11/23 03/11/23 03/11/23 20:55 20:55 22:20 WBC 12.4 H RBC 4.51 Hgb 13.5 Hct 41.4 MCV 91.8 MCH 29.9 MCHC 32.6 RDW Std Deviation 43.5 RDW Coeff of Jameel 13.0 Plt Count 211 MPV 9.6 Immature Gran % (Auto) 0.300 Neut % (Auto) 68.0 Lymph % (Auto) 18.9 L Taylor % (Auto) 8.2 Eos % (Auto) 4.1 Baso % (Auto) 0.5 Absolute Neuts (auto) 8.4 H Absolute Lymphs (auto) 2.34 Nucleated RBC % 0 Sodium 142 Potassium 4.1 Chloride 108 H Carbon Dioxide 27.0 Anion Gap 7 BUN 18 Creatinine 0.83 Estim Creat Clear Calc 43.97 Est GFR (MDRD) Af Amer 85 Est GFR (MDRD) Non-Af 70 BUN/Creatinine Ratio 21.7 H Glucose 117 H Calcium 9.2 Urine Color Straw Urine Clarity Clear Urine pH 7.0 Ur Specific [place] 1.005 Urine Protein Negative Urine Glucose (UA) Normal Urine Ketones Negative Urine Occult Blood Negative Urine Nitrite Negative Urine Bilirubin Negative Urine Urobilinogen Normal Ur Leukocyte Esterase Negative Urine RBC 0 SEEN Urine WBC 0 SEEN Ur Squamous Epith Cells 0 SEEN Urine Bacteria 0 SEEN Urine Mucus 0 SEEN Radiography Diagnostic Testing: Clinical Impression(s) from Imaging Studies Foot X-Ray 03/11/23 20:43 IMPRESSION: 1. Subacute or healing fracture involving the proximal aspect of the second metatarsal. 2. Fracture of the medial corner of the fourth proximal phalanx, which is also suspected to be subacute or incompletely healed. Electronically Signed: Connor Figueroa MD at 22:13 EDT , Knee X-Ray 03/11/23 20:43 IMPRESSION: Small suprapatellar joint effusion without acute or healing fracture or malalignment. Mild degenerative changes of the medial femorotibial compartment. Electronically Signed: Connor Figueroa MD at 22:14 EDT , Brain CT 03/11/23 20:44 IMPRESSION: No acute intracranial hemorrhage or mass effect. Electronically Signed: Dimitri Dickens (Brooks), at 21:37 EDT , Finger X-Ray 03/11/23 21:30 IMPRESSION: Soft tissues are without acute or healing fracture or malalignment. Electronically Signed: Connor Figueroa MD at 22:09 EDT , X-rays of the right foot were obtained. There are 3 views. On my independent interpretation, there is a subacute or healing fracture of the base of the second metatarsal. There is also a fracture of the medial corner of the fourth proximal phalanx. Radiologist also interpreted the x-rays and agrees. X-rays of the right knee were obtained. There are 4 views. On my independent interpretation, there is a small joint effusion. There is no acute fracture or dislocation. Radiologist also interpreted the x-rays and agrees. X-rays of the left fourth finger were obtained. There are 3 views. On my independent interpretation, there is no acute fracture or dislocation. There is some soft tissue swelling noted. Radiologist also interpreted the x-rays and agrees. CT scan of the brain was obtained. There is no acute intracranial abnormality noted. This was interpreted by the radiologist and was also independently reviewed by myself. Management Discussion w/another healthcare provider: Hospitalist Treatment and Re-Evaluation :: Patient and family were advised of the findings. Patient was unable to bear weight and nearly fell while attempting to transfer to the bedside commode. Because of this, I feel the patient would benefit from admission to the hospital for therapy and possibly discharged to an extended care facility for further therapy. Case was discussed with the hospitalist. He will admit the patient for observation. Patient and family understand and are agreeable with the plan. All questions were answered. Discharge Plan Triage Chief Complaint: Weakness ED Provider: Bob Leblanc Dx/Rx/DC Orders Clinical Impression: Frequent falls, Multiple sclerosis, General weakness, Fracture of right foot Prescriptions: No Action atenolol 25 MG tablet 25 mg PO BID Label Comments: folic acid 1 MG tablet 1 mg PO DAILY@0800 duloxetine 60 MG capsule,delayed release(DR/EC) 60 mg PO DAILY acetaminophen [Tylenol Arthritis Pain] 650 MG tablet extended release 650 mg PO DAILY potassium chloride [Klor-Con M20] 20 MEQ tablet,ER particles/crystals 20 meq PO DAILY magnesium oxide 400 MG tablet 400 mg PO BID cholecalciferol (vitamin D3) [Vitamin D3] 1,000 UNIT capsule 2,000 unit PO DAILY Timolol Maleate [Timoptic-Xe 0.25%] 1 DROP Arlyn.Gel 1 drp Each Eye DAILY furosemide 20 MG tablet 20 mg PO DAILY atorvastatin 10 MG tablet 20 mg PO QHS memantine 10 mg tablet 10 mg PO BID Healthy Eyes 1,000 unit-200 mg-60 unit-2 mg tablet 1 cap PO BID aspirin [Baby Aspirin] 81 mg Tablet,Chewable 81 mg PO DAILY Primary Care Provider: Zofia Horton Referrals: Zofia Horton DO [Primary Care Provider] - Disposition Disposition: Acute Care Hospital [facility]
--- NOTE | 2023-03-11 20:43 | RAD_ITS ---
EXAM: XR RIGHT FOOT COMPLETE, 3 OR MORE VIEWS CLINICAL INDICATION: Injury/Pain TECHNIQUE: Frontal, lateral and oblique views of the right foot. COMPARISON: No relevant prior studies available. FINDINGS: BONES/JOINTS: Subacute or healing fracture involving the proximal aspect of the second metatarsal. Diffuse osteopenia. Fracture of the medial corner of the fourth proximal phalanx, which is also suspected to be subacute or incompletely healed. No acute fracture or malalignment. No significant tibiotalar joint effusion. No other unusual lytic or sclerotic lesions of bone. SOFT TISSUES: Diffuse soft tissue swelling. No soft tissue swelling or gas. No radiopaque foreign body. VASCULATURE: Peripheral vascular calcifications are identified projecting between the first and second digit. RAD/Foot min 3 Views IMPRESSION: 1. Subacute or healing fracture involving the proximal aspect of the second metatarsal. 2. Fracture of the medial corner of the fourth proximal phalanx, which is also suspected to be subacute or incompletely healed. Electronically Signed: Connor Figueroa MD at 22:13 EDT ,
--- NOTE | 2023-03-11 20:43 | RAD_ITS ---
EXAM: XR RIGHT KNEE, 3 VIEWS CLINICAL INDICATION: Injury/Pain TECHNIQUE: Three views of the right knee. COMPARISON: No relevant prior studies available. FINDINGS: BONES/JOINTS: Small amount of suprapatellar joint fluid. Medial meniscal chondrocalcinosis suspected. Mild joint space loss at the medial femorotibial compartment. No acute or healing fracture or malalignment. No unusual lytic or sclerotic lesions of bone. SOFT TISSUES: Unremarkable. No soft tissue swelling or gas. No radiopaque foreign body. No other focal soft tissue abnormalities. RAD/Knee 4 or More Views IMPRESSION: Small suprapatellar joint effusion without acute or healing fracture or malalignment. Mild degenerative changes of the medial femorotibial compartment. Electronically Signed: Connor Figueroa MD at 22:14 EDT ,
--- NOTE | 2023-03-11 20:44 | CT_ITS ---
STUDY: CT BRAIN WITHOUT CONTRAST REASON FOR EXAM: Female, 83 years old. Multiple falls this week, weakness RADIATION DOSAGE (If Supplied By Facility): CTDIvol = ( 44.99 ) mGy, DLP = ( 846.73 ) mGycm TECHNIQUE: Transaxial CT imaging of the brain was performed without administration of intravenous contrast material. Individualized dose optimization techniques were used for this CT. COMPARISON: No relevant priors. FINDINGS: Normal soft tissue structures. Normal calvarium. There is mild cerebral atrophy with widening of the extra-axial spaces and ventricular dilatation. There are areas of decreased attenuation within the white matter tracts of the supratentorial brain, consistent with microvascular disease changes. Normal basal ganglia and thalami. Normal brainstem. Normal cerebellum. There is no intracranial hemorrhage. There are no findings of an acute ischemic infarction. Normal visualized paranasal sinuses.
[2023-03-11 21:18] LABS: Absolute Lymphocyte Count 2.34 X10^3/uL (0.83-4.51); Absolute Neutrophil Count 8.4 X10^3/uL (2.0-7.7); Basophil# 0.06 X10^3/uL; Basophil% 0.5 % (0-1); Eosinophil# 0.51 X10^3/uL; Eosinophils% 4.1 % (0-5); Hematocrit 41.4 % (37-47); Hemoglobin 13.5 g/dL (12.0-15.0); Lymphocyte # 2.34 X10^3/ul (0.83-4.51); Lymphocyte % 18.9 % (19-41); Mean Corp Hgb Conc 32.6 g/dL (32-36); Mean Corpuscular Hgb 29.9 pg (27.0-32.0); Mean Corpuscular Volume 91.8 fL (81-99); Mean Platelet Vol. 9.6 fl (6.2-12.0); Monocyte# 1.01 X10^3/uL; Monocyte% 8.2 % (0-10); NRBC Flagged by Analyzer 0 % (0-5); Neutrophil # 8.42 X10^3/uL (2.7-7.7); Platelet Count 211 K/mm3 (150-450); RBC Distribution Width SD 43.5 fl (35.1-43.9); Red Blood Count 4.51 M/mm3 (4.2-5.4); White Blood Count 12.4 K/mm3 (4.4-11.0)
--- NOTE | 2023-03-11 21:30 | RAD_ITS ---
EXAM: XR LEFT FINGERS, 2 OR MORE VIEWS CLINICAL INDICATION: Injury/Pain TECHNIQUE: Frontal, lateral and oblique views of the fingers of the left hand. COMPARISON: No relevant prior studies available. FINDINGS: BONES/JOINTS: Joint spaces are maintained. No sclerotic or destructive changes observed. No acute or healing fracture or malalignment. SOFT TISSUES: Diffuse soft tissue swelling about the fourth digit. No radiopaque foreign body. No soft tissue gas. RAD/Finger(s) Min 2 Views IMPRESSION: Soft tissues are without acute or healing fracture or malalignment. Electronically Signed: Connor Figueroa MD at 22:09 EDT ,
[2023-03-11 21:33] LABS: Anion Gap 7 (5-15); BUN 18 mg/dL (7-18); BUN/Creat Ratio 21.7 RATIO (10-20); Calcium,Total 9.2 mg/dL (8.5-10.1); Chloride 108 mmol/L (98-107); Creatinine, Serum 0.83 mg/dL (0.55-1.02); EST Glomerular Filtration Rate 70 mL/min (>60); Est Glom Filt Rate - Afr Amer 85 mL/min (>60); Estimated Creatinine Clearance 43.97 ml/min; Glucose 117 mg/dL (74-106); Potassium 4.1 mmol/L (3.5-5.1); Sodium Level 142 mmol/L (136-145)
[2023-03-11 22:26] LABS: Bacteria 0 SEEN /hpf (None Seen); Mucous, Urine 0 SEEN /hpf (<or=2+); Red Blood Cells-Urine 0 SEEN /hpf (0-5); Squamous Epithelial Cells - UA 0 SEEN /hpf (5-10); White Blood Cells 0 SEEN /hpf (0-5)
[2023-03-11 22:27] LABS: Color, Urine Straw (Yellow); Glucose, Dipstick Normal (Normal); Ketone-Dipstick Negative (Negative); Leukocyte Esterase-Dipstick Negative /ul (Negative); Nitrite-Dipstick Negative (Negative); Occult Blood-Urine Negative /ul (Negative); Protein-Dipstick Negative (Negative); Specific Gravity, Urine 1.005 (1.002-1.030); Urine Bilirubin Dipstick Negative (Negative); Urine Clarity Clear (Clear); Urine Urobilinogen Normal (Normal)
[2023-03-12] VITALS (7 sets, daily range): BP systolic 143–169; BP diastolic 72–87; PULSE 67–80; RESP 16–18; TEMP 36.6–36.7; O2SAT 93–100; BMI 37.8
--- NOTE | 2023-03-12 | PCM.HP.STD ---
HPI - General General Date of Admission: 03/12/23 Date of Service: 03/12/23 Chief Complaint: Weakness and falls HPI Narrative OSBALDO VILLAVICENCIO, is a 83 F with a significant history of MTHFR gene with pulmonary embolism; vascular dementia; hypertension and mixed hyperlipidemia who presents to the emergency department with multiple falls and weakness. Three days before presentation patient fell. Then on the day of presentation patient fell around breakfast time. Later, on the day of presentation patient and her went to [facility] to eat and over there patient fell in the bathroom. Thereafter they went home and patient's fell again while getting up from her bed. At the emergency department patient almost fell with use of commode and required assistance for multiple people. History was taken predominantly from patient's daughter who is a nurse as patient's has dementia and was unable to provide adequate history. Of note patient reports pain in her left ring finger. Her daughter reported that patient's left leg is weak secondary to multiple sclerosis and is unable to bear weight on her left leg. Imaging showed fracture in her left lower extremity. Patient's daughter reports that Eliquis for PE was stopped because of patient's multiple falls. Patient was then put on aspirin for her PE. Patient daughter was questioning whether there is a DVT in patient's right leg. [facility] Medical History AMD (age related macular degeneration) Asthma Atherosclerotic heart disease of [place] coronary artery without angina pectoris Cystitis Essential hypertension Meningioma Mixed hyperlipidemia MTHFR mutation Multiple sclerosis Rheumatoid arthritis Vascular dementia Home Medications Timolol Maleate [Timoptic-Xe 0.25%] 1 drp DAILY glaucoma 07/14/17 [History Last Taken 09/02/21 08:35] acetaminophen 650 mg tablet,extended release (Tylenol Arthritis Pain) 650 mg PO DAILY pain 07/14/17 [History Last Taken 08/29/21] atenolol 25 mg tablet 25 mg PO BID HTN 07/14/17 [History Last Taken 09/02/21 08:49] cholecalciferol (vitamin D3) 25 mcg (1,000 unit) capsule (Vitamin D3) 2,000 unit PO DAILY supplement 07/14/17 [History Last Taken 09/02/21 08:49] duloxetine 60 mg capsule,delayed release 60 mg PO DAILY depression 07/14/17 [History Last Taken 09/02/21 08:49] folic acid 1 mg tablet 1 mg PO DAILY@0800 supplement 07/14/17 [History Last Taken 09/02/21 08:29] magnesium oxide 400 mg (241.3 mg magnesium) tablet 400 mg PO BID supplement 07/14/17 [History Last Taken 09/02/21 08:50] potassium chloride 20 mEq tablet,extended release(part/cryst) (Klor-Con M) 20 meq PO DAILY supplement 07/14/17 [History Last Taken 09/02/21 08:29] furosemide 20 mg tablet 20 mg PO DAILY diuretic 03/01/18 [History Last Taken 09/02/21 08:49] atorvastatin 10 mg tablet 20 mg PO QHS cholesterol 03/05/19 [History Last Taken 09/01/21 21:09] memantine 10 mg tablet 10 mg PO BID Check with primary doctor 09/02/21 [History Last Taken 09/02/21 08:51] vit A 300 mcg-C 200 mg-E 27 mg-lutein 2 mg and minerals tablet (Healthy Eyes) 1 cap PO BID Supplement 09/02/21 [History Last Taken 09/02/21 08:49] aspirin 81 mg chewable tablet 81 mg PO DAILY 03/11/23 [History Last Taken Unknown] Allergy/AdvReac Type Severity Reaction Status Date / Time baclofen Allergy Unknown Verified 03/11/23 20:14 donepezil [From Aricept] Allergy Other Verified 03/11/23 20:14 hydroxychloroquine Allergy Unknown Verified 03/11/23 20:14 [From Plaquenil] Iodinated Contrast Media Allergy Hives Verified 03/11/23 20:14 [Iodinated Contrast- Oral and IV Dye] pravastatin Allergy Unknown Verified 03/11/23 20:14 shellfish derived Allergy Hives Verified 03/11/23 20:14 spironolactone Allergy Rash Verified 03/11/23 20:14 Sulfa (Sulfonamide Allergy Unknown Verified 03/11/23 20:14 Antibiotics) Family History Other Diabetes MTHFR gene mutation Surgical History History of appendectomy History of hemorrhoidectomy History of kyphoplasty History of tonsillectomy and adenoidectomy History of vitrectomy S/P YAG capsulotomy, left Social History household members: spouse Smoking Status: Never smoker alcohol intake: never substance use type: does not use ROS ROS Narrative Pertinent positives and pertinent negatives as noted in HPI. All other systems were reviewed and are negative Vital Signs Vital Signs Vital Signs: 03/11/23 20:10 Temperature 97.9 F Temperature Source Temporal Pulse Rate 72 Respiratory Rate 16 Blood Pressure 186/86 H Blood Pressure Mean 119 Pulse Ox 99 Oxygen Delivery Method Room Air Weight Weight: 99.1 kg Body Mass Index (BMI) 38.7 Physical Exam Narrative Physical exam: General: Well-nourished, well-developed. Head: Normocephalic, atraumatic, no tenderness Eyes: Vision is grossly intact. EOMI ENT, no trauma, moist mucous membranes, no rhinorrhea Neck: Nontender, No thyromegaly. CVS: Regular rate and rhythm. S1-S2 present. No murmur, gallop or rub. Respiratory : clear to auscultation bilaterally, chest wall nontender Abdomen: Soft, nontender, nondistended, normal bowel sounds, no masses : Deferred Back: Nontender, no CVA tenderness, no midline spinal tenderness, deformities, step-offs Extremities: Edema and tenderness of left middle finger. Tenderness of right leg. Nontender full range of motion, no trauma Skin: Normal color, no trauma, abrasions Neuro: Alert, oriented, cranial nerves II through XII grossly intact. Psychiatry: Normal mood. Normal affect. Not depressed. Not anxious. Results Lab / Micro Data Result Diagrams: 03/11/23 20:55 03/11/23 20:55 Labs: Laboratory Results - last 24 hr 03/11/23 20:55: WBC 12.4 H, RBC 4.51, Hgb 13.5, Hct 41.4, MCV 91.8, MCH 29.9, MCHC 32.6, RDW Std Deviation 43.5, RDW Coeff of Jameel 13.0, Plt Count 211, MPV 9.6, Immature Gran % (Auto) 0.300, Neut % (Auto) 68.0, Lymph % (Auto) 18.9 L, [place] % (Auto) 8.2, Eos % (Auto) 4.1, Baso % (Auto) 0.5, Absolute Neuts (auto) 8.4 H, Absolute Lymphs (auto) 2.34, Nucleated RBC % 0 03/11/23 20:55: Sodium 142, Potassium 4.1, Chloride 108 H, Carbon Dioxide 27.0, Anion Gap 7, BUN 18, Creatinine 0.83, Estim Creat Clear Calc 43.97, Est GFR (MDRD) Af Amer 85, Est GFR (MDRD) Non-Af 70, BUN/Creatinine Ratio 21.7 H, Glucose 117 H, Calcium 9.2 03/11/23 22:20: Urine Color Straw, Urine Clarity Clear, Urine pH 7.0, Ur Specific [place] 1.005, Urine Protein Negative, Urine Glucose (UA) Normal, Urine Ketones Negative, Urine Occult Blood Negative, Urine Nitrite Negative, Urine Bilirubin Negative, Urine Urobilinogen Normal, Ur Leukocyte Esterase Negative, Urine RBC 0 SEEN, Urine WBC 0 SEEN, Ur Squamous Epith Cells 0 SEEN, Urine Bacteria 0 SEEN, Urine Mucus 0 SEEN Radiology Impression Foot X-Ray 03/11/23 20:43 IMPRESSION: 1. Subacute or healing fracture involving the proximal aspect of the second metatarsal. 2. Fracture of the medial corner of the fourth proximal phalanx, which is also suspected to be subacute or incompletely healed. Electronically Signed: Connor Figueroa MD at 22:13 EDT , Knee X-Ray 03/11/23 20:43 IMPRESSION: Small suprapatellar joint effusion without acute or healing fracture or malalignment. Mild degenerative changes of the medial femorotibial compartment. Electronically Signed: Connor Figueroa MD at 22:14 EDT , Brain CT 03/11/23 20:44 IMPRESSION: No acute intracranial hemorrhage or mass effect. Electronically Signed: Dimitri Dickens (Brooks), at 21:37 EDT , Finger X-Ray 03/11/23 21:30 IMPRESSION: Soft tissues are without acute or healing fracture or malalignment. Electronically Signed: Connor Figueroa MD at 22:09 EDT , Assessment & Plan Assessment/Plan (1) Frequent falls: (2) General weakness: PLAN: Plan Generalized weakness with multiple falls; and subacute extremities fractures PT and OT to work with patient. Case management consult. Check vitamin D. Per radiologist interpretation of finger x-ray there is diffuse soft tissue swelling of left fourth digit of left hand with no acute or healing fractures normal limits. Finger x-ray was independently interpreted and I agree with radiologist interpretation. Brain CT with no acute intracranial hemorrhage or mass effect. Right knee x-ray per radiologist radiologist impression: Small suprapatellar joint effusion without acute or healing fracture or malalignment. And with mild degenerative changes of the medial femoral-tibial compartments. Radiologist impression of right foot x-ray: 1.? Subacute or healing fracture involving the proximal aspect of the second metatarsal. ? 2.? Fracture of the medial corner of the fourth proximal phalanx, which is also suspected to be subacute or incompletely healed. Per daughter patient previously was on muscle relaxant and Lyrica and patient has been weaned off. Per daughters recommendation home Tylenol arthritis will be continued. Per daughter's recommendation will get ultrasound of right lower extremities to rule out DVT as patient has a history of MT HFR gene with PE.'s recommendation we will get duplex ultrasound of patient's right leg secondary pain but indeed does not mean that Leukocytosis Noted to have white count of 12,400. Likely reactive. Trend. Charges/Coding Visit Charges Inpatient E&M: 65353 Init Hosp L2
[2023-03-12] MEDS: Acetaminophen 325 MG Tablet 650 MG PO ×3 (01:27→20:31)
[2023-03-12 06:29] LABS: Absolute Lymphocyte Count 2.77 X10^3/uL (0.83-4.51); Absolute Neutrophil Count 5.2 X10^3/uL (2.0-7.7); Basophil# 0.06 X10^3/uL; Basophil% 0.6 % (0-1); Eosinophil# 0.59 X10^3/uL; Eosinophils% 6.2 % (0-5); Hematocrit 41.4 % (37-47); Hemoglobin 13.2 g/dL (12.0-15.0); Lymphocyte # 2.77 X10^3/ul (0.83-4.51); Lymphocyte % 29.1 % (19-41); Mean Corp Hgb Conc 31.9 g/dL (32-36); Mean Corpuscular Hgb 30.2 pg (27.0-32.0); Mean Corpuscular Volume 94.7 fL (81-99); Mean Platelet Vol. 9.6 fl (6.2-12.0); Monocyte# 0.84 X10^3/uL; Monocyte% 8.8 % (0-10); NRBC Flagged by Analyzer 0 % (0-5); Neutrophil # 5.24 X10^3/uL (2.7-7.7); Neutrophil % 55.1 % (47-70); Platelet Count 199 K/mm3 (150-450); RBC Distribution Width CV 12.9 % (11.6-14.6); RBC Distribution Width SD 44.5 fl (35.1-43.9); Red Blood Count 4.37 M/mm3 (4.2-5.4); White Blood Count 9.5 K/mm3 (4.4-11.0)
[2023-03-12 07:07] LABS: Anion Gap 6 (5-15); BUN 15 mg/dL (7-18); BUN/Creat Ratio 21.3 RATIO (10-20); Calcium,Total 9.1 mg/dL (8.5-10.1); Chloride 109 mmol/L (98-107); EST Glomerular Filtration Rate 85 mL/min (>60); Est Glom Filt Rate - Afr Amer 103 mL/min (>60); Glucose 117 mg/dL (74-106); Potassium 3.9 mmol/L (3.5-5.1); Sodium Level 142 mmol/L (136-145); Thyroid Stim Hormone (TSH) 2.58 uIU/mL (0.358-3.74)
--- NOTE | 2023-03-12 08:25 | VDLE_ITS ---
Reason For Study: RLE PAIN RIGHT LEFT GSV is normal. CFV is compressible, spontaneous, phasic, CFV is compressible, spontaneous, phasic, competent, and demonstrates normal competent and demonstrates normal augmentation. augmentation. FV is compressible, spontaneous, phasic, competent and demonstrates normal augmentation. POP V is compressible, spontaneous, phasic, competent and demonstrates normal augmentation. T/P Trunk is compressible. PTV is compressible. RT PerV is compressible. Procedure This is a venous duplex using B-mode, color flow and spectral Doppler. Exam performed portable in patient room. The exam was diagnostic. A preliminary report was called and/or faxed to [facility]. VL/Venous Duplex US, Unilateral Interpretation Summary Deep veins of the right lower extremity are patent and compressible segmentally . There is no evidence of right lower extremity deep vein thrombosis. The right great sapheno us vein appears patent and compressible segmentally. Ordering Physician: Sukhwinder Cruz Referring Physician: Zofia Horton Performed By: Darshana Hook, RDCS, RVT
[2023-03-12] MEDS: Folic Acid 1 MG Tablet PO (08:29)
[2023-03-12] MEDS: Potassium Chloride Oral Tablet 20 MEQ PO (08:30)
[2023-03-12] MEDS: Aspirin 81 MG TAB.CHEW PO (08:30)
[2023-03-12] MEDS: DULoxetine Hcl 60 MG Capsule PO (08:31)
[2023-03-12] MEDS: Magnesium Chloride 64 MG Delay Rel.Tablet 128 MG PO ×2 (08:31→20:31)
[2023-03-12] MEDS: Furosemide 20 MG Tablet PO (08:31)
[2023-03-12] MEDS: Memantine Hydrochloride 10 MG Tablet PO ×2 (08:32→20:32)
[2023-03-12] MEDS: Timolol 0.5% 5ML OPTH.BTL 1 DRP EACH EYE ×2 (08:32→20:31)
[2023-03-12] MEDS: Atenolol 25 MG Tablet PO ×2 (08:32→20:31)
[2023-03-12] MEDS: Cholecalciferol (VIT D3) 25 MCG TABLET (1,000 UNITS) 50 MCG PO (08:33)
--- NOTE | 2023-03-12 08:33 | NURSING ---
08:27 boiling house oiler sent text regarding stat venous duplex r/o DVT
--- NOTE | 2023-03-12 10:32 | PN.HOSP_ITS ---
Hospitalist Note Patient was seen and examined briefly today, she is able to answer some simple questions but is overall confused. Patient was brought in due to several falls that she had at home, she has a history of vascular dementia and MS. It appears per nursing that we will try to have the patient placed in a nursing facility for short-term rehab services. It appears that the patient has a Medicare advantage plan so this will not likely happen until next Monday. Patient will be seen by PT and OT, she does have a fracture of the right second meta tarsal and a fracture of the medial corner of the fourth proximal phalanx. Patient also has a history of essential hypertension, coronary artery disease, and hyperlipidemia.
[2023-03-12] MEDS: Atorvastatin Calcium 20 MG Tablet PO (20:32)
[2023-03-13 03:00] VITALS: BP 142/63; PULSE 66; RESP 18; TEMP 36.6; O2SAT 93
[2023-03-13] MEDS: Folic Acid 1 MG Tablet PO ×2 (07:59→08:00)
[2023-03-13] MEDS: Atenolol 25 MG Tablet PO ×2 (07:59→21:09)
[2023-03-13] MEDS: Aspirin 81 MG TAB.CHEW PO (07:59)
[2023-03-13] MEDS: Potassium Chloride Oral Tablet 20 MEQ PO (07:59)
[2023-03-13] MEDS: Magnesium Chloride 64 MG Delay Rel.Tablet 128 MG PO ×2 (08:00→21:09)
[2023-03-13] MEDS: Furosemide 20 MG Tablet PO (08:00)
[2023-03-13] MEDS: Acetaminophen 325 MG Tablet 650 MG PO ×2 (08:01→21:09)
[2023-03-13] MEDS: Memantine Hydrochloride 10 MG Tablet PO ×2 (08:01→21:09)
[2023-03-13] MEDS: Cholecalciferol (VIT D3) 25 MCG TABLET (1,000 UNITS) 50 MCG PO (08:01)
[2023-03-13] MEDS: Timolol 0.5% 5ML OPTH.BTL 1 DRP EACH EYE ×2 (08:02→21:08)
[2023-03-13] MEDS: DULoxetine Hcl 60 MG Capsule PO (08:04)
[2023-03-13 09:00] VITALS: BP 159/85; PULSE 67; RESP 18; TEMP 36.7; O2SAT 97
--- NOTE | 2023-03-13 10:03 | PN.HOSP_ITS ---
Reason for Visit Reason for Visit: Diagnoses Repeated falls (03/11/23) Weakness (03/11/23) Subjective Subjective Patient was seen and examined today, she is resting quietly and voices no complaints. Objective Data Objective Data Vital Signs: Vital Signs Temp Pulse Resp BP Pulse Ox O2 Del Method 97.8 F 66 18 142/63 H 93 Room Air 03/13/23 03:00 03/13/23 03:00 03/13/23 03:00 03/13/23 03:00 03/13/23 03:00 03/13/23 03:00 Oxygen Delivery Method Room Air Weight: 97 kg Body Mass Index (BMI) 37.8 Intake & Output: Intake and Output for Last 24 Hours 03/11/23 03/12/23 03/13/23 23:59 23:59 23:59 Intake Total 700 / 700 Output Total 1999 / 1999 Balance -1300 / -1300 Lab / Micro Data Result Diagrams: 03/12/23 05:45 03/12/23 05:45 Physical Exam Const alert and no apparent distress Constitutional Narrative: Patient exhibits mild to moderate cognitive impairment General Appearance: cooperative, well kempt and well developed Orientation / Consciousness: awake, oriented to person and oriented to place HEENT normocephalic, head/scalp atraumatic and moist oral mucous membranes Eyes PERRL, EOMs intact bilaterally and conjunctivae normal Neck supple, no JVD, thyroid normal and no carotid bruits General: trachea midline Resp normal respiratory effort, no retractions, no use of accessory muscles and clear to auscultation bilaterally Auscultation: Negative for rales, rhonchi or wheezes Cardio regular rate, regular rhythm, S1 normal heart sound, S2 normal heart sound, no murmurs, no rub and no gallops GI normal to inspection, nondistended, normoactive bowel sounds, soft to palpation, non-tender and non-distended Extremity no clubbing, cyanosis or edema Skin no rashes or lesions noted General Skin Exam: no breakdown Neuro CN's II-XII intact bilaterally, no focal motor deficits and no sensory deficits noted Sensorium / Orientation: awake and alert Speech: speech normal Psych Psych Narrative: Patient has mild to moderate cognitive impairment Assessment & Plan Assessment/Plan (1) General weakness: PLAN: Plan 1. Generalized debility-secondary to multiple medical problems including MS and vascular dementia-PT and OT will continue to see the patient, she will need at least short-term placement in a rehab facility or intermediate facility due to frequent falling and unsteadiness of gait. #2 MS-patient is not currently getting treated for this #3 vascular dementia-complicates care, medical course, recovery, and prognosis #4 essential hypertension-patient will remain on her current medications #5 coronary artery disease-stable at this time #6 fracture of the right second metatarsal bone and a fracture of the medial corner of the fourth proximal phalanx-complicates care, medical course, recovery, and prognosis Total clinical time spent by myself addressing the patient's medical issues, reviewing all of her data, and collaborating with patient's care team: 25 minutes Charges/Coding Visit Charges Inpatient E&M: 45859 Subs Hosp L1
[2023-03-13 14:30] VITALS: BP 146/68; PULSE 68; RESP 18; TEMP 36.4; O2SAT 98
[2023-03-13 20:00] VITALS: BP 159/80; PULSE 73; RESP 16; TEMP 36.6; O2SAT 97
[2023-03-13] MEDS: Atorvastatin Calcium 20 MG Tablet PO (21:10)
[2023-03-14 02:00] VITALS: BP 150/75; PULSE 68; RESP 16; TEMP 36.6; O2SAT 95
--- NOTE | 2023-03-14 07:28 | PN.HOSP_ITS ---
Reason for Visit Reason for Visit: Diagnoses Repeated falls (03/11/23) Weakness (03/11/23) Subjective Subjective Patient is an 83-year-old with history of multiple sclerosis currently not on any treatment who presented with multiple falls Objective Data Objective Data Vital Signs: Vital Signs Temp Pulse Resp BP Pulse Ox O2 Del Method 97.8 F 68 16 150/75 H 95 Room Air 03/14/23 02:00 03/14/23 02:00 03/14/23 02:00 03/14/23 02:00 03/14/23 02:00 03/14/23 02:00 Oxygen Delivery Method Room Air Weight: 97 kg Body Mass Index (BMI) 37.8 Intake & Output: Intake and Output for Last 24 Hours 03/12/23 03/13/23 03/14/23 23:59 23:59 23:59 Intake Total 700 / 700 540 / 540 Output Total 2000 / 1999 800 / 1100 800 / 800 Balance -1300 / -1300 -260 / -560 -800 / -800 Lab / Micro Data Result Diagrams: 03/12/23 05:45 03/12/23 05:45 Physical Exam Narrative GENERAL: cooperative HEENT: Atraumatic; normocephalic EYES; Anicteric, Normal Conjunctiva NECK; supple, normal thyroid, RESPIRATORY: Diminished to auscultation CARDIOVASCULAR: Regular S1 S2, GI: soft, normoactive bowel sounds, : No Renal angle tenderness; EXTREMITIES: No edema, no clubbing, MUSCULOSKELETAL: no muscle wasting NEURO: Awake; no lateralizing signs. SKIN: No Rash PSYCH; Flat affect Assessment & Plan Assessment/Plan (1) General weakness: PLAN: Plan Patient is an 83-year-old with history of multiple sclerosis currently not on any treatment who presented with multiple falls 1. Physical deconditioning - Requested for PT OT eval and group social worker to assist with discharge planning ? Case was discussed with patient and family the preference would be to go to [facility] inpatient rehab unit 2. Multiple sclerosis ? Currently not being treated 3. Vascular dementia ? Complicating patient's care 4. Hypertension - Blood pressure controlled, home medications continued with dose adjustment as needed 5. Coronary artery disease Currently stable 6. Fracture of the right second metatarsal bone and fracture of the medial condyle of the fourth proximal phalanx ? Pain meds as needed 7. DVT prophylaxis ?[place] Lovenox Time spent in the patient's overall evaluation,decision-making process, review of diagnostic data, adjustment of management, discussion with other providers, nursing nursing and ancillary staff involved in patient's care documentation, 35 Minutes Charges/Coding Visit Charges Inpatient E&M: 32073 Subs Hosp L2
[2023-03-14 09:21] VITALS: O2SAT 94
[2023-03-14 09:59] VITALS: BP 135/75; PULSE 91; RESP 18; TEMP 36.5; O2SAT 95
--- NOTE | 2023-03-14 10:01 | CASEMGMT ---
Addendum entered by Neida Vides 03/14/23 12:55: [facility] is unable to accept. Will await determination from [facility]. CAROLYNN Crooks Original Note: Social Work SW met with pt, pt spouse and pt dgt Mary and introduced self and role of SW. Pt with some confusion as she is introducing her as her father. Pt dgt and spouse requesting short term SNF placement for rehabilitation and strengthening prior to returning home. A list of SNF providers including quality and resource use data and consistent with the patient?s preferred geographic region, medical needs, and insurance network were provided from the [employer] Guide. Preferred providers are 1. TCU and 2. [facility]. Referral to TCU and per Mela, beds are limited at this time and determination will be made later today. JUSTYN updated Lynne, d/c perioperative assistant, and requested that referral be made to [facility] at this time in the event TCU cannot accept. Precert will need to be obtained prior to admission to SNF. Plan: TCU or [facility] SNF, pending acceptance and precert CAROLYNN Crooks
--- NOTE | 2023-03-14 10:02 | CASEMGMT ---
QUINTON ALBERT in to discuss PETTY form with patient, patient's dtr and . RN CM explained PETTY form, patient voiced understanding. Pt signed form and filed in chart. Pt provided with a copy of signed PETTY form. Patient and family had no further questions or concerns at this time.
[2023-03-14] MEDS: Magnesium Chloride 64 MG Delay Rel.Tablet 128 MG PO ×2 (10:06→20:40)
[2023-03-14] MEDS: Enoxaparin 40 MG/0.4 ML Syringe SC (10:06)
[2023-03-14] MEDS: Potassium Chloride Oral Tablet 20 MEQ PO (10:07)
[2023-03-14] MEDS: Furosemide 20 MG Tablet PO (10:07)
[2023-03-14] MEDS: DULoxetine Hcl 60 MG Capsule PO (10:07)
[2023-03-14] MEDS: Aspirin 81 MG TAB.CHEW PO (10:07)
[2023-03-14] MEDS: Atenolol 25 MG Tablet PO ×2 (10:08→20:40)
[2023-03-14] MEDS: Memantine Hydrochloride 10 MG Tablet PO ×2 (10:08→20:40)
[2023-03-14] MEDS: Cholecalciferol (VIT D3) 25 MCG TABLET (1,000 UNITS) 50 MCG PO (10:08)
[2023-03-14] MEDS: Acetaminophen 325 MG Tablet 650 MG PO ×2 (10:08→20:41)
[2023-03-14] MEDS: Timolol 0.5% 5ML OPTH.BTL 1 DRP EACH EYE ×2 (10:09→20:40)
--- NOTE | 2023-03-14 10:28 | CASEMGMT ---
Discharge Planning Referral sent to [facility] via [facility]. Lynne Gaines
--- NOTE | 2023-03-14 13:21 | CASEMGMT ---
Discharge Planning [facility] declined patient. SW notified. Referral sent to next choice, [facility], via [facility]. Lynne Gaines
--- NOTE | 2023-03-14 14:27 | CASEMGMT ---
Social Work SW updated pt, pt and pt dgt that [facility] and [facility] are unable to accept pt. Also updated that referral has been made to [facility] and they will be at the hospital today for an onsite visit. All are in agreement. Plan: [facility], pending acceptance and precert CAROLYNN Crooks
--- NOTE | 2023-03-14 15:01 | CASEMGMT ---
Addendum entered by Neida Vides 03/14/23 15:18: Social Work Due to diagnosis of MS, pt has been referred to [facility] for categorical determination. Pt cannot discharge to facility until case is reviewed by [place] Department of DD. CAROLYNN Crooks Original Note: Social Work SW completing PASRR in [facility] for admission to nursing facility. Pt presenting with diagnosis of Multiple Sclerosis. SW spoke with pt and regarding onset of diagnosis to obtain information for PASRR. Pt initially states onset at age 18. Pt spouse unable to clarify the age of onset but does confirm it was prior to their marriage and pt was 25 when they were . CAROLYNN Crooks
--- NOTE | 2023-03-14 15:25 | CASEMGMT ---
Discharge Planning [facility] has accepted. Requested that pre-cert be started. Also notified that patient tripped passr screen. Lynne Gaines
--- NOTE | 2023-03-14 15:29 | CASEMGMT ---
Social Work [facility] is able to accept pt and will start precert at this time. Phone call to pt dgt and updated. SW met with pt and pt and updated. All agreeable to d/c plan. Plan: [facility], pending precert and categorical determination from [place] board of DD CAROLYNN Crooks
[2023-03-14 15:47] VITALS: BP 142/84; PULSE 85; RESP 18; TEMP 36.6; O2SAT 95
[2023-03-14 20:04] VITALS: BP 138/90; PULSE 79; RESP 16; TEMP 36.6; O2SAT 95
[2023-03-14] MEDS: Atorvastatin Calcium 20 MG Tablet PO (20:40)
[2023-03-15 02:04] VITALS: BP 154/73; PULSE 72; RESP 16; TEMP 36.7; O2SAT 96
[2023-03-15 06:09] LABS: Absolute Lymphocyte Count 3.57 X10^3/uL (0.83-4.51); Absolute Neutrophil Count 4.5 X10^3/uL (2.0-7.7); Basophil# 0.09 X10^3/uL; Basophil% 0.9 % (0-1); Eosinophil# 0.68 X10^3/uL; Hemoglobin 14.6 g/dL (12.0-15.0); Lymphocyte # 3.57 X10^3/ul (0.83-4.51); Mean Corp Hgb Conc 33.2 g/dL (32-36); Mean Corpuscular Hgb 30.9 pg (27.0-32.0); Mean Corpuscular Volume 93.2 fL (81-99); Mean Platelet Vol. 9.6 fl (6.2-12.0); Monocyte# 0.81 X10^3/uL; Monocyte% 8.4 % (0-10); NRBC Flagged by Analyzer 0 % (0-5); Neutrophil # 4.48 X10^3/uL (2.7-7.7); Neutrophil % 46.4 % (47-70); Platelet Count 219 K/mm3 (150-450); RBC Distribution Width CV 13.3 % (11.6-14.6); RBC Distribution Width SD 45.1 fl (35.1-43.9); Red Blood Count 4.72 M/mm3 (4.2-5.4); White Blood Count 9.7 K/mm3 (4.4-11.0)
[2023-03-15 06:52] LABS: Anion Gap 7 (5-15); BUN 22 mg/dL (7-18); BUN/Creat Ratio 25.6 RATIO (10-20); Calcium,Total 9.2 mg/dL (8.5-10.1); Chloride 107 mmol/L (98-107); Creatinine, Serum 0.86 mg/dL (0.55-1.02); EST Glomerular Filtration Rate 67 mL/min (>60); Est Glom Filt Rate - Afr Amer 81 mL/min (>60); Estimated Creatinine Clearance 42.44 ml/min; Glucose 118 mg/dL (74-106); Phosphorus 4.3 mg/dL (2.5-4.9); Potassium 4.2 mmol/L (3.5-5.1); Sodium Level 140 mmol/L (136-145)
--- NOTE | 2023-03-15 07:29 | PCM.PN.HOSP ---
Reason for Visit Reason for Visit: Diagnoses Repeated falls (03/11/23) Weakness (03/11/23) Subjective Subjective Patient seen participating in physical therapy. [facility]waiting [facility] to [facility] Objective Data Objective Data Vital Signs: Vital Signs Temp Pulse Resp BP Pulse Ox O2 Del Method 98.0 F 72 16 154/73 H 96 Room Air 03/15/23 02:04 03/15/23 02:04 03/15/23 02:04 03/15/23 02:04 03/15/23 02:04 03/15/23 02:04 Oxygen Delivery Method Room Air Weight: 97 kg Body Mass Index (BMI) 37.8 Intake & Output: Intake and Output for Last 24 Hours 03/13/23 03/14/23 03/15/23 23:59 23:59 23:59 Intake Total 540 / 540 1600 / 1600 Output Total 800 / 1100 1550 / 1550 400 / 400 Balance -260 / -560 50 / 50 -400 / -400 Lab / Micro Data Result Diagrams: 03/15/23 05:45 03/15/23 05:45 Labs: Laboratory Results - last 24 hr 03/15/23 05:45: WBC 9.7, RBC 4.72, Hgb 14.6, Hct 44.0, MCV 93.2, MCH 30.9, MCHC 33.2, RDW Std Deviation 45.1 H, RDW Coeff of Jameel 13.3, Plt Count 219, MPV 9.6, Immature Gran % (Auto) 0.300, Neut % (Auto) 46.4 L, Lymph % (Auto) 37.0, [place] % (Auto) 8.4, Eos % (Auto) 7.0 H, Baso % (Auto) 0.9, Absolute Neuts (auto) 4.5, Absolute Lymphs (auto) 3.57, Nucleated RBC % 0 03/15/23 05:45: Sodium 140, Potassium 4.2, Chloride 107, Carbon Dioxide 26.0, Anion Gap 7, BUN 22 H, Creatinine 0.86, Estim Creat Clear Calc 42.44, Est GFR (MDRD) Af Amer 81, Est GFR (MDRD) Non-Af 67, BUN/Creatinine Ratio 25.6 H, Glucose 118 H, Calcium 9.2, Phosphorus 4.3, Magnesium 2.0 Radiography Diagnostic Testing: Radiology Impression Venous Doppler Study 03/12/23 08:25 Interpretation Summary Deep veins of the right lower extremity are patent and compressible segmentally. There is no evidence of right lower extremity deep vein thrombosis. The right great saphenous vein appears patent and compressible segmentally. Ordering Physician: Sukhwinder Cruz Referring Physician: Zofia Horton Performed By: Darshana Hook, MARTIN, RVT Physical Exam Narrative GENERAL: cooperative HEENT: Atraumatic; normocephalic EYES; Anicteric, Normal Conjunctiva NECK; supple, normal thyroid, RESPIRATORY: Diminished to auscultation CARDIOVASCULAR: Regular S1 S2, GI: soft, normoactive bowel sounds, : No Renal angle tenderness; EXTREMITIES: No edema, no clubbing, MUSCULOSKELETAL: no muscle wasting NEURO: Awake; no lateralizing signs. SKIN: No Rash PSYCH; Flat affect Assessment & Plan Assessment/Plan (1) General weakness: PLAN: Plan Patient is an 83-year-old with history of multiple sclerosis currently not on any treatment who presented with multiple falls 1. Physical deconditioning - Requested for PT OT eval and social worker delinquency prevention to assist with discharge planning ? Case was discussed with patient and family the preference would be to go to the inpatient rehab unit ? 03/15/2023. Patient is participating in physical therapy plan for patient to be transferred to [facility] once insurance precertification is obtained 2. Multiple sclerosis ? Currently not being treated 3. Vascular dementia ? Complicating patient's care 4. Hypertension - Blood pressure controlled, home medications continued with dose adjustment as needed 5. Coronary artery disease Currently stable 6. Fracture of the right second metatarsal bone and fracture of the medial condyle of the fourth proximal phalanx ? Pain meds as needed 7. DVT prophylaxis ?[place] Lovenox Time spent in the patient's overall evaluation,decision-making process, review of diagnostic data, adjustment of management, discussion with other providers, nursing nursing and ancillary staff involved in patient's care documentation, 35 Minutes Charges/Coding Visit Charges Inpatient E&M: 67901 Subs Hosp L2
[2023-03-15 08:04] VITALS: BP 145/75; PULSE 78; RESP 16; TEMP 36.7; O2SAT 96
[2023-03-15] MEDS: Potassium Chloride Oral Tablet 20 MEQ PO (08:55)
[2023-03-15] MEDS: DULoxetine Hcl 60 MG Capsule PO (08:55)
[2023-03-15] MEDS: Enoxaparin 40 MG/0.4 ML Syringe SC (08:55)
[2023-03-15] MEDS: Folic Acid 1 MG Tablet PO (08:55)
[2023-03-15] MEDS: Magnesium Chloride 64 MG Delay Rel.Tablet 128 MG PO ×2 (08:55→21:32)
[2023-03-15] MEDS: Memantine Hydrochloride 10 MG Tablet PO ×2 (08:55→21:32)
[2023-03-15] MEDS: Atenolol 25 MG Tablet PO ×2 (08:55→21:32)
[2023-03-15] MEDS: Aspirin 81 MG TAB.CHEW PO (08:55)
[2023-03-15] MEDS: Timolol 0.5% 5ML OPTH.BTL 1 DRP EACH EYE ×2 (08:56→21:34)
[2023-03-15] MEDS: Cholecalciferol (VIT D3) 25 MCG TABLET (1,000 UNITS) 50 MCG PO (08:56)
[2023-03-15] MEDS: Furosemide 20 MG Tablet PO (08:56)
[2023-03-15] MEDS: Acetaminophen 325 MG Tablet 650 MG PO ×2 (08:56→21:33)
--- NOTE | 2023-03-15 12:22 | TREXTCAR_ITS ---
Diet Diet Order/Speech Therapy: 03/12/23 01:07 Diet: Cardiac - Heart Healthy Food consistency:: Regular Liquid Consistency:: Regular/Thin Routine Orders/Code Status Code Status: DNRCC-A Therapies Physical Therapy: Eval and Treat Occupational Therapy: Eval and Treat Problem/Diagnosis (1) General weakness: Status: Acute Code(s): R53.1 - Weakness Plan Patient is an 83-year-old with history of multiple sclerosis currently not on any treatment who presented with multiple falls 1. Physical deconditioning - Requested for PT OT eval and psychotherapist social worker to assist with discharge planning ? Case was discussed with patient and family the preference would be to go to the inpatient rehab unit ? 03/15/2023. Patient is participating in physical therapy plan for patient to be transferred to long term facility once insurance precertification is obtained 2. Multiple sclerosis ? Currently not being treated 3. Vascular dementia ? Complicating patient's care 4. Hypertension - Blood pressure controlled, home medications continued with dose adjustment as needed 5. Coronary artery disease Currently stable 6. Fracture of the right second metatarsal bone and fracture of the medial condyle of the fourth proximal phalanx ? Pain meds as needed 7. DVT prophylaxis ?SC Lovenox Time spent in the patient's overall evaluation,decision-making process, review of diagnostic data, adjustment of management, discussion with other providers, nursing nursing and ancillary staff involved in patient's care documentation, 35 Minutes Allergies/Procedures Done in Hospital Allergies baclofen Allergy (Verified 03/11/23 20:14) Unknown donepezil [From Aricept] Allergy (Verified 03/11/23 20:14) Other hydroxychloroquine [From Plaquenil] Allergy (Verified 03/11/23 20:14) Unknown Iodinated Contrast Media [Iodinated Contrast- Oral and IV Dye] Allergy (Verified 03/11/23 20:14) Hives pravastatin Allergy (Verified 03/11/23 20:14) Unknown shellfish derived Allergy (Verified 03/11/23 20:14) Hives spironolactone Allergy (Verified 03/11/23 20:14) Rash Sulfa (Sulfonamide Antibiotics) Allergy (Verified 03/11/23 20:14) Unknown Type of Care/Length of Stay Estimated LOS: Convalescent Care Less Than 30 days Type of Care Needed: Skilled Rehab Potential: Good Prognosis: Good Additional Orders/Day of Discharge Day of Discharge: 03/15/23 Discharge Plan Admission Admit Date/Time: 03/11/23 23:49 Attending Provider: Cj Calvillo Primary Care Provider: Zofia Horton Consulting Providers: Roberto Stern ; Sukhwinder Cruz Discharge Orders/Prescriptions Prescriptions: New sennosides-docusate sodium [Stool Softener-Stimulant Laxat] 8.6-50 mg Tablet 2 tab PO BID PRN PRN (Reason: Constipation) Qty: 0 0RF melatonin 3 mg Tablet 3 mg PO QHS PRN PRN (Reason: Insomnia) Qty: 0 0RF Continued atenolol 25 MG tablet 25 mg PO BID Label Comments: folic acid 1 MG tablet 1 mg PO DAILY@0800 duloxetine 60 MG capsule,delayed release(DR/EC) 60 mg PO DAILY acetaminophen [Tylenol Arthritis Pain] 650 MG tablet extended release 650 mg PO BID potassium chloride [Klor-Con M20] 20 MEQ tablet,ER particles/crystals 20 meq PO DAILY magnesium oxide 400 MG tablet 400 mg PO BID cholecalciferol (vitamin D3) [Vitamin D3] 1,000 UNIT capsule 2,000 unit PO DAILY Timolol Maleate [Timoptic-Xe 0.25%] 1 DROP Arlyn.Gel 1 drp Each Eye DAILY furosemide 20 MG tablet 20 mg PO DAILY atorvastatin 10 MG tablet 20 mg PO QHS memantine 10 mg tablet 10 mg PO BID Healthy Eyes 1,000 unit-200 mg-60 unit-2 mg tablet 1 cap PO BID aspirin 81 mg Tablet,Chewable 81 mg PO DAILY Referrals / Follow Up: Zofia Horton DO [Primary Care Provider] -
[2023-03-15 14:08] VITALS: BP 129/90; PULSE 85; RESP 16; TEMP 36.8; O2SAT 100
[2023-03-15 21:30] VITALS: BP 145/74; PULSE 84; RESP 18; TEMP 36.8; O2SAT 96
[2023-03-15] MEDS: Atorvastatin Calcium 20 MG Tablet PO (21:32)
[2023-03-16 05:00] LABS: Absolute Lymphocyte Count 3.42 X10^3/uL (0.83-4.51); Basophil# 0.08 X10^3/uL; Basophil% 0.8 % (0-1); Eosinophil# 0.62 X10^3/uL; Eosinophils% 6.2 % (0-5); Hematocrit 43.8 % (37-47); Lymphocyte # 3.42 X10^3/ul (0.83-4.51); Lymphocyte % 34.3 % (19-41); Mean Corpuscular Hgb 29.8 pg (27.0-32.0); Mean Corpuscular Volume 93.2 fL (81-99); Mean Platelet Vol. 9.5 fl (6.2-12.0); Monocyte# 0.78 X10^3/uL; Monocyte% 7.8 % (0-10); NRBC Flagged by Analyzer 0 % (0-5); Neutrophil # 5.04 X10^3/uL (2.7-7.7); Neutrophil % 50.6 % (47-70); Platelet Count 225 K/mm3 (150-450); RBC Distribution Width CV 13.2 % (11.6-14.6); RBC Distribution Width SD 44.9 fl (35.1-43.9)
[2023-03-16 05:30] LABS: Anion Gap 6 (5-15); BUN 30 mg/dL (7-18); BUN/Creat Ratio 30.3 RATIO (10-20); Calcium,Total 9.6 mg/dL (8.5-10.1); Chloride 106 mmol/L (98-107); Creatinine, Serum 0.99 mg/dL (0.55-1.02); EST Glomerular Filtration Rate 57 mL/min (>60); Est Glom Filt Rate - Afr Amer 69 mL/min (>60); Estimated Creatinine Clearance 36.87 ml/min; Glucose 108 mg/dL (74-106); Potassium 4.3 mmol/L (3.5-5.1); Sodium Level 141 mmol/L (136-145)
[2023-03-16 05:53] VITALS: BP 137/67; PULSE 72; RESP 16; TEMP 36.6; O2SAT 94
[2023-03-16 07:54] VITALS: BP 137/64; PULSE 70; RESP 18; TEMP 36.6; O2SAT 94
[2023-03-16] MEDS: Folic Acid 1 MG Tablet PO (07:59)
[2023-03-16] MEDS: DULoxetine Hcl 60 MG Capsule PO (08:00)
[2023-03-16] MEDS: Potassium Chloride Oral Tablet 20 MEQ PO (08:00)
[2023-03-16] MEDS: Aspirin 81 MG TAB.CHEW PO (08:00)
[2023-03-16] MEDS: Enoxaparin 40 MG/0.4 ML Syringe SC (08:00)
[2023-03-16] MEDS: Magnesium Chloride 64 MG Delay Rel.Tablet 128 MG PO ×2 (08:00→22:32)
[2023-03-16] MEDS: Furosemide 20 MG Tablet PO (08:00)
[2023-03-16] MEDS: Timolol 0.5% 5ML OPTH.BTL 1 DRP EACH EYE ×2 (08:01→22:32)
[2023-03-16] MEDS: Memantine Hydrochloride 10 MG Tablet PO ×2 (08:01→22:32)
[2023-03-16] MEDS: Atenolol 25 MG Tablet PO ×2 (08:01→22:32)
[2023-03-16] MEDS: Acetaminophen 325 MG Tablet 650 MG PO ×2 (08:01→22:33)
[2023-03-16] MEDS: Cholecalciferol (VIT D3) 25 MCG TABLET (1,000 UNITS) 50 MCG PO (08:01)
--- NOTE | 2023-03-16 08:56 | CASEMGMT ---
Discharge Planning VM left with Annie Conde ([phone]), [facility] Board of , to check on the status of Passr. Lynne Gaines
--- NOTE | 2023-03-16 10:37 | PCM.PN.HOSP ---
Reason for Visit Reason for Visit: Diagnoses Repeated falls (03/11/23) Weakness (03/11/23) Subjective Subjective Patient seen had a relatively uneventful night. Has tolerated physical therapy well so far. Awaiting insurance precertification prior to transfer to [facility] facility Objective Data Objective Data Vital Signs: Vital Signs Temp Pulse Resp BP Pulse Ox O2 Del Method 98 F 70 18 137/64 H 94 Room Air 03/16/23 07:54 03/16/23 07:54 03/16/23 07:54 03/16/23 07:54 03/16/23 07:54 03/16/23 07:55 Oxygen Delivery Method Room Air Weight: 97 kg Body Mass Index (BMI) 37.8 Intake & Output: Intake and Output for Last 24 Hours 03/14/23 03/15/23 03/16/23 23:59 23:59 23:59 Intake Total 1600 / 1600 500 / 500 Output Total 1550 / 1550 1050 / 1050 300 / 300 Balance 50 / 50 -550 / -550 -300 / -300 Lab / Micro Data Result Diagrams: 03/16/23 04:40 03/16/23 04:40 Labs: Laboratory Results - last 24 hr 03/16/23 04:40: WBC 10.0, RBC 4.70, Hgb 14.0, Hct 43.8, MCV 93.2, MCH 29.8, MCHC 32.0, RDW Std Deviation 44.9 H, RDW Coeff of Jameel 13.2, Plt Count 225, MPV 9.5, Immature Gran % (Auto) 0.300, Neut % (Auto) 50.6, Lymph % (Auto) 34.3, [place] % (Auto) 7.8, Eos % (Auto) 6.2 H, Baso % (Auto) 0.8, Absolute Neuts (auto) 5.0, Absolute Lymphs (auto) 3.42, Nucleated RBC % 0 03/16/23 04:40: Sodium 141, Potassium 4.3, Chloride 106, Carbon Dioxide 29.0, Anion Gap 6, BUN 30 H, Creatinine 0.99, Estim Creat Clear Calc 36.87, Est GFR (MDRD) Af Amer 69, Est GFR (MDRD) Non-Af 57 L, BUN/Creatinine Ratio 30.3 H, Glucose 108 H, Calcium 9.6 Physical Exam Narrative GENERAL: cooperative HEENT: Atraumatic; normocephalic EYES; Anicteric, Normal Conjunctiva NECK; supple, normal thyroid, RESPIRATORY: Diminished to auscultation CARDIOVASCULAR: Regular S1 S2, GI: soft, normoactive bowel sounds, : No Renal angle tenderness; EXTREMITIES: No edema, no clubbing, MUSCULOSKELETAL: no muscle wasting NEURO: Awake; no lateralizing signs. SKIN: No Rash PSYCH; Flat affect Assessment & Plan Assessment/Plan (1) General weakness: PLAN: Plan Patient is an 83-year-old with history of multiple sclerosis currently not on any treatment who presented with multiple falls 1. Physical deconditioning - Requested for PT OT eval and vp digital marketing social media and crm to assist with discharge planning ? Case was discussed with patient and family the preference would be to go to the inpatient rehab unit ? 03/15/2023. Patient is participating in physical therapy plan for patient to be transferred to [facility] facility once insurance precertification is obtained ? 03/16/2023; patient has tolerated therapy well so far 2. Multiple sclerosis ? Currently not being treated 3. Vascular dementia ? Complicating patient's care 4. Hypertension - Blood pressure controlled, home medications continued with dose adjustment as needed 5. Coronary artery disease Currently stable 6. Fracture of the right second metatarsal bone and fracture of the medial condyle of the fourth proximal phalanx ? Pain meds as needed 7. DVT prophylaxis ?SC Lovenox Time spent in the patient's overall evaluation,decision-making process, review of diagnostic data, adjustment of management, discussion with other providers, nursing nursing and ancillary staff involved in patient's care documentation, 35 Minutes Charges/Coding Visit Charges Inpatient E&M: 24872 Subs Hosp L2
--- NOTE | 2023-03-16 14:14 | DS.PCM_ITS ---
Providers Date of Admission: 03/11/23 Date of Discharge: 03/17/23 Primary Care Physician: Dr. Zofia Horton, DO Reason For Visit: FALLS, DEBILITY Diagnosis Discharge Diagnosis (1) General weakness: Status: Acute Code(s): R53.1 - Weakness Plan Patient is an 83-year-old with history of multiple sclerosis currently not on any treatment who presented with multiple falls 1. Physical deconditioning - Requested for PT OT eval and social work administrator to assist with discharge planning ? Case was discussed with patient and family the preference would be to go to the inpatient rehab unit ? 03/15/2023. Patient is participating in physical therapy plan for patient to be transferred to long term facility once insurance precertification is obtained ? 03/16/2023; patient has tolerated therapy well so far 2. Multiple sclerosis ? Currently not being treated 3. Vascular dementia ? Complicating patient's care 4. Hypertension - Blood pressure controlled, home medications continued with dose adjustment as needed 5. Coronary artery disease Currently stable 6. Fracture of the right second metatarsal bone and fracture of the medial condyle of the fourth proximal phalanx ? Pain meds as needed 7. DVT prophylaxis ?SC Lovenox Time spent in the patient's overall evaluation,decision-making process, review of diagnostic data, adjustment of management, discussion with other providers, nursing nursing and ancillary staff involved in patient's care documentation, 35 Minutes Medications at Discharge Home Medications Timolol Maleate [Timoptic-Xe 0.25%] 1 drp DAILY glaucoma 07/14/17 acetaminophen 650 mg tablet,extended release (Tylenol Arthritis Pain) 650 mg PO BID pain 07/14/17 atenolol 25 mg tablet 25 mg PO BID HTN 07/14/17 cholecalciferol (vitamin D3) 25 mcg (1,000 unit) capsule (Vitamin D3) 2,000 unit PO DAILY supplement 07/14/17 duloxetine 60 mg capsule,delayed release 60 mg PO DAILY depression 07/14/17 folic acid 1 mg tablet 1 mg PO DAILY@0800 supplement 07/14/17 magnesium oxide 400 mg (241.3 mg magnesium) tablet 400 mg PO BID supplement 07/14/17 potassium chloride 20 mEq tablet,extended release(part/cryst) (Klor-Con M) 20 meq PO DAILY supplement 07/14/17 furosemide 20 mg tablet 20 mg PO DAILY diuretic 03/01/18 atorvastatin 10 mg tablet 20 mg PO QHS cholesterol 03/05/19 memantine 10 mg tablet 10 mg PO BID Check with primary doctor 09/02/21 vit A 300 mcg-C 200 mg-E 27 mg-lutein 2 mg and minerals tablet (Healthy Eyes) 1 cap PO BID Supplement 09/02/21 aspirin 81 mg chewable tablet 81 mg PO DAILY 03/11/23 melatonin 3 mg tablet 3 mg PO QHS PRN PRN Insomnia #0 tabs 03/15/23 sennosides 8.6 mg-docusate sodium 50 mg tablet (Stool Softener-Stimulant Laxative) 2 tab PO BID PRN PRN Constipation #0 tabs 03/15/23 Hospital Course Summary of Care Provided Minutes Spent on Discharge: 35 Physical Exam Narrative GENERAL: cooperative HEENT: Atraumatic; normocephalic EYES; Anicteric, Normal Conjunctiva NECK; supple, normal thyroid, RESPIRATORY: Diminished to auscultation CARDIOVASCULAR: Regular S1 S2, GI: soft, normoactive bowel sounds, : No Renal angle tenderness; EXTREMITIES: No edema, no clubbing, MUSCULOSKELETAL: no muscle wasting NEURO: Awake; no lateralizing signs. SKIN: No Rash PSYCH; Flat affect Weight / BMI Weight Weight: 97 kg Body Mass Index (BMI) 37.8 ABG / Lab / Microbiology Data Result Diagrams: 03/17/23 05:27 03/17/23 05:27 Laboratory: Laboratory Results - last 24 hr 03/16/23 04:40: WBC 10.0, RBC 4.70, Hgb 14.0, Hct 43.8, MCV 93.2, MCH 29.8, MCHC 32.0, RDW Std Deviation 44.9 H, RDW Coeff of Jameel 13.2, Plt Count 225, MPV 9.5, Immature Gran % (Auto) 0.300, Neut % (Auto) 50.6, Lymph % (Auto) 34.3, [place] % (Auto) 7.8, Eos % (Auto) 6.2 H, Baso % (Auto) 0.8, Absolute Neuts (auto) 5.0, Absolute Lymphs (auto) 3.42, Nucleated RBC % 0 03/16/23 04:40: Sodium 141, Potassium 4.3, Chloride 106, Carbon Dioxide 29.0, Anion Gap 6, BUN 30 H, Creatinine 0.99, Estim Creat Clear Calc 36.87, Est GFR (MDRD) Af Amer 69, Est GFR (MDRD) Non-Af 57 L, BUN/Creatinine Ratio 30.3 H, Glucose 108 H, Calcium 9.6 Meaningful Use Info Meaningful Use Diagnoses (Choose all that apply): None applicable Discharge Plan Admission Admit Date/Time: 03/11/23 23:49 Attending Provider: Cj Calvillo Primary Care Provider: Zofia Horton Consulting Providers: Roberto Stern ; Sukhwinder Cruz Discharge Orders/Prescriptions Prescriptions: New sennosides-docusate sodium [Stool Softener-Stimulant Laxat] 8.6-50 mg Tablet 2 tab PO BID PRN PRN (Reason: Constipation) Qty: 0 0RF melatonin 3 mg Tablet 3 mg PO QHS PRN PRN (Reason: Insomnia) Qty: 0 0RF Continued atenolol 25 MG tablet 25 mg PO BID Label Comments: folic acid 1 MG tablet 1 mg PO DAILY@0800 duloxetine 60 MG capsule,delayed release(DR/EC) 60 mg PO DAILY acetaminophen [Tylenol Arthritis Pain] 650 MG tablet extended release 650 mg PO BID potassium chloride [Klor-Con M20] 20 MEQ tablet,ER particles/crystals 20 meq PO DAILY magnesium oxide 400 MG tablet 400 mg PO BID cholecalciferol (vitamin D3) [Vitamin D3] 1,000 UNIT capsule 2,000 unit PO DAILY Timolol Maleate [Timoptic-Xe 0.25%] 1 DROP Arlyn.Gel 1 drp Each Eye DAILY furosemide 20 MG tablet 20 mg PO DAILY atorvastatin 10 MG tablet 20 mg PO QHS memantine 10 mg tablet 10 mg PO BID Healthy Eyes 1,000 unit-200 mg-60 unit-2 mg tablet 1 cap PO BID aspirin 81 mg Tablet,Chewable 81 mg PO DAILY Referrals / Follow Up: Zoifa Horton DO [Primary Care Provider] - Disposition Disposition (needs filled in before D/C Order can be placed): [facility] Charges/Coding Visit Charges Inpatient E&M: 19749 Disch Hosp >30min
--- NOTE | 2023-03-16 16:04 | CASEMGMT ---
Social Work SW sent email to SHARIF on referred status of Level II determination. Evan returned email stating PASRR was received and has not yet been reviewed. Once reviewed information will be uploaded into [facility]. Pt cannot discharge until SHARIF reviews and clears pt for placement. Per Amandeep, precert has not been obtained at this time. JUSTYN met with pt and spouse and updated on status of discharge to [facility]. SW to continue to follow. Plan: [facility], pending precert and Level II determination CAROLYNN Crooks
[2023-03-16 16:26] VITALS: BP 112/70; PULSE 78; RESP 18; TEMP 36.7; O2SAT 100
[2023-03-16 22:28] VITALS: BP 144/63; PULSE 82; RESP 16; TEMP 36.8; O2SAT 96
[2023-03-16] MEDS: Atorvastatin Calcium 20 MG Tablet PO (22:32)
[2023-03-17 02:52] VITALS: BP 130/58; PULSE 69; RESP 16; TEMP 36.7; O2SAT 94
[2023-03-17 06:06] LABS: Absolute Lymphocyte Count 3.11 X10^3/uL (0.83-4.51); Basophil# 0.07 X10^3/uL; Basophil% 0.7 % (0-1); Eosinophil# 0.62 X10^3/uL; Eosinophils% 6.4 % (0-5); Hematocrit 43.6 % (37-47); Hemoglobin 14.4 g/dL (12.0-15.0); Lymphocyte # 3.11 X10^3/ul (0.83-4.51); Lymphocyte % 32.2 % (19-41); Mean Corpuscular Hgb 30.6 pg (27.0-32.0); Mean Corpuscular Volume 92.8 fL (81-99); Mean Platelet Vol. 9.7 fl (6.2-12.0); Monocyte# 0.86 X10^3/uL; Monocyte% 8.9 % (0-10); NRBC Flagged by Analyzer 0 % (0-5); Neutrophil # 4.98 X10^3/uL (2.7-7.7); Neutrophil % 51.5 % (47-70); Platelet Count 220 K/mm3 (150-450); RBC Distribution Width CV 13.3 % (11.6-14.6); RBC Distribution Width SD 45.5 fl (35.1-43.9); White Blood Count 9.7 K/mm3 (4.4-11.0)
[2023-03-17 06:38] LABS: Anion Gap 7 (5-15); BUN 27 mg/dL (7-18); BUN/Creat Ratio 35.2 RATIO (10-20); Calcium,Total 9.3 mg/dL (8.5-10.1); Chloride 107 mmol/L (98-107); Creatinine, Serum 0.77 mg/dL (0.55-1.02); EST Glomerular Filtration Rate 77 mL/min (>60); Est Glom Filt Rate - Afr Amer 93 mL/min (>60); Glucose 108 mg/dL (74-106); Sodium Level 140 mmol/L (136-145)
--- NOTE | 2023-03-17 07:17 | PCM.PN.HOSP ---
Reason for Visit Reason for Visit: Diagnoses Repeated falls (03/11/23) Weakness (03/11/23) Subjective Subjective She has seen had an uneventful night. Pain in the right foot relatively well controlled. Objective Data Objective Data Vital Signs: Vital Signs Temp Pulse Resp BP Pulse Ox O2 Del Method 98.1 F 69 16 130/58 H 94 Room Air 03/17/23 02:52 03/17/23 02:52 03/17/23 02:52 03/17/23 02:52 03/17/23 02:52 03/17/23 02:52 Oxygen Delivery Method Room Air Weight: 97 kg Body Mass Index (BMI) 37.8 Intake & Output: Intake and Output for Last 24 Hours 03/15/23 03/16/23 03/17/23 23:59 23:59 23:59 Intake Total 500 / 500 350 / 350 Output Total 1050 / 1050 300 / 400 260 / 260 Balance -550 / -550 -300 / -200 90 / 90 Lab / Micro Data Result Diagrams: 03/17/23 05:27 03/17/23 05:27 Labs: Laboratory Results - last 24 hr 03/17/23 05:27: WBC 9.7, RBC 4.70, Hgb 14.4, Hct 43.6, MCV 92.8, MCH 30.6, MCHC 33.0, RDW Std Deviation 45.5 H, RDW Coeff of Jameel 13.3, Plt Count 220, MPV 9.7, Immature Gran % (Auto) 0.300, Neut % (Auto) 51.5, Lymph % (Auto) 32.2, [place] % (Auto) 8.9, Eos % (Auto) 6.4 H, Baso % (Auto) 0.7, Absolute Neuts (auto) 5.0, Absolute Lymphs (auto) 3.11, Nucleated RBC % 0 03/17/23 05:27: Sodium 140, Potassium 4.0, Chloride 107, Carbon Dioxide 26.0, Anion Gap 7, BUN 27 H, Creatinine 0.77, Estim Creat Clear Calc 36.50, Est GFR (MDRD) Af Amer 93, Est GFR (MDRD) Non-Af 77, BUN/Creatinine Ratio 35.2 H, Glucose 108 H, Calcium 9.3 Physical Exam Narrative GENERAL: cooperative HEENT: Atraumatic; normocephalic EYES; Anicteric, Normal Conjunctiva NECK; supple, normal thyroid, RESPIRATORY: Diminished to auscultation CARDIOVASCULAR: Regular S1 S2, GI: soft, normoactive bowel sounds, : No Renal angle tenderness; EXTREMITIES: No edema, no clubbing, MUSCULOSKELETAL: no muscle wasting NEURO: Awake; no lateralizing signs. SKIN: No Rash PSYCH; Flat affect Assessment & Plan Assessment/Plan (1) General weakness: PLAN: Plan Patient is an 83-year-old with history of multiple sclerosis currently not on any treatment who presented with multiple falls 1. Physical deconditioning - Requested for PT OT eval and social worker clinical to assist with discharge planning ? Case was discussed with patient and family the preference would be to go to the inpatient rehab unit ? 03/15/2023. Patient is participating in physical therapy plan for [facility] facility once insurance precertification is obtained ? 03/16/2023; patient has tolerated therapy well so far 2. Multiple sclerosis ? Currently not being treated 3. Vascular dementia ? Complicating patient's care 4. Hypertension - Blood pressure controlled, home medications continued with dose adjustment as needed 5. Coronary artery disease Currently stable 6. Fracture of the right second metatarsal bone and fracture of the medial condyle of the fourth proximal phalanx ? Pain meds as needed 7. DVT prophylaxis ?SC Lovenox Time spent in the patient's overall evaluation,decision-making process, review of diagnostic data, adjustment of management, discussion with other providers, nursing nursing and ancillary staff involved in patient's care documentation, 25 Minutes Charges/Coding Visit Charges Inpatient E&M: 92399 [facility] Hosp L1
[2023-03-17 08:10] VITALS: BP 130/80; PULSE 68; RESP 18; TEMP 36.4; O2SAT 100
[2023-03-17] MEDS: Memantine Hydrochloride 10 MG Tablet PO (08:16)
[2023-03-17] MEDS: Cholecalciferol (VIT D3) 25 MCG TABLET (1,000 UNITS) 50 MCG PO (08:16)
[2023-03-17] MEDS: Atenolol 25 MG Tablet PO (08:16)
[2023-03-17] MEDS: Magnesium Chloride 64 MG Delay Rel.Tablet 128 MG PO (08:16)
[2023-03-17] MEDS: Potassium Chloride Oral Tablet 20 MEQ PO (08:16)
[2023-03-17] MEDS: Acetaminophen 325 MG Tablet 650 MG PO (08:16)
[2023-03-17] MEDS: Furosemide 20 MG Tablet PO (08:17)
[2023-03-17] MEDS: Aspirin 81 MG TAB.CHEW PO (08:17)
[2023-03-17] MEDS: DULoxetine Hcl 60 MG Capsule PO (08:17)
[2023-03-17] MEDS: Enoxaparin 40 MG/0.4 ML Syringe SC (08:17)
[2023-03-17] MEDS: Timolol 0.5% 5ML OPTH.BTL 1 DRP EACH EYE (08:17)
[2023-03-17] MEDS: Folic Acid 1 MG Tablet PO (08:17)
--- NOTE | 2023-03-17 10:00 | CASEMGMT ---
Social Work roderick Batista/samantha transportation planner, contacted by [facility], they have the PAS/RR results and can take pt today. Precert is attained, pt can go to [facility] today skilled. Physician notified, d/c transportation planner Lynne to send instructions, set up transport, and notify family and staff. SUGEY Beck
--- NOTE | 2023-03-17 10:58 | CASEMGMT ---
Discharge Planning Discharge orders and med list sent to [facility] via [facility]. Patients is transporting. SW and nursing notified. Lynne Gaines
--- NOTE | 2023-03-17 11:29 | PHA.DC.MR ---
Pharmacy Service has performed discharge medication reconciliation for this patient upon transfer to [facility]. Home Medications Timolol Maleate [Timoptic-Xe 0.25%] 1 drp DAILY glaucoma 07/14/17 acetaminophen 650 mg tablet,extended release (Tylenol Arthritis Pain) 650 mg PO BID pain 07/14/17 atenolol 25 mg tablet 25 mg PO BID HTN 07/14/17 cholecalciferol (vitamin D3) 25 mcg (1,000 unit) capsule (Vitamin D3) 2,000 unit PO DAILY supplement 07/14/17 duloxetine 60 mg capsule,delayed release 60 mg PO DAILY depression 07/14/17 folic acid 1 mg tablet 1 mg PO DAILY@0800 supplement 07/14/17 magnesium oxide 400 mg (241.3 mg magnesium) tablet 400 mg PO BID supplement 07/14/17 potassium chloride 20 mEq tablet,extended release(part/cryst) (Klor-Con M) 20 meq PO DAILY supplement 07/14/17 furosemide 20 mg tablet 20 mg PO DAILY diuretic 03/01/18 atorvastatin 10 mg tablet 20 mg PO QHS cholesterol 03/05/19 memantine 10 mg tablet 10 mg PO BID Check with primary doctor 09/02/21 vit A 300 mcg-C 200 mg-E 27 mg-lutein 2 mg and minerals tablet (Healthy Eyes) 1 cap PO BID Supplement 09/02/21 aspirin 81 mg chewable tablet 81 mg PO DAILY 03/11/23 melatonin 3 mg tablet 3 mg PO QHS PRN PRN Insomnia #0 tabs 03/15/23 sennosides 8.6 mg-docusate sodium 50 mg tablet (Stool Softener-Stimulant Laxative) 2 tab PO BID PRN PRN Constipation #0 tabs 03/15/23 The patient's discharge medication list was reviewed for discrepancies and discrepancies were resolved.
--- NOTE | 2023-03-17 11:51 | CASEMGMT ---
[facility] will be [facility]. Rule out has not been loaded into [facility]. Geoff agreeable to accepting without actual document. JUSTYN notified. Lynne Gaines
--- NOTE | 2023-03-17 12:15 | NURSING ---
Report called to Charlene at [facility].
--- NOTE | 2023-03-17 12:35 | CASEMGMT ---
Discharge Planning Covid results sent to [facility] via [facility]. Lynne Gaines
== END 2023-03-17 12:30 | disposition skilled nursing facility (03) ==
LOC: ED 03-12 00:01 → MS3 03-12 01:07
PROVIDERS: Admitting Provider Hospitalist; Emergency Provider Emergency Medicine; PCP Internal Medicine; Referring Provider Hospitalist; Visit Provider Internal Medicine
DX: R53.1 Weakness (principal); G35 Multiple sclerosis; M06.9 Rheumatoid arthritis, unspecified; F01.50 Vascular dementia, unspecified severity, without behavioral disturbance, psychotic disturbance, mood disturbance, and anxiety; E72.12 Methylenetetrahydrofolate reductase deficiency; R53.81 Other malaise; Z79.82 Long term (current) use of aspirin; E78.2 Mixed hyperlipidemia; S92.511A Displaced fracture of proximal phalanx of right lesser toe(s), initial encounter for closed fracture; M25.461 Effusion, right knee; I10 Essential (primary) hypertension; I25.10 Atherosclerotic heart disease of native coronary artery without angina pectoris; J45.909 Unspecified asthma, uncomplicated; Z79.899 Other long term (current) drug therapy; W19.XXXA Unspecified fall, initial encounter; R29.6 Repeated falls; S92.321A Displaced fracture of second metatarsal bone, right foot, initial encounter for closed fracture; M79.604 Pain in right leg
CPT/HCPCS: 36415; 70450; 73140; 73564; 73630; 80048; 81001; 83735; 84100; 84443; 85025; 87811; 93971; 96372; 97110; 97116; 97162; 97166; 97530; 97535; 99221; 99284; A4216; G0378

== ENCOUNTER → 2023-07-06 | Outpatient (CLI) | payer MEDICARE, SELFPAY ==
[2023-07-06 18:20] LABS: AST(SGOT) 29 U/L (15-37); Alanine Aminotransfer ALT/SGPT 47 U/L (13-56); Albumin, Serum 2.2 g/dL (3.2-5.0); Alkaline Phosphatase 109 U/L (45-117); Bilirubin, Direct < 0.05 mg/dL (0.00-0.30); Globulin 4.4 g/dL (2.2-4.2); Protein, Total 6.6 g/dL (6.4-8.2)
== END | disposition home or self-care (01) ==
LOC: MTLAB 15:34
PROVIDERS: PCP Internal Medicine; Visit Provider Internal Medicine
DX: R74.8 Abnormal levels of other serum enzymes (principal); N30.00 Acute cystitis without hematuria
CPT/HCPCS: 36415; 80076

== ENCOUNTER → 2023-08-28 | Outpatient (CLI) | payer MEDICARE, SELFPAY ==
--- NOTE | 2023-08-28 12:26 | BI_ITS ---
MAMMOGRAPHY - BILATERAL SCREENING REASON FOR EXAM: Female, 83 years old. Routine annual screening examination. PERTINENT HISTORY: Non-contributory. TECHNIQUE: Digital bilateral breast brooks (3D mammographic acquisition) in the CC and MLO projections. 2-D mediolateral oblique (MLO) and craniocaudad (CC) views of both breasts were obtained. CAD: Full Field Digital Mammography with Computer Added Detection was performed. COMPARISON: Comparison is made with prior study dated September 03, 2022 and July 08, 2021. FINDINGS: Breast Composition: The breasts are almost entirely fatty. There are no dominant masses or suspicious calcifications. Stable small benign-appearing bilateral axillary lymph nodes. No other significant abnormalities are identified. There has been no significant change since the prior study. BI/SCRN MAMM (CAD)W/BROOKS BILAT IMPRESSION: Stable bilateral screening mammogram. Yearly follow-up mammogram recommended. (A) ASSESSMENT CATEGORY: BIRADS Category 2: Benign. A letter regarding these results will be sent to the patient by the facility within 30 days. Approximately 10% of breast cancers are not detected by mammography. A normal mammogram should not delay biopsy of a clinically suspicious abnormality. [id number] Electronically Signed: Abelardo Eduardo MD at 13:32 EST ,
== END | disposition home or self-care (01) ==
LOC: OPBI 12:25
PROVIDERS: PCP Internal Medicine; Referring Provider Internal Medicine; Visit Provider Internal Medicine
DX: Z12.31 Encounter for screening mammogram for malignant neoplasm of breast (principal)
CPT/HCPCS: 77063; 77067

== ENCOUNTER → 2023-11-15 | Outpatient (CLI) | payer MEDICARE, SELFPAY ==
--- NOTE | 2023-11-15 11:39 | CDU_ITS ---
Reason For Study: Carotid Artery Stenosis Rt. Velocities/BP Lt. Velocities/BP Prox CCA 49.2/6.2 cm/sec. Prox CCA 68.8/10.6 cm/sec. Mid CCA 92.5/12.6 cm/sec. Mid CCA 62.2/11.7 cm/sec. Dist CCA 42.4/10.1 cm/sec. Dist CCA 63.3/12.7 cm/sec. Prox ICA 30.2/9.2 cm/sec. Prox ICA 36.9/9.5 cm/sec. Mid ICA 43.3/11.9 cm/sec. Mid ICA 46.8/11.7 cm/sec. Dist ICA 53.7/14.5 cm/sec. Dist ICA 54.5/12.7 cm/sec. Rt. ICA/CCA = 0.6. Lt. ICA/CCA = 0.9. Prox ECA 53.8/8.4 cm/sec. Prox ECA 58.9/4.0 cm/sec. Rt. Vert. 23.9/4.2 cm/sec. Lt. Vert. 33.6/10.6 cm/sec. Right Extracranial There is intimal thickening but no significant atherosclerotic plaque noted in the right common carotid artery. There is heterogeneous, irregular atherosclerotic plaque noted in the right internal carotid artery. There is heterogeneous, irregular atherosclerotic plaque noted in the right external carotid artery. Antegrade flow is noted in the right vertebral artery. Left Extracranial There is homogeneous, smooth atherosclerotic plaque noted in the left common carotid artery. There is intimal thickening but no significant atherosclerotic plaque noted in the left internal carotid artery. There is intimal thickening but no significant atherosclerotic plaque noted in the left external carotid artery. Antegrade flow is noted in the left vertebral artery. Procedure Carotid Duplex [id number]. This is a Carotid Duplex examination using B-mode, color flow and specral Doppler. The study was technically difficult. Exam performed in department. VL/Carotid Duplex Ultrasound Interpretation Summary Mild (<50%) stenosis right extracranial internal carotid. Normal left extracranial internal carotid. Patent and antegrade vertebrals bilaterally. Ordering Physician: Zofia Horton Referring Physician: Zofia Horton Performed By: Ramiro Marx RVT
== END | disposition home or self-care (01) ==
PROVIDERS: PCP Internal Medicine; Referring Provider Internal Medicine; Visit Provider Internal Medicine
DX: I65.23 Occlusion and stenosis of bilateral carotid arteries (principal)
CPT/HCPCS: 93880

== ENCOUNTER → 2024-08-29 | Outpatient (CLI) | payer MEDICARE, SELFPAY | END | disposition home or self-care (01) | LOC: OPBI 09:50 | PROVIDERS: PCP Internal Medicine; Referring Provider Internal Medicine; Visit Provider Internal Medicine | DX: Z12.31 Encounter for screening mammogram for malignant neoplasm of breast (principal) | CPT/HCPCS: 77063; 77067 ==

== ENCOUNTER 2024-11-10 09:03 | Observation (INO) | payer MEDICARE, SELFPAY ==
[2024-11-10] VITALS (8 sets, daily range): BP systolic 119–156; BP diastolic 49–94; PULSE 69–84; RESP 15–95; TEMP 36.1–36.5; O2SAT 16–95; BMI 36.5
[2024-11-10 10:11] LABS: Absolute Lymphocyte Count 2.73 X10^3/uL (0.83-4.51); Absolute Neutrophil Count 6.7 X10^3/uL (2.0-7.7); Basophil# 0.09 X10^3/uL; Basophil% 0.8 % (0-1); Eosinophil# 0.32 X10^3/uL; Hematocrit 41.5 % (37-47); Hemoglobin 13.9 g/dL (12.0-15.0); Lymphocyte # 2.73 X10^3/ul (0.83-4.51); Lymphocyte % 25.8 % (19-41); Mean Corp Hgb Conc 33.5 g/dL (32-36); Mean Corpuscular Hgb 30.4 pg (27.0-32.0); Mean Corpuscular Volume 90.8 fL (81-99); Mean Platelet Vol. 9.7 fl (6.2-12.0); Monocyte# 0.75 X10^3/uL; Monocyte% 7.1 % (0-10); NRBC Flagged by Analyzer 0 % (0-5); Neutrophil # 6.68 X10^3/uL (2.7-7.7); Platelet Count 240 K/mm3 (150-450); RBC Distribution Width CV 13.1 % (11.6-14.6); RBC Distribution Width SD 43.2 fl (35.1-43.9); Red Blood Count 4.57 M/mm3 (4.2-5.4); White Blood Count 10.6 K/mm3 (4.4-11.0)
[2024-11-10 10:20] LABS: ALB/GLOB Ratio 1.2 RATIO (0.9-2.4); AST(SGOT) 19 U/L (15-37); Alanine Aminotransfer ALT/SGPT 22 U/L (13-56); Albumin, Serum 3.8 g/dL (3.2-5.0); Alkaline Phosphatase 115 U/L (45-117); Anion Gap 4 (5-15); BUN 18 mg/dL (7-18); BUN/Creat Ratio 21.4 RATIO (10-20); Calcium,Total 9.5 mg/dL (8.5-10.1); Chloride 108 mmol/L (98-107); Creatinine, Serum 0.84 mg/dL (0.55-1.02); EST Glomerular Filtration Rate 69 mL/min (>60); Est Glom Filt Rate - Afr Amer 83 mL/min (>60); Globulin 3.3 g/dL (2.2-4.2); Glucose 114 mg/dL (74-106); Potassium 3.6 mmol/L (3.5-5.1); Protein, Total 7.1 g/dL (6.4-8.2); Sodium Level 140 mmol/L (136-145)
[2024-11-10 11:03] LABS: Mucous, Urine 0 SEEN /hpf (<or=2+)
[2024-11-10 11:09] LABS: Color, Urine Yellow (Yellow); Glucose, Dipstick Normal (Normal); Ketone-Dipstick Negative (Negative); Leukocyte Esterase-Dipstick 500 /ul (Negative); Nitrite-Dipstick Positive (Negative); Occult Blood-Urine 25 /ul (Negative); Protein-Dipstick 30 mg/dl (Negative); Specific Gravity, Urine 1.015 (1.002-1.030); Urine Bilirubin Dipstick Negative (Negative); Urine Clarity Cloudy (Clear); Urine Urobilinogen Normal (Normal)
[2024-11-10 11:16] LABS: Bacteria 3+ /hpf (None Seen); Red Blood Cells-Urine 0-5 SEEN /hpf (0-5); Squamous Epithelial Cells - UA 0-5 SEEN /hpf (5-10); White Blood Cells >100 SEEN /hpf (0-5)
--- NOTE | 2024-11-10 11:36 | EX.ED.DYSGE1 ---
HPI History of Present Illness Chief Complaint: Weakness Detail of Chief Complaint: Patient presents because of generalized weakness and falls Informant: patient, spouse/S.O. and family Onset/Context/Timing Onset: Days Context: Sudden Onset Timing: Intermittent Quality: Generalized weakness with falls Location: Home Current Severity: Unable to determine since patient has dementia Maximum Severity: Unable to determine Worsened by: According to daughter this occurs when she has an infection Relieved by: Nothing Associated Symptoms Associated Symptoms: Increased confusion, generalized weakness with falls Narrative Narrative: Patient is an 84-year-old woman. She has multiple medical problems. She fell once on Monday, once on Monday and once today. There was no head trauma. Daughter states she received a call from her father to help him get her off the floor. Today she was unable to help rise from the floor. Patient is not a good informant due to vascular dementia. She does not know why she is here. She does note that she fell and complains of knee pain. She denies headache. She denies change in vision. Denies ringing or ears. She denies shortness of breath. She denies vomiting or diarrhea. She denies urinary symptoms. Prior similar symptoms: No Recent Illness/Hospitalization: No [facility] Medical History Meningioma Rheumatoid arthritis MTHFR mutation Vascular dementia Cystitis Mixed hyperlipidemia Multiple sclerosis Essential hypertension AMD (age related macular degeneration) Atherosclerotic heart disease of [place] coronary artery without angina pectoris Asthma Home Medications ?Medication ?Instructions ?Recorded ?Last Taken ?Type Timolol Maleate [Timoptic-Xe 0.25%] 1 drp DAILY glaucoma 07/14/17 03/11/23 History acetaminophen 650 mg 650 mg PO BID pain 07/14/17 03/11/23 History tablet,extended release (Tylenol Arthritis Pain) atenolol 25 mg tablet 25 mg PO BID HTN 07/14/17 03/11/23 History cholecalciferol (vitamin D3) 25 2,000 unit PO DAILY supplement 07/14/17 03/11/23 History mcg (1,000 unit) capsule (Vitamin D3) duloxetine 60 mg capsule,delayed 60 mg PO DAILY depression 07/14/17 03/11/23 History release folic acid 1 mg tablet 1 mg PO DAILY@0800 supplement 07/14/17 03/11/23 History magnesium oxide 400 mg (241.3 mg 400 mg PO BID supplement 07/14/17 03/11/23 History magnesium) tablet potassium chloride 20 mEq 20 meq PO DAILY supplement 07/14/17 03/11/23 History tablet,extended release(part/cryst) (Klor-Con M) furosemide 20 mg tablet 20 mg PO DAILY diuretic 03/01/18 03/11/23 History vit A 300 mcg-C 200 mg-E 27 1 cap PO BID Supplement 09/02/21 03/11/23 History mg-lutein 2 mg and minerals tablet (Healthy Eyes) aspirin 81 mg chewable tablet 81 mg PO DAILY 03/11/23 03/11/23 History melatonin 3 mg tablet 3 mg PO QHS PRN PRN Insomnia #0 03/15/23 Unknown Rx tabs sennosides 8.6 mg-docusate sodium 2 tab PO BID PRN PRN Constipation 03/15/23 Unknown Rx 50 mg tablet (Stool #0 tabs Softener-Stimulant Laxative) amlodipine 5 mg tablet 5 mg PO DAILY 11/10/24 Unknown History atorvastatin 20 mg tablet 20 mg PO DAILY 11/10/24 Unknown History lisinopril 10 mg tablet 10 mg PO DAILY 11/10/24 Unknown History memantine 21 mg capsule 21 mg PO DAILY 11/10/24 Unknown History sprinkle,extended release 24hr Allergy/AdvReac Type Severity Reaction Status Date / Time baclofen Allergy Unknown Verified 11/10/24 09:07 donepezil (From Aricept) Allergy Other Verified 11/10/24 09:07 hydroxychloroquine (From Allergy Unknown Verified 11/10/24 09:07 Plaquenil) Iodinated Contrast Media Allergy Hives Verified 11/10/24 09:07 (Iodinated Contrast- Oral and IV Dye) pravastatin Allergy Unknown Verified 11/10/24 09:07 shellfish derived Allergy Hives Verified 11/10/24 09:07 spironolactone Allergy Rash Verified 11/10/24 09:07 Sulfa (Sulfonamide Allergy Unknown Verified 11/10/24 09:07 Antibiotics) Family History Other Diabetes MTHFR gene mutation Surgical History History of tonsillectomy and adenoidectomy S/P YAG capsulotomy, left History of vitrectomy History of kyphoplasty History of hemorrhoidectomy History of appendectomy Social History household members: spouse Smoking Status: Never smoker alcohol intake: never substance use type: does not use ROS ROS ED Review of Systems ROS Unobtainable: due to mental status and other Details: Patient denies everything except left leg pain. EXAM Physical Exam Const Vital Signs: 11/10/24 09:04 11/10/24 09:39 11/10/24 11:03 Temperature 96.9 F L Temperature Source Temporal Pulse Rate 79 69 Respiratory Rate 19 H 95 H Respiratory Effort Normal Non-Labored Respiratory Pattern Normal Blood Pressure 121/94 H 156/79 H Blood Pressure Mean 103 104 Pulse Ox 95 16 Oxygen Delivery Method Room Air Positive well nourished and well developed Constitutional Narrative: BMI is greater than 30. General Appearance ED: well developed and NAD; Negative for pallor HEENT Reports dry mucous membranes HEENT Narrative: Head is atraumatic normocephalic. Ears normal. Nares patent. Mucosa is dry. Mouth ED: Yes dry mucous membranes Mouth: dry mucous membranes Eyes PERRL and EOMs intact bilaterally General Eye ED: Negative for pale conjunctiva or scleral icterus Neck no lymphadenopathy, supple and no JVD Chest Wall inspection of chest normal and palpation of chest normal Resp normal respiratory effort and clear to auscultation bilaterally Cardio regular rate, regular rhythm, S1 normal heart sound, S2 normal heart sound and no murmurs GI normal to inspection, nondistended, normoactive bowel sounds, non-distended and no masses; Negative for non-tender or hepatosplenomegaly Palpation: soft and tender suprapubic Back/Spine no CVA tenderness Thoracic Spine / Upper Back: Negative for thoracic spinal tenderness Lumbar Spine / Lower Back: Negative for lumbar spinal tenderness Extremity Negative for normal to inspection Extremity Narrative: Bruise noted proximal medial left leg. There is no tenderness of the proximal tibia. She is able to extend her knee against gravity. She able to flex to 90 degrees. There is no active varus valgus stress testing. Patella is not ballotable. There is no effusion. Because of body habitus limited with regards to Bindu's test. Modified Trevor's test was negative. General Extremety ED: Yes tenderness Neuro No oriented x3 and CN's II-XII intact bilaterally Neuro Narrative: Patient is awake but not alert. Psych mental status grossly normal Skin no rashes or lesions noted, no wounds and skin turgor normal General Skin Exam: Negative for jaundice or pallor MDM MDM MDM Narrative Medical decision making narrative: Differential diagnosis would include metabolic infectious cause. Exacerbation of MS. In light of history of recurrent urinary tract infection and because of her generalized weakness with falls we will obtain CBC, electrolyte panel lactate was not ordered since she is not febrile tachycardic and white count is normal. Will obtain straight cath urine specimen since in my opinion patient is not capable of giving a clean-catch and the fact that she is fallen multiple times. Prior records were reviewed. Patient was seen March 2023 for right foot fracture. She required admission at that time. She had an ER visit June 2022 for fourth toe fracture. She was seen at urgent care September 2022 for shingles. She was admitted for debility September 2021. History & Record Review Additional record(s) reviewed:: Prior inpatient record, Prior outpatient record (Reviewed Dr. Delcid's H&P and discharge summary for TCU admission August 2021.), Prior ED visit and Prior labs Lab Data Attestation: I reviewed the patient's lab results. Lab results narrative: White count is upper end of normal. There is no shift. Comprehensive metabolic panel reveals slight elevation of BUN to creatinine ratio with a glucose of 114. Urinalysis consistent with infection. Urine culture was sent. She was treated with Rocephin. and daughter were informed of results and plan to admit. Labs: Laboratory Results - last 24 hr 11/10/24 11/10/24 09:55 10:59 WBC 10.6 RBC 4.57 Hgb 13.9 Hct 41.5 MCV 90.8 MCH 30.4 MCHC 33.5 RDW Std Deviation 43.2 RDW Coeff of Jameel 13.1 Plt Count 240 MPV 9.7 Immature Gran % (Auto) 0.300 Neut % (Auto) 63.0 Lymph % (Auto) 25.8 [place] % (Auto) 7.1 Eos % (Auto) 3.0 Baso % (Auto) 0.8 Absolute Neuts (auto) 6.7 Absolute Lymphs (auto) 2.73 Nucleated RBC % 0 Sodium 140 Potassium 3.6 Chloride 108 H Carbon Dioxide 28.0 Anion Gap 4 L BUN 18 Creatinine 0.84 Est GFR (MDRD) Af Amer 83 Est GFR (MDRD) Non-Af 69 BUN/Creatinine Ratio 21.4 H Glucose 114 H Calcium 9.5 Total Bilirubin 0.70 AST 19 ALT 22 Alkaline Phosphatase 115 Total Protein 7.1 Albumin 3.8 Globulin 3.3 Albumin/Globulin Ratio 1.2 Urine Color Yellow Urine Clarity Cloudy Urine pH 6.0 Ur Specific [place] 1.015 Urine Protein 30 H Urine Glucose (UA) Normal Urine Ketones Negative Urine Occult Blood 25 H Urine Nitrite Positive H Urine Bilirubin Negative Urine Urobilinogen Normal Ur Leukocyte Esterase 500 H Urine RBC 0-5 SEEN Urine WBC >100 SEEN Ur Squamous Epith Cells 0-5 SEEN Urine Bacteria 3+ Urine Mucus 0 SEEN Management Discussion w/another healthcare provider: Hospitalist (Spoke with Dr. Cj man for admission. Admit full MedSurg) Discharge Plan Dx/Rx/DC Orders Clinical Impression: Urinary tract infection, Mixed hyperlipidemia, Vascular dementia, Multiple sclerosis, Essential hypertension, Acute on chronic alteration in mental status, Multiple falls Disposition Disposition: Acute Care Hospital [facility]
--- NOTE | 2024-11-10 11:41 | PCM.HP.STD ---
HPI - General General Date of Service: 11/10/24 Chief Complaint: Generalized weakness HPI Narrative OSBALDO VILLAVICENCIO, is a 84 F with multiple comorbidities including multiple sclerosis currently not on any treatment given her advanced age who presented to the emergency department with progressive generalized weakness over the past couple of days. Per patient's family who narrated the history patient has had 3 falls in 3 days. Patient has underlying dementia and was therefore not able to contribute meaningfully to the history. Workup in the emergency department did reveal the presence of acute cystitis treatment was initiated per protocol admitted to regular nursing floor for further management [facility] Medical History Meningioma Rheumatoid arthritis MTHFR mutation Vascular dementia Cystitis Mixed hyperlipidemia Multiple sclerosis Essential hypertension AMD (age related macular degeneration) Atherosclerotic heart disease of [place] coronary artery without angina pectoris Asthma Home Medications ?Medication ?Instructions ?Recorded ?Last Taken ?Type Timolol Maleate [Timoptic-Xe 0.25%] 1 drp DAILY glaucoma 07/14/17 11/09/24 History acetaminophen 650 mg 650 mg PO BID pain 07/14/17 11/09/24 History tablet,extended release (Tylenol Arthritis Pain) atenolol 25 mg tablet 25 mg PO BID HTN 07/14/17 11/09/24 History cholecalciferol (vitamin D3) 25 2,000 unit PO DAILY supplement 07/14/17 11/03/24 History mcg (1,000 unit) capsule (Vitamin D3) duloxetine 60 mg capsule,delayed 60 mg PO DAILY depression 07/14/17 11/09/24 History release folic acid 1 mg tablet 1 mg PO DAILY@0800 supplement 07/14/17 11/09/24 History magnesium oxide 400 mg (241.3 mg 400 mg PO BID supplement 07/14/17 11/09/24 History magnesium) tablet vit A 300 mcg-C 200 mg-E 27 1 cap PO BID Supplement 09/02/21 11/09/24 History mg-lutein 2 mg and minerals tablet (Healthy Eyes) aspirin 81 mg chewable tablet 81 mg PO DAILY 03/11/23 11/09/24 History sennosides 8.6 mg-docusate sodium 2 tab PO BID PRN PRN Constipation 03/15/23 Unknown Rx 50 mg tablet (Stool #0 tabs Softener-Stimulant Laxative) amlodipine 5 mg tablet 5 mg PO DAILY 11/10/24 11/08/24 History atorvastatin 20 mg tablet 20 mg PO DAILY 11/10/24 11/08/24 History coenzyme Q10 200 mg capsule (Co 200 mg PO DAILY 11/10/24 11/09/24 History Q-10) lisinopril 10 mg tablet 10 mg PO DAILY 11/10/24 11/09/24 History memantine 21 mg capsule 21 mg PO DAILY 11/10/24 11/08/24 History sprinkle,extended release 24hr multivitamin-ferrous 1 tab PO DAILY 11/10/24 Unknown History fumarate-folic acid 18 mg-400 mcg tablet (Centrum Women) omega-3-epa 910 mg-fish oil 1,300 1 cap PO DAILY 11/10/24 Unknown History mg capsule,delayed release ([place] MonoPure EPA EC) vitamins A,C,J-vjiy-irpyhp 2,148 1 tab PO DAILY 11/10/24 11/09/24 History mcg-113 mg-45 mg-17.4 mg tablet (Eye Multivitamin) Allergy/AdvReac Type Severity Reaction Status Date / Time baclofen Allergy Unknown Verified 11/10/24 09:07 donepezil (From Aricept) Allergy Other Verified 11/10/24 09:07 hydroxychloroquine (From Allergy Unknown Verified 11/10/24 09:07 Plaquenil) Iodinated Contrast Media Allergy Hives Verified 11/10/24 09:07 (Iodinated Contrast- Oral and IV Dye) pravastatin Allergy Unknown Verified 11/10/24 09:07 shellfish derived Allergy Hives Verified 11/10/24 09:07 spironolactone Allergy Rash Verified 11/10/24 09:07 Sulfa (Sulfonamide Allergy Unknown Verified 11/10/24 09:07 Antibiotics) Family History Other Diabetes MTHFR gene mutation Surgical History History of tonsillectomy and adenoidectomy S/P YAG capsulotomy, left History of vitrectomy History of kyphoplasty History of hemorrhoidectomy History of appendectomy Social History household members: spouse Smoking Status: Never smoker alcohol intake: never substance use type: does not use ROS ROS Narrative GENERAL: falls HEENT: denies headache, sinus congestion, RESPIRATORY: denies cough, sputum production, CARDIAC: denies chest pain, palpitations, GASTROINTESTINAL: denies abdominal pain, GENITOURINARY: denies dysuria, urgency, EXTREMITY: denies swelling MUSCULOSKELETAL: denies current joint pain NEUROLOGIC: denies focal numbness, weakness, HEMATOLOGIC: denies easy bruising INTEGUMENT: denies rashes PSYCHIATRIC: denies suicidal or homicidal ideation Vital Signs Vital Signs Vital Signs: 11/10/24 09:04 11/10/24 09:39 11/10/24 11:03 Temperature 96.9 F L Temperature Source Temporal Pulse Rate 79 69 Respiratory Rate 19 H 95 H Respiratory Effort Normal Non-Labored Respiratory Pattern Normal Blood Pressure 121/94 H 156/79 H Blood Pressure Mean 103 104 Pulse Ox 95 16 Oxygen Delivery Method Room Air Physical Exam Narrative GENERAL: cooperative HEENT: Atraumatic; normocephalic EYES; Anicteric, Normal Conjunctiva NECK; supple, normal thyroid, RESPIRATORY: Diminished to auscultation CARDIOVASCULAR: Regular S1 S2, GI: soft, normoactive bowel sounds, : No Renal angle tenderness; EXTREMITIES: No edema, no clubbing, MUSCULOSKELETAL: no muscle wasting NEURO: Awake; no lateralizing signs. SKIN: No Rash PSYCH; Flat affect Results Lab / Micro Data 11/10/24 09:55 11/10/24 09:55 Labs: Laboratory Results - last 24 hr 11/10/24 09:55: WBC 10.6, RBC 4.57, Hgb 13.9, Hct 41.5, MCV 90.8, MCH 30.4, MCHC 33.5, RDW Std Deviation 43.2, RDW Coeff of Jameel 13.1, Plt Count 240, MPV 9.7, Immature Gran % (Auto) 0.300, Neut % (Auto) 63.0, Lymph % (Auto) 25.8, [place] % (Auto) 7.1, Eos % (Auto) 3.0, Baso % (Auto) 0.8, Absolute Neuts (auto) 6.7, Absolute Lymphs (auto) 2.73, Nucleated RBC % 0, Sodium 140, Potassium 3.6, Chloride 108 H, Carbon Dioxide 28.0, Anion Gap 4 L, BUN 18, Creatinine 0.84, Est GFR (MDRD) Af Amer 83, Est GFR (MDRD) Non-Af 69, BUN/Creatinine Ratio 21.4 H, Glucose 114 H, Calcium 9.5, Total Bilirubin 0.70, AST 19, ALT 22, Alkaline Phosphatase 115, Total Protein 7.1, Albumin 3.8, Globulin 3.3, Albumin/Globulin Ratio 1.2 11/10/24 10:59: Urine Color Yellow, Urine Clarity Cloudy, Urine pH 6.0, Ur Specific [place] 1.015, Urine Protein 30 H, Urine Glucose (UA) Normal, Urine Ketones Negative, Urine Occult Blood 25 H, Urine Nitrite Positive H, Urine Bilirubin Negative, Urine Urobilinogen Normal, Ur Leukocyte Esterase 500 H, Urine RBC 0-5 SEEN, Urine WBC >100 SEEN, Ur Squamous Epith Cells 0-5 SEEN, Urine Bacteria 3+, Urine Mucus 0 SEEN Assessment & Plan Assessment/Plan (1) Multiple falls: (2) Urinary tract infection: PLAN: Plan Patient is an 84-year-old lady with history of multiple sclerosis presented to the emergency department with progressive generalized weakness patient was found to have acute cystitis. Admitted to regular nursing floor for further management 1. Acute cystitis ? Patient started on ceftriaxone urine culture sent with plans to adjust antibiotic therapy based on sensitivity result 2. Physical deconditioning - Requested for PT OT eval and social work nurse to assist with discharge planning 3. Multiple sclerosis ? Currently not being treated given patient advanced age 3. Vascular dementia ? Complicating patient's care 4. Hypertension - Blood pressure controlled, home medications continued with dose adjustment as needed 5. Coronary artery disease Currently stable 6. Morbid obesity ? Complicating patient's care 7. DVT prophylaxis ?SC Lovenox Time spent in the patient's overall evaluation,decision-making process, review of diagnostic data, adjustment of management, discussion with other providers, nursing nursing and ancillary staff involved in patient's care documentation, 75 Minutes Advance planning; did discuss with the patient and family regarding advanced directives as well as CODE STATUS. Did explain the various scenarios involved ( FULL CODE, DNR CCA, DNR CCA with no intubation, and DNR CC and what each meant) patient elected to be DNR CCA no intubation. Order was placed. Time spent on discussion 18 minutes. Charges/Coding Visit Charges Inpatient E&M: 09742 Init Hosp L3 Procedures Hospitalists Procedures: 82600 Advncd Care Plan 30 Min
[2024-11-10] MEDS: Ceftriaxone 2 GM in 0.9% Normal Saline (50mL MB+) 50 ML IV (12:16)
[2024-11-10] MEDS: Acetaminophen 325 MG Tablet 650 MG PO (23:11)
[2024-11-10] MEDS: MELATONIN 3 MG TABLET PO (23:11)
[2024-11-11 05:00] VITALS: BP 128/70; PULSE 79; RESP 16; TEMP 36.4; O2SAT 92
[2024-11-11 06:00] VITALS: BMI 37.0
[2024-11-11 07:15] LABS: Absolute Lymphocyte Count 2.77 X10^3/uL (0.83-4.51); Absolute Neutrophil Count 4.3 X10^3/uL (2.0-7.7); Basophil# 0.07 X10^3/uL; Basophil% 0.9 % (0-1); Eosinophil# 0.37 X10^3/uL; Eosinophils% 4.5 % (0-5); Hematocrit 39.1 % (37-47); Hemoglobin 12.9 g/dL (12.0-15.0); Lymphocyte # 2.77 X10^3/ul (0.83-4.51); Mean Corpuscular Hgb 29.9 pg (27.0-32.0); Mean Corpuscular Volume 90.7 fL (81-99); Mean Platelet Vol. 9.9 fl (6.2-12.0); Monocyte# 0.62 X10^3/uL; Monocyte% 7.6 % (0-10); NRBC Flagged by Analyzer 0 % (0-5); Neutrophil % 52.9 % (47-70); Platelet Count 232 K/mm3 (150-450); RBC Distribution Width CV 13.1 % (11.6-14.6); RBC Distribution Width SD 43.4 fl (35.1-43.9); Red Blood Count 4.31 M/mm3 (4.2-5.4); White Blood Count 8.1 K/mm3 (4.4-11.0)
--- NOTE | 2024-11-11 07:24 | PN.HOSP_ITS ---
Reason for Visit Reason for Visit: Diagnoses Urinary tract infection, site not specified (11/10/24) Repeated falls (11/10/24) Subjective Subjective Patient is an 84-year-old lady admitted with profound generalized weakness diagnosed with acute cystitis admitted to regular nursing floor for further management Objective Data Objective Data Vital Signs: Vital Signs Temp Pulse Resp BP Pulse Ox O2 Del Method O2 Flow Rate 97.6 F L 79 16 128/70 H 92 Room Air 2 11/11/24 05:00 11/11/24 05:00 11/11/24 05:00 11/11/24 05:00 11/11/24 05:00 11/11/24 05:00 11/10/24 23:30 Oxygen Flow Rate (L/min) 2 Oxygen Delivery Method Room Air Weight: 95 kg Body Mass Index (BMI) 37.0 Intake & Output: Intake and Output for Last 24 Hours 11/09/24 11/10/24 11/11/24 23:59 23:59 23:59 Intake Total 450 / 450 300 / 300 Balance 450 / 450 300 / 300 Lab / Micro Data 11/11/24 06:04 11/11/24 06:04 Labs: Laboratory Results - last 24 hr 11/10/24 09:55: WBC 10.6, RBC 4.57, Hgb 13.9, Hct 41.5, MCV 90.8, MCH 30.4, MCHC 33.5, RDW Std Deviation 43.2, RDW Coeff of Jameel 13.1, Plt Count 240, MPV 9.7, Immature Gran % (Auto) 0.300, Neut % (Auto) 63.0, Lymph % (Auto) 25.8, [place] % (Auto) 7.1, Eos % (Auto) 3.0, Baso % (Auto) 0.8, Absolute Neuts (auto) 6.7, Absolute Lymphs (auto) 2.73, Nucleated RBC % 0, Sodium 140, Potassium 3.6, C hloride 108 H, Carbon Dioxide 28.0, Anion Gap 4 L, BUN 18, Creatinine 0.84, Est GFR (MDRD) Af Amer 83, Est GFR (MDRD) Non-Af 69, BUN/Creatinine Ratio 21.4 H, G lucose 114 H, Calcium 9.5, Total Bilirubin 0.70, AST 19, ALT 22, Alkaline Phosphatase 115, Total Protein 7.1, Albumin 3.8, Globulin 3.3, Albumin/Globulin Ratio 1.2 11/10/24 10:59: Urine Color Yellow, Urine Clarity Cloudy, Urine pH 6.0, Ur Specific [place] 1.015, Urine Protein 30 H, Urine Glucose (UA) Normal, Urine Ketones Negative, Urine Occult Blood 25 H, Urine Nitrite Positive H, Urine Bilirubin Negative, Urine Urobilinogen Normal, Ur Leukocyte Esterase 500 H, Urine RBC 0-5 SEEN, Urine WBC >100 SEEN, Ur Squamous Epith Cells 0-5 SEEN, Urine Bacteria 3+, Urine Mucus 0 SEEN 11/11/24 06:04: WBC 8.1, RBC 4.31, Hgb 12.9, Hct 39.1, MCV 90.7, MCH 29.9, MCHC 33.0, RDW Std Deviation 43.4, RDW Coeff of Jameel 13.1, Plt Count 232, MPV 9.9, Immature Gran % (Auto) 0.100, Neut % (Auto) 52.9, Lymph % (Auto) 34.0, [place] % (Auto) 7.6, Eos % (Auto) 4.5, Baso % (Auto) 0.9, Absolute Neuts (auto) 4.3, Absolute Lymphs (auto) 2.77, Nucleated RBC % 0 Physical Exam Narrative GENERAL: cooperative HEENT: Atraumatic; normocephalic EYES; Anicteric, Normal Conjunctiva NECK; supple, normal thyroid, RESPIRATORY: Diminished to auscultation CARDIOVASCULAR: Regular S1 S2, GI: soft, normoactive bowel sounds, : No Renal angle tenderness; EXTREMITIES: No edema, no clubbing, MUSCULOSKELETAL: no muscle wasting NEURO: Awake; no lateralizing signs. SKIN: No Rash PSYCH; Flat affect Assessment & Plan Assessment/Plan (1) Multiple falls: (2) Urinary tract infection: PLAN: Plan Patient is an 84-year-old lady with history of multiple sclerosis presented to the emergency department with progressive generalized weakness patient was found to have acute cystitis. Admitted to regular nursing floor for further management 1. Acute cystitis ? Patient started on ceftriaxone urine culture sent with plans to adjust antibiotic therapy based on sensitivity result ? 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 Physical deconditioning - Requested for PT OT eval and marriage and family social worker to assist with discharge planning 3. Multiple sclerosis ? Currently not being treated given patient advanced age 3. Vascular dementia ? Complicating patient's care 4. Hypertension - Blood pressure controlled, home medications continued with dose adjustment as needed 5. Coronary artery disease Currently stable 6. Morbid obesity ? Complicating patient's care 7. DVT prophylaxis ?SC Lovenox Time spent in the patient's overall evaluation,decision-making process, review of diagnostic data, adjustment of management, discussion with other providers, nursing nursing and ancillary staff involved in patient's care documentation, 38 Minutes Charges/Coding Visit Charges Inpatient E&M: 31633 Subs Hosp L2
[2024-11-11 07:48] LABS: Anion Gap 5 (5-15); BUN 15 mg/dL (7-18); BUN/Creat Ratio 21.6 RATIO (10-20); Calcium,Total 9.5 mg/dL (8.5-10.1); Chloride 109 mmol/L (98-107); EST Glomerular Filtration Rate 86 mL/min (>60); Est Glom Filt Rate - Afr Amer 104 mL/min (>60); Estimated Creatinine Clearance 59.43 ml/min; Glucose 118 mg/dL (74-106); Potassium 3.6 mmol/L (3.5-5.1); Sodium Level 142 mmol/L (136-145)
[2024-11-11] MEDS: Aspirin 81 MG TAB.CHEW PO (08:16)
[2024-11-11] MEDS: Menthol/Lanolin/Calamine/Znox 113 GM Tube 1 APPLIC TOPICAL ×2 (08:17→20:07)
[2024-11-11] MEDS: DULoxetine Hcl 60 MG Capsule PO (08:18)
[2024-11-11] MEDS: Memantine Hydrochloride 5 MG Tablet 7.5 MG PO ×2 (08:19→20:08)
[2024-11-11] MEDS: amLODIPine 5 MG Tablet PO (08:19)
[2024-11-11] MEDS: Atenolol 25 MG Tablet PO ×2 (08:20→20:08)
[2024-11-11] MEDS: Timolol 0.25% 5ML OPTH.BTL 1 DRP EACH EYE ×2 (08:21→20:09)
[2024-11-11] MEDS: Lisinopril 10 MG Tablet PO (08:22)
[2024-11-11] MEDS: Enoxaparin 40 MG/0.4 ML Syringe SC (08:24)
[2024-11-11 08:50] LABS: Phosphorus 3.8 mg/dL (2.5-4.9)
--- NOTE | 2024-11-11 09:00 | CASEMGMT ---
safety analyst: Face to Face with pt for initial transition planning/care coordination assessment. RN BETY introduced self and role at [facility], pt voices understanding and consents to assessment. Therapy finishing working with patient, Pt sitting in chair in no distress. Therapy reports Pt is confused, RN BETY called daughter for assessment. Care providers, pharmacy, and demographics verified/updated. Strata: 2 Admitting Dx: Acute cystitis, generalized weakness PCP: [facility] Specialists: Denies following any at this time. As patient MS progressed they have stopped seeing specialists, as they feel it is no longer necessary at this time. Preferred Pharmacy: [facility] [place] Insurance: [employer] [facility] Prescription Benefit: yes LNOK: Daughter, Mary; , Eric. Living Arrangements: Pt lives with in a 1 level home with 2 steps and grab bars to enter. ADLs: Pt needs some assistance at baseline, but needing more assistance at this time. Transportation: Pt provides transportation. DME: rollator, walker, wheelchair, cane, grab bars, roll in shower, handle on bed. HHC/SNF: Yes, previously in rehab in [place], previously had HHC but does not recall who. Daughter is an ER nurse in [place]. Pt daughter reports Pt has dementia at baseline, concerns about Pt in denial about dementia an Patient needs at home. Reports Pt is healthy and active and able to make decisions for Pt. Daughter states Pt has had multiple falls at home, would prefer patient gets placement for a couple of weeks before going home. Requested [facility] TCU or Rehab unit. QUINTON ALBERT notified SW. SW/CM to follow. Advised pt to ask CM if any further question/concerns/needs arise, voices understanding. Pt Goal: SNF Plan: SNF [facility] CM
[2024-11-11 09:28] VITALS: BP 124/76; PULSE 81; RESP 16; TEMP 36.4; O2SAT 96
--- NOTE | 2024-11-11 09:42 | CASEMGMT ---
Discharge Planning A list of?SNF providers including quality and resource use data and consistent with the patient's preferred geographic region, medical needs, and insurance network was created in [facility] Guide.? This list was provided to the SW. Lynne Gaines Discharge Planning Asst.
[2024-11-11] MEDS: Ceftriaxone 1 GM/50 ML BAG IV (10:20)
[2024-11-11] MEDS: 0.9% Saline Lock 10 ML Syringe IV (11:49)
--- NOTE | 2024-11-11 14:04 | CASEMGMT ---
Addendum entered by Neida Vides 11/11/24 16:48: Social Work [facility] has not beds available. Dgt and notified. Next choice is [facility]. Referral sent and [facility] has no beds available. Phone call to pt dgt and notified of this. Dgt to review SNF list with pt marino and will have additional choices in the morning. SW to follow up. CAROLYNN Crooks Addendum entered by Neida Vides 11/11/24 15:31: Social Work Pt dgt Mary met with SW and is requesting SNF placement at [facility]. Mary states pt's spouse is agreeable. DC assistant fitness manager updated and referral to be made to [facility]. Precert will be needed prior to admission. CAROLYNN Croosk Original Note: Social Work SW met with pt and dgt Mary to discuss discharge plan. Mary is hopeful pt can go to TCU at discharge. SW explained that TCU is not currently accepting pt's insurance. A list of SNF providers including quality and resource use data and consistent with the patient?s preferred geographic region, medical needs, and insurance network were provided from the [employer] Guide. Pt's dgt is uncertain if she would want pt to go to another SNF or to return home with home health. A list of [facility] providers including quality and resource use data and consistent with the patient?s preferred geographic region, medical needs, and insurance network were provided from the [employer] Guide. Dgt to speak with pt's and make decision on discharge disposition. SW to follow. CAROLYNN Crooks
[2024-11-11 15:05] VITALS: BP 127/75; PULSE 84; RESP 16; TEMP 36.6; O2SAT 95
--- NOTE | 2024-11-11 15:32 | CASEMGMT ---
Addendum entered by Lynne Gaines 11/11/24 16:09: [facility] declined. Lynne Gaines DC Planning Asst Original Note: Referral sent to [facility]. Lynne Gaines DC Planning Asst.
--- NOTE | 2024-11-11 16:11 | CASEMGMT ---
Addendum entered by Lynne Gaines 11/11/24 16:24: [facility] declined d/t no female bed availability. Lynne Gaines DC Planning Asst. Original Note: Referral sent to [facility]. Lynne Gaines DC Planning Asst.
[2024-11-11 20:02] VITALS: BP 127/67; PULSE 68; RESP 16; TEMP 37.2; O2SAT 96
[2024-11-11 20:03] VITALS: O2SAT 96
[2024-11-11] MEDS: Atorvastatin Calcium 20 MG Tablet PO (20:08)
[2024-11-12 05:16] VITALS: BP 144/57; PULSE 69; RESP 16; TEMP 36.4; O2SAT 97
[2024-11-12 05:22] VITALS: BMI 37.0
[2024-11-12 07:54] LABS: Absolute Lymphocyte Count 2.62 X10^3/uL (0.83-4.51); Absolute Neutrophil Count 4.6 X10^3/uL (2.0-7.7); Basophil# 0.07 X10^3/uL; Basophil% 0.8 % (0-1); Eosinophils% 4.8 % (0-5); Hematocrit 42.4 % (37-47); Hemoglobin 13.6 g/dL (12.0-15.0); Lymphocyte # 2.62 X10^3/ul (0.83-4.51); Lymphocyte % 31.5 % (19-41); Mean Corp Hgb Conc 32.1 g/dL (32-36); Mean Corpuscular Hgb 29.8 pg (27.0-32.0); Mean Platelet Vol. 10.1 fl (6.2-12.0); Monocyte# 0.61 X10^3/uL; Monocyte% 7.3 % (0-10); NRBC Flagged by Analyzer 0 % (0-5); Neutrophil # 4.61 X10^3/uL (2.7-7.7); Neutrophil % 55.4 % (47-70); Platelet Count 213 K/mm3 (150-450); RBC Distribution Width CV 13.2 % (11.6-14.6); RBC Distribution Width SD 44.6 fl (35.1-43.9); Red Blood Count 4.56 M/mm3 (4.2-5.4); White Blood Count 8.3 K/mm3 (4.4-11.0)
--- NOTE | 2024-11-12 08:07 | PN.HOSP_ITS ---
Reason for Visit Reason for Visit: Diagnoses Urinary tract infection, site not specified (11/10/24) Repeated falls (11/10/24) Subjective Subjective Patient urine cultures resulted was positive for Klebsiella sensitivities reviewed. Antibiotics subsequently adjusted. Plan is for patient to be discharged to a [place] [facility] facility pending bed availability. Objective Data Objective Data Vital Signs: Vital Signs Temp Pulse Resp BP Pulse Ox O2 Del Method O2 Flow Rate 97.5 F L 69 16 144/57 H 97 Nasal Cannula 2 11/12/24 05:16 11/12/24 05:16 11/12/24 05:16 11/12/24 05:16 11/12/24 05:16 11/12/24 05:16 11/12/24 05:16 Oxygen Flow Rate (L/min) 2 Oxygen Delivery Method Nasal Cannula Weight: 94.9 kg Body Mass Index (BMI) 37.0 Intake & Output: Intake and Output for Last 24 Hours 11/10/24 11/11/24 11/12/24 23:59 23:59 23:59 Intake Total 450 / 450 350 / 350 200 / 200 Balance 450 / 450 350 / 350 200 / 200 Lab / Micro Data 11/12/24 06:14 11/12/24 06:14 Labs: Laboratory Results - last 24 hr 11/11/24 06:04: Phosphorus 3.8 11/12/24 06:14: WBC 8.3, RBC 4.56, Hgb 13.6, Hct 42.4, MCV 93.0, MCH 29.8, MCHC 32.1, RDW Std Deviation 44.6 H, RDW Coeff of Jameel 13.2, Plt Count 213, MPV 10.1, Immature Gran % (Auto) 0.200, Neut % (Auto) 55.4, Lymph % (Auto) 31.5, [place] % (Auto) 7.3, Eos % (Auto) 4.8, Baso % (Auto) 0.8, Absolute Neuts (auto) 4.6, Absolute Lymphs (auto) 2.62, Nucleated RBC % 0 Micro: Microbiology 11/10/24 10:59 Urine, Clean Catch Urine Culture - Final Klebsiella pneumoniae sp pneum Physical Exam Narrative GENERAL: cooperative HEENT: Atraumatic; normocephalic EYES; Anicteric, Normal Conjunctiva NECK; supple, normal thyroid, RESPIRATORY: Diminished to auscultation CARDIOVASCULAR: Regular S1 S2, GI: soft, normoactive bowel sounds, : No Renal angle tenderness; EXTREMITIES: No edema, no clubbing, MUSCULOSKELETAL: no muscle wasting NEURO: Awake; no lateralizing signs. SKIN: No Rash PSYCH; Flat affect Assessment & Plan Assessment/Plan (1) Multiple falls: (2) Urinary tract infection: PLAN: Plan Patient is an 84-year-old lady with history of multiple sclerosis presented to the emergency department with progressive generalized weakness patient was found to have acute cystitis. Admitted to regular nursing floor for further management 1. Acute cystitis Klebsiella pneumoniae ? Patient started on ceftriaxone urine culture sent with plans to adjust antibiotic therapy based on sensitivity result ? 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 Plan is to complete antibiotic therapy with ceftriaxone for total of 3 days. Patient last dose due on 11/12/2024 2. Physical deconditioning - Requested for PT OT eval and social psychologist to assist with discharge planning ? 11/12/2024; plan [place] [facility] [place] bed availability 3. Multiple sclerosis ? Currently not being treated given patient advanced age 3. Vascular dementia ? Complicating patient's care 4. Hypertension - Blood pressure controlled, home medications continued with dose adjustment as needed 5. Coronary artery disease Currently stable 6. Morbid obesity ? Complicating patient's care 7. DVT prophylaxis ?SC Lovenox Time spent in the patient's overall evaluation,decision-making process, review of diagnostic data, adjustment of management, discussion with other providers, nursing nursing and ancillary staff involved in patient's care documentation, 38 Minutes Charges/Coding Visit Charges Inpatient E&M: 15243 Subs Hosp L2
[2024-11-12] MEDS: Aspirin 81 MG TAB.CHEW PO (08:43)
[2024-11-12 08:56] LABS: Anion Gap 7 (5-15); BUN 15 mg/dL (7-18); BUN/Creat Ratio 19.3 RATIO (10-20); Calcium,Total 9.7 mg/dL (8.5-10.1); Chloride 109 mmol/L (98-107); Creatinine, Serum 0.78 mg/dL (0.55-1.02); EST Glomerular Filtration Rate 75 mL/min (>60); Est Glom Filt Rate - Afr Amer 91 mL/min (>60); Glucose 111 mg/dL (74-106); Sodium Level 141 mmol/L (136-145)
--- NOTE | 2024-11-12 10:14 | CASEMGMT ---
Addendum entered by Mariangel Zurita 11/12/24 11:12: Social Work SW let pt, and daughter Mary know pt was accepted at [facility] in [place], and they are starting precert. SW explained will keep them informed as the day goes. Pt and family thanked JUSTYN. SUGEY Beck Original Note: Social Work SW called daughter Mary for additional long-term choices. Their next choices are [facility] in [place], then to the [facility]. JUSTYN explained referrals will be made, SW will update her, she states will be here shortly. roderick Batista/samantha capacity planning manager will make the referrals. SUGEY Beck
--- NOTE | 2024-11-12 10:34 | CASEMGMT ---
Addendum entered by Lynne Gaines 11/12/24 15:05: Todays therapy notes sent to [facility] for precert to be started. Lynne Gaines DC Planning Asst. Addendum entered by Lynne Gaines 11/12/24 11:03: [facility] has accepted. Note sent requesting that precert be submitted. SW updated. Lynne Gaines DC Planning Asst. Original Note: Discharge Planning Referral sent to [facility]. Lynne Gaines DC Planning Asst.
[2024-11-12 10:43] VITALS: BP 111/68; PULSE 80; RESP 16; TEMP 36.7; O2SAT 97
[2024-11-12] MEDS: Menthol/Lanolin/Calamine/Znox 113 GM Tube 1 APPLIC TOPICAL ×2 (10:59→22:07)
[2024-11-12] MEDS: DULoxetine Hcl 60 MG Capsule PO (11:00)
[2024-11-12] MEDS: Memantine Hydrochloride 5 MG Tablet 7.5 MG PO ×2 (11:00→22:07)
[2024-11-12] MEDS: Enoxaparin 40 MG/0.4 ML Syringe SC (11:00)
[2024-11-12] MEDS: Lisinopril 10 MG Tablet PO (11:02)
[2024-11-12] MEDS: Atenolol 25 MG Tablet PO ×2 (11:02→22:07)
[2024-11-12] MEDS: amLODIPine 5 MG Tablet PO (11:02)
[2024-11-12] MEDS: Timolol 0.25% 5ML OPTH.BTL 1 DRP EACH EYE ×2 (11:03→22:07)
[2024-11-12] MEDS: Ceftriaxone 1 GM/50 ML BAG IV (11:09)
[2024-11-12 13:57] VITALS: BP 106/67; PULSE 69; RESP 16; TEMP 36.7; O2SAT 93
--- NOTE | 2024-11-12 15:15 | RAD_ITS ---
PROCEDURE: HAND MIN 3 VIEWS REASON FOR EXAM: Pain 2nd and 3rd digit. TECHNIQUE: 3 view(s) of the right hand COMPARISON: None. FINDINGS: No visible fracture. No suspicious bone lesion. Degenerative changes of the proximal and distal interphalangeal joints. Soft tissues are unremarkable. RAD/Hand Min 3 Views IMPRESSION: No acute osseous findings. Mild degenerative changes. Reading Location: [facility]
[2024-11-12 20:13] VITALS: BP 138/45; PULSE 71; RESP 17; TEMP 36.4; O2SAT 94
[2024-11-12] MEDS: Atorvastatin Calcium 20 MG Tablet PO (22:07)
[2024-11-13] VITALS (7 sets, daily range): BP systolic 136–186; BP diastolic 67–86; PULSE 64–88; RESP 14–17; TEMP 36.3–37; O2SAT 92–98; BMI 37.0
[2024-11-13] MEDS: Nystatin Powder 15gm Bottle 1 APPLIC TOPICAL ×3 (04:52→22:58)
[2024-11-13] MEDS: 0.9% Saline Lock 10 ML Syringe IV ×2 (04:53→11:55)
[2024-11-13 07:21] LABS: Absolute Lymphocyte Count 2.84 X10^3/uL (0.83-4.51); Absolute Neutrophil Count 5.9 X10^3/uL (2.0-7.7); Basophil# 0.08 X10^3/uL; Basophil% 0.8 % (0-1); Eosinophil# 0.41 X10^3/uL; Eosinophils% 4.1 % (0-5); Hematocrit 42.8 % (37-47); Hemoglobin 14.1 g/dL (12.0-15.0); Lymphocyte # 2.84 X10^3/ul (0.83-4.51); Lymphocyte % 28.7 % (19-41); Mean Corp Hgb Conc 32.9 g/dL (32-36); Mean Corpuscular Hgb 29.9 pg (27.0-32.0); Mean Corpuscular Volume 90.9 fL (81-99); Mean Platelet Vol. 9.9 fl (6.2-12.0); Monocyte# 0.68 X10^3/uL; Monocyte% 6.9 % (0-10); NRBC Flagged by Analyzer 0 % (0-5); Neutrophil # 5.85 X10^3/uL (2.7-7.7); Neutrophil % 59.2 % (47-70); Platelet Count 227 K/mm3 (150-450); RBC Distribution Width CV 12.8 % (11.6-14.6); RBC Distribution Width SD 42.4 fl (35.1-43.9); Red Blood Count 4.71 M/mm3 (4.2-5.4); White Blood Count 9.9 K/mm3 (4.4-11.0)
[2024-11-13] MEDS: Atenolol 25 MG Tablet PO ×2 (07:33→22:58)
[2024-11-13] MEDS: amLODIPine 5 MG Tablet PO (07:34)
[2024-11-13] MEDS: Lisinopril 10 MG Tablet PO (07:34)
[2024-11-13 07:58] LABS: Anion Gap 8 (5-15); BUN 14 mg/dL (7-18); Calcium,Total 9.8 mg/dL (8.5-10.1); Chloride 105 mmol/L (98-107); EST Glomerular Filtration Rate 85 mL/min (>60); Est Glom Filt Rate - Afr Amer 103 mL/min (>60); Estimated Creatinine Clearance 59.37 ml/min; Glucose 109 mg/dL (74-106); Potassium 3.9 mmol/L (3.5-5.1); Sodium Level 138 mmol/L (136-145)
[2024-11-13] MEDS: Aspirin 81 MG TAB.CHEW PO (08:12)
[2024-11-13] MEDS: Memantine Hydrochloride 5 MG Tablet 7.5 MG PO ×2 (09:39→22:57)
[2024-11-13] MEDS: Enoxaparin 40 MG/0.4 ML Syringe SC (09:41)
[2024-11-13] MEDS: Timolol 0.25% 5ML OPTH.BTL 1 DRP EACH EYE ×2 (09:42→22:58)
[2024-11-13] MEDS: Menthol/Lanolin/Calamine/Znox 113 GM Tube 1 APPLIC TOPICAL ×2 (09:44→22:57)
[2024-11-13] MEDS: Ceftriaxone 1 GM/50 ML BAG IV (09:54)
[2024-11-13] MEDS: DULoxetine Hcl 60 MG Capsule PO (10:09)
--- NOTE | 2024-11-13 11:39 | PCM.TXEXTCAR ---
Diet Diet Order/Speech Therapy: 11/10/24 14:32 Diet: Regular - General Food consistency:: Regular Liquid Consistency:: Regular/Thin DC O2, CPAP, BIPAP needs Home O2 Discharge instructions: No Problem/Diagnosis (1) Multiple falls: Status: Acute Code(s): R29.6 - Repeated falls (2) Urinary tract infection: Status: Acute Code(s): N39.0 - Urinary tract infection, site not specified Allergies/Procedures Done in Hospital Allergies baclofen Allergy (Verified 11/10/24 09:07) Unknown donepezil (From Aricept) Allergy (Verified 11/10/24 09:07) Other hydroxychloroquine (From Plaquenil) Allergy (Verified 11/10/24 09:07) Unknown Iodinated Contrast Media (Iodinated Contrast- Oral and IV Dye) Allergy (Verified 11/10/24 09:07) Hives pravastatin Allergy (Verified 11/10/24 09:07) Unknown shellfish derived Allergy (Verified 11/10/24 09:07) Hives spironolactone Allergy (Verified 11/10/24 09:07) Rash Sulfa (Sulfonamide Antibiotics) Allergy (Verified 11/10/24 09:07) Unknown Type of Care/Length of Stay Estimated LOS: Convalescent Care Less Than 30 days Type of Care Needed: Skilled Rehab Potential: Good Prognosis: Good Additional Orders/Day of Discharge Day of Discharge: 11/13/24 Dietary and Speech Recommendations Dietitian Recommendations/Changes: Continue Regular diet to optimize oral intakes. Discharge Plan Admission Admit Date/Time: 11/10/24 11:44 Attending Provider: Matt Amato Primary Care Provider: Zofia Horton Consulting Providers: Cj Calvillo Discharge Orders/Prescriptions Prescriptions: Continued atenolol 25 MG tablet 25 mg PO BID Patient Comments: folic acid 1 MG tablet 1 mg PO DAILY@0800 duloxetine 60 MG capsule,delayed release(DR/EC) 60 mg PO DAILY acetaminophen [Tylenol Arthritis Pain] 650 MG tablet extended release 650 mg PO BID magnesium oxide 400 MG tablet 400 mg PO BID cholecalciferol (vitamin D3) [Vitamin D3] 1,000 UNIT capsule 2,000 unit PO DAILY Timolol Maleate [Timoptic-Xe 0.25%] 1 DROP Arlyn.Gel 1 drp Each Eye DAILY Healthy Eyes 1,000 unit-200 mg-60 unit-2 mg tablet 1 cap PO BID aspirin 81 mg Tablet,Chewable 81 mg PO DAILY atorvastatin 20 mg tablet 20 mg PO DAILY amlodipine 5 mg tablet 5 mg PO DAILY lisinopril 10 mg tablet 10 mg PO DAILY memantine 21 mg capsule,sprinkle,ER 24hr 21 mg PO DAILY Eye Multivitamin 2,148 mcg-113 mg-45 mg-17.4mg tablet 1 tab PO DAILY Rx Instructions: administer with AM and PM meals Centrum Women 18-400 mg-mcg tablet 1 tab PO DAILY [place] MonoPure EPA EC 910-1,300 mg capsule,delayed release(DR/EC) 1 cap PO DAILY coenzyme Q10 [Co Q-10] 200 mg capsule 200 mg PO DAILY Changed sennosides-docusate sodium [Stool Softener-Stimulant Laxat] 8.6-50 mg Tablet 2 tab PO BID Qty: 0 0RF Referrals / Follow Up: Zofia Horton DO [Primary Care Provider] - Within 2 Weeks Disposition Disposition (needs filled in before D/C Order can be placed): [facility]
--- NOTE | 2024-11-13 13:40 | CASEMGMT ---
[facility] has obtained auth to admit. SW and Physician updated. Lynne Gaines DC Planning Asst.
--- NOTE | 2024-11-13 14:46 | DS.PCM_ITS ---
Providers Date of Admission: 11/10/24 Date of Discharge: 11/13/24 Primary Care Physician: Dr. Zofia Horton, DO Reason For Visit: ACUTE CYSTITIS, GENERALIZED WEAKNESS Diagnosis Discharge Diagnosis (1) Multiple falls: Status: Acute Code(s): R29.6 - Repeated falls (2) Urinary tract infection: Status: Acute Code(s): N39.0 - Urinary tract infection, site not specified Plan Patient is an 84-year-old lady with history of multiple sclerosis presented to the emergency department with progressive generalized weakness patient was found to have acute cystitis. Admitted to regular nursing floor for further management 1. Acute cystitis Klebsiella pneumoniae ? Patient started on ceftriaxone urine culture sent with plans to adjust antibiotic therapy based on sensitivity result ? 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 Plan is to complete antibiotic therapy with ceftriaxone for total of 3 days. Patient last dose due on 11/12/2024 which is appropriate as per [facility] ceftriaxone antibiotic duration for Klebsiella 2. Physical deconditioning - Requested for PT OT eval and psychologist social to assist with discharge planning ? 11/12/2024; plan [place] [facility] bed availability 3. Multiple sclerosis ? Currently not being treated given patient advanced age 3. Vascular dementia ? Complicating patient's care 11/12: Sometimes patient has visuospatial disorientation and talks irrelevant, language which are essential components of dementia 4. Hypertension - Blood pressure controlled, home medications continued with dose adjustment as needed 5. Coronary artery disease Currently stable 6. Morbid obesity ? Complicating patient's care 7. DVT prophylaxis ?SC Lovenox Discharge medication reconciliation done. Discharge follow-up instructions completed. Discharge process discussed with the patient and all questions were answered to patient's satisfaction. Follow with PCP in 1 to 2 weeks Total time spent, exact 35 minutes on discharge meds reconciliation, examination, coordination of care with nurses and ancillary staff, review of imaging and blood test and discussion with the patient on follow-up instructions. Medications at Discharge Home Medications Timolol Maleate [Timoptic-Xe 0.25%] 1 drp DAILY glaucoma 07/14/17 acetaminophen 650 mg tablet,extended release (Tylenol Arthritis Pain) 650 mg PO BID pain 07/14/17 atenolol 25 mg tablet 25 mg PO BID HTN 07/14/17 cholecalciferol (vitamin D3) 25 mcg (1,000 unit) capsule (Vitamin D3) 2,000 unit PO DAILY supplement 07/14/17 duloxetine 60 mg capsule,delayed release 60 mg PO DAILY depression 07/14/17 folic acid 1 mg tablet 1 mg PO DAILY@0800 supplement 07/14/17 magnesium oxide 400 mg (241.3 mg magnesium) tablet 400 mg PO BID supplement 07/14/17 vit A 300 mcg-C 200 mg-E 27 mg-lutein 2 mg and minerals tablet (Healthy Eyes) 1 cap PO BID Supplement 09/02/21 aspirin 81 mg chewable tablet 81 mg PO DAILY 03/11/23 amlodipine 5 mg tablet 5 mg PO DAILY 11/10/24 atorvastatin 20 mg tablet 20 mg PO DAILY 11/10/24 coenzyme Q10 200 mg capsule (Co Q-10) 200 mg PO DAILY 11/10/24 lisinopril 10 mg tablet 10 mg PO DAILY 11/10/24 memantine 21 mg capsule sprinkle,extended release 24hr 21 mg PO DAILY 11/10/24 multivitamin-ferrous fumarate-folic acid 18 mg-400 mcg tablet (Centrum Women) 1 tab PO DAILY blood clotting disorder 11/10/24 omega-3-epa 910 mg-fish oil 1,300 mg capsule,delayed release ([place] MonoPure EPA EC) 1 cap PO DAILY supplement 11/10/24 vitamins A,C,Y-smwi-jlrimc 2,148 mcg-113 mg-45 mg-17.4 mg tablet (Eye Multivitamin) 1 tab PO DAILY 11/10/24 sennosides 8.6 mg-docusate sodium 50 mg tablet (Stool Softener-Stimulant Laxative) 2 tab PO BID #0 tabs 11/13/24 Physical Exam Narrative Seen and examined General: Alert, awake, oriented x3, Cooperative. Forgetful to time sequence. HEENT: Atraumatic, PERRLA, EOMI, Normocephalic Oral: No Gingival or Mucosal Lesions/ Ulcerations Neck: Supple, No JVD, Negative Carotid Bruits Chest wall/Lungs: Air entry diminished in bilateral lung bases. No crepitation/rhonchi Cardiovascular: Regular rate, Regular Rhythm, Normal S1, Normal S2, No M/G/R Abdomen: Bowel Sounds Present, Soft, Non Tender, Non-Distended : No dysuria. No renal angle tenderness. No suprapubic tenderness. Extremities: No edema, Capillary Refill Less than 3 Seconds Skin: No rashes, No breakdown Musculoskeletal: No Tenderness to Palpation of Joints or Extremities Neurological: Cranial nerves II-XII grossly intact, DTR 2+/4. No acute focal neurological deficit. Psych/Mental Status: Dementia, incoherent speech Weight / BMI Weight Weight: 208 lb 15.971 oz Body Mass Index (BMI) 37.0 ABG / Lab / Microbiology Data 11/13/24 06:22 11/13/24 06:22 Laboratory: Laboratory Results - last 24 hr 11/13/24 06:22: WBC 9.9, RBC 4.71, Hgb 14.1, Hct 42.8, MCV 90.9, MCH 29.9, MCHC 32.9, RDW Std Deviation 42.4, RDW Coeff of Jameel 12.8, Plt Count 227, MPV 9.9, Immature Gran % (Auto) 0.300, Neut % (Auto) 59.2, Lymph % (Auto) 28.7, Petroleum % (Auto) 6.9, Eos % (Auto) 4.1, Baso % (Auto) 0.8, Absolute Neuts (auto) 5.9, Absolute Lymphs (auto) 2.84, Nucleated RBC % 0, Sodium 138, Potassium 3.9, Chloride 105, Carbon Dioxide 26.0, Anion Gap 8, BUN 14, Creatinine 0.70, Estim Creat Clear Calc 59.37, Est GFR (MDRD) Af Amer 103, Est GFR (MDRD) Non-Af 85, BUN/Creatinine Ratio 20.0, Glucose 109 H, Calcium 9.8 Microbiology: Microbiology 11/10/24 12:12 Blood Culture (Wb) - Left Hand Blood Culture - Preliminary No growth in 48 hours. 11/10/24 10:59 Urine, Clean Catch Urine Culture - Final Klebsiella pneumoniae sp pneum Radiography Diagnostic Testing: Radiology Impression Hand X-Ray 11/12/24 15:15 IMPRESSION: No acute osseous findings. Mild degenerative changes. Reading Location: [facility] D/C Instructions DC O2, CPAP, BIPAP Needs Home O2 Discharge instructions: No Meaningful Use Info Meaningful Use Meaningful Use Diagnoses (Choose all that apply): None applicable Ischemic Stroke Statin Dosing Therapy Reference: STATIN DOSE THERAPY REFERENCE: * Patients > 75 years receive moderate or high dose statin therapy. * Patients 75 years or YOUNGER should receive HIGH intensity statin dose unless contraindicated. You will be required to document reason for non-treatment if statin daily dose does not meet guidelines. HIGH DOSE STATIN THERAPY DAILY Atorvastatin > than or = to 40 mg Rosuvastatin > than or = to 20 mg Amlodipine + Atorvastatin > than or = to 2.5/40 mg Ezetimibe + Simvastatin 10/80 mg Simvastatin 80mg Discharge Plan Admission Admit Date/Time: 11/10/24 11:44 Attending Provider: Matt Amato Primary Care Provider: Zofia Horton Consulting Providers: Cj Calvillo Discharge Orders/Prescriptions Prescriptions: Continued atenolol 25 MG tablet 25 mg PO BID Patient Comments: folic acid 1 MG tablet 1 mg PO DAILY@0800 duloxetine 60 MG capsule,delayed release(DR/EC) 60 mg PO DAILY acetaminophen [Tylenol Arthritis Pain] 650 MG tablet extended release 650 mg PO BID magnesium oxide 400 MG tablet 400 mg PO BID cholecalciferol (vitamin D3) [Vitamin D3] 1,000 UNIT capsule 2,000 unit PO DAILY Timolol Maleate [Timoptic-Xe 0.25%] 1 DROP Arlyn.Gel 1 drp Each Eye DAILY Healthy Eyes 1,000 unit-200 mg-60 unit-2 mg tablet 1 cap PO BID aspirin 81 mg Tablet,Chewable 81 mg PO DAILY atorvastatin 20 mg tablet 20 mg PO DAILY amlodipine 5 mg tablet 5 mg PO DAILY lisinopril 10 mg tablet 10 mg PO DAILY memantine 21 mg capsule,sprinkle,ER 24hr 21 mg PO DAILY Eye Multivitamin 2,148 mcg-113 mg-45 mg-17.4mg tablet 1 tab PO DAILY Rx Instructions: administer with AM and PM meals Centrum Women 18-400 mg-mcg tablet 1 tab PO DAILY [place] MonoPure EPA EC 910-1,300 mg capsule,delayed release(DR/EC) 1 cap PO DAILY coenzyme Q10 [Co Q-10] 200 mg capsule 200 mg PO DAILY Changed sennosides-docusate sodium [Stool Softener-Stimulant Laxat] 8.6-50 mg Tablet 2 tab PO BID Qty: 0 0RF Referrals / Follow Up: Zofia Horton DO [Primary Care Provider] - Within 2 Weeks Disposition Disposition (needs filled in before D/C Order can be placed[facility] Charges/Coding Visit Charges Inpatient E&M: 34876 Disch Hosp >30min
--- NOTE | 2024-11-13 15:13 | CASEMGMT ---
Social Work Precert has been obtained.? Physician updated and pt is ready for discharge today.? 7000 convalescent form completed in [facility]. [facility] notified of discharge readiness. Final discharge arrangements and notification to patient/family as per discharge material assistant.? ? Disposition:[facility] skilled level of care under convalescent stay. CAROLYNN Borjas
--- NOTE | 2024-11-13 16:01 | CASEMGMT ---
Discharge orders, signed med list, and transport time sent to [facility]. Physicians will transport patient by cot at 7p. Nursing, SW, and pts daughter (Mary) updated. Lynne Gaines DC Planning Asst.
--- NOTE | 2024-11-13 16:15 | NURSING ---
All documentation by assistant chief nursing officer Boni Mays reviewed by skilled nursing facilities professional Yoselyn DUFFY, RN.
--- NOTE | 2024-11-13 21:52 | NURSING ---
transport expected 11/14 between 99 and 199.
[2024-11-13] MEDS: Atorvastatin Calcium 20 MG Tablet PO (22:57)
[2024-11-14 01:48] VITALS: BP 151/72; PULSE 69; RESP 16; TEMP 36.8; O2SAT 92
== END 2024-11-14 02:04 | disposition skilled nursing facility (03) | DRG 690 ==
LOC: ED 11:40 → MS3 11-11 11:55
PROVIDERS: Admitting Provider Internal Medicine; Emergency Provider Emergency Medicine; PCP Internal Medicine; Visit Provider Internal Medicine
DX: N30.00 Acute cystitis without hematuria (principal); G35 Multiple sclerosis; F01.50 Vascular dementia, unspecified severity, without behavioral disturbance, psychotic disturbance, mood disturbance, and anxiety; E66.01 Morbid (severe) obesity due to excess calories; E72.12 Methylenetetrahydrofolate reductase deficiency; B96.1 Klebsiella pneumoniae [K. pneumoniae] as the cause of diseases classified elsewhere; Z66 Do not resuscitate; I10 Essential (primary) hypertension; I25.10 Atherosclerotic heart disease of native coronary artery without angina pectoris; E78.2 Mixed hyperlipidemia; Z79.82 Long term (current) use of aspirin; Z68.37 Body mass index [BMI] 37.0-37.9, adult; Z79.899 Other long term (current) drug therapy; Z88.2 Allergy status to sulfonamides; Z88.8 Allergy status to other drugs, medicaments and biological substances; Z91.041 Radiographic dye allergy status; R29.6 Repeated falls
CPT/HCPCS: 36415; 73130; 80048; 80053; 81001; 83735; 84100; 85025; 87040; 87077; 87086; 87088; 87186; 94668; 96365; 96366; 96372; 97162; 97166; 97530; 99221; 99285; P9612; A4216; G0378; J0696

== ENCOUNTER 2025-06-04 15:50 | Observation (INO) | payer MEDICARE, SELFPAY ==
[2025-06-04] VITALS (7 sets, daily range): BP systolic 137–156; BP diastolic 75–105; PULSE 65–73; RESP 16–19; TEMP 36.5–37.1; O2SAT 93–97; BMI 34.0
--- NOTE | 2025-06-04 16:38 | RAD_ITS ---
PROCEDURE: WRIST MIN 3 VIEWS 06/04/2025 REASON FOR EXAM: INJURY TECHNIQUE: WRIST MIN 3 VIEWS Laterality: COMPARISON: None. FINDINGS: Bones: Osteopenia which limits the evaluation. No acute bony abnormalities. Joints: No dislocations. Soft tissues: No soft tissue abnormalities. RAD/Wrist min 3 Views IMPRESSION: No acute osseous abnormalities. Reading Location: [id number]
--- NOTE | 2025-06-04 16:39 | EKG12_ITS ---
Test Reason : Blood Pressure : */* mmHG Vent. Rate : 66 BPM Atrial Rate : 66 BPM P-R Int : 190 ms QRS Dur : 80 ms QT Int : 418 ms P-R-T Axes : 3 1 20 degrees QTcB Int : 438 ms Normal sinus rhythm Inferior infarct , age undetermined Abnormal ECG Confirmed by MICHELLE SEWELL, KANU ([id number]), assignment desk editor LOUIS MISHRA ([id number]) on 06/05/2025 1:36:50 PM Referred By: Confirmed By: KANU MARTINEZ MD
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
[2025-06-04 16:57] LABS: Mucous, Urine 0 SEEN /hpf (<or=2+)
--- NOTE | 2025-06-04 17:02 | US_ITS ---
PROCEDURE: VENOUS DUPLEX IMAG/LIMITED/UNI 06/04/2025 REASON FOR EXAM: F 85 y/o TECHNIQUE: VENOUS DUPLEX IMAG/LIMITED/UNI FINDINGS: There is no intraluminal echogenicity to suggest the presence of a deep venous thrombosis. Appropriate respiratory variation, augmentation and venous compression is noted. Right popliteal fossa 2.03.6 x 0.7 cm cystic lesion. US/Venous Duplex Imag/Limited/Uni IMPRESSION: No right lower extremity DVT. Right Ramos's cyst. Reading Location: [id number]
--- NOTE | 2025-06-04 17:15 | CT_ITS ---
PROCEDURE: BRAIN/HEAD WITHOUT CONTRAST 06/04/2025 REASON FOR EXAM: CONFUSION TECHNIQUE: BRAIN/HEAD WITHOUT CONTRAST Coronal and Sagittal reconstruction series were provided. One or more dose reduction techniques were used (e.g., Automated exposure control, adjustment of the mA and/or kV according to patient size, use of iterative reconstruction technique. RADIATION DOSE SUMMARY: CTDlvol: 44.99 mGy DLP: 846.73 mGycm COMPARISON: CT head 03/11/2023. FINDINGS: Brain: Extensive low density in the deep cerebral white matter most likely represents advanced chronic small vessel ischemic disease. No acute territorial infarction. No acute intracranial hemorrhage. No mass-effect or midline shift. CSF Spaces: Advanced generalized cerebral atrophy Sinuses/Mastoids: Clear at visualized levels Bones: No acute bony abnormalities. CT/Brain/Head without Contrast IMPRESSION: No acute intracranial abnormalities. Reading Location: [id number]
--- NOTE | 2025-06-04 17:20 | RAD_ITS ---
PROCEDURE: CHEST 1 VIEW (PORTABLE) 06/04/2025 REASON FOR EXAM: COUGH TECHNIQUE: Frontal view of the chest. COMPARISON: Chest x-ray dated 08/29/2021. FINDINGS: Hardware: Monitor electrodes overlie the chest. Heart: No cardiomegaly. Lungs: Clear. Bones: No acute bony abnormalities. Other: RAD/Chest 1 View (Portable) IMPRESSION: No acute cardiopulmonary abnormalities. Reading Location: [id number]
[2025-06-04 17:24] LABS: Hematocrit 41.4 % (37-47); Hemoglobin 13.7 g/dL (12.0-15.0); Immature Granulocytes Count 0.030 X10^3/uL (0.0-0.0); Mean Corp Hgb Conc 33.1 g/dL (32-36); Mean Corpuscular Volume 92.2 fL (81-99); Mean Platelet Vol. 9.6 fl (6.2-12.0); NRBC Flagged by Analyzer 0 % (0-5); Platelet Count 324 K/mm3 (150-450); RBC Distribution Width CV 12.6 % (11.6-14.6); RBC Distribution Width SD 42.6 fl (35.1-43.9); Red Blood Count 4.49 M/mm3 (4.2-5.4); White Blood Count 12.0 K/mm3 (4.4-11.0)
[2025-06-04 17:36] LABS: AST(SGOT) 30 U/L (<=31); Alanine Aminotransfer ALT/SGPT 25 U/L (<=34); Albumin, Serum 3.2 g/dL (3.4-4.8); Alkaline Phosphatase 123 U/L (35-104); Anion Gap 16 (5-15); BUN 16 mg/dL (4-19); BUN/Creat Ratio 20.6 RATIO (10-20); Calcium,Total 9.8 mg/dL (7.6-11.0); Carbon Dioxide 17.9 mmol/L (21.0-32.0); Chloride 103 mmol/L (98-108); Globulin 4.1 g/dL (2.2-4.2); Glucose 132 mg/dL (70-99); Potassium 4.6 mmol/L (3.3-5.1)
[2025-06-04 18:08] LABS: Color, Urine Yellow (Yellow); Glucose, Dipstick Normal (Normal); Ketone-Dipstick Negative (Negative); Leukocyte Esterase-Dipstick Negative /ul (Negative); Nitrite-Dipstick Negative (Negative); Occult Blood-Urine Negative /ul (Negative); Protein-Dipstick Negative (Negative); Specific Gravity, Urine 1.015 (1.002-1.030); Urine Bilirubin Dipstick Negative (Negative)
[2025-06-04 18:28] LABS: Red Blood Cells-Urine 0-5 SEEN /hpf (0-5); Squamous Epithelial Cells - UA 0-5 SEEN /hpf (5-10)
--- NOTE | 2025-06-04 19:22 | PCM.HP.STD ---
[facility] - General General Date of Admission: 06/04/25 Date of Service: 06/04/25 Chief Complaint: Adult failure to thrive HPI Narrative OSBALDO VILLAVICENCIO, is a 85 F who presented to [facility] ED on 06/04/2025 with adult failure to thrive. Patient lives at home with her . Medical history is significant for vascular dementia, MS and chronic debility. Daughter lives close by and has been very involved with her care. Patient has had worsening weakness recently with multiple falls in the past week or so. Patient apparently has been active with hospice care for 3 months but is only receiving assistance 3 days/week, and family feels that she needs placement at this time. In the ED she was mildly hypertensive but otherwise in normal sinus rhythm and stable on room air at rest. CBC and BMP were benign. UA was unremarkable. CT brain, chest x-ray and wrist x-ray (had fall onto left wrist recently) were all negative. Venous duplex ultrasound showed right Ramos's cyst but no evidence of DVT. Hospitalist was then contacted for admission. I saw the patient at bedside in the ED, daughter and son-in-law were present. Patient was laying back comfortably in bed and making appropriate eye contact but alert and oriented only to person and place. She was not able to answer questions appropriately for me. She did deny any acute pain or discomfort. No other acute concerns this time. Will be admitted for further management. [facility] Medical History (Updated 06/04/25 @ 21:[address] Nate Bentley, DO) Anxiety Rheumatoid arthritis DVT (deep venous thrombosis) Dementia Multiple falls Meningioma Rheumatoid arthritis MTHFR mutation Vascular dementia Cystitis Mixed hyperlipidemia Multiple sclerosis Essential hypertension AMD (age related macular degeneration) Atherosclerotic heart disease of [place] coronary artery without angina pectoris Asthma Home Medications ?Medication ?Instructions ?Recorded ?Last Taken ?Type Timolol Maleate [Timoptic-Xe 0.25%] 1 drp DAILY glaucoma 07/14/17 11/09/24 History acetaminophen 650 mg 650 mg PO BID pain 07/14/17 11/09/24 History tablet,extended release (Tylenol Arthritis Pain) atenolol 25 mg tablet 25 mg PO BID HTN 07/14/17 11/09/24 History cholecalciferol (vitamin D3) 25 2,000 unit PO DAILY supplement 07/14/17 11/03/24 History mcg (1,000 unit) capsule (Vitamin D3) duloxetine 60 mg capsule,delayed 60 mg PO DAILY depression 07/14/17 11/09/24 History release folic acid 1 mg tablet 1 mg PO DAILY@0800 supplement 07/14/17 11/09/24 History magnesium oxide 400 mg (241.3 mg 400 mg PO BID supplement 07/14/17 11/09/24 History magnesium) tablet vit A 300 mcg-C 200 mg-E 27 1 cap PO BID Supplement 09/02/21 11/09/24 History mg-lutein 2 mg and minerals tablet (Healthy Eyes) aspirin 81 mg chewable tablet 81 mg PO DAILY 03/11/23 11/09/24 History amlodipine 5 mg tablet 5 mg PO DAILY 11/10/24 11/08/24 History atorvastatin 20 mg tablet 20 mg PO DAILY 11/10/24 11/08/24 History coenzyme Q10 200 mg capsule (Co 200 mg PO DAILY 11/10/24 11/09/24 History Q-10) lisinopril 10 mg tablet 10 mg PO DAILY 11/10/24 11/09/24 History memantine 21 mg capsule 21 mg PO DAILY 11/10/24 11/08/24 History sprinkle,extended release 24hr multivitamin-ferrous 1 tab PO DAILY blood clotting 11/10/24 11/09/24 History fumarate-folic acid 18 mg-400 mcg disorder tablet (Centrum Women) omega-3-epa 910 mg-fish oil 1,300 1 cap PO DAILY supplement 11/10/24 11/09/24 History mg capsule,delayed release ([place] MonoPure EPA EC) vitamins A,C,K-yywi-sinpff 2,148 1 tab PO DAILY 11/10/24 11/09/24 History mcg-113 mg-45 mg-17.4 mg tablet (Eye Multivitamin) sennosides 8.6 mg-docusate sodium 2 tab PO BID #0 tabs 11/13/24 Unknown Rx 50 mg tablet (Stool Softener-Stimulant Laxative) furosemide 20 mg tablet 20 mg PO DAILY 06/04/25 Unknown History potassium chloride 20 mEq 20 meq PO DAILY PRN low potassium 06/04/25 Unknown History tablet,extended release quetiapine 150 mg tablet 150 mg PO QHS PRN PRN agitation 06/04/25 Unknown History Allergy/AdvReac Type Severity Reaction Status Date / Time baclofen Allergy Unknown Verified 06/04/25 15:51 donepezil (From Aricept) Allergy Other Verified 06/04/25 15:51 hydroxychloroquine (From Allergy Unknown Verified 06/04/25 15:51 Plaquenil) Iodinated Contrast Media Allergy Hives Verified 06/04/25 15:51 (Iodinated Contrast- Oral and IV Dye) losartan (From Cozaar) Allergy Rash Verified 06/04/25 20:58 pravastatin Allergy Unknown Verified 06/04/25 15:51 shellfish derived Allergy Hives Verified 06/04/25 15:51 spironolactone Allergy Rash Verified 06/04/25 15:51 Sulfa (Sulfonamide Allergy Unknown Verified 06/04/25 15:51 Antibiotics) Family History Other Diabetes MTHFR gene mutation Surgical History History of tonsillectomy and adenoidectomy S/P YAG capsulotomy, left History of vitrectomy History of kyphoplasty History of hemorrhoidectomy History of appendectomy Social History household members: spouse Smoking Status: Never smoker alcohol intake: never substance use type: does not use ROS Review of Systems ROS Unobtainable: due to mental condition Vital Signs Vital Signs Vital Signs: 06/04/25 15:51 06/04/25 15:51 06/04/25 16:39 Temperature 98.6 F Temperature Source Oral Pulse Rate 73 Respiratory Rate 18 Respiratory Effort Normal Non-Labored Respiratory Pattern Normal Blood Pressure 148/81 H Blood Pressure Mean 103 Pulse Ox 94 Oxygen Delivery Method Room Air Room Air 06/04/25 16:51 06/04/25 18:00 06/04/25 18:36 Temperature 98.8 F Temperature Source Pulse Rate 70 65 65 Respiratory Rate 16 18 18 Respiratory Effort Respiratory Pattern Blood Pressure 150/75 H 137/105 H 137/105 H Blood Pressure Mean 100 115 115 Pulse Ox 95 95 95 Oxygen Delivery Method Room Air Physical Exam Const alert, no apparent distress and average body habitus Constitutional Narrative: Elderly female, pleasantly demented, alert and oriented to person and place but not time, unable to answer most questions appropriately for me, otherwise laying back comfortably in bed and in no acute distress. General Appearance: cooperative and comfortable HEENT normocephalic, head/scalp atraumatic, hearing grossly normal bilaterally, nasal mucous membranes and turbinates normal and moist oral mucous membranes Eyes PERRL, EOMs intact bilaterally and conjunctivae normal Neck full ROM Chest inspection of chest normal Resp normal respiratory effort, normal air movement, no use of accessory muscles and clear to auscultation bilaterally Cardio regular rate, regular rhythm, no murmurs and peripheral pulses 2+ throughout GI normal to inspection, nondistended, normoactive bowel sounds, soft to palpation, non-tender and non-distended Back/Spine normal ROM Extremity normal to inspection, full ROM and no pedal edema Skin no rashes or lesions noted Results Lab / Micro Data 06/04/25 16:55 06/04/25 16:55 Labs: Laboratory Results - last 24 hr 06/04/25 16:50: Urine Color Yellow, Urine Clarity Clear, Urine pH 5.0, Ur Specific [place] 1.015, Urine Protein Negative, Urine Glucose (UA) Normal, Urine Ketones Negative, Urine Occult Blood Negative, Urine Nitrite Negative, Urine Bilirubin Negative, Urine Urobilinogen Normal, Ur Leukocyte Esterase Negative, Urine RBC 0-5 SEEN, Urine WBC 0-5 SEEN, Ur Squamous Epith Cells 0-5 SEEN, Urine Bacteria 0 SEEN, Urine Mucus 0 SEEN 06/04/25 16:55: WBC 12.0 H, RBC 4.49, Hgb 13.7, Hct 41.4, MCV 92.2, MCH 30.5, MCHC 33.1, RDW Std Deviation 42.6, RDW Coeff of Jameel 12.6, Plt Count 324, MPV 9.6, Immature Gran % (Auto) 0.300, Neut % (Auto) 62.3, Lymph % (Auto) 25.4, [place] % (Auto) 8.3, Eos % (Auto) 2.9, Baso % (Auto) 0.8, Absolute Neuts (auto) 7.5, Absolute Lymphs (auto) 3.04, Nucleated RBC % 0, Sodium 136, Potassium 4.6, Chloride 103, Carbon Dioxide 17.9 L, Anion Gap 16 H, BUN 16, Creatinine 0.78, Est GFR (MDRD) Non-Af 75, BUN/Creatinine Ratio 20.6 H, Glucose 132 H, Calcium 9.8, Total Bilirubin 0.48, AST 30, ALT 25, Alkaline Phosphatase 123 H, Total Protein 7.3, Albumin 3.2 L, Globulin 4.1, Albumin/Globulin Ratio 0.8 L Micro: Microbiology 06/04/25 16:30 Mucosa - Nose SARS-CoV-2, Influenza & RSV (PCR) - Final Imaging Radiology Impression Wrist X-Ray 06/04/25 16:38 IMPRESSION: No acute osseous abnormalities. Reading Location: [id number] Venous Duplex 06/04/25 17:02 IMPRESSION: No right lower extremity DVT. Right Ramos's cyst. Reading Location: [id number] Brain CT 06/04/25 17:15 IMPRESSION: No acute intracranial abnormalities. Reading Location: [id number] Chest X-Ray 06/04/25 17:20 IMPRESSION: No acute cardiopulmonary abnormalities. Reading Location: [id number] Assessment & Plan Assessment/Plan (1) Adult failure to thrive: PLAN: Plan Patient is an 85-year-old female who presented to [facility] ED on 06/04/2025 for adult failure to thrive. 1. Adult failure to thrive with worsening weakness in setting of vascular dementia and MS ? Admit under observation status to [facility]. PT/OT/case management consulted. Patient lives at home with and apparently is on home hospice care, but family notes increased need for assistance with daily activities and thus facility placement. They apparently have the patient accepted at [facility] already but there was no bed available yet. Appreciate case management assistance. Continue home memantine. 2. Hypertension/hyperlipidemia ? Mildly hypertensive to the 150s systolic on admit. Continue home aspirin, atenolol, amlodipine, lisinopril, Lasix and atorvastatin. 3. Anxiety/depression ? Stable. Continue home duloxetine and Seroquel at night as needed. 4. Class I obesity ? BMI 34 on admit., Gets hospital course and care. DVT prophylaxis: Lovenox CODE STATUS: DNR CCA, DNI Expected disposition: SNF, 1 to 2 days Total clinical time spent by myself addressing the patient's medical issues, reviewing all the data, and collaborating with patient's care team: 55 minutes. Charges/Coding Visit Charges Inpatient E&M: 42691 Init Hosp L2
--- NOTE | 2025-06-04 20:24 | CM.ED ---
Social Work SW met with patients daughter who stated they felt patient was in need of SNF care. Daughter has been in contact with [facility] who is their FOC. All questions answered regarding insurance and LTC payment options. Sheri Lares, ACCOUNT RECEIVABLE ASSOCIATE, PACKAGE DESIGNER
[2025-06-04] MEDS: Timolol 0.25% 5ML OPTH.BTL 1 DRP EACH EYE (21:55)
[2025-06-04] MEDS: Senna/Docusate Sodium 1 Tablet 2 TABLET PO (21:56)
[2025-06-04] MEDS: Magnesium Chloride 64 MG Delay Rel.Tablet 128 MG PO (21:56)
[2025-06-04] MEDS: Multivitamin (Healthy Eyes) Capsule 1 CAP PO (21:57)
[2025-06-05 02:29] VITALS: BP 153/88; PULSE 72; RESP 16; TEMP 36.5; O2SAT 95
[2025-06-05 05:55] LABS: Hematocrit 35.4 % (37-47); Hemoglobin 12.3 g/dL (12.0-15.0); Mean Corp Hgb Conc 34.7 g/dL (32-36); Mean Corpuscular Volume 89.4 fL (81-99); Mean Platelet Vol. 9.0 fl (6.2-12.0); Platelet Count 338 K/mm3 (150-450); RBC Distribution Width CV 12.5 % (11.6-14.6); RBC Distribution Width SD 41.3 fl (35.1-43.9); Red Blood Count 3.96 M/mm3 (4.2-5.4); White Blood Count 12.3 K/mm3 (4.4-11.0)
[2025-06-05 06:20] LABS: Anion Gap 11 (5-15); BUN 18 mg/dL (4-19); BUN/Creat Ratio 29.6 RATIO (10-20); Calcium,Total 9.6 mg/dL (7.6-11.0); Carbon Dioxide 23.9 mmol/L (21.0-32.0); Chloride 104 mmol/L (98-108); Estimated Creatinine Clearance 57.82 ml/min (50-250); Glucose 135 mg/dL (70-99); Potassium 4.0 mmol/L (3.3-5.1)
[2025-06-05 08:58] VITALS: BP 144/65; PULSE 70; RESP 16; TEMP 36.9; O2SAT 95
[2025-06-05] MEDS: Magnesium Chloride 64 MG Delay Rel.Tablet 128 MG PO ×2 (09:20→22:00)
[2025-06-05] MEDS: Timolol 0.25% 5ML OPTH.BTL 1 DRP EACH EYE ×2 (09:20→22:02)
[2025-06-05] MEDS: Senna/Docusate Sodium 1 Tablet 2 TABLET PO ×2 (09:21→22:01)
[2025-06-05] MEDS: Cholecalciferol (VIT D3) 25 MCG TABLET (1,000 UNITS) 50 MCG PO (09:21)
[2025-06-05] MEDS: Memantine Hydrochloride 10 MG Tablet PO (09:22)
--- NOTE | 2025-06-05 10:33 | CASEMGMT ---
MALIDNA Spoke with patients daughter (Mary) to complete PETTY form. PETTY form and its content were verbally explained and questions were answered to the best of my ability.? Mary voiced understanding and verbally acknowledged form.? Copy of PETTY form placed in pts room and original placed in patient's chart.? Lynne Gaines, Discharge Planning Asst
--- NOTE | 2025-06-05 11:45 | CASEMGMT ---
Social Work Noted ED SW documentation that patient's daughter is thought to be in need of SNF. Also noted in record that patient has recently been on hospice care, and carries diagnoses of MS and dementia. Received call from Safia, the Forming Machine Upkeep Mechanic Helper at [facility], inquiring about discharge plan and patient's status at hospital (obs versus inpatient). Direct call back: [phone] and agency fax is [phone]. Updated to current observation status and unknown plan for discharge. Safia reports patient has not been d/c from hospice due to observation status, but will need to d/c if patient converts to inpatient. Patient could then be picked back up from hospice as a later time if needed/wanted. Called patient's daughter Mary Jordan ([phone]) who reports concern about patient returning home right away and would like to see patient get rehab at a SNF, in particular [facility]. Reports the patient was recently treated for a UTI and seemed to get better, but in the last couple of days noted a decline in functional status. Patient has gone through rehab in the past at a SNF with good results. Educated daughter that insurance will not pay for both hospice and skilled SNF stay, and that if choose to go to a SNF then hospice would have to discharge. Also educated there is no guarantee that patient's insurance would approve skilled days. Daughter would like to try for skilled stay. Declines a choice list for SNF, as [facility] is the closest for the patient's 87 year old to visit. This verse writer noted there is a Living Will on file, but not a POAHC. Mary reports family will bring this in. During conversation, Mary reports the family is working with an elder care ip technology transactions attorney regarding estate issue, and will be looking at applying for Medicaid for patient, for longer term care needs. Educated there is a reimbursement representative at [facility] who can assist with Medicaid application if needed, while patient is in the hospital. Updated Lynne, Discharge Contract Engineer who will make SNF referral. Plan: Possible intermediate facility - referral pending with [facility] -ZENA Harley
[2025-06-05 12:33] VITALS: O2SAT 95
--- NOTE | 2025-06-05 13:49 | CASEMGMT ---
Addendum entered by Lynne Gaines 06/05/25 14:20: [facility] has accepted and will submit for precert. SW updated. Lynne Gaines DC Planning Asst. Original Note: Discharge Planning Referral sent to [facility]. Lynne Gaines DC Planning Asst.
[2025-06-05 15:53] VITALS: BP 141/75; PULSE 79; RESP 16; TEMP 36.9; O2SAT 98
--- NOTE | 2025-06-05 16:00 | CASEMGMT ---
Social Work Received update that patient can be accepted to [facility] and precert to be started. Updated patient's daughter Mary. Updated Safia at [facility] who will discharge patient from hospice as of today, 06.05.25. Plan: [facility], senior living facility, pending precert and PASRR submission/approval. -ZENA Harley
--- NOTE | 2025-06-05 16:11 | CASEMGMT ---
SW PASSR submitted through [facility]. Level 2 will be required through [facility] prior to patient admission into [place]. LESLY Caballero
--- NOTE | 2025-06-05 18:24 | PN.HOSP_ITS ---
Reason for Visit Chief Complaint: Adult failure to thrive Subjective Subjective Patient was seen and examined today, her family members were in the room at the time my examination, patient is pleasantly confused, daughter states that this is not her normal mental status that she is more functional and when episodes happen she suspects urinary tract infection. I reviewed her labs and there is no sign of any urinary tract infection or pneumonia. I have elected to repeat her UA today. Objective Data Objective Data Vital Signs: Vital Signs Temp Pulse Resp BP Pulse Ox O2 Del Method 98.4 F 79 16 141/75 H 98 Room Air 06/05/25 15:53 06/05/25 15:53 06/05/25 15:53 06/05/25 15:53 06/05/25 15:53 06/05/25 15:53 Oxygen Delivery Method Room Air Weight: 89.811 kg Body Mass Index (BMI) 34.0 Intake & Output: Intake and Output for Last 24 Hours 06/03/25 06/04/25 06/05/25 23:59 23:59 23:59 Intake Total 700 / 700 Balance 700 / 700 Lab / Micro Data 06/05/25 05:40 06/05/25 05:40 Labs: Laboratory Results - last 24 hr 06/04/25 16:50: Urine RBC 0-5 SEEN, Urine WBC 0-5 SEEN, Ur Squamous Epith Cells 0-5 SEEN, Urine Bacteria 0 SEEN, Urine Mucus 0 SEEN 06/05/25 05:40: WBC 12.3 H, RBC 3.96 L, Hgb 12.3, Hct 35.4 L, MCV 89.4, MCH 31.1, MCHC 34.7, RDW Std Deviation 41.3, RDW Coeff of Jameel 12.5, Plt Count 338, MPV 9.0, Sodium 139, Potassium 4.0, Chloride 104, Carbon Dioxide 23.9, Anion Gap 11, BUN 18, Creatinine 0.62 L, Estim Creat Clear Calc 57.82, Est GFR (MDRD) Non- Af 88, BUN/Creatinine Ratio 29.6 H, Glucose 135 H, Calcium 9.6 Micro: Microbiology 06/04/25 16:30 Mucosa - Nose SARS-CoV-2, Influenza & RSV (PCR) - Final Physical Exam Const alert, no apparent distress and healthy appearing Constitutional Narrative: Patient exhibits mild confusion General Appearance: cooperative, well kempt and well developed Orientation / Consciousness: awake, oriented to person and oriented to place HEENT normocephalic, head/scalp atraumatic and moist oral mucous membranes Eyes PERRL, EOMs intact bilaterally and conjunctivae normal Neck supple, no JVD, thyroid normal and no carotid bruits General: trachea midline Resp normal respiratory effort, no retractions, no use of accessory muscles and clear to auscultation bilaterally Auscultation: Negative for rales, rhonchi or wheezes Cardio regular rate, regular rhythm, S1 normal heart sound, S2 normal heart sound, no murmurs, no rub and no gallops GI normal to inspection, nondistended, normoactive bowel sounds, soft to palpation, non-tender and non-distended Extremity Extremity Narrative: Mild lower leg edema bilaterally Skin no rashes or lesions noted General Skin Exam: no breakdown Neuro CN's II-XII intact bilaterally, no focal motor deficits and no sensory deficits noted Neuro Narrative: Mild/moderate confusion is noted Sensorium / Orientation: awake, alert, oriented to person and oriented to place Speech: speech normal Psych Psych Narrative: Patient exhibits mild/moderate confusion Assessment & Plan Assessment/Plan (1) General weakness: PLAN: Plan 1. Generalized weakness with an overlie of vascular dementia and MS-PT and OT will continue to see the patient, she may need temporary placement in half-way facility #2 essential hypertension-continue home medications #3 vascular dementia-complicates care, management, recovery, and prognosis #4 chronic depression-patient is on Cymbalta and Seroquel Total clinical time spent by myself addressing the patient's medical issues, reviewing other data, and collaborating with patient's care team: 35 minutes Charges/Coding Visit Charges Inpatient E&M: 88313 Subs Hosp L2
[2025-06-05 21:39] VITALS: BP 147/74; PULSE 79; RESP 18; TEMP 36.3; O2SAT 94
[2025-06-05] MEDS: Multivitamin (Healthy Eyes) Capsule 1 CAP PO (22:00)
[2025-06-05] MEDS: Memantine Hydrochloride 5 MG Tablet PO (22:01)
[2025-06-05] MEDS: 0.9% Saline Lock 10 ML Syringe IV (22:03)
[2025-06-06 02:38] VITALS: BP 147/77; PULSE 69; RESP 16; TEMP 36.3; O2SAT 92
[2025-06-06 03:09] LABS: Mucous, Urine 0 SEEN /hpf (<or=2+); Red Blood Cells-Urine 0 SEEN /hpf (0-5)
[2025-06-06 03:12] LABS: Color, Urine Yellow (Yellow); Glucose, Dipstick Normal (Normal); Ketone-Dipstick Negative (Negative); Leukocyte Esterase-Dipstick 500 /ul (Negative); Nitrite-Dipstick Negative (Negative); Occult Blood-Urine Negative /ul (Negative); Protein-Dipstick 15 mg/dl (Negative); Specific Gravity, Urine 1.015 (1.002-1.030); Urine Bilirubin Dipstick Negative (Negative)
[2025-06-06 04:42] LABS: Squamous Epithelial Cells - UA 0-5 SEEN /hpf (5-10)
[2025-06-06] MEDS: Cholecalciferol (VIT D3) 25 MCG TABLET (1,000 UNITS) 50 MCG PO (08:14)
[2025-06-06] MEDS: Senna/Docusate Sodium 1 Tablet 2 TABLET PO ×2 (08:14→21:53)
[2025-06-06] MEDS: Timolol 0.25% 5ML OPTH.BTL 1 DRP EACH EYE ×2 (08:15→21:53)
[2025-06-06] MEDS: Memantine Hydrochloride 10 MG Tablet PO (08:15)
[2025-06-06] MEDS: Multivitamin (Healthy Eyes) Capsule 1 CAP PO ×2 (08:15→21:53)
[2025-06-06] MEDS: Magnesium Chloride 64 MG Delay Rel.Tablet 128 MG PO ×2 (08:15→21:53)
[2025-06-06 08:45] VITALS: BP 105/76; PULSE 73; RESP 16; TEMP 37; O2SAT 95
[2025-06-06 09:34] LABS: Hematocrit 36.9 % (37-47); Hemoglobin 12.6 g/dL (12.0-15.0); Immature Granulocytes Count 0.050 X10^3/uL (0.0-0.0); Mean Corp Hgb Conc 34.1 g/dL (32-36); Mean Corpuscular Volume 90.7 fL (81-99); Mean Platelet Vol. 9.4 fl (6.2-12.0); NRBC Flagged by Analyzer 0 % (0-5); Platelet Count 340 K/mm3 (150-450); RBC Distribution Width CV 12.5 % (11.6-14.6); RBC Distribution Width SD 41.6 fl (35.1-43.9); Red Blood Count 4.07 M/mm3 (4.2-5.4); White Blood Count 12.5 K/mm3 (4.4-11.0)
--- NOTE | 2025-06-06 11:19 | CASEMGMT ---
Discharge Planning This production underwriter was informed by [facility] that pt would admit with traditional MCR benefits for 30 days after revoking hospice and would need a qualifying stay (pt is obs). Upon further investigation, pt would actually remain traditional MCR until the first of the month and then convert back to her advantage plan (still needing qualifying stay). This was explained to the SW who then updated pts daughter. Family has decided that pt will return home. [facility] updated. Lynne Gaines DC Planning Asst.
[2025-06-06 14:51] VITALS: BP 130/86; PULSE 79; RESP 16; TEMP 36.4; O2SAT 95
--- NOTE | 2025-06-06 16:44 | PCM.PN.HOSP ---
Reason for Visit Chief Complaint: Adult failure to thrive Subjective Subjective Patient was seen and examined today, she remains pleasantly confused, I repeated her UA yesterday and it does show leukocyte esterase and trace bacteria, I have elected to place her on a short course of Cipro 250 twice a day for 3 days. Her white count remains elevated also, patient does not look ill or toxic. According to the family, she is doing poorly with physical therapy. Objective Data Objective Data Vital Signs: Vital Signs Temp Pulse Resp BP Pulse Ox O2 Del Method 97.6 F L 79 16 130/86 H 95 Room Air 06/06/25 14:51 06/06/25 14:51 06/06/25 14:51 06/06/25 14:51 06/06/25 14:51 06/06/25 14:52 Oxygen Delivery Method Room Air Weight: 89.811 kg Body Mass Index (BMI) 34.0 Intake & Output: Intake and Output for Last 24 Hours 06/04/25 06/05/25 06/06/25 23:59 23:59 23:59 Intake Total 1550 / 1700 400 / 400 Output Total 300 / 300 Balance 1550 / 1700 100 / 100 Lab / Micro Data 06/06/25 Unknown 06/05/25 05:40 Labs: Laboratory Results - last 24 hr 06/06/25 02:50: Urine Color Yellow, Urine Clarity Clear, Urine pH 6.0, Ur Specific [place] 1.015, Urine Protein 15 H, Urine Glucose (UA) Normal, Urine Ketones Negative, Urine Occult Blood Negative, Urine Nitrite Negative, Urine Bilirubin Negative, Urine Urobilinogen Normal, Ur Leukocyte Esterase 500 H, Urine RBC 0 SEEN, Urine WBC 0-5 SEEN, Ur Squamous Epith Cells 0-5 SEEN, Urine Bacteria RARE, Urine Mucus 0 SEEN 06/06/25 : WBC 12.5 H, RBC 4.07 L, Hgb 12.6, Hct 36.9 L, MCV 90.7, MCH 31.0, MCHC 34.1, RDW Std Deviation 41.6, RDW Coeff of Jameel 12.5, Plt Count 340, MPV 9.4, Immature Gran % (Auto) 0.400, Neut % (Auto) 65.0, Lymph % (Auto) 23.2, [place] % (Auto) 8.2, Eos % (Auto) 2.6, Baso % (Auto) 0.6, Absolute Neuts (auto) 8.1 H, Absolute Lymphs (auto) 2.90, Nucleated RBC % 0 Micro: Microbiology 06/04/25 16:30 Mucosa - Nose SARS-CoV-2, Influenza & RSV (PCR) - Final Physical Exam Narrative alert, no apparent distress and healthy appearing Constitutional Narrative: Patient exhibits mild confusion General Appearance: cooperative, well kempt and well developed Orientation / Consciousness: awake, oriented to person and oriented to place HEENT normocephalic, head/scalp atraumatic and moist oral mucous membranes Eyes PERRL, EOMs intact bilaterally and conjunctivae normal Neck supple, no JVD, thyroid normal and no carotid bruits General: trachea midline Resp normal respiratory effort, no retractions, no use of accessory muscles and clear to auscultation bilaterally Auscultation: Negative for rales, rhonchi or wheezes Cardio regular rate, regular rhythm, S1 normal heart sound, S2 normal heart sound, no murmurs, no rub and no gallops GI normal to inspection, nondistended, normoactive bowel sounds, soft to palpation, non-tender and non-distended Extremity Extremity Narrative: Mild lower leg edema bilaterally Skin no rashes or lesions noted General Skin Exam: no breakdown Neuro CN's II-XII intact bilaterally, no focal motor deficits and no sensory deficits noted Neuro Narrative: Mild/moderate confusion is noted Sensorium / Orientation: awake, alert, oriented to person and oriented to place Speech: speech normal Psych Psych Narrative: Patient exhibits mild/moderate confusion Assessment & Plan Assessment/Plan (1) History of multiple sclerosis: (2) General weakness: PLAN: Plan 1. Generalized weakness with an overlie of vascular dementia and MS-PT and OT will continue to see the patient, she may need temporary placement in fdc facility #2 essential hypertension-continue home medications #3 vascular dementia-complicates care, management, recovery, and prognosis #4 chronic depression-patient is on Cymbalta and Seroquel #5 bacteriuria-again I placed the patient on Cipro today for short course Total clinical time spent by myself addressing the patient's medical issues, reviewing other data, and collaborating with patient's care team: 35 minutes Charges/Coding Visit Charges Inpatient E&M: 41352 Subs Hosp L2
--- NOTE | 2025-06-06 16:58 | CASEMGMT ---
Social Work SW in conversation with pt dgt throughout day discussing discharge plan. Due to hospice involvement with pt and pt revoking hospice, Traditional Medicare A & B has become pt's primary insurance overriding [place]. On June 16, pt will again be active with [employer] Medicare. Pt does not qualify for SNF stay under traditional Medicare as pt is admitted under an observation stay. Pt's dgt does not feel that pt can return home at this time due to pt's level of debility and pt spouse cannot care for pt even with the assistance of hospice aides. Pt dgt states that pt is not safe in the care of pt's . SW spoke with dgt regarding applying for Medicaid now and going to SNF under pending Medicaid. Dgt reached out to the elder law gas line servicer she has been working with and has decided not to apply for Medicaid at this time. Pt's dgt states pt can pay privately at [facility] until June 16 when her [place] Medicare is active and then requests [facility] submit for precert through this insurance. Dgt will continue to work with elder law gas line servicer toward Medicaid application and group home care. SW spoke with [facility] [place] who is in agreement with this plan. SW did inform dgt that there is no guarantee that [facility] will approve SNF stay on 06/16, but it can be attempted. PASRR was completed yesterday and pt triggered for Level 2 Assessment by the [place] Department of Developmental Disabilities due to diagnosis of MS. Pt cannot discharge to a SNF until this assessment is completed. Pt's dgt, [facility] [place] [facility] and Physician notified of this. SW checked [facility] for progress of Level 2 at this time and it is indicated the referral has been started. Plan: [facility], private pay. Once Level 2 Assessment completed through [facility]. Pt here through the weekend. CAROLYNN Wood
[2025-06-06 21:46] VITALS: BP 116/73; PULSE 84; RESP 18; TEMP 37.1; O2SAT 95
[2025-06-06] MEDS: Memantine Hydrochloride 5 MG Tablet PO (21:53)
[2025-06-06] MEDS: 0.9% Saline Lock 10 ML Syringe IV (21:54)
[2025-06-07 04:16] VITALS: BP 146/67; PULSE 81; RESP 16; TEMP 36.6; O2SAT 97
[2025-06-07 07:30] VITALS: O2SAT 95
[2025-06-07 08:04] VITALS: BP 160/74; PULSE 71; RESP 17; TEMP 36.1; O2SAT 92
[2025-06-07] MEDS: Timolol 0.25% 5ML OPTH.BTL 1 DRP EACH EYE ×2 (08:56→22:36)
[2025-06-07] MEDS: Multivitamin (Healthy Eyes) Capsule 1 CAP PO ×2 (08:57→22:35)
[2025-06-07] MEDS: Magnesium Chloride 64 MG Delay Rel.Tablet 128 MG PO ×2 (08:58→22:34)
[2025-06-07] MEDS: Memantine Hydrochloride 10 MG Tablet PO (08:58)
[2025-06-07] MEDS: Senna/Docusate Sodium 1 Tablet 2 TABLET PO ×2 (08:58→22:34)
[2025-06-07] MEDS: Cholecalciferol (VIT D3) 25 MCG TABLET (1,000 UNITS) 50 MCG PO (08:59)
--- NOTE | 2025-06-07 11:48 | PN.HOSP_ITS ---
Reason for Visit Chief Complaint: Adult failure to thrive Subjective Subjective Patient was seen and examined today, she appears in no distress, she is alert and able to carry on conversations with me. Patient will have to undergo an evaluation from the Department of developmental disability before she can go to a skilled facility for rehab services, this is due to her diagnosis of MS. Objective Data Objective Data Vital Signs: Vital Signs Temp Pulse Resp BP Pulse Ox O2 Del Method 97 F L 71 17 160/74 H 92 Room Air 06/07/25 08:04 06/07/25 08:04 06/07/25 08:04 06/07/25 08:04 06/07/25 08:04 06/07/25 08:04 Oxygen Delivery Method Room Air Weight: 89.811 kg Body Mass Index (BMI) 34.0 Intake & Output: Intake and Output for Last 24 Hours 06/05/25 06/06/25 06/07/25 23:59 23:59 23:59 Intake Total 1550 / 1700 900 / 900 Output Total 900 / 900 800 / 800 Balance 1550 / 1700 0 / 0 -800 / -800 Lab / Micro Data 06/06/25 Unknown 06/05/25 05:40 Micro: Microbiology 06/04/25 16:30 Mucosa - Nose SARS-CoV-2, Influenza & RSV (PCR) - Final Physical Exam Narrative alert, no apparent distress and healthy appearing Constitutional Narrative: Patient exhibits mild confusion General Appearance: cooperative, well kempt and well developed Orientation / Consciousness: awake, oriented to person and oriented to place HEENT normocephalic, head/scalp atraumatic and moist oral mucous membranes Eyes PERRL, EOMs intact bilaterally and conjunctivae normal Neck supple, no JVD, thyroid normal and no carotid bruits General: trachea midline Resp normal respiratory effort, no retractions, no use of accessory muscles and clear to auscultation bilaterally Auscultation: Negative for rales, rhonchi or wheezes Cardio regular rate, regular rhythm, S1 normal heart sound, S2 normal heart sound, no murmurs, no rub and no gallops GI normal to inspection, nondistended, normoactive bowel sounds, soft to palpation, non-tender and non-distended Extremity Extremity Narrative: Mild lower leg edema bilaterally Skin no rashes or lesions noted General Skin Exam: no breakdown Neuro CN's II-XII intact bilaterally, no focal motor deficits and no sensory deficits noted Neuro Narrative: Mild/moderate confusion is noted Sensorium / Orientation: awake, alert, oriented to person and oriented to place Speech: speech normal Psych Psych Narrative: Patient exhibits mild/moderate confusion Assessment & Plan Assessment/Plan (1) History of multiple sclerosis: (2) General weakness: PLAN: Plan 1. Generalized weakness with an overlie of vascular dementia and MS-PT and OT will continue to see the patient, she may need temporary placement in residential facility, this will most likely not happen until next week after her case has been reviewed #2 essential hypertension-continue home medications #3 vascular dementia-complicates care, management, recovery, and prognosis #4 chronic depression-patient is on Cymbalta and Seroquel #5 bacteriuria-again I placed the patient on Cipro for a 3-day course for possible cystitis Total clinical time spent by myself addressing the patient's medical issues, reviewing other data, and collaborating with patient's care team: 35 minutes Charges/Coding Visit Charges Inpatient E&M: 63108 Subs Hosp L2
[2025-06-07 14:17] VITALS: BP 115/59; PULSE 64; RESP 17; TEMP 36.2; O2SAT 96
[2025-06-07 22:31] VITALS: BP 137/73; PULSE 74; RESP 18; TEMP 36.4; O2SAT 94
[2025-06-07] MEDS: Memantine Hydrochloride 5 MG Tablet PO (22:36)
[2025-06-07] MEDS: 0.9% Saline Lock 10 ML Syringe IV (22:40)
[2025-06-08 03:10] VITALS: BP 138/71; PULSE 72; RESP 18; TEMP 36.3; O2SAT 94
[2025-06-08 07:21] VITALS: O2SAT 94
[2025-06-08 08:00] VITALS: BP 143/70; PULSE 74; RESP 18; TEMP 36.6; O2SAT 95
[2025-06-08] MEDS: Memantine Hydrochloride 10 MG Tablet PO (09:50)
[2025-06-08] MEDS: Multivitamin (Healthy Eyes) Capsule 1 CAP PO ×2 (09:50→21:27)
[2025-06-08] MEDS: Magnesium Chloride 64 MG Delay Rel.Tablet 128 MG PO ×2 (09:50→21:27)
[2025-06-08] MEDS: Timolol 0.25% 5ML OPTH.BTL 1 DRP EACH EYE ×2 (09:50→21:26)
[2025-06-08] MEDS: Senna/Docusate Sodium 1 Tablet 2 TABLET PO ×2 (09:50→21:27)
[2025-06-08] MEDS: Cholecalciferol (VIT D3) 25 MCG TABLET (1,000 UNITS) 50 MCG PO (09:50)
--- NOTE | 2025-06-08 09:51 | PCM.PN.HOSP ---
Reason for Visit Chief Complaint: Adult failure to thrive Subjective Subjective Patient was seen and examined today, she remains confused, she thought she was at her home when she was in the hospital. Patient does not appear to be in any distress Objective Data Objective Data Vital Signs: Vital Signs Temp Pulse Resp BP Pulse Ox O2 Del Method 98 F 74 18 143/70 H 95 Room Air 06/08/25 08:00 06/08/25 08:00 06/08/25 08:00 06/08/25 08:00 06/08/25 08:00 06/08/25 08:00 Oxygen Delivery Method Room Air Weight: 89.811 kg Body Mass Index (BMI) 34.0 Intake & Output: Intake and Output for Last 24 Hours 06/06/25 06/07/25 06/08/25 23:59 23:59 23:59 Intake Total 900 / 900 220 / 220 Output Total 900 / 900 800 / 1000 201 / 201 Balance 0 / 0 -800 / -780 Lab / Micro Data 06/06/25 Unknown 06/05/25 05:40 Micro: Microbiology 06/04/25 16:30 Mucosa - Nose SARS-CoV-2, Influenza & RSV (PCR) - Final Physical Exam Narrative alert, no apparent distress and healthy appearing Constitutional Narrative: Patient exhibits mild confusion General Appearance: cooperative, well kempt and well developed Orientation / Consciousness: awake, oriented to person and oriented to place HEENT normocephalic, head/scalp atraumatic and moist oral mucous membranes Eyes PERRL, EOMs intact bilaterally and conjunctivae normal Neck supple, no JVD, thyroid normal and no carotid bruits General: trachea midline Resp normal respiratory effort, no retractions, no use of accessory muscles and clear to auscultation bilaterally Auscultation: Negative for rales, rhonchi or wheezes Cardio regular rate, regular rhythm, S1 normal heart sound, S2 normal heart sound, no murmurs, no rub and no gallops GI normal to inspection, nondistended, normoactive bowel sounds, soft to palpation, non-tender and non-distended Extremity Extremity Narrative: Mild lower leg edema bilaterally Skin no rashes or lesions noted General Skin Exam: no breakdown Neuro CN's II-XII intact bilaterally, no focal motor deficits and no sensory deficits noted Neuro Narrative: Mild/moderate confusion is noted Sensorium / Orientation: awake, alert, oriented to person and oriented to place Speech: speech normal Psych Psych Narrative: Patient exhibits mild/moderate confusion Assessment & Plan Assessment/Plan (1) History of multiple sclerosis: (2) General weakness: PLAN: Plan 1. Generalized weakness with an overlie of vascular dementia and MS-PT and OT will continue to see the patient, she may need temporary placement in long-term facility, this will most likely not happen until next week after her case has been reviewed #2 essential hypertension-continue home medications #3 Increased confusion on a backdrop of vascular dementia-complicates care, management, recovery, and prognosis, it is unknown why the patient's confusion has increased over the past several days, she does not appear to have a documented infection, I did elect to treat her for possible cystitis using a short course of Cipro. #4 chronic depression-patient is on Cymbalta and Seroquel #5 bacteriuria-again I placed the patient on Cipro for a 3-day course for possible cystitis Total clinical time spent by myself addressing the patient's medical issues, reviewing other data, and collaborating with patient's care team: 35 minutes Charges/Coding Visit Charges Inpatient E&M: [id number] Subs Hosp L2
[2025-06-08 14:21] VITALS: BP 106/67; PULSE 77; RESP 17; TEMP 36.6; O2SAT 95
[2025-06-08 21:24] VITALS: BP 151/79; PULSE 72; RESP 18; TEMP 36.5; O2SAT 98
[2025-06-08] MEDS: Memantine Hydrochloride 5 MG Tablet PO (21:29)
[2025-06-09 02:14] VITALS: BP 163/90; PULSE 65; RESP 18; TEMP 37.1; O2SAT 97
[2025-06-09 08:00] VITALS: RESP 18
[2025-06-09 08:35] VITALS: BP 156/68; PULSE 74; RESP 18; TEMP 36.9; O2SAT 98
[2025-06-09] MEDS: Senna/Docusate Sodium 1 Tablet 2 TABLET PO ×2 (09:30→20:59)
[2025-06-09] MEDS: Cholecalciferol (VIT D3) 25 MCG TABLET (1,000 UNITS) 50 MCG PO (09:30)
[2025-06-09] MEDS: Multivitamin (Healthy Eyes) Capsule 1 CAP PO ×2 (09:31→21:00)
[2025-06-09] MEDS: Magnesium Chloride 64 MG Delay Rel.Tablet 128 MG PO ×2 (09:31→20:59)
[2025-06-09] MEDS: Memantine Hydrochloride 10 MG Tablet PO (09:31)
[2025-06-09] MEDS: Timolol 0.25% 5ML OPTH.BTL 1 DRP EACH EYE ×2 (09:36→21:01)
--- NOTE | 2025-06-09 11:56 | PCM.PN.HOSP ---
Reason for Visit Chief Complaint: Adult failure to thrive Subjective Subjective Patient was seen and examined today, she remains pleasantly confused, her was in the room at the time of my examination. Objective Data Objective Data Vital Signs: Vital Signs Temp Pulse Resp BP Pulse Ox O2 Del Method 98.4 F 74 18 156/68 H 98 Room Air 06/09/25 08:35 06/09/25 08:35 06/09/25 08:35 06/09/25 08:35 06/09/25 08:35 06/09/25 08:35 Oxygen Delivery Method Room Air Weight: 89.811 kg Body Mass Index (BMI) 34.0 Intake & Output: Intake and Output for Last 24 Hours 06/07/25 06/08/25 06/09/25 23:59 23:59 23:59 Intake Total 520 / 520 400 / 400 Output Total 800 / 1000 201 / 201 700 / 700 Balance -800 / -780 319 / 319 -300 / -300 Lab / Micro Data 06/06/25 Unknown 06/05/25 05:40 Micro: Microbiology 06/04/25 16:30 Mucosa - Nose SARS-CoV-2, Influenza & RSV (PCR) - Final Physical Exam Narrative alert, no apparent distress and healthy appearing Constitutional Narrative: Patient exhibits mild confusion General Appearance: cooperative, well kempt and well developed Orientation / Consciousness: awake, oriented to person and oriented to place HEENT normocephalic, head/scalp atraumatic and moist oral mucous membranes Eyes PERRL, EOMs intact bilaterally and conjunctivae normal Neck supple, no JVD, thyroid normal and no carotid bruits General: trachea midline Resp normal respiratory effort, no retractions, no use of accessory muscles and clear to auscultation bilaterally Auscultation: Negative for rales, rhonchi or wheezes Cardio regular rate, regular rhythm, S1 normal heart sound, S2 normal heart sound, no murmurs, no rub and no gallops GI normal to inspection, nondistended, normoactive bowel sounds, soft to palpation, non-tender and non-distended Extremity Extremity Narrative: Mild lower leg edema bilaterally Skin no rashes or lesions noted General Skin Exam: no breakdown Neuro CN's II-XII intact bilaterally, no focal motor deficits and no sensory deficits noted Neuro Narrative: Mild/moderate confusion is noted Sensorium / Orientation: awake, alert, oriented to person and oriented to place Speech: speech normal Psych Psych Narrative: Patient exhibits mild/moderate confusion Assessment & Plan Assessment/Plan (1) History of multiple sclerosis: (2) General weakness: PLAN: Plan 1. Generalized weakness with an overlie of vascular dementia and MS-PT and OT will continue to see the patient, we are in the process currently of obtaining permission for the patient to go to an extended care facility for short-term rehab, she will need to be reviewed by the Department of developmental disabilities #2 essential hypertension-continue home medications #3 Increased confusion on a backdrop of vascular dementia-complicates care, management, recovery, and prognosis, it is unknown why the patient's confusion has increased over the past several days, she does not appear to have a documented infection, I did elect to treat her for possible cystitis using a short course of Cipro. I have decided to stop her Cipro after the 2 doses today. #4 chronic depression-patient is on Cymbalta and Seroquel #5 bacteriuria-again I placed the patient on Cipro for a 3-day course for possible cystitis Total clinical time spent by myself addressing the patient's medical issues, reviewing other data, and collaborating with patient's care team: 35 minutes Charges/Coding Visit Charges Inpatient E&M: [id number] Subs Hosp L2
--- NOTE | 2025-06-09 13:02 | CASEMGMT ---
Social Work SW called [facility], spoke w/Evan. He states the referral for [facility] further review was received. He is not the reviewer, however he states he does see it was received on Monday. He states JUSTYN can send an email to to chek on it, Evan did not have a general phone number for SW to call. JUSTYN did send an email, will await response. SUGEY Beck
[2025-06-09 14:40] VITALS: BP 151/71; PULSE 77; RESP 18; TEMP 37.1; O2SAT 98
--- NOTE | 2025-06-09 15:19 | CASEMGMT ---
JUSTYN ALEJANDRA called the daughter Mary and updated her that the PASRR is still pending review. LESLY Hart
[2025-06-09 20:53] VITALS: BP 154/88; PULSE 84; RESP 16; TEMP 36.8; O2SAT 96
[2025-06-09 20:55] VITALS: O2SAT 96
[2025-06-09] MEDS: Memantine Hydrochloride 5 MG Tablet PO (20:59)
[2025-06-10 05:58] VITALS: BP 134/63; PULSE 76; RESP 16; TEMP 36.9; O2SAT 96
[2025-06-10 05:59] VITALS: O2SAT 96
[2025-06-10 07:52] LABS: Hematocrit 35.2 % (37-47); Hemoglobin 12.1 g/dL (12.0-15.0); Immature Granulocytes Count 0.050 X10^3/uL (0.0-0.0); Mean Corp Hgb Conc 34.4 g/dL (32-36); Mean Corpuscular Volume 90.3 fL (81-99); Mean Platelet Vol. 9.3 fl (6.2-12.0); NRBC Flagged by Analyzer 0 % (0-5); Platelet Count 423 K/mm3 (150-450); RBC Distribution Width CV 12.5 % (11.6-14.6); RBC Distribution Width SD 41.3 fl (35.1-43.9); Red Blood Count 3.90 M/mm3 (4.2-5.4); White Blood Count 12.9 K/mm3 (4.4-11.0)
[2025-06-10 08:13] LABS: AST(SGOT) 24 U/L (<=31); Alanine Aminotransfer ALT/SGPT 33 U/L (<=34); Albumin, Serum 3.6 g/dL (3.4-4.8); Alkaline Phosphatase 114 U/L (35-104); Anion Gap 10 (5-15); BUN 18 mg/dL (4-19); BUN/Creat Ratio 29.7 RATIO (10-20); Calcium,Total 9.8 mg/dL (7.6-11.0); Carbon Dioxide 22.8 mmol/L (21.0-32.0); Chloride 106 mmol/L (98-108); Estimated Creatinine Clearance 57.82 ml/min (50-250); Globulin 4.1 g/dL (2.2-4.2); Glucose 126 mg/dL (70-99); Potassium 4.6 mmol/L (3.3-5.1)
[2025-06-10 08:16] VITALS: BP 146/70; PULSE 87; RESP 16; TEMP 37; O2SAT 94
[2025-06-10 08:17] VITALS: O2SAT 95
[2025-06-10] MEDS: Cholecalciferol (VIT D3) 25 MCG TABLET (1,000 UNITS) 50 MCG PO (08:22)
[2025-06-10] MEDS: Timolol 0.25% 5ML OPTH.BTL 1 DRP EACH EYE ×2 (08:22→21:03)
[2025-06-10] MEDS: Senna/Docusate Sodium 1 Tablet 2 TABLET PO ×2 (08:22→21:04)
[2025-06-10] MEDS: Memantine Hydrochloride 10 MG Tablet PO (08:23)
[2025-06-10] MEDS: Multivitamin (Healthy Eyes) Capsule 1 CAP PO ×2 (08:23→21:04)
[2025-06-10] MEDS: Magnesium Chloride 64 MG Delay Rel.Tablet 128 MG PO ×2 (08:23→21:04)
[2025-06-10 09:36] LABS: Uric Acid 5.2 mg/dL (2.6-6.0)
--- NOTE | 2025-06-10 10:10 | RAD_ITS ---
PROCEDURE: HAND MIN 3 VIEWS 06/10/2025 REASON FOR EXAM: PAIN TECHNIQUE: Left hand three views COMPARISON: None FINDINGS: There is no fracture or dislocation identified. 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 There is diffuse osteopenia. There is no focal soft tissue abnormality or radiopaque foreign body. RAD/Hand Min 3 Views IMPRESSION: No acute fracture or dislocation is identified. Reading Location: [facility]
--- NOTE | 2025-06-10 11:12 | CASEMGMT ---
Social Work SW did get an email response back from [facility] stating that it can take up to 9 business days for them to respond. SW checked the [facility] system, no updates, referral still listed as started with [facility]. Mariangel MAYES
--- NOTE | 2025-06-10 12:55 | CASEMGMT ---
Social Work SW spoke with the daughter Mary in the room. SW updated her that the PASRR2 is still pending review. SW suggested the daughter speak with the business office at [facility] regarding private pay requirements. LESLY Hart
[2025-06-10 14:08] VITALS: BP 131/60; PULSE 86; RESP 18; TEMP 36.1; O2SAT 96
--- NOTE | 2025-06-10 18:34 | PCM.PN.HOSP ---
Reason for Visit Chief Complaint: Adult failure to thrive Subjective Subjective No issues overnight. Patient is complaining of some left hand swelling and she is having some difficulty opening and closing it. Her memory is so poor she cannot tell me if anything happened to it. It does not look like she has a history of gout per documentation. Waiting on PASRR. Objective Data Objective Data Vital Signs: Vital Signs Temp Pulse Resp BP Pulse Ox O2 Del Method 96.9 F L 86 18 131/60 H 96 Room Air 06/10/25 14:08 06/10/25 14:08 06/10/25 14:08 06/10/25 14:08 06/10/25 14:08 06/10/25 14:08 Oxygen Delivery Method Room Air Weight: 89.811 kg Body Mass Index (BMI) 34.0 Intake & Output: Intake and Output for Last 24 Hours 06/08/25 06/09/25 06/10/25 23:59 23:59 23:59 Intake Total 520 / 520 1900 / 1900 600 / 600 Output Total 201 / 201 701 / 701 2 / 2 Balance 319 / 319 1199 / 1199 598 / 598 Lab / Micro Data 06/10/25 07:40 06/10/25 07:40 Labs: Laboratory Results - last 24 hr 06/10/25 07:40: WBC 12.9 H, RBC 3.90 L, Hgb 12.1, Hct 35.2 L, MCV 90.3, MCH 31.0, MCHC 34.4, RDW Std Deviation 41.3, RDW Coeff of Jameel 12.5, Plt Count 423, MPV 9.3, Immature Gran % (Auto) 0.400, Neut % (Auto) 66.8, Lymph % (Auto) 22.3, [place] % (Auto) 7.3, Eos % (Auto) 2.6, Baso % (Auto) 0.6, Absolute Neuts (auto) 8.6 H, Absolute Lymphs (auto) 2.87, Nucleated RBC % 0, Sodium 139, Potassium 4.6, Chloride 106, Carbon Dioxide 22.8, Anion Gap 10, BUN 18, Creatinine 0.62 L, Estim Creat Clear Calc 57.82, Est GFR (MDRD) Non-Af 88, BUN/Creatinine Ratio 29.7 H, Glucose 126 H, Uric Acid 5.2, Calcium 9.8, Total Bilirubin 0.47, AST 24, ALT 33, Alkaline Phosphatase 114 H, Total Protein 7.6, Albumin 3.6, Globulin 4.1, Albumin/Globulin Ratio 0.9 Micro: Microbiology 06/04/25 16:30 Mucosa - Nose SARS-CoV-2, Influenza & RSV (PCR) - Final Radiography Diagnostic Testing: Radiology Impression Hand X-Ray 06/10/25 10:10 IMPRESSION: No acute fracture or dislocation is identified. Reading Location: [facility] Physical Exam Const alert, no apparent distress and well nourished; Negative for average body habitus Constitutional Narrative: Elderly, white female, sitting up in chair at the bedside, oriented to self, pleasantly confused HEENT head/scalp atraumatic and moist oral mucous membranes Head and Scalp: normocephalic Resp normal respiratory effort, no retractions, no use of accessory muscles and clear to auscultation bilaterally Auscultation: Negative for rales, rhonchi or wheezes Cardio regular rate, regular rhythm, S1 normal heart sound, S2 normal heart sound, no murmurs, no rub, no gallops and no clicks GI normal to inspection, nondistended, normoactive bowel sounds, soft to palpation and non-tender Extremity Extremity Narrative: Trace to 1+ bilateral lower extremity edema, no cyanosis or clubbing. Left hand with swelling, decreased active and passive range of motion, no significant erythema or ecchymosis, no specific area of tenderness Neuro No oriented x3, moves all extremities and no focal motor deficits Sensorium / Orientation: awake, alert and oriented to person; Negative for oriented to place or oriented to time Psych affect normal Psych Narrative: Very pleasant, interacts appropriately Assessment & Plan Assessment/Plan (1) History of multiple sclerosis: (2) Left hand pain: (3) Weakness: (4) Multiple falls: (5) Adult failure to thrive: PLAN: Plan Adult failure to thrive in the setting of worsening vascular dementia and MS - Patient is having increased needs for assistance with ADLs and IADLs with family requesting placement - Has been accepted at [facility] - [facility] need [facility] and currently awaiting on the [facility] - Infectious etiologies have been ruled out Right hand pain - Check hand x-ray - Check uric acid level - Continue to monitor - History is limited due to patient's dementia CAD/essential hypertension/hyperlipidemia - Continue home aspirin - Continue home Tylenol - Continue amlodipine - Continue home lisinopril - Continue Lasix - Continue atorvastatin Vitamin D deficiency - Continue home cholecalciferol Vascular dementia - At baseline only oriented to self - Currently at baseline - Continue home memantine Anxiety/depression - Continue home Seroquel - Continue home duloxetine Glaucoma - Continue home eyedrops Obesity - BMI 34 - Complicates treatment, prognosis, outcomes DVT prophylaxis - Continue enoxaparin CODE STATUS - DNR CCA with no intubation Charges/Coding Visit Charges Inpatient E&M: 45414 Subs Hosp L2 Date medically ready for discharge: 06/05/25 Reason for DC delay: PASRR pending from [facility]
[2025-06-10 20:47] VITALS: BP 138/66; PULSE 81; RESP 16; TEMP 36.8; O2SAT 99
[2025-06-10] MEDS: Memantine Hydrochloride 5 MG Tablet PO (21:04)
[2025-06-11 02:53] VITALS: BP 132/63; PULSE 79; RESP 16; TEMP 36.6; O2SAT 96
[2025-06-11 08:36] VITALS: BP 135/62; PULSE 72; RESP 14; TEMP 36.6; O2SAT 96
[2025-06-11] MEDS: Multivitamin (Healthy Eyes) Capsule 1 CAP PO ×2 (08:41→23:12)
[2025-06-11] MEDS: Magnesium Chloride 64 MG Delay Rel.Tablet 128 MG PO ×2 (08:42→23:13)
[2025-06-11] MEDS: Memantine Hydrochloride 10 MG Tablet PO (08:42)
[2025-06-11] MEDS: Senna/Docusate Sodium 1 Tablet 2 TABLET PO ×2 (08:42→23:11)
[2025-06-11] MEDS: Cholecalciferol (VIT D3) 25 MCG TABLET (1,000 UNITS) 50 MCG PO (08:43)
[2025-06-11] MEDS: Timolol 0.25% 5ML OPTH.BTL 1 DRP EACH EYE ×2 (08:44→23:13)
--- NOTE | 2025-06-11 08:58 | CASEMGMT ---
Discharge Planning Clinical updates sent to [facility]. Level II determination remains pending. Lynne Gaines DC Planning Asst.
[2025-06-11 10:40] VITALS: BP 120/77; PULSE 79; RESP 14; TEMP 36.6; O2SAT 94
[2025-06-11 15:06] VITALS: BP 117/66; PULSE 70; RESP 14; TEMP 36.5; O2SAT 92
--- NOTE | 2025-06-11 16:39 | PCM.PN.HOSP ---
Reason for Visit Chief Complaint: Adult failure to thrive Subjective Subjective No issues overnight. Left hand pain on the left side today. Patient states she slept well. Objective Data Objective Data Vital Signs: Vital Signs Temp Pulse Resp BP Pulse Ox O2 Del Method 97.7 F L 70 14 117/66 92 Room Air 06/11/25 15:06 06/11/25 15:06 06/11/25 15:06 06/11/25 15:06 06/11/25 15:06 06/11/25 15:06 Oxygen Delivery Method Room Air Weight: 89.811 kg Body Mass Index (BMI) 34.0 Intake & Output: Intake and Output for Last 24 Hours 06/09/25 06/10/25 06/11/25 23:59 23:59 23:59 Intake Total 1900 / 1900 600 / 600 Output Total 701 / 701 600 / 600 Balance 1199 / 1199 598 / 398 -600 / -600 Lab / Micro Data 06/10/25 07:40 06/10/25 07:40 Micro: Microbiology 06/04/25 16:30 Mucosa - Nose SARS-CoV-2, Influenza & RSV (PCR) - Final Physical Exam Const alert, no apparent distress and well nourished; Negative for average body habitus Constitutional Narrative: Elderly, white female, sitting up in chair at the bedside eating breakfast, oriented to self, pleasantly confused HEENT normocephalic and head/scalp atraumatic Neuro Speech: speech normal Psych affect normal Psych Narrative: Very pleasant, interacts appropriately Assessment & Plan Assessment/Plan (1) History of multiple sclerosis: (2) Left hand pain: (3) Weakness: (4) Multiple falls: (5) Adult failure to thrive: PLAN: Plan Adult failure to thrive in the setting of worsening vascular dementia and MS - Patient is having increased needs for assistance with ADLs and IADLs with family requesting placement - Has been accepted at [facility] - [facility] need [facility] and currently awaiting on the [facility] - Infectious etiologies have been ruled out Right hand pain - Hand x-ray is unremarkable and pain seems better today -Uric acid was within normal limits - Continue to monitor - History is limited due to patient's dementia CAD/essential hypertension/hyperlipidemia - Continue home aspirin - Continue home Tylenol - Continue amlodipine - Continue home lisinopril - Continue Lasix - Continue atorvastatin Vitamin D deficiency - Continue home cholecalciferol Vascular dementia - At baseline only oriented to self - Currently at baseline - Continue home memantine Anxiety/depression - Continue home Seroquel - Continue home duloxetine Glaucoma - Continue home eyedrops Obesity - BMI 34 - Complicates treatment, prognosis, outcomes DVT prophylaxis - Continue enoxaparin CODE STATUS - DNR CCA with no intubation Charges/Coding Visit Charges Inpatient E&M: 91690 Subs Hosp L1 Date medically ready for discharge: 06/05/25 Reason for DC delay: PASRR pending from [facility]
[2025-06-11 23:10] VITALS: BP 139/89; PULSE 83; RESP 16; TEMP 36.8; O2SAT 99
[2025-06-11] MEDS: Memantine Hydrochloride 5 MG Tablet PO (23:14)
[2025-06-12 05:15] VITALS: BP 135/59; PULSE 73; RESP 16; TEMP 36.7; O2SAT 96
[2025-06-12 10:00] VITALS: BP 133/76; PULSE 74; RESP 18; TEMP 37.1; O2SAT 98
[2025-06-12] MEDS: Multivitamin (Healthy Eyes) Capsule 1 CAP PO (10:22)
[2025-06-12] MEDS: Magnesium Chloride 64 MG Delay Rel.Tablet 128 MG PO (10:22)
[2025-06-12] MEDS: Senna/Docusate Sodium 1 Tablet 2 TABLET PO (10:23)
[2025-06-12] MEDS: Cholecalciferol (VIT D3) 25 MCG TABLET (1,000 UNITS) 50 MCG PO (10:23)
[2025-06-12] MEDS: Memantine Hydrochloride 10 MG Tablet PO (10:23)
[2025-06-12] MEDS: Timolol 0.25% 5ML OPTH.BTL 1 DRP EACH EYE (10:24)
--- NOTE | 2025-06-12 10:41 | CASEMGMT ---
Social Work Level II determination from the [place] Department of has been completed. Pt can discharge to [facility] today. Phone call to pt dgt Mary and informed of this. Mary states that she has been in contact with [facility] and discussed private pay and has made arrangements. Pt family will provide transport. Physician notified pt can be discharged today. DC ict sales assistant updated and to notify [facility]. CAROLYNN Crooks
--- NOTE | 2025-06-12 11:04 | TREXTCAR_ITS ---
Diet Diet Order/Speech Therapy: INPATIENT Hospital Diet / Speech Therapy Order(s) 06/04/25 20:56 Diet: Regular - General Food consistency:: Regular Liquid Consistency:: Regular/Thin Routine Orders/Code Status Suppository Frequency: Daily PRN Routine Lab Work: CBC (As needed) and BMP (As needed) Code Status: DNRCC-A (No ET tube) DC O2, CPAP, BIPAP needs Home O2 Discharge instructions: No Suggestions for Active Care Change Position every (hours): 2 Hours to sit in a chair: 3 Times a day to sit in chair: 2 Therapies Weight Bearing: Full weight bearing Physical Therapy: Eval and Treat Occupational Therapy: Eval and Treat Problem/Diagnosis (1) History of multiple sclerosis: Status: Acute Code(s): G35 - Multiple sclerosis (2) Left hand pain: Status: Acute Code(s): M79.642 - Pain in left hand (3) Weakness: Status: Acute Code(s): R53.1 - Weakness (4) Multiple falls: Status: Acute Code(s): R29.6 - Repeated falls (5) Adult failure to thrive: Status: Acute Code(s): R62.7 - Adult failure to thrive Allergies/Procedures Done in Hospital Allergies baclofen Allergy (Verified 06/04/25 15:51) Unknown donepezil (From Aricept) Allergy (Verified 06/04/25 15:51) Other hydroxychloroquine (From Plaquenil) Allergy (Verified 06/04/25 15:51) Unknown Iodinated Contrast Media (Iodinated Contrast- Oral and IV Dye) Allergy (Verified 06/04/25 15:51) Hives losartan (From Cozaar) Allergy (Verified 06/04/25 20:58) Rash pravastatin Allergy (Verified 06/04/25 15:51) Unknown shellfish derived Allergy (Verified 06/04/25 15:51) Hives spironolactone Allergy (Verified 06/04/25 15:51) Rash Sulfa (Sulfonamide Antibiotics) Allergy (Verified 06/04/25 15:51) Unknown Type of Care/Length of Stay Estimated LOS: Convalescent Care Less Than 30 days Type of Care Needed: Skilled Rehab Potential: Good Prognosis: Fair Additional Orders/Day of Discharge Day of Discharge: 06/12/25 Follow Up Care Please follow up with your Primary Care Physician in: 1-2 weeks Discharge Plan Admission Admit Date/Time: 06/04/25 19:22 Attending Provider: Leena Metz Primary Care Provider: Zofia Horton Consulting Providers: Nate Bentley; Sukhwinder Cruz Discharge Orders/Prescriptions Prescriptions: No Action atenolol 25 MG tablet 25 mg PO BID Patient Comments: folic acid 1 MG tablet 1 mg PO DAILY@0800 duloxetine 60 MG capsule,delayed release(DR/EC) 60 mg PO DAILY acetaminophen [Tylenol Arthritis Pain] 650 MG tablet extended release 650 mg PO BID magnesium oxide 400 MG tablet 400 mg PO BID cholecalciferol (vitamin D3) [Vitamin D3] 1,000 UNIT capsule 2,000 unit PO DAILY Timolol Maleate [Timoptic-Xe 0.25%] 1 DROP Arlyn.Gel 1 drp Each Eye DAILY Healthy Eyes 1,000 unit-200 mg-60 unit-2 mg tablet 1 cap PO BID aspirin 81 mg Tablet,Chewable 81 mg PO DAILY atorvastatin 20 mg tablet 20 mg PO DAILY amlodipine 5 mg tablet 5 mg PO DAILY lisinopril 10 mg tablet 10 mg PO DAILY memantine 21 mg capsule,sprinkle,ER 24hr 21 mg PO DAILY Eye Multivitamin 2,148 mcg-113 mg-45 mg-17.4mg tablet 1 tab PO DAILY Rx Instructions: administer with AM and PM meals Centrum Women 18-400 mg-mcg tablet 1 tab PO DAILY [place] MonoPure EPA EC 910-1,300 mg capsule,delayed release(DR/EC) 1 cap PO DAILY coenzyme Q10 [Co Q-10] 200 mg capsule 200 mg PO DAILY sennosides-docusate sodium [Stool Softener-Stimulant Laxat] 8.6-50 mg Tablet 2 tab PO BID Qty: 0 0RF potassium chloride 20 mEq tablet extended release 20 meq PO DAILY PRN (Reason: low potassium) quetiapine 150 mg tablet 150 mg PO QHS PRN PRN (Reason: agitation) furosemide 20 mg tablet 20 mg PO DAILY Referrals / Follow Up: Zofia Horton DO [Primary Care Provider] -
--- NOTE | 2025-06-12 11:06 | DS.PCM_ITS ---
Providers Date of Admission: 06/04/25 Date of Discharge: 06/12/25 Primary Care Physician: Dr. Zofia Horton DO Reason For Visit: ADULT FAILURE TO THRIVE Diagnosis Discharge Diagnosis (1) History of multiple sclerosis: Status: Acute Code(s): G35 - Multiple sclerosis (2) Left hand pain: Status: Acute Code(s): M79.642 - Pain in left hand (3) Weakness: Status: Acute Code(s): R53.1 - Weakness (4) Multiple falls: Status: Acute Code(s): R29.6 - Repeated falls (5) Adult failure to thrive: Status: Acute Code(s): R62.7 - Adult failure to thrive Medications at Discharge Home Medications Timolol Maleate [Timoptic-Xe 0.25%] 1 drp DAILY glaucoma 07/14/17 acetaminophen 650 mg tablet,extended release (Tylenol Arthritis Pain) 650 mg PO BID pain 07/14/17 atenolol 25 mg tablet 25 mg PO BID HTN 07/14/17 cholecalciferol (vitamin D3) 25 mcg (1,000 unit) capsule (Vitamin D3) 2,000 unit PO DAILY supplement 07/14/17 duloxetine 60 mg capsule,delayed release 60 mg PO DAILY depression 07/14/17 folic acid 1 mg tablet 1 mg PO DAILY@0800 supplement 07/14/17 magnesium oxide 400 mg (241.3 mg magnesium) tablet 400 mg PO BID supplement 07/14/17 vit A 300 mcg-C 200 mg-E 27 mg-lutein 2 mg and minerals tablet (Healthy Eyes) 1 cap PO BID Supplement 09/02/21 aspirin 81 mg chewable tablet 81 mg PO DAILY 03/11/23 amlodipine 5 mg tablet 5 mg PO DAILY 11/10/24 atorvastatin 20 mg tablet 20 mg PO DAILY 11/10/24 coenzyme Q10 200 mg capsule (Co Q-10) 200 mg PO DAILY 11/10/24 lisinopril 10 mg tablet 10 mg PO DAILY 11/10/24 memantine 21 mg capsule sprinkle,extended release 24hr 21 mg PO DAILY 11/10/24 multivitamin-ferrous fumarate-folic acid 18 mg-400 mcg tablet (Centrum Women) 1 tab PO DAILY blood clotting disorder 11/10/24 omega-3-epa 910 mg-fish oil 1,300 mg capsule,delayed release ([place] MonoPure EPA EC) 1 cap PO DAILY supplement 11/10/24 vitamins A,C,Y-lbfk-tzuyov 2,148 mcg-113 mg-45 mg-17.4 mg tablet (Eye Multivitamin) 1 tab PO DAILY 11/10/24 sennosides 8.6 mg-docusate sodium 50 mg tablet (Stool Softener-Stimulant Laxative) 2 tab PO BID #0 tabs 11/13/24 furosemide 20 mg tablet 20 mg PO DAILY 06/04/25 potassium chloride 20 mEq tablet,extended release 20 meq PO DAILY PRN low potassium 06/04/25 quetiapine 150 mg tablet 150 mg PO QHS PRN PRN agitation 06/04/25 Hospital Course Operations None Procedures EKG and - (Right wrist x-ray, venous duplex, CT brain, chest x-rays, left hand x-ray of the left) Summary of Care Provided Minutes Spent on Discharge: 30 Hospital Course: Mrs. Stallworth is an 85-year-old white female who presents emergency department on 06/04/2025 with failure to thrive at home. She has a history of vascular dementia and had been living at home with her . Her daughter lives close by and is very involved in her care. She presented with worsening weakness and had recently had multiple falls in the week prior to presentation. She has been actively involved in hospice but had only been receiving assistance 3 times a week and the family felt that she needed placement upon presentation. In addition to her history of vascular ventured she also has a history of multiple sclerosis. Vital signs on presentation showed temperature of 98.6, pulse was 73, respiratory 18, blood pressure 148/81 and pulse ox was 94% on room air. CBC was remarkable for a very mild white count of 12,000 with no left shift and was otherwise unremarkable. Chemistry panel was overtly unremarkable. UA was not consistent with infection. She complained of some wrist pain and an x-ray was performed and was negative for any acute findings. Lower extremity duplex noted no DVT but showed a right Ramos's cyst. CT of the brain was unremarkable for any acute findings but showed chronic involutional changes. Chest x-ray is unremarkable. COVID/flu/RSV was negative. She was placed on hospital observation status for placement purposes as she had no real need for further workup and was medically ready for discharge on 06/05/2025. Given her history of MS she required a [facility] evaluation and this was completed and she was approved for discharge on 06/12/2025. Labs were monitored periodically and were stable as they were noted be on admission. She had no acute problems while hospitalized. No medication changes were made. She was able to be discharged to the nursing facility in stable condition on 06/12/2025. Discharge diagnoses: Adult failure to thrive Progressing vascular dementia History of multiple sclerosis Right hand pain-resolved CAD Essential hypertension Hyperlipidemia Vitamin D deficiency Anxiety/depression Glaucoma Obesity Physical Exam Const alert, no apparent distress, healthy appearing and well nourished; Negative for average body habitus Constitutional Narrative: Obese, elderly, white female, sitting up in chair at the bedside eating breakfast and watching television, remains oriented only to self which is her baseline , pleasantly confused General Appearance: cooperative, comfortable, well kempt and well developed HEENT normocephalic, head/scalp atraumatic, hearing grossly normal bilaterally and moist oral mucous membranes HEENT Narrative: Mallampati 3, no thrush Resp normal respiratory effort, normal air movement, no retractions, no use of accessory muscles and clear to auscultation bilaterally Auscultation: Negative for rales, rhonchi or wheezes Cardio regular rate, regular rhythm, S1 normal heart sound, S2 normal heart sound, no murmurs, no rub, no gallops and no clicks GI normal to inspection, nondistended, normoactive bowel sounds, soft to palpation and non-tender Extremity no pedal edema Extremity Narrative: Trace bilateral lower extremity edema, no cyanosis or clubbing Neuro moves all extremities and no focal motor deficits Speech: speech normal Psych affect normal Psych Narrative: Very pleasantly confused, interacts appropriately Weight / BMI Weight Weight: 89.811 kg Body Mass Index (BMI) 34.0 ABG / Lab / Microbiology Data 06/10/25 07:40 06/10/25 07:40 Microbiology: Microbiology 06/04/25 16:30 Mucosa - Nose SARS-CoV-2, Influenza & RSV (PCR) - Final D/C Instructions DC O2, CPAP, BIPAP Needs Home O2 Discharge instructions: No Meaningful Use Info Meaningful Use Meaningful Use Diagnoses (Choose all that apply): None applicable Discharge Plan Admission Admit Date/Time: 06/04/25 19:22 Primary Reason for Your Visit: Failure to thrive Attending Provider: Leena Metz Primary Care Provider: Zofia Horton Consulting Providers: Nate Bentley; Sukhwinder Cruz Discharge Orders/Prescriptions Prescriptions: Continued atenolol 25 MG tablet 25 mg PO BID Patient Comments: folic acid 1 MG tablet 1 mg PO DAILY@0800 duloxetine 60 MG capsule,delayed release(DR/EC) 60 mg PO DAILY acetaminophen [Tylenol Arthritis Pain] 650 MG tablet extended release 650 mg PO BID magnesium oxide 400 MG tablet 400 mg PO BID cholecalciferol (vitamin D3) [Vitamin D3] 1,000 UNIT capsule 2,000 unit PO DAILY Timolol Maleate [Timoptic-Xe 0.25%] 1 DROP Arlyn.Gel 1 drp Each Eye DAILY Healthy Eyes 1,000 unit-200 mg-60 unit-2 mg tablet 1 cap PO BID aspirin 81 mg Tablet,Chewable 81 mg PO DAILY atorvastatin 20 mg tablet 20 mg PO DAILY amlodipine 5 mg tablet 5 mg PO DAILY lisinopril 10 mg tablet 10 mg PO DAILY memantine 21 mg capsule,sprinkle,ER 24hr 21 mg PO DAILY Eye Multivitamin 2,148 mcg-113 mg-45 mg-17.4mg tablet 1 tab PO DAILY Rx Instructions: administer with AM and PM meals Centrum Women 18-400 mg-mcg tablet 1 tab PO DAILY [place] MonoPure EPA EC 910-1,300 mg capsule,delayed release(DR/EC) 1 cap PO DAILY coenzyme Q10 [Co Q-10] 200 mg capsule 200 mg PO DAILY sennosides-docusate sodium [Stool Softener-Stimulant Laxat] 8.6-50 mg Tablet 2 tab PO BID Qty: 0 0RF potassium chloride 20 mEq tablet extended release 20 meq PO DAILY PRN (Reason: low potassium) quetiapine 150 mg tablet 150 mg PO QHS PRN PRN (Reason: agitation) furosemide 20 mg tablet 20 mg PO DAILY Referrals / Follow Up: Zofia Horton DO [Primary Care Provider] - Within 2 Weeks Disposition Disposition (needs filled in before D/C Order can be placed): Jail Facility Charges/Coding Visit Charges Inpatient E&M: 65710 SNF Disch
--- NOTE | 2025-06-12 12:38 | PHA.DC.MR.R ---
Pharmacy [place] Med Reconciliation Pharmacy Service has performed discharge medication reconciliation for this patient. The patient's discharge medication list was reviewed for discrepancies and discrepancies were resolved. Medications at Discharge Home Medications Timolol Maleate [Timoptic-Xe 0.25%] 1 drp DAILY glaucoma 07/14/17 acetaminophen 650 mg tablet,extended release (Tylenol Arthritis Pain) 650 mg PO BID pain 07/14/17 atenolol 25 mg tablet 25 mg PO BID HTN 07/14/17 cholecalciferol (vitamin D3) 25 mcg (1,000 unit) capsule (Vitamin D3) 2,000 unit PO DAILY supplement 07/14/17 duloxetine 60 mg capsule,delayed release 60 mg PO DAILY depression 07/14/17 folic acid 1 mg tablet 1 mg PO DAILY@0800 supplement 07/14/17 magnesium oxide 400 mg (241.3 mg magnesium) tablet 400 mg PO BID supplement 07/14/17 vit A 300 mcg-C 200 mg-E 27 mg-lutein 2 mg and minerals tablet (Healthy Eyes) 1 cap PO BID Supplement 09/02/21 aspirin 81 mg chewable tablet 81 mg PO DAILY 03/11/23 amlodipine 5 mg tablet 5 mg PO DAILY 11/10/24 atorvastatin 20 mg tablet 20 mg PO DAILY 11/10/24 coenzyme Q10 200 mg capsule (Co Q-10) 200 mg PO DAILY 11/10/24 lisinopril 10 mg tablet 10 mg PO DAILY 11/10/24 memantine 21 mg capsule sprinkle,extended release 24hr 21 mg PO DAILY 11/10/24 multivitamin-ferrous fumarate-folic acid 18 mg-400 mcg tablet (Centrum Women) 1 tab PO DAILY blood clotting disorder 11/10/24 omega-3-epa 910 mg-fish oil 1,300 mg capsule,delayed release ([place] MonoPure EPA EC) 1 cap PO DAILY supplement 11/10/24 vitamins A,C,R-askg-tlepch 2,148 mcg-113 mg-45 mg-17.4 mg tablet (Eye Multivitamin) 1 tab PO DAILY 11/10/24 sennosides 8.6 mg-docusate sodium 50 mg tablet (Stool Softener-Stimulant Laxative) 2 tab PO BID #0 tabs 11/13/24 furosemide 20 mg tablet 20 mg PO DAILY 06/04/25 potassium chloride 20 mEq tablet,extended release 20 meq PO DAILY PRN low potassium 06/04/25 quetiapine 150 mg tablet 150 mg PO QHS PRN PRN agitation 06/04/25
--- NOTE | 2025-06-12 13:06 | CASEMGMT ---
Social Work Pt is ready for discharge to [facility] today. Discharge orders and med list sent to [facility] via [facility]. JUSTYN called pt's dgt and notified that pt is ready for sisal picker. Mary states her father is with pt in the room and will be providing transportation. JUSTYN met with pt and spouse and informed that all things are ready for dc to [facility] today. Pt and are agreeable. Nurse updated and to assist with getting pt to 's car. Disposition: [facility], private pay. CAROLYNN Wodo
[2025-06-12 14:06] VITALS: BP 126/52; PULSE 78; RESP 18; TEMP 37.1; O2SAT 98
== END 2025-06-12 14:38 | disposition skilled nursing facility (03) ==
LOC: ED 19:38 → MS3 19:52
PROVIDERS: Internal Medicine; Admitting Provider Hospitalist; Emergency Provider Emergency Medicine; PCP Internal Medicine; Visit Provider Internal Medicine
DX: R53.1 Weakness (principal); G35 Multiple sclerosis; M06.9 Rheumatoid arthritis, unspecified; F01.50 Vascular dementia, unspecified severity, without behavioral disturbance, psychotic disturbance, mood disturbance, and anxiety; R62.7 Adult failure to thrive; I25.10 Atherosclerotic heart disease of native coronary artery without angina pectoris; S63.92XA Sprain of unspecified part of left wrist and hand, initial encounter; Z79.899 Other long term (current) drug therapy; F41.9 Anxiety disorder, unspecified; Z86.718 Personal history of other venous thrombosis and embolism; E66.811 Obesity, class 1; Z68.34 Body mass index [BMI] 34.0-34.9, adult; M71.21 Synovial cyst of popliteal space [Baker], right knee; I10 Essential (primary) hypertension; E55.9 Vitamin D deficiency, unspecified; E78.5 Hyperlipidemia, unspecified; H40.9 Unspecified glaucoma; Z91.81 History of falling; Z87.440 Personal history of urinary (tract) infections; E72.12 Methylenetetrahydrofolate reductase deficiency; H35.30 Unspecified macular degeneration; E78.2 Mixed hyperlipidemia; J45.909 Unspecified asthma, uncomplicated; Z79.82 Long term (current) use of aspirin; F32.A Depression, unspecified; X58.XXXA Exposure to other specified factors, initial encounter; R29.6 Repeated falls; R82.71 Bacteriuria
CPT/HCPCS: 36415; 70450; 71045; 73110; 73130; 80048; 80053; 81001; 84550; 85025; 85027; 87631; 93005; 93971; 94668; 96372; 97116; 97162; 97166; 97530; 97535; 99221; 99285; P9612; A4216; G0378